=== PATIENT | male | born 1950 | race Caucasian/White ===

== ENCOUNTER 2018-02-20 21:29 | Emergency (ER) | payer OTHER ==
[2018-02-20 22:04] LABS: Absolute Lymphocytes (CBC) 2.7 K/uL (0.7-4.9); Absolute Monocytes 0.7 K/uL (0.1-1.3); Absolute Neutrophil 4.9 K/uL (1.8-8.0); Basophils % 0.8 % (0-1.3); Eosinophils % 1.4 % (0-4.4); Hematocrit 45.9 % (39.6-49.0); MCH 28.7 pg (27.0-35.0); MCV 88.4 fL (80-100); MPV 8.3 fL (7.6-11.3); Monocytes % 8.1 % (3.3-12.3); RBC Red Blood Cell Count 5.19 M/uL (4.33-5.43)
[2018-02-20] MEDS ORDERED: TAMSULOSIN 0.4 MG SR CAP ONE (22:08)
[2018-02-20] MEDS ORDERED: NA CHLORIDE 0.9% 500 ML ONE (22:08)
[2018-02-20] MEDS ORDERED: ONDANSETRON 4 MG/2 ML VIAL ONE (22:08)
[2018-02-20] MEDS ORDERED: MAGNESIUM SULFATE 1 gm IVPB 1 GM/100 ML BAG IV ONE (22:08)
[2018-02-20] MEDS ORDERED: MORPHINE 4 MG/ML SYR ONE ×2 (22:08→23:53)
[2018-02-20 22:11] LABS: Potassium 4.3 mEq/L (3.6-5.0)
[2018-02-20 22:17] LABS: Albumin 4.3 g/dL (3.2-5.5); Bilirubin Direct 0.2 mg/dL (0-0.2); Bilirubin Total 1.1 mg/dL (0.3-1.2); Protein, Total 7.4 g/dL (6.0-8.3)
[2018-02-20 23:44] LABS: Urine Blood 2+ (NEG); Urine Glucose NEGATIVE (NEG); Urine Protein NEGATIVE (NEG); Urine Specific Gravity >1.030 (1.005-1.030); Urine pH 5.5 (5.0-7.0)
[2018-02-20 23:46] LABS: Urine Bacteria <20 /HPF (NONE SEEN); Urine Culture Reflex Order NOT NEEDED; Urine Mucus MOD /HPF (NONE SEEN)
[2018-02-20] MEDS ORDERED: KETOROLAC 30 MG/ML INJ ONE (23:53)
--- NOTE | 2018-02-21 00:35 | ER ---
Nurse's Notes [facility] Name: Casa Lai Age: 67 yrs Sex: Male : 1950 Arrival Date: 02/20/2018 Time: 21:31 Bed 15 Private MD: Niko Cowart Diagnosis: Ureterolithiasis Presentation: 02/20 21:45 Presenting complaint: Patient states: "About 30 minutes ago I started having pain in my bs1 right lower back/flank.". Transition of care: patient was not received from another setting of care. Onset of symptoms was February 20, 2018 at 21:15. Care prior to arrival: None. 21:45 Method Of Arrival: Ambulatory bs1 21:45 Acuity: JANNA 3 bs1 Historical: - Allergies: 22:19 Phenergan; bs1 - Home Meds: 22:19 Crestor oral oral [Active]; Altace Oral [Active]; Doxycycline Oral [Active]; bs1 - PMHx: 22:19 Kidney stones; htn; High Cholesterol; bs1 - PSHx: 22:19 perirectal abscess; bs1 - Immunization history:: Adult Immunizations up to date. - Social history:: Smoking status: Patient/guardian denies using tobacco. - Family history:: not pertinent. - Hospitalizations: : No recent hospitalization is reported. Screenin:20 Abuse screen: Denies threats or abuse. Denies injuries from another. Nutritional bs1 screening: No deficits noted. Tuberculosis screening: No symptoms or risk factors identified. Fall Risk None identified. Assessment: 21:45 General: Appears uncomfortable, Behavior is cooperative, anxious. Pain: Complains of bs1 pain in right flank Pain does not radiate. Pain at worst was 10 out of 10 on a pain scale. Quality of pain is described as stabbing, Pain began 30 min ago. Neuro: Level of Consciousness is awake, alert, obeys commands, Oriented to person, place, time, situation, Appropriate for age Social Media Campaign Manager are equal bilaterally Moves all extremities. Gait is steady. Cardiovascular: Denies chest pain, palpitations, shortness of breath, Heart tones S1 S2 present Capillary refill < 3 seconds Patient's skin is warm and dry. Respiratory: Airway is patent Trachea midline Respiratory effort is even, unlabored, Respiratory pattern is regular, symmetrical, Breath sounds are clear bilaterally. GI: Abdomen is round Bowel sounds present X 4 quads. Abdomen is tender to palpation in right lower Reports nausea. : No deficits noted. No signs and/or symptoms were reported regarding the genitourinary system. Reports pain in right flank(s), Denies burning with urination, pain with urination. EENT: No deficits noted. No signs and/or symptoms were reported regarding the EENT system. Derm: No deficits noted. No signs and/or symptoms reported regarding the dermatologic system. Musculoskeletal: No deficits noted. No signs and/or symptoms reported regarding the musculoskeletal system. 22:45 Reassessment: No changes from previously documented assessment. Patient and/or family bs1 updated on plan of care and expected duration. Pain level reassessed. Patient is alert, oriented x 3, equal unlabored respirations, skin warm/dry/pink. 23:45 Reassessment: Patient appears in no apparent distress at this time. Patient and/or bs1 family updated on plan of care and expected duration. Pain level reassessed. Patient is alert, oriented x 3, equal unlabored respirations, skin warm/dry/pink. Patient states feeling better. 02/21 00:45 Reassessment: Patient appears in no apparent distress at this time. Patient and/or bs1 family updated on plan of care and expected duration. Pain level reassessed. Patient is alert, oriented x 3, equal unlabored respirations, skin warm/dry/pink. Patient states feeling better. Vital Signs: 02/20 21:58 BP 173 / 93; Pulse 69; Resp 16; Temp 97.6(O); Pulse Ox 97% on R/A; mt 22:34 BP 138 / 83; Pulse 74; Resp 16; Pulse Ox 99% on R/A; mt 02/21 00:02 BP 143 / 80; Pulse 63; Resp 16; Pulse Ox 100% on R/A; mt 00:45 BP 129 / 78; Pulse 82; Resp 16; Pulse Ox 100% on R/A; bs1 ED Course: 02/20 21:31 Patient arrived in ED. es 21:32 Niko Cowart MD is Private Physician. es 21:35 Sunday Pena MD is Attending Physician. rn 21:45 Inserted saline lock: 20 gauge in right antecubital area, using aseptic technique. lp1 Blood collected. 21:46 Donna Parra RN is Primary Nurse. bs1 22:05 CT Stone Protocol In Process Unspecified. EDMS 22:09 CT completed. Patient tolerated procedure well. Patient moved to CT via wheelchair. nj Patient moved back from [place]. 22:16 Triage completed. bs1 22:20 Patient has correct armband on for positive identification. Placed in gown. Bed in low bs1 position. Call light in reach. Side rails up X 1. Pulse ox on. NIBP on. 22:20 Patient placed. bs1 22:30 No provider procedures requiring assistance completed. bs1 02/21 00:53 IV discontinued, bleeding controlled, No redness/swelling at site. Pressure dressing bs1 applied. Administered Medications: 02/20 22:00 Drug: morphine 4 mg Route: IVP; Site: right antecubital; bs1 02/21 00:51 Follow up: Response: No adverse reaction [facility] 02/20 22:00 Drug: Zofran 4 mg Route: IVP; Site: right antecubital; bs1 02/21 00:51 Follow up: Response: No adverse reaction [facility] 02/20 22:00 Drug: NS 0.9% 500 ml Route: IV; Rate: bolus; Site: right antecubital; bs1 02/21 00:56 Follow up: IV Status: Completed infusion [facility] 02/20 22:00 Drug: Flomax 0.4 mg Route: PO; bs1 02/21 00:51 Follow up: Response: No adverse reaction [facility] 02/20 22:00 Drug: Magnesium Sulfate 1 grams Route: IVPB; Infused Over: 1 hrs; Site: right 1 antecubital; 02/21 00:55 Follow up: IV Status: Completed infusion [facility] 02/20 23:40 Drug: morphine 4 mg Route: IVP; Site: right antecubital; bs1 02/21 00:50 Follow up: Response: No adverse reaction [facility] 02/20 23:40 Drug: TORadol 30 mg Route: IVP; Site: right antecubital; bs1 02/21 00:50 Follow up: Response: No adverse reaction bs Outcome: 00:34 Discharge ordered by MD. avilez 00:52 Discharged to home ambulatory, with significant other. bs1 00:52 Condition: stable 00:52 Discharge instructions given to patient, Instructed on discharge instructions, follow up and referral plans. medication usage, Demonstrated understanding of instructions, follow-up care, medications, Prescriptions given X 3. 00:54 Patient left the ED. bs1 Signatures: Dispatcher [employer] Melissa Card Roman, MD MD rn Rishi, Jessika RN RN lp1 Charlie Mari Moriah mt Salazar, Brittany RN RN bs1
--- NOTE | 2018-02-21 00:35 | EDPHYS ---
Physician Documentation [facility] Name: Casa Lai Age: 67 yrs Sex: Male : 1950 Arrival Date: 02/20/2018 Time: 21:31 Bed 15 Private MD: Niko Cowart ED Physician Sunday Pena HPI: 02/20 22:00 This 67 yrs old Male presents to ER via Unassigned with complaints of rn Possible Kidney Stone. 22:00 The patient complains of pain in the right mid back. Onset: The symptoms/episode rn began/occurred just prior to arrival. Severity of pain: At its worst the pain was moderate in the emergency department the pain has resolved. The patient has experienced similar episodes in the past. The patient has not recently seen a physician. Denies trauma, + right flank pain, radiates to right lower abd, similar to previous stones, never needed intervention for stones.. Historical: - Allergies: 22:19 Phenergan; bs1 - Home Meds: 22:19 Crestor oral oral [Active]; Altace Oral [Active]; Doxycycline Oral [Active]; bs1 - PMHx: 22:19 Kidney stones; htn; High Cholesterol; bs1 - PSHx: 22:19 perirectal abscess; bs1 - Immunization history:: Adult Immunizations up to date. - Social history:: Smoking status: Patient/guardian denies using tobacco. - Family history:: not pertinent. - Hospitalizations: : No recent hospitalization is reported. ROS: 22:00 Constitutional: Negative for fever, chills, and weight loss, Eyes: Negative for injury, rn pain, redness, and discharge, Neck: Negative for injury, pain, and swelling, Cardiovascular: Negative for chest pain, palpitations, and edema, Respiratory: Negative for shortness of breath, cough, wheezing, and pleuritic chest pain, Abdomen/GI: Negative for vomiting, diarrhea, and constipation, Back: Negative for injury MS/Extremity: Negative for injury and deformity, Skin: Negative for injury, rash, and discoloration, Neuro: Negative for headache, weakness, numbness, tingling, and seizure. Exam: 22:00 Constitutional: This is a well developed, well nourished patient who is awake, alert, rn appears uncomfortable Head/Face: Normocephalic, atraumatic. Eyes: Pupils equal round and reactive to light, extra-ocular motions intact. Lids and lashes normal. Conjunctiva and sclera are non-icteric and not injected. Cornea within normal limits. Periorbital areas with no swelling, redness, or edema. Abdomen/GI: Soft, non-tender, with normal bowel sounds. No distension or tympany. No guarding or rebound. No evidence of tenderness throughout. Back: No spinal tenderness. No costovertebral tenderness. Full range of motion. MS/ Extremity: Pulses equal, no cyanosis. Neurovascular intact. Full, normal range of motion. Equal circumference. Neuro: Awake and alert, GCS 15, oriented to person, place, time, and situation. Cranial nerves II-XII grossly intact. Motor strength 5/5 in all extremities. Sensory grossly intact. Cerebellar exam normal. Normal gait. Vital Signs: 21:58 BP 173 / 93; Pulse 69; Resp 16; Temp 97.6(O); Pulse Ox 97% on R/A; mt 22:34 BP 138 / 83; Pulse 74; Resp 16; Pulse Ox 99% on R/A; mt 02/21 00:02 BP 143 / 80; Pulse 63; Resp 16; Pulse Ox 100% on R/A; mt 00:45 BP 129 / 78; Pulse 82; Resp 16; Pulse Ox 100% on R/A; bs1 MDM: 02/20 21:35 Patient medically screened. rn 02/21 00:34 Differential diagnosis: nephrolithiasis, UTI. Data reviewed: vital signs, nurses notes, pattern changer test result(s), radiologic studies, CT scan, and as a result, I will discharge patient. Counseling: I had a detailed discussion with the patient and/or guardian regarding: the historical points, exam findings, and any diagnostic results supporting the discharge/admit diagnosis, lab results, radiology results, the need for outpatient follow up, to return to the emergency department if symptoms worsen or persist or if there are any questions or concerns that arise at home. Response to treatment: the patient's symptoms have markedly improved after treatment, and as a result, I will discharge patient. Special discussion: I discussed with the patient/guardian in detail that at this point there is no indication for admission to the hospital. It is understood, however, that if the symptoms persist or worsen the patient needs to return immediately for re-evaluation. 02/20 21:42 Order name: Basic Metabolic Panel rn 02/20 21:42 Order name: CBC with Diff rn 02/20 21:42 Order name: Hepatic Function rn 02/20 21:42 Order name: Lipase rn 02/20 21:42 Order name: Urine Microscopic Only rn 02/20 21:42 Order name: CT Stone Protocol rn 02/20 23:16 Order name: Urine Dipstick--Ancillary (enter results) em1 02/20 21:42 Order name: IV Saline Lock; Complete Time: 22:00 rn 02/20 21:42 Order name: Labs collected and sent; Complete Time: 22:00 rn 02/20 21:42 Order name: Urine Dipstick-Ancillary (obtain specimen); Complete Time: 23:13 rn Administered Medications: 02/20 22:00 Drug: morphine 4 mg Route: IVP; Site: right antecubital; [facility] 02/21 00:51 Follow up: Response: No adverse reaction [facility] 02/20 22:00 Drug: Zofran 4 mg Route: IVP; Site: right antecubital; [facility] 02/21 00:51 Follow up: Response: No adverse reaction [facility] 02/20 22:00 Drug: NS 0.9% 500 ml Route: IV; Rate: bolus; Site: right antecubital; [facility] 02/21 00:56 Follow up: IV Status: Completed infusion [facility] 02/20 22:00 Drug: Flomax 0.4 mg Route: PO; [facility] 02/21 00:51 Follow up: Response: No adverse reaction [facility] 02/20 22:00 Drug: Magnesium Sulfate 1 grams Route: IVPB; Infused Over: 1 hrs; Site: right bs1 antecubital; 02/21 00:55 Follow up: IV Status: Completed infusion [facility] 02/20 23:40 Drug: morphine 4 mg Route: IVP; Site: right antecubital; [facility] 02/21 00:50 Follow up: Response: No adverse reaction [facility] 02/20 23:40 Drug: TORadol 30 mg Route: IVP; Site: right antecubital; [facility] 02/21 00:50 Follow up: Response: No adverse reaction [facility] Disposition: 02/21/18 00:34 Discharged to Home. Impression: Ureterolithiasis. - Condition is Stable. - Discharge Instructions: Kidney Stones. - Prescriptions for Zofran ODT 4 mg Oral tablet,disintegrating - place 1 tablet by TRANSLINGUAL route every 8-10 hours As needed; 20 tablet. Tylenol- Codeine #3 300-30 mg Oral Tablet - take 2 tablets by ORAL route every 6 hours As needed; 20 tablet. Flomax 0.4 mg Oral Capsule, Sust. Release 24 hr - take 1 capsule by ORAL route once daily 1/2 hour following the same meal each day; 5 capsule. - Medication Reconciliation Form, Thank You Letter, Antibiotic Education, Prescription Opioid Use form. - Follow up: Private Physician; When: As needed; Reason: Recheck today's complaints, Re-evaluation by your physician. - Problem is new. - Symptoms have improved. Signatures: Dispatcher [employer] Sunday Caal MD MD rn Donna Parra RN RN bs1 Corrections: (The following items were deleted from the chart) 02/20 21:57 21:42 Creatinine for Radiology+C.LAB.BRZ ordered. EDNC EDMS
--- NOTE | 2018-02-21 08:05 | RAD REPORT ---
EXAM DESCRIPTION: CT - Stone Protocol - 02/20/2018 10:05 pm CLINICAL HISTORY: Flank pain. COMPARISON: None. TECHNIQUE: Axial images were obtained without oral or IV contrast. Lack of contrast limits solid org an and vascular assessment. The [id number] spans the entirety of the system partially obscuring uppermost abdomen and lung bases. Coronal reformatted images were obtained and reviewed. All CT scans are performed using dose optimization technique as appropriate and may include automated exposure control or mA/KV adjustment according to patient size. FINDINGS: The lower lung walker are clear. Imaged portions of the liver and spleen show no suspicious findings on non-contrast imaging. The panc reas and adrenal glands are normal. No pathologic lymphadenopathy in the abdomen or pelvis. Small 2 mm calculus at the right UVJ is present causing mild right hydronephrosis. Several low-densit y rounded lesions in both kidneys most compatible with benign cysts. No bowel obstruction, free air, free fluid or abscess. Normal appendix noted. Advanced lumbosacral degenerative changes. IMPRESSION: 2 mm stone is present at the right UVJ resulting in mild right hydronephrosis.
== END 2018-02-21 00:54 | disposition home or self-care (01) ==
LOC: ER 21:29
DX: N20.1 Calculus of ureter (principal); I10 Essential (primary) hypertension; E78.00 Pure hypercholesterolemia, unspecified; Z88.8 Allergy status to other drugs, medicaments and biological substances
CPT/HCPCS: 36415; 74176; 76377; 80048; 80076; 81003; 81015; 83690; 85025; 96365; 96366; 96375; 99284; J2405; J3475

== ENCOUNTER 2023-07-15 09:26 | Emergency (ER) | payer OTHER ==
--- OUTSIDE RECORDS SUMMARY | 2023-07-15 09:29 | XMS REPORT | Clinical Summary ---
:1950 Author Organization [facility] MD [facility] Address [address] [place] [address] Care Team Providers Name Role Phone Niko Cowart MD Unavailable Kaia Murphy MD Primary Care Provider Allergies Active Allergy Reactions Severity Noted Date Comments Peanut 05/09/2019 vomiting Promethazine Other (See Comments) 05/09/2019 vomitin g Medications Medication Sig Dispensed Refills Start Date End Date Status doxycycline TAKE 1 CAPSULE BY 1 04/14/2019 Active (VIBRAMYCIN) 50 MG MOUTH EVERY DAY capsule clotrimazole-betametha TOPICAL APPLY TO 2 04/18/2019 Active sone (LOTRISONE) AFFECTED AREA 1%-0.05% cream TWICE DAILY NEEDED. rosuvastatin (CRESTOR) 0 05/06/2019 Active 10 mg tablet zolpidem (AMBIEN CR) TAKE 1 TABLET BY 2 04/14/2019 Active 12.5 mg CR tablet MOUTH EVERY DAY AT BEDTIME NEEDED ramipril (ALTACE) 10 0 05/06/2019 Active MG capsule mupirocin (BACTROBAN) Apply to nose as 22 g 2 05/09/2019 Active 2% directed BID x 14 ointmentIndications: days. Folliculitis Additional Information Patient not taking. Reported on 06/19/2022 clindamycin (CLEOCIN T) 1% Apply to scalp as 60 mL 6 05/09 Active lotionIndications: Folliculitis directed once daily. Additional Information Patient not taking. Reported on 06/19/2022 erythromycin with ethanol Apply up to twice daily 60 mL 6 05/09/2019 Active (THERAMYCIN) 2 % topical for scalp folliculitis solutionIndications: Folliculitis Additional Information Patient not taking. Reported on 06/19/2022 temazepam (RESTORIL) 30 mg TAKE 1 CAPSULE BY MOUTH 0 05/06/2020 Active capsule EVERYDAY AT BEDTIME zolpidem (AMBIEN) 10 mg tablet Take 10 mg by mouth. 0 Active omega-3s/dha/epa/fish oil/D3 Take by mouth. 0 Active (DE3 DRY EYE OMEGA BENEFITS ORAL) mupirocin (BACTROBAN) 2% Apply topically to affected 22 g 0 06/25/2023 Active ointmentIndications: Infection area(s) twice daily. of skin Active Problems Not on file Encounters Date Type Specialty Care Team Description 06/25/2023 Telephone Dermatology Charlene Mcgrath MD 06/20/2023 Follow-Up Dermatology Blaine Julian MD Other rosace a (Primary Dx); History of alesha gnant basal cell neoplasm of skin; Neoplasm of unc ertain behavior of skin; Melanocytic nev us of trunk; Melanocytic nev us of right upper limb including shoulder; Folliculitis 06/20/2023 Travel 12/20/2022 Follow-Up Dermatology Blaine Julian MD Melanocytic nevus of trunk (Primary Dx); History of alesha gnant basal cell neoplasm of skin; Other rosacea; Melanocytic nev us of right upper limb including shoulder; Inflamed seborr heic keratosis; Folliculitis 12/20/2022 Travel after 07/15/2022 Surgical History Surgery Date Site/Laterality Comments COLONOSCOPY 11/26/2008 - 11/25/2009 Medical History Medical History Date Comments Hypertension 2010 Hyperlipidemia 2005 Hearing loss 2013 Functional visual loss 2000 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 shoe dust; asb estos gaskets as a engraver letter/boil ermake Dependence on continuous positive airway 1995 pressure ventilation Renal stone 1999 Squamous cell carcinoma in situ of skin 2019 Basal cell carcinoma of skin 2019 Social History Tobacco Use Types Packs/Day Years Used Date Smoking Tobacco: Never Smokeless Tobacco: Never Alcohol Use Standard Drinks/Week Comments Never 0 (1 standard drink = 0.6 oz pure alcoho l) Sex Assigned at Date Recorded Male 04/26/2019 4:22 PM CDT Job Start Date Occupation Industry Not on file Not on file Not on file Obstetrics History Last Filed Vital Signs Vital Sign Reading Time Taken Comments Blood Pressure 154/72 06/20/2023 2:12 PM CDT Pulse 77 06/20/2023 2:12 PM CDT Temperature 36.8 C (98.2 F) 06/20/2023 2:12 PM CDT Respiratory Rate 18 06/20/2023 2:12 PM CDT Oxygen Saturation 96% 06/20/2023 2:12 PM CDT Inhaled Oxygen Concentration - - Weight 88.5 kg (195 lb) 06/20/2023 2:12 PM CDT Height - - Body Mass Index 30.25 05/09/2019 9:37 AM CDT Plan of Treatment Date Type Specialty Care Team Description 12/19/2023 Follow-Up Dermatology Blaine Julian MD [address], [place] [address] (Wo rk) Health Maintenance Due Date Last Done Comments COVID-19 Vaccination (#1) 03/14/1951 Procedures Procedure Name Priority Date/Time Associated Comments Diagnosis PATHOLOGY BIOPSY Routine 06/20/2023 2:51 PM Neoplasm of Resul ts for this INTERPRETATION CDT uncertain behavior procedu re are in of skin the results History of section. malignant basal cell neoplasm of skin after 07/15/2022 Results Pathology Biopsy Interpretation (06/20/2023 2:51 PM CDT) Component Value Ref Test Analysis Performed Pathologis t Range Method Time At Signature Diagnosis A: Skin, left lateral anterior chest, shave: 06/22/2023 [facility] Electronically Hyperplastic actinic keratosis, lichenoid type, presen t at tissue edges. 6:01 PM signed by See comment. CDT Leo Garza MD on B: Skin, left sternal border, shave: 06/22/2023 at Seborrheic keratosis, inflamed, present at tissue edges. 6:01 PM Focal folliculitis. C: Skin, left jawline, shave: Actinic keratosis with adnexal extension, present at tissue edges Superficial aspect of underl quirino cystic squamous lesion in association with small clusters of gram-positive cocci, present at tissue edges. See comment. Comment A: Additional deeper tissue sections have been cut and examined. A periodic acid-Salazar stain fails to reveal unequivocal fungal organisms within viable tissue or basement membrane thickening. 023 [facility] 6:01 PM C: Sections reveal a shave b iopsy of skin to include superficial reticular dermis showing skin with background actinic changes and basilar keratinocytic atypia with adnexal extension. Within the dermis, CDT there is dermal vascular ec hussein and an irregular fragment of stratified squamous epithelium, in association with dense neutrophilic and lymphohistiocytic infiltrate, suggestive of superficial aspect o f an underlying cystic lesio n. Additional deeper tissue sections have been cut and examined. Gram stain highlights gram-p ositive cocci in clusters and short chains, while GMS and Marie failed to reveal unequivocal fungal or mycobacterial/acid-fast organisms respectively within viable tissue. In addition, GMS stain highligh ts rare small budding yeast forms, while Gram stain highlights several gram-positive cocci in anucleate keratinous material of the stratum corneum. Correlation with results o f microbiology cultures is necessary, if available. The presence of associated d ense inflammatory infiltrate raises the possibility of a ruptured folliculitis or follicular cyst. However, due to irregularity of the squamous epithelium, and underlying squ amous cell carcinoma cannot be completely excluded on histologic grounds alone. Close clinical follow-up is recommended and an additional biopsy may be considered should this lesion fail to respond to conservative therapy. Gross A: 06/22/2023 [facility] Description Skin, left lateral anterior chest, neoplasm uncertain behavior: A limon-white skin shave measuring 0.6 x 0.5 x 0.2 cm. The specimen is inked, bisected, entirely submitted in A1. 6:01 PM B: CDT Skin, left sternal border, i sk: A roughened, nodular limon-white skin shave measuring 1.4 x 1.0 x 0.2 cm. The specimen is inked, quadrisected, entirely submitted in B1. C: Skin, left jawline, neoplasm uncertain behavior: A limon-white skin shave measuring 0.5 x 0.4 x 0.1 cm. The specimen is inked, bisected, entirely submitted in C1. Survey Rodman(s) This case was studied and di scussed at the dermatopathology faculty conference. 06/22/2023 [facility] JLC, WCC 6:01 PM CDT Disclaimer "Some tests 06/22/2023 [facility] reported here may 6:01 PM have been developed CDT and performance characteristics determined by [facility]. These tests have not been specifically cleared or approved by the U.S. Food and Drug Administration. If applicable, controls were reviewed and showed appropriate reactivity." Specimen Anatomical Collection Method Collection Time Receive d Time (Source) Location / / Volume Laterality Tissue (Skin) 06/20/2023 2:51 PM 06/21/20 7:28 CDT AM CDT Comment: left lateral anterior chest, ne oplasm uncertain behavior Tissue (Skin) 06/20/2023 2:52 PM CDT 05/27 7:28 AM CDT Comment: left sternal border, ISK Tissue (Skin) 06/20/2023 2:52 PM CDT 05/27 7:28 AM CDT Comment: left jawline, neoplasm uncertai n behavior Blaine Julian MD LAB PATHOLOGY ORDERABLES Performing Organization Address City/State/ZIP Code Phon e Number [facility] [place] [address] [address] [place] after 07/15/2022 Insurance Payer Benefit Plan / Subscriber ID Effective Dates Phone Addre ss Type Group AETNA MEDICARE AETNA MEDICARE [id number] 2021-Presen [address] [place] [address] Care Teams Advertising Sales Agent Relationship Specialty Start Date End Date Niko Cowart MD PCP - External Referring Family Practice 04/09/[address] [place] [address] [id number] Kaia Murphy MD PCP - General Dermatology 04/24/[address] [place] [id number]
--- OUTSIDE RECORDS SUMMARY | 2023-07-15 09:32 | XMS REPORT | Continuity of Care Document ---
:1950 Author Organization [facility] t Address [address] [place] [address] [address] [place] [address] Care Team Providers Name Role Phone Tanvi Hale Primary Care Physician TOMMY DOBBS Attending Clinician Unavailable IRASEMA BARILLAS Attending Clinician Unavailable Ramila MUIR, Charlene Juares Attending Clinician Bo Lopez MD Attending Clinician BO LOPEZ Attending Clinician Unavailable Payers Payer Name Policy Type Policy Number Effective Date Expiration Date S ource AET[employer] MEDICARE [id number] 2020 PPO 00:00:00 AETNA MEDICARE [id number] 2019 PPO 00:00:00 AETNA O [id number] 00:00:00 MEDICARE PART A [id number] 2017 2019 AND B 00:00:00 00:00:00 Problems Condition Condition Condition Status Onset Resolution Last Treating Co mments Source Name Details Category Date Date Treatment Clinician Date 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 00:00: of of 00 overlappin overlappin g sites of g sites of urethra in urethra 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 Erectile Erectile Disease Active UT dysfunctio dysfunctio 03-29 He alth n n 00:00: following following 00 urethral urethral surgery surgery Benign Benign Disease Active [facility] prostatic prostatic 03-29 Heal th hyperplasi hyperplasi 00:00: a with a with 00 weak weak urinary urinary stream stream N20.0 N20.0 Diagnosis Active 2021-112022-11-29 Mem oria Active 12-24 11:21:00 l 10/24/2022 00:00: Evelio n [facility] 00 Hira N20.0 - N20.0 - Diagnosis Active 2020-12-20 Memoria 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 09:38:00 l OF KIDNEY OF KIDNEY 00:01: Vickie laird Active 00 12/06/2020 [facility] Hyperchole Hyperchol Problem Resolve 2021-04-01 Memoria sterolemia esterolemi d 01:58:30 l (disorder) a Evelio n (disorder) Resolved [facility]pertensi Hypertens Problem Resolve 2021-04-01 Memoria ve paulina d 01:58:30 l disorder, disorder, Herm eitan systemic systemic arterial arterial (disorder) (disorder) Resolved Problem 04/01/[address] [facility] Sleep Sleep Problem Resolve 2021-04-01 Mem oria apnea apnea d 01:58:30 l (finding) (finding) Herm eitan Resolved Problem 04/01/[address] [facility] Benign Benign Problem Active 2022-10-27 Greg antonella prostatic prostatic 14:58:50 l hyperplasi hyperplasi He rmann a a (disorder) (disorder) Active Problem 10/27/[address] [facility] Hydrourete Hydrouret Problem Active 2022-10-27 Memoria ronephrosi eronephros 14:58:50 l s is [place] (disorder) (disorder) Active Problem 10/27/2022 [facility] Kidney Kidney Problem Active 2022-10-27 Greg antonella stone stone 14:58:50 l (disorder) (disorder) He rmann Active Problem 10/27/2022 [facility] Patient Patient Problem Active 2022-10-27 Me moria encounter encounter 14:58:50 l status status Hira (finding) (finding) Active Problem 10/27/2022 [facility] Urinary Urinary Problem Active 2022-10-27 Me moria bladder bladder 14:58:50 l stone stone Hira (disorder) (disorder) Active Problem 10/27/[address] [facility] Allergies, Adverse Reactions, Alerts Allergy Allergy Status Severity Reaction(s) Onset Inactive Treating Comm ents Source Name Type Date Date Clinician Prometha Allergy Active Other [place] zine to 614 reaction( Health substanc 00:00: s): Other e 00 (See Comments) vomiting Peanut-C Allergy Active vomiting UT ontainin to 614 Health g Drug substanc 00:00: Products e 00 PEANUT DRUG Active 0 MD INGREDI 6-14 Anderso 00:00: n 00 PROMETHA DRUG Active Other 0 MD ZINE INGREDI 614 Anderso 00:00: n 00 PROMETHA DRUG Active Other 0 MD ZINE INGREDI 614 Anderso 00:00: n 00 PROMETHA DRUG Active Other 2018-0 MD ZINE INGREDI 614 Anderso 00:00: n 00 PROMETHA DRUG Active Other 2018-0 MD ZINE INGREDI 614 Anderso 00:00: n 00 PROMETHA DRUG Active Other 2018-0 MD ZINE INGREDI 614 Anderso 00:00: n 00 PROMETHA DRUG Active Other 2019-0 MD ZINE INGREDI 6-14 Anderso 00:00: n 00 PROMETHA DRUG Active Other 2019-0 MD ZINE INGREDI 6-14 Anderso 00:00: n 00 PROMETHA DRUG Active Other 2019-0 MD ZINE INGREDI 6-14 Anderso 00:00: n 00 PROMETHA DRUG Active Other 2019-0 MD ZINE INGREDI 6-14 Anderso 00:00: n 00 PROMETHA DRUG Active Other 2019- MD ZINE INGREDI 6-14 Anderso 00:00: n 00 PROMETHA DRUG Active Other 2019- MD ZINE INGREDI 6-14 Anderso 00:00: n 00 PROMETHA DRUG Active Other 2019- MD ZINE INGREDI 6-14 Anderso 00:00: n 00 PROMETHA DRUG Active Other 2019- MD ZINE INGREDI 6-14 Anderso 00:00: n 00 PROMETHA DRUG Active Other 2019- MD ZINE INGREDI 6-14 Anderso 00:00: n 00 Peanut Propensi Active 2018- vomiting Univer s ty to 05-09 ity of adverse 00:00: [place] reaction 00 MD [facility] Prometha Propensi Active Other (See 2019- vomiting Univers zine ty to Comments) 05-09 ity of adverse 00:00: [place] reaction 00 MD [facility] Social History Social Habit Start Date Stop Date Quantity Comments Source Exposure to 2023-04-16 2023-04-26 Not sure [facility] SARS-CoV-2 00:00:00 09:01:00 (event) Tobacco use and 2023-03-29 2023-03-29 Smokeless tobacco [facility] exposure 00:00:00 00:00:00 non-user Alcohol intake 2019-05-09 2019-05-09 [facility] 00:00:00 00:00:00 non-drinker [facility] (finding[facility] Sex Assigned At [birth year] M [facility] 00:00:00 00:00:00 Smoking Status Start Date Stop Date Source Never smoked tobacco [facility] Medications Ordered Filled Start Stop Current Ordering Indication Dosage Frequency Signature Comments Components Source Medication Medication Date Date Medication? Clinician (SIG) Name Name chlorhexidi 2022- Yes [id number] 15mL Q.25D Use 15 mL UT ne 8 08-22 in the Health (Peridex) 00:00: 04:59 mouth or 0.12 % 00 :00 throat in solution the morning and 15 mL at noon and 15 mL in the evening and 15 mL before bedtime. Do all this for 14 days. diphenhydrA 2022-0 Yes [id number] 5mL Swish and UT MINE HCl 8 spit 5 mL Health (MAGIC 00:00: every 3 MOUTHWASH 00 (three) ORAL hours if SUSPENSION needed for MIXTURE, mucositis LIDO/BENADR or YL/MAALOX,) stomatitis . mupirocin 0 Yes Infection Apply Un melissa (BACTROBAN) 7-31 of skin topically ity of 2% ointment 00:00: to [place] affected MD area(s) Anderso twice n daily. [facility] mupirocin 2022-0 Yes Infection Apply Un melissa (BACTROBAN) 7-31 of skin topically ity of 2% ointment 00:00: to [place] affected MD area(s) Anderso twice n daily. [facility] sulfamethox 2022-0 Yes 1{tbl} UT azole-trime 04-26 Health thoprim 15:00: (Bactrim 00 DS) 800-160 MG per tablet 1 tablet sulfamethox 2022-0 Yes 1{tbl} UT azole-trime 04-26 Health thoprim 15:00: (Bactrim 00 DS) 800-160 MG per tablet 1 tablet Vibegron 2022-0 Yes Take by UT (Gemtesa) 6 mouth. Health 75 MG 09:32: tablet 56 Vibegron 3-0 Yes Take by UT (Gemtesa) 6- mouth. Health 75 MG 09:32: tablet 56 Vibegron 2023-0 Yes Take by UT (Gemtesa) - mouth. Health 75 MG 09:03: tablet 14 tadalafil 2022-0 2023- No [id number] 20mg Take 1 UT (Cialis) 20 - 09-02 tablet (20 H ealth MG tablet 00:00: 04:59 mg total) 00 :00 by mouth 1 (one) time each day if needed for erectile dysfunctio n. tadalafil 3-0 2022- No [id number] 20mg Take 1 UT (Cialis) 20 5-04 09-02 tablet (20 H ealth MG tablet 00:00: 04:59 mg total) 00 :00 by mouth 1 (one) time each day if needed for erectile dysfunctio n. tadalafil 2023-0 2022- No [id number] 20mg Take 1 UT (Cialis) 20 5-04 09-02 tablet (20 H ealth MG tablet 00:00: 04:59 mg total) 00 :00 by mouth 1 (one) time each day if needed for erectile dysfunctio n. tamsulosin 2022-0 Yes UT (Flomax) 4-10 Health 0.4 MG 24 00:00: hr capsule 00 tamsulosin 3-0 2022- No UT (Flomax) 4-10 06-01 Health 0.4 MG 24 00:00: 00:00 hr capsule 00 :00 ramipril 2023-0 Yes TAKE 1 UT (Altace) 10 4-07 CAPSULE BY He alth MG capsule 00:00: MOUTH 00 EVERY DAY. PT NEEDS APPT! ramipril 2023-0 Yes TAKE 1 UT (Altace) 10 4-07 CAPSULE BY He alth MG capsule 00:00: MOUTH 00 EVERY DAY. PT NEEDS APPT! ramipril 2023-0 Yes TAKE 1 UT (Altace) 10 4-07 CAPSULE BY He alth MG capsule 00:00: MOUTH 00 EVERY DAY. PT NEEDS APPT! sulfamethox 3-0 Yes 1{tbl} Q.5D Take 1 UT azole-trime 3-21 tablet by a lth thoprim 00:00: mouth in (Bactrim 00 the DS) 800-160 morning MG tablet and 1 tablet in the evening. FOR 14 DAYS. sulfamethox 2023-0 2023- No 1{tbl} Q.5D Take 1 U T azole-trime 3-21 06-01 tablet by He alth thoprim 00:00: 00:00 mouth in (Bactrim 00 :00 the DS) 800-160 morning MG tablet and 1 tablet in the evening. FOR 14 DAYS. cefpodoxime 2022-0 Yes TAKE 1 UT (Vantin) 2-07 TABLET BY Health 200 MG 00:00: MOUTH tablet 00 EVERY 12 HOURS FOR 10 DAYS ciprofloxac 2022-0 Yes TAKE 1 UT in (Cipro) 2-07 TABLET BY Heal th 500 MG 00:00: MOUTH tablet 00 EVERY 12 HOURS FOR 10 DAYS cefpodoxime 2022-0 2022- No TAKE 1 UT (Vantin) 01-02 TABLET BY Healt h 200 MG 00:00: 00:00 MOUTH tablet 00 :00 EVERY 12 HOURS FOR 10 DAYS ciprofloxac 2022-0 3- No TAKE 1 UT in (Cipro) 01-02 TABLET BY Hea lth 500 MG 00:00: 00:00 MOUTH tablet 00 :00 EVERY 12 HOURS FOR 10 DAYS rosuvastati 2022-0 Yes 10mg QD Take 10 mg UT n (Crestor) 1-16 by mouth 1 He alth 10 MG 00:00: (one) time tablet 00 each day. rosuvastati 2022-0 Yes 10mg QD Take 10 mg UT n (Crestor) 1-16 by mouth 1 He alth 10 MG 00:00: (one) time tablet 00 each day. rosuvastati 2022-0 Yes 10mg QD Take 10 mg UT n (Crestor) 1-16 by mouth 1 He alth 10 MG 00:00: (one) time tablet 00 each day. traMADol 2022-0 Yes 50mg Take 50 mg UT (Ultram) 50 13 by mouth Heal th MG tablet 00:00: every 8 00 (eight) hours if needed. FOR 5 DAYS phenazopyri 2022-0 Yes 200mg [id number] Take 200 UT dine -13 [id number] mg by Health (Pyridium) 00:00: 3D mouth in 200 MG 00 the tablet morning and 200 mg at noon and 200 mg in the evening. FOR 4 DAYS. hyoscyamine 2022-0 Yes 1 TAB UT (Levsin) 1-13 SUBLINGUAL Healt h 0.125 MG SL 00:00: EVERY 4 tablet 00 HOURS NEEDED :BLADDER SPASM traMADol 2022-0 2022- No 50mg Take 50 mg UT (Ultram) 50 12-08 by mouth Hea lth MG tablet 00:00: 00:00 every 8 00 :00 (eight) hours if needed. FOR 5 DAYS phenazopyri 2022-0 2022- No 200mg Q.[id number] Take 200 UT dine 12-08 [id number] mg by Health (Pyridium) 00:00: 00:00 3D mouth in 200 MG 00 :00 the tablet morning and 200 mg at noon and 200 mg in the evening. FOR 4 DAYS. hyoscyamine 2022-0 2022- No 1 TAB UT (Levsin) 12-08 SUBLINGUAL Heal th 0.125 MG SL 00:00: 00:00 EVERY 4 tablet 00 :00 HOURS NEEDED :BLADDER SPASM zolpidem 2022-0 Yes 10mg Take 10 mg UT (Ambien) 10 1-03 by mouth Heal th MG tablet 00:00: every 00 night. zolpidem 3-0 Yes 10mg Take 10 mg UT (Ambien) 10 1-03 by mouth Heal th MG tablet 00:00: every 00 night. zolpidem 3-0 Yes 10mg Take 10 mg UT (Ambien) 10 1-03 by mouth Heal th MG tablet 00:00: every 00 night. omega-3s/dh Yes Take by Uni vers a/epa/fish 7-25 mouth. ity of oil/D3 (DE3 16:25: [place] DRY EYE 50 OMEGA Anderso BENEFITS n ORAL) [facility] omega-3s/dh 0 Yes Take by Uni vers a/epa/fish 7-25 mouth. ity of oil/D3 (DE3 16:25: [place] DRY EYE 50 OMEGA Anderso BENEFITS n ORAL) [facility] Center omega-3s/dh 0 Yes Take by Uni vers a/epa/fish 7-25 mouth. ity of oil/D3 (DE3 16:25: [place] DRY EYE 50 OMEGA Anderso BENEFITS n ORAL) [facility] Center omega-3s/dh 2021-0 Yes Take by Uni vers a/epa/fish 7-25 mouth. ity of oil/D3 (DE3 16:25: [place] DRY EYE 50 OMEGA Anderso BENEFITS n ORAL) Cancer Center omega-3s/dh 0 Yes Take by Uni vers a/epa/fish 7-25 mouth. ity of oil/D3 (DE3 16:25: [place] DRY EYE 50 OMEGA Anderso BENEFITS n ORAL) Cancer Center omega-3s/dh 0 Yes Take by Uni vers a/epa/fish 7-25 mouth. ity of oil/D3 (DE3 16:25: [place] DRY EYE 50 MD OMEGA Anderso BENEFITS n ORAL) [facility] Center omega-3s/dh 0 Yes Take by Uni vers a/epa/fish 7-25 mouth. ity of oil/D3 (DE3 16:25: [place] DRY EYE 50 MD OMEGA Anderso BENEFITS n ORAL) [facility] Center omega-3s/dh Yes Take by Uni vers a/epa/fish 7-25 mouth. ity of oil/D3 (DE3 16:25: [place] DRY EYE 50 MD OMEGA Anderso BENEFITS n ORAL) [facility] omega-3s/dh Yes Take by Uni vers a/epa/fish 7-25 mouth. ity of oil/D3 (DE3 16:25: [place] DRY EYE 50 MD OMEGA Anderso BENEFITS n ORAL) Cancer Center omega-3s/dh Yes Take by Uni vers a/epa/fish 7-25 mouth. ity of oil/D3 (DE3 16:25: [place] DRY EYE 50 MD OMEGA Anderso BENEFITS n ORAL) [facility] Center omega-3s/dh Yes Take by Uni vers a/epa/fish 7-25 mouth. ity of oil/D3 (DE3 16:25: [place] DRY EYE 50 MD OMEGA Anderso BENEFITS n ORAL) [facility] Center omega-3s/dh Yes Take by Uni vers a/epa/fish 7-25 mouth. ity of oil/D3 (DE3 16:25: [place] DRY EYE 50 MD OMEGA Anderso BENEFITS n ORAL) Cancer Center omega-3s/dh Yes Take by Uni vers a/epa/fish 7-25 mouth. ity of oil/D3 (DE3 16:25: [place] DRY EYE 50 MD OMEGA Anderso BENEFITS n ORAL) [facility] Center omega-3s/dh 0 Yes Take by Uni vers a/epa/fish 7-25 mouth. ity of oil/D3 (DE3 16:25: [place] DRY EYE 50 MD OMEGA Anderso BENEFITS n ORAL) [facility] Center omega-3s/dh Yes Take by Uni vers a/epa/fish 7-25 mouth. ity of oil/D3 (DE3 16:25: [place] DRY EYE 50 OMEGA Anderso BENEFITS n ORAL) Cancer Center omega-3s/dh Yes Take by Uni vers a/epa/fish 7-25 mouth. ity of oil/D3 (DE3 16:25: [place] DRY EYE 50 OMEGA Anderso BENEFITS n ORAL) Cancer Center omega-3s/dh Yes Take by Uni vers a/epa/fish 7-25 mouth. ity of oil/D3 (DE3 16:25: [place] DRY EYE 50 OMEGA Anderso BENEFITS n ORAL) [facility] Center omega-3s/dh Yes Take by Uni vers a/epa/fish 7-25 mouth. ity of oil/D3 (DE3 16:25: [place] DRY EYE 50 OMEGA Anderso BENEFITS n ORAL) Cancer Center omega-3s/dh Yes Take by Uni vers a/epa/fish 7-25 mouth. ity of oil/D3 (DE3 16:25: [place] DRY EYE 52 MD BANDA Anderso BENEFITS n ORAL) [facility] zolpidem Yes 10mg Take 10 mg Uni vers (AMBIEN) 10 7-25 by mouth. ity of mg tablet 15:31: [place] [address] [facility] zolpidem Yes 10mg Take 10 mg Uni vers (AMBIEN) 10 7-25 by mouth. ity of mg tablet 15:31: [place] [address] [facility] zolpidem Yes 10mg Take 10 mg Uni vers (AMBIEN) 10 7-25 by mouth. ity of mg tablet 15:31: [place] [address] [facility] zolpidem Yes 10mg Take 10 mg Uni vers (AMBIEN) 10 7-25 by mouth. ity of mg tablet 15:31: [place] [address] [facility] zolpidem Yes 10mg Take 10 mg Uni vers (AMBIEN) 10 7-25 by mouth. ity of mg tablet 15:31: [place] [address] [facility] zolpidem Yes 10mg Take 10 mg Uni vers (AMBIEN) 10 7-25 by mouth. ity of mg tablet 15:31: [place] [address] [facility] zolpidem Yes 10mg Take 10 mg Uni vers (AMBIEN) 10 7-25 by mouth. ity of mg tablet 15:31: [place] [address] [facility] zolpide Yes 10mg Take 10 mg Uni vers (AMBIEN) 10 7-25 by mouth. ity of mg tablet 15:31: [place] [address] [facility] zolpide Yes 10mg Take 10 mg Uni vers (AMBIEN) 10 7-25 by mouth. ity of mg tablet 15:: [place] [address] [facility] zolpide Yes 10mg Take 10 mg Uni vers (AMBIEN) 10 7-25 by mouth. ity of mg tablet 15:: [place] [address] [facility] Yes 10mg Take 10 mg Uni vers (AMBIEN) 10 7-25 by mouth. ity of mg tablet 15:: [place] [address] [facility] Yes 10mg Take 10 mg Uni vers (AMBIEN) 10 7-25 by mouth. ity of mg tablet 15:: [place] [address] [facility] Yes 10mg Take 10 mg Uni vers (AMBIEN) 10 7-25 by mouth. ity of mg tablet 15:: [place] [address] [facility] zolpide Yes 10mg Take 10 mg Uni vers (AMBIEN) 10 7-25 by mouth. ity of mg tablet 15:: [place] [address] [facility] zolde Yes 10mg Take 10 mg Uni vers (AMBIEN) 10 7-25 by mouth. ity of mg tablet 15:: [place] [address] [facility] zolpide Yes 10mg Take 10 mg Uni vers (AMBIEN) 10 7-25 by mouth. ity of mg tablet 15:: [place] [address] [facility] zolpide Yes 10mg Take 10 mg Uni vers (AMBIEN) 10 7-25 by mouth. ity of mg tablet 15:: [place] [address] [facility] Yes 10mg Take 10 mg Uni vers (AMBIEN) 10 7-25 by mouth. ity of mg tablet 15:31: [place] [address] [facility] zolpidem 2021-0 Yes 10mg Take 10 mg Uni vers (AMBIEN) 10 7-25 by mouth. 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, Weight Tamsulosin 2020-0 Yes 0.4 mg = 1 M emoria hydrochlori 2-08 cap, PO, l de 0.4 MG 15:56: Daily, # Herm eitan Oral 00 90 cap, 3 Capsule Refill(s), [Flomax] Pharmacy: [facility] #[id number], 170.18, cm, 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, Height, 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, kg, 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, Weight Flomax 0.4 2020-0 Yes 0.4 mg = 1 M emoria mg oral 2-08 cap, PO, l capsule 15:56: Daily, # Evelio n 00 90 cap, 3 Refill(s), Pharmacy: [facility] #[id number], 170.18, cm, 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, Height, 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, kg, 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, Weight tamsulosin 2021-0 Yes 0 Memoria 0.4 mg oral 1-11 Refill(s) l capsule 15:22: Betamethaso 0 Yes 0 Memori a ne 0.5 1-11 Refill(s) l MG/ML / 15:22: Clotrimazol 00 e 10 MG/ML Topical Cream rosuvastati Yes 0 Memori a n 10 mg 1-11 Refill(s) l oral tablet 15:22: Evelio n ramipril 10 Yes 0 Memori a mg oral 1-11 Refill(s) l capsule 15:22: zolpidem 0 Yes 0 Memoria 12.5 mg 1-11 Refill(s) l oral 15:22: tablet, 00 extended release betamethaso Yes 0 Memori a ne-clotrima 1-11 Refill(s) l zole 15:22: [place] topical 00 0.05%-1% cream tamsulosin Yes 0 Memoria 0.4 mg oral 1-11 Refill(s) l capsule 15:22: Betamethaso Yes 0 Memori a ne 0.5 1-11 Refill(s) l MG/ML / 15:22: Clotrimazol 00 e 10 MG/ML Topical Cream rosuvastati Yes 0 Memori a n 10 mg 1-11 Refill(s) l oral tablet 15:22: Evelio n ramipril 10 0 Yes 0 Memori a mg oral 1-11 Refill(s) l capsule 15:22: [place] 00 zolpidem 0 Yes 0 Memoria 12.5 mg 1-11 Refill(s) l oral 15:22: [place] tablet, 00 extended release betamethaso 0 Yes 0 Memori a ne-clotrima 1-11 Refill(s) l zole 15:22: [place] topical 00 0.05%-1% cream temazepam Yes TAKE 1 Univer s (RESTORIL) 6-11 CAPSULE BY ity of 30 mg 00:00: MOUTH [place] capsule 00 EVERYDAY AT BEDTIME [facility] temazepam 2020-0 Yes TAKE 1 Univer s (RESTORIL) 6-11 CAPSULE BY ity of 30 mg 00:00: MOUTH [place] capsule [facility] temazepam 2020-0 Yes TAKE 1 Univer s (RESTORIL) 6-11 CAPSULE BY ity of 30 mg 00:00: MOUTH [place] capsule 00 [facility] temazepam 2020-0 Yes TAKE 1 Univer s (RESTORIL) 6-11 CAPSULE BY ity of 30 mg 00:00: MOUTH [place] capsule 00 [facility] temazepam 2020-0 Yes TAKE 1 Univer s (RESTORIL) 6-11 CAPSULE BY ity of 30 mg 00:00: MOUTH [place] capsule 00 [facility] temazepam 2020-0 Yes TAKE 1 Univer s (RESTORIL) 6-11 CAPSULE BY ity of 30 mg 00:00: MOUTH [place] capsule 00 [facility] temazepam 2020-0 Yes TAKE 1 Univer s (RESTORIL) 6-11 CAPSULE BY ity of 30 mg 00:00: MOUTH [place] capsule 00 EVERYDAY MD AT BEDTIME [facility] temazepam 2020-0 Yes TAKE 1 Univer s (RESTORIL) 6-11 CAPSULE BY ity of 30 mg 00:00: MOUTH [place] capsule 00 [facility] temazepam 2020-0 Yes TAKE 1 Univer s (RESTORIL) 6-11 CAPSULE BY ity of 30 mg 00:00: MOUTH [place] capsule 00 [facility] temazepam 2020-0 Yes TAKE 1 Univer s (RESTORIL) 6-11 CAPSULE BY ity of 30 mg 00:00: MOUTH [place] capsule 00 EVERYDAY MD AT BEDTIME [facility] temazepam 2020-0 Yes TAKE 1 Univer s (RESTORIL) 6-11 CAPSULE BY ity of 30 mg 00:00: MOUTH [place] capsule 00 EVERYDAY MD AT BEDTIME [facility] temazepam 2020-0 Yes TAKE 1 Univer s (RESTORIL) 6-11 CAPSULE BY ity of 30 mg 00:00: MOUTH [place] capsule 00 EVERYDAY MD AT BEDTIME [facility] temazepam 2020-0 Yes TAKE 1 Univer s (RESTORIL) 6-11 CAPSULE BY ity of 30 mg 00:00: MOUTH [place] capsule 00 EVERYDAY MD AT BEDTIME [facility] temazepam 20200 Yes TAKE 1 Univer s (RESTORIL) 6-11 CAPSULE BY ity of 30 mg 00:00: MOUTH [place] capsule 00 EVERYDAY MD AT BEDTIME [facility] temazepam 2020-0 Yes TAKE 1 Univer s (RESTORIL) 6-11 CAPSULE BY ity of 30 mg 00:00: MOUTH [place] capsule 00 EVERYDAY MD AT BEDTIME [facility] temazepam 0 Yes TAKE 1 Univer s (RESTORIL) 6-11 CAPSULE BY ity of 30 mg 00:00: MOUTH [place] capsule 00 EVERYDAY MD AT BEDTIME [facility] temazepam 0 Yes TAKE 1 Univer s (RESTORIL) 6-11 CAPSULE BY ity of 30 mg 00:00: MOUTH [place] capsule 00 EVERYDAY MD AT BEDTIME [facility] temazepam 0 Yes TAKE 1 Univer s (RESTORIL) 6-11 CAPSULE BY ity of 30 mg 00:00: MOUTH [place] capsule 00 EVERYDAY MD AT BEDTIME [facility] temazepam 0 Yes TAKE 1 Univer s (RESTORIL) 6-11 CAPSULE BY ity of 30 mg 00:00: MOUTH [place] capsule 00 EVERYDAY MD AT BEDTIME [facility] mupirocin 2018-0 Yes Folliculiti Apply to Univers (BACTROBAN) 6-14 s nose as ity o f 2% ointment 00:00: [place] 00 BID x 14 MD days. [facility] clindamycin 2019-0 Yes Folliculiti Apply to Univers (CLEOCIN T) 6-14 s scalp as ity of 1% lotion 00:00: [place] 00 once [place] daily. [facility] erythromyci 2019-0 Yes Folliculiti Apply up Univers n with 6-14 s to twice ity of ethanol 00:00: daily for [place] (THERAMYCIN 00 scalp MD ) 2 % folliculit [facility] n [facility] mupirocin 2018-0 Yes Folliculiti Apply to Univers (BACTROBAN) 6-14 s nose as ity o f 2% ointment 00:00: directed [place] 00 BID x 14 MD days. [facility] clindamycin Yes Folliculiti Apply to Univers (CLEOCIN T) 6-14 s scalp as ity of 1% lotion 00:00: directed [place] 00 once [place] daily. [facility] erythromyci Yes Folliculiti Apply up Univers n with 6-14 s to twice ity of ethanol 00:00: daily for [place] (THERAMYCIN 00 scalp MD ) 2 % folliculit [place] topical is n [facility] mupirocin Yes Folliculiti Apply to Univers (BACTROBAN) 6-14 s nose as ity o f 2% ointment 00:00: directed [place] 00 BID x 14 MD days. [facility] clindamycin Yes Folliculiti Apply to Univers (CLEOCIN T) 6-14 s scalp as ity of 1% lotion 00:00: directed [place] 00 once [place] daily. [facility] erythromyci Yes Folliculiti Apply up Univers n with 6-14 s to twice ity of ethanol 00:00: daily for [place] (THERAMYCIN 00 scalp MD ) 2 % [facility] mupirocin Yes Folliculiti Apply to Univers (BACTROBAN) 6-14 s nose as ity o f 2% ointment 00:00: directed [place] 00 BID x 14 MD days. [facility] clindamycin Yes Folliculiti Apply to Univers (CLEOCIN T) 6-14 s scalp as ity of 1% lotion 00:00: directed [place] 00 once [place] daily. [facility] erythromyci Yes Folliculiti Apply up Univers n with 6-14 s to twice ity of ethanol 00:00: daily for [place] (THERAMYCIN 00 scalp MD ) 2 % [facility] mupirocin Yes Folliculiti Apply to Univers (BACTROBAN) 6-14 s nose as ity o f 2% ointment 00:00: directed [place] 00 BID x 14 MD days. [facility] clindamycin Yes Folliculiti Apply to Univers (CLEOCIN T) 6-14 s scalp as ity of 1% lotion 00:00: directed [place] 00 once MD daily. [facility] erythromyci Yes Folliculiti Apply up Univers n with 6-14 s to twice ity of ethanol 00:00: daily for [place] (THERAMYCIN 00 scalp MD ) 2 % folliculit [place] topical is n [facility] mupirocin Yes Folliculiti Apply to Univers (BACTROBAN) 6-14 s nose as ity o f 2% ointment 00:00: directed [place] 00 BID x 14 MD days. [facility] clindamycin Yes Folliculiti Apply to Univers (CLEOCIN T) 6-14 s scalp as ity of 1% lotion 00:00: directed [place] 00 once MD daily. [facility] erythromyci Yes Folliculiti Apply up Univers n with 6-14 s to twice ity of ethanol 00:00: daily for [place] (THERAMYCIN 00 scalp MD ) 2 % folliculit Anderso topical is n [facility] mupirocin Yes Folliculiti Apply to Univers (BACTROBAN) 6-14 s nose as ity o f 2% ointment 00:00: directed [place] 00 BID x 14 MD days. [facility] clindamycin Yes Folliculiti Apply to Univers (CLEOCIN T) 6-14 s scalp as ity of 1% lotion 00:00: [place] 00 once [place] daily. [facility] erythromyci Yes Folliculiti Apply up Univers n with 6-14 s to twice ity of ethanol 00:00: daily for [place] (THERAMYCIN 00 scalp MD ) 2 % folliculit Anderso topical is [facility] mupirocin Yes Folliculiti Apply to Univers (BACTROBAN) 6-14 s nose as ity o f 2% ointment 00:00: directed [place] 00 BID x 14 MD days. [facility] clindamycin Yes Folliculiti Apply to Univers (CLEOCIN T) 6-14 s scalp as ity of 1% lotion 00:00: [place] 00 once MD daily. [facility] erythromyci Yes Folliculiti Apply up Univers n with 6-14 s to twice ity of ethanol 00:00: daily for [place] (THERAMYCIN 00 scalp MD ) 2 % folliculit Anderso topical is n [facility] mupirocin Yes Folliculiti Apply to Univers (BACTROBAN) 6-14 s nose as ity o f 2% ointment 00:00: directed [place] 00 BID x 14 MD days. [facility] clindamycin Yes Folliculiti Apply to Univers (CLEOCIN T) 6-14 s scalp as ity of 1% lotion 00:00: [place] 00 once MD daily. [facility] erythromyci Yes Folliculiti Apply up Univers n with 6-14 s to twice ity of ethanol 00:00: daily for [place] (THERAMYCIN 00 scalp MD ) 2 % folliculit Anderso topical is [facility] mupirocin Yes Folliculiti Apply to Univers (BACTROBAN) 6-14 s nose as ity o f 2% ointment 00:00: directed [place] 00 BID x 14 MD days. [facility] clindamycin Yes Folliculiti Apply to Univers (CLEOCIN T) 6-14 s scalp as ity of 1% lotion 00:00: [place] 00 once MD daily. [facility] erythromyci Yes Folliculiti Apply up Univers n with 6-14 s to twice ity of ethanol 00:00: daily for [place] (THERAMYCIN 00 scalp ) 2 % folliculit Anderso topical is n [facility] mupirocin Yes Folliculiti Apply to Univers (BACTROBAN) 6-14 s nose as ity o f 2% ointment 00:00: directed [place] 00 BID x 14 MD days. [facility] clindamycin Yes Folliculiti Apply to Univers (CLEOCIN T) 6-14 s scalp as ity of 1% lotion 00:00: [place] 00 once MD daily. [facility] erythromyci Yes Folliculiti Apply up Univers n with 6-14 s to twice ity of ethanol 00:00: daily for [place] (THERAMYCIN 00 scalp MD ) 2 % folliculit Anderso topical is n [facility] mupirocin Yes Folliculiti Apply to Univers (BACTROBAN) 6-14 s nose as ity o f 2% ointment 00:00: directed [place] 00 BID x 14 MD days. [facility] clindamycin Yes Folliculiti Apply to Univers (CLEOCIN T) 6-14 s scalp as ity of 1% lotion 00:00: [place] 00 once MD daily. [facility] erythromyci Yes Folliculiti Apply up Univers n with 6-14 s to twice ity of ethanol 00:00: daily for [place] (THERAMYCIN 00 scalp MD ) 2 % folliculit Anderso topical is [facility] mupirocin Yes Folliculiti Apply to Univers (BACTROBAN) 6-14 s nose as ity o f 2% ointment 00:00: directed [place] 00 BID x 14 MD days. [facility] clindamycin Yes Folliculiti Apply to [facility] (CLEOCIN T) 6-14 s scalp as ity of 1% lotion 00:00: [place] 00 once MD daily. [facility] erythromyci Yes Folliculiti Apply up Univers n with 6-14 s to twice ity of ethanol 00:00: daily for [place] (THERAMYCIN 00 scalp MD ) 2 % folliculit Anderso topical is [facility] mupirocin Yes Folliculiti Apply to Univers (BACTROBAN) 6-14 s nose as ity o f 2% ointment 00:00: directed [place] 00 BID x 14 MD days. [facility] clindamycin Yes Folliculiti Apply to [facility] (CLEOCIN T) 6-14 s scalp as ity of 1% lotion 00:00: [place] 00 once MD daily. [facility] erythromyci Yes Folliculiti Apply up Univers n with 6-14 s to twice ity of ethanol 00:00: daily for [place] (THERAMYCIN 00 scalp MD ) 2 % folliculit Anderso topical is [facility] mupirocin Yes Folliculiti Apply to Univers (BACTROBAN) 6-14 s nose as ity o f 2% ointment 00:00: directed [place] 00 BID x 14 MD days. [facility] clindamycin Yes Folliculiti Apply to [facility] (CLEOCIN T) 6-14 s scalp as ity of 1% lotion 00:00: [place] 00 once MD daily. [facility] erythromyci Yes Folliculiti Apply up Univers n with 6-14 s to twice ity of ethanol 00:00: daily for [place] (THERAMYCIN 00 scalp MD ) 2 % folliculit Anderso topical is [facility] mupirocin Yes Folliculiti Apply to Univers (BACTROBAN) 6-14 s nose as ity o f 2% ointment 00:00: directed [place] 00 BID x 14 MD days. [facility] clindamycin Yes Folliculiti Apply to [facility] (CLEOCIN T) 6-14 s scalp as ity of 1% lotion 00:00: [place] 00 once MD daily. [facility] erythromyci Yes Folliculiti Apply up Univers n with 6-14 s to twice ity of ethanol 00:00: daily for [place] (THERAMYCIN 00 scalp MD ) 2 % folliculit Anderso topical is [facility] mupirocin Yes Folliculiti Apply to Univers (BACTROBAN) 6-14 s nose as ity o f 2% ointment 00:00: directed [place] 00 BID x 14 MD days. [facility] clindamycin Yes Folliculiti Apply to [facility] (CLEOCIN T) 6-14 s scalp as ity of 1% lotion 00:00: [place] 00 once MD daily. [facility] erythromyci Yes Folliculiti Apply up Univers n with 6-14 s to twice ity of ethanol 00:00: daily for [place] (THERAMYCIN 00 scalp MD ) 2 % folliculit Anderso topical is [facility] mupirocin Yes Folliculiti Apply to Univers (BACTROBAN) 6-14 s nose as ity o f 2% ointment 00:00: directed [place] 00 BID x 14 MD days. [facility] clindamycin Yes Folliculiti Apply to [facility] (CLEOCIN T) 6-14 s scalp as ity of 1% lotion 00:00: [place] 00 once MD daily. [facility] erythromyci Yes Folliculiti Apply up Univers n with 6-14 s to twice ity of ethanol 00:00: daily for [place] (THERAMYCIN 00 scalp ) 2 % folliculit Anderso topical is n solution [facility] mupirocin Yes Folliculiti Apply to Univers (BACTROBAN) 6-14 s nose as ity o f 2% ointment 00:00: directed [place] 00 BID x 14 MD days. [facility] clindamycin Yes Folliculiti Apply to [facility] (CLEOCIN T) 6-14 s scalp as ity of 1% lotion 00:00: [place] 00 once MD daily. [facility] erythromyci Yes Folliculiti Apply up Univers n with 6-14 s to twice ity of ethanol 00:00: daily for [place] (THERAMYCIN 00 scalp ) 2 % folliculit Anderso topical is n solution [facility] rosuvastati Yes Ashwin torrez n (CRESTOR) 6-11 ity of 10 mg 00:00: [place] tablet 00 MD Jesus syed [facility] ramipril Yes Univers (ALTACE) 10 6-11 ity of MG capsule 00:00: [place] 00 MD Jesus [facility] [place] rosuvastati Yes Univdya torrez n (CRESTOR) 6-11 ity of 10 mg 00:00: [place] tablet 00 MD Jesus [facility] [place] ramipril 0 Yes Univers (ALTACE) 10 6-11 ity of MG capsule 00:00: [place] 00 MD Jesus [facility] [place] rosuvastati Yes Univday torrez n (CRESTOR) 6-11 ity of 10 mg 00:00: [place] tablet 00 MD Jesus syed [facility] ramipril Yes Univers (ALTACE) 10 6-11 ity of MG capsule 00:00: [place] 00 MD [facility] rosuvastati 2019-0 Yes Univer s n (CRESTOR) 6-11 ity of 10 mg 00:00: [place] tablet 00 [facility] ramipril 2019-0 Yes Univers (ALTACE) 10 6-11 ity of MG capsule 00:00: [place] 00 MD Jesus [facility] [place] rosuvastati 2019-0 Yes Univer s n (CRESTOR) 6-11 ity of 10 mg 00:00: [place] tablet 00 [facility] ramipril 2019-0 Yes Univers (ALTACE) 10 6-11 ity of MG capsule 00:00: [place] 00 MD Jesus [facility] [place] rosuvastati 2019-0 Yes Univer s n (CRESTOR) 6-11 ity of 10 mg 00:00: [place] tablet 00 MD Jesus [facility] [place] ramipril 2019-0 Yes Univers (ALTACE) 10 6-11 ity of MG capsule 00:00: [place] 00 MD Jesus [facility] [place] rosuvastati 2019-0 Yes Univer s n (CRESTOR) 6-11 ity of 10 mg 00:00: [place] tablet 00 [facility] ramipril 2019-0 Yes Univers (ALTACE) 10 6-11 ity of MG capsule 00:00: [place] 00 MD Jesus [facility] [place] rosuvastati 2019-0 Yes Univer s n (CRESTOR) 6-11 ity of 10 mg 00:00: [place] tablet 00 MD Jesus [facility] [place] ramipril 2019-0 Yes Univers (ALTACE) 10 6-11 ity of MG capsule 00:00: [place] 00 MD [facility] rosuvastati 2019-0 Yes Univer s n (CRESTOR) 6-11 ity of 10 mg 00:00: [place] tablet 00 MD [facility] ramipril 2019-0 Yes Univers (ALTACE) 10 6-11 ity of MG capsule 00:00: [place] 00 MD [facility] rosuvastati 2019-0 Yes Univer s n (CRESTOR) 6-11 ity of 10 mg 00:00: [place] tablet 00 MD Jesus [facility] ramipril 2019-0 Yes Univers (ALTACE) 10 6-11 ity of MG capsule 00:00: [place] 00 MD [facility] rosuvastati 2019-0 Yes Univer s n (CRESTOR) 6-11 ity of 10 mg 00:00: [place] tablet 00 Andal[facility]z [facility] [place] ramipril 2019-0 Yes Univers (ALTACE) 10 6-11 ity of MG capsule 00:00: [place] 00 MD Jesus [facility] [place] rosuvastati 2019-0 Yes Univer s n (CRESTOR) 6-11 ity of 10 mg 00:00: [place] tablet 00 [facility] ramipril 2019-0 Yes Univers (ALTACE) 10 6-11 ity of MG capsule 00:00: [place] 00 MD Jesus [facility] [place] rosuvastati 2019-0 Yes Univer s n (CRESTOR) 6-11 ity of 10 mg 00:00: [place] tablet 00 MD Jesus [facility] [place] ramipril 2019-0 Yes Univers (ALTACE) 10 6-11 ity of MG capsule 00:00: [place] 00 MD Jesus [facility] [place] rosuvastati 2019-0 Yes Univer s n (CRESTOR) 6-11 ity of 10 mg 00:00: [place] tablet 00 MD [facility] ramipril 2019-0 Yes Univers (ALTACE) 10 6-11 ity of MG capsule 00:00: [place] 00 MD Jesus [facility] rosuvastati 2019-0 Yes Univer s n (CRESTOR) 6-11 ity of 10 mg 00:00: [place] tablet 00 MD Jesus [facility] ramipril 2019-0 Yes Univers (ALTACE) 10 6-11 ity of MG capsule 00:00: [place] 00 MD Jesus [facility] rosuvastati 2019-0 Yes Univer s n (CRESTOR) 6-11 ity of 10 mg 00:00: [place] tablet 00 MD Jesus [facility] ramipril 2019-0 Yes Univers (ALTACE) 10 6-11 ity of MG capsule 00:00: [place] 00 MD Jesus [facility] [place] rosuvastati 2019-0 Yes Univer s n (CRESTOR) 6-11 ity of 10 mg 00:00: [place] tablet 00 MD [facility] ramipril 2019-0 Yes Univers (ALTACE) 10 6-11 ity of MG capsule 00:00: [place] 00 MD Jesus syed [facility] rosuvastati 0 Yes Univday s kunal (CRESTOR) 6-11 ity of 10 mg 00:00: [place] tablet 00 MD Jesus syed [facility] ramipril 0 Yes Univers (ALTACE) 10 6-11 ity of MG capsule 00:00: [place] 00 MD Jesus syed [facility] rosuvastati 2018-0 Yes Univday syed (CRESTOR) 6-11 ity of 10 mg 00:00: [place] tablet 00 MD Jesus syed [facility] ramipril 0 Yes Univers (ALTACE) 10 6-11 ity of MG capsule 00:00: [place] 00 MD Jesus syed [facility] clotrimazol Yes TOPICAL Uni vers e-betametha 5-24 APPLY TO ity of sone 00:00: AFFECTED [place] (LOTRISONE) 00 AREA TWICE MD 1%-0.05% DAILY Anderso cream NEEDED. [facility] clotrimazol Yes TOPICAL Uni vers e-betametha 5-24 APPLY TO ity of sone 00:00: AFFECTED [place] (LOTRISONE) 00 AREA TWICE MD 1%-0.05% DAILY Anderso cream NEEDED. [facility] clotrimazol Yes TOPICAL Uni vers e-betametha 5-24 APPLY TO ity of sone 00:00: AFFECTED [place] (LOTRISONE) 00 AREA TWICE MD 1%-0.05% DAILY Anderso cream NEEDED. [facility] clotrimazol Yes TOPICAL Uni vers e-betametha 5-24 APPLY TO ity of sone 00:00: AFFECTED [place] (LOTRISONE) 00 AREA TWICE MD 1%-0.05% DAILY Anderso cream NEEDED. [facility] clotrimazol Yes TOPICAL Uni vers e-betametha 5-24 APPLY TO ity of sone 00:00: AFFECTED [place] (LOTRISONE) 00 AREA TWICE MD 1%-0.05% DAILY Anderso cream NEEDED. [facility] clotrimazol Yes TOPICAL Uni vers e-betametha 5-24 APPLY TO ity of sone 00:00: AFFECTED [place] (LOTRISONE) 00 AREA TWICE MD 1%-0.05% DAILY Anderso cream NEEDED. [facility] Yes TOPICAL Uni vers e-betametha 5-24 APPLY TO ity of sone 00:00: AFFECTED [place] (LOTRISONE) 00 AREA TWICE MD 1%-0.05% DAILY Anderso cream NEEDED. [facility] Yes TOPICAL Uni vers e-betametha 5-24 APPLY TO ity of sone 00:00: AFFECTED [place] (LOTRISONE) 00 AREA TWICE MD 1%-0.05% DAILY Anderso cream NEEDED. [facility] Yes TOPICAL Uni vers e-betametha 5-24 APPLY TO ity of sone 00:00: AFFECTED [place] (LOTRISONE) 00 AREA TWICE MD 1%-0.05% DAILY Anderso cream NEEDED. [facility] Yes TOPICAL Uni vers e-betametha 5-24 APPLY TO ity of sone 00:00: AFFECTED [place] (LOTRISONE) 00 AREA TWICE MD 1%-0.05% DAILY Anderso cream NEEDED. [facility] Yes TOPICAL Uni vers e-betametha 5-24 APPLY TO ity of sone 00:00: AFFECTED [place] (LOTRISONE) 00 AREA TWICE MD 1%-0.05% DAILY Anderso cream NEEDED. [facility] Yes TOPICAL Uni vers e-betametha 5-24 APPLY TO ity of sone 00:00: AFFECTED [place] (LOTRISONE) 00 AREA TWICE MD 1%-0.05% DAILY Anderso cream NEEDED. [facility] Yes TOPICAL Uni vers e-betametha 5-24 APPLY TO ity of sone 00:00: AFFECTED [place] (LOTRISONE) 00 AREA TWICE MD 1%-0.05% DAILY Anderso cream NEEDED. [facility] Yes TOPICAL Uni vers e-betametha 5-24 APPLY TO ity of sone 00:00: AFFECTED [place] (LOTRISONE) 00 AREA TWICE MD 1%-0.05% DAILY [facility] e-betametha 5-24 APPLY TO ity of sone 00:00: AFFECTED [place] (LOTRISONE) 00 AREA TWICE MD 1%-0.05% DAILY Anderso cream NEEDED. [facility] TOP[facility] Uni vers e-betametha 5-24 APPLY TO ity of sone 00:00: AFFECTED [place] (LOTRISONE) 00 AREA TWICE MD 1%-0.05% DAILY Anderso cream NEEDED. [facility] vers e-betametha 5-24 APPLY TO ity of sone 00:00: AFFECTED [place] (LOTRISONE) 00 AREA TWICE MD 1%-0.05% DAILY [facility]. [facility] vers e-betametha 5-24 APPLY TO ity of sone 00:00: AFFECTED [place] (LOTRISONE) 00 AREA TWICE MD 1%-0.05% DAILY [facility]. [facility] vers e-betametha 5-24 APPLY TO ity of sone 00:00: AFFECTED [place] (LOTRISONE) 00 AREA TWICE MD 1%-0.05% DAILY Anderso cream NEEDED. [facility] doxycycline Yes TAKE 1 Univ ers (VIBRAMYCIN 5-20 CAPSULE BY it y of ) 50 MG 00:00: MOUTH [place] capsule 00 EVERY DAY MD Lee [facility] zolpidem Yes TAKE 1 Univers (AMBIEN CR) 5-20 TABLET BY ity of 12.5 mg CR 00:00: MOUTH [place] tablet 00 EVERY DAY MD AT BEDTIME Anderso NEEDED [facility] doxycycline Yes TAKE 1 Univ ers (VIBRAMYCIN 5-20 CAPSULE BY it y of ) 50 MG 00:00: MOUTH [place] capsule 00 EVERY DAY MD Lee [facility] zolpidem Yes TAKE 1 Univers (AMBIEN CR) 5-20 TABLET BY ity of 12.5 mg CR 00:00: MOUTH [place] tablet 00 EVERY DAY MD AT BEDTIME Anderso NEEDED [facility] doxycycline Yes TAKE 1 Univ ers (VIBRAMYCIN 5-20 CAPSULE BY it y of ) 50 MG 00:00: MOUTH [place] capsule 00 EVERY DAY MD [facility] zolpidem Yes TAKE 1 Univers (AMBIEN CR) 5-20 TABLET BY ity of 12.5 mg CR 00:00: MOUTH [place] tablet 00 EVERY DAY MD AT BEDTIME Anderso NEEDED n [facility] doxycycline Yes TAKE 1 Univ ers (VIBRAMYCIN 5-20 CAPSULE BY it y of ) 50 MG 00:00: MOUTH [place] capsule 00 EVERY DAY MD Jesus [facility] zolpidem Yes TAKE 1 Univers (AMBIEN CR) 5-20 TABLET BY ity of 12.5 mg CR 00:00: MOUTH [place] tablet 00 EVERY DAY MD AT BEDTIME Anderso NEEDED n [facility] doxycycline Yes TAKE 1 Univ ers (VIBRAMYCIN 5-20 CAPSULE BY it y of ) 50 MG 00:00: MOUTH [place] capsule 00 EVERY DAY MD Jesus syed [facility] zolpidem Yes TAKE 1 Univers (AMBIEN CR) 5-20 TABLET BY ity of 12.5 mg CR 00:00: MOUTH [place] tablet 00 EVERY DAY MD AT BEDTIME Anderso NEEDED n [facility] doxycycline Yes TAKE 1 Univ ers (VIBRAMYCIN 5-20 CAPSULE BY it y of ) 50 MG 00:00: MOUTH [place] capsule 00 EVERY DAY MD Jesus [facility]ed [facility] [place] zolpidem Yes TAKE 1 Univers (AMBIEN CR) 5-20 TABLET BY ity of 12.5 mg CR 00:00: MOUTH [place] tablet 00 EVERY DAY MD AT BEDTIME Anderso NEEDED n [facility] doxycycline Yes TAKE 1 Univ ers (VIBRAMYCIN 5-20 CAPSULE BY it y of ) 50 MG 00:00: MOUTH [place] capsule 00 EVERY DAY MD [facility] zolpidem Yes TAKE 1 Univers (AMBIEN CR) 5-20 TABLET BY ity of 12.5 mg CR 00:00: MOUTH [place] tablet 00 EVERY DAY MD AT BEDTIME Anderso NEEDED n [facility] doxycycline Yes TAKE 1 Univ ers (VIBRAMYCIN 5-20 CAPSULE BY it y of ) 50 MG 00:00: MOUTH [place] capsule 00 EVERY DAY MD Jesus [facility] zolpidem Yes TAKE 1 Univers (AMBIEN CR) 5-20 TABLET BY ity of 12.5 mg CR 00:00: MOUTH [place] tablet 00 EVERY DAY MD AT BEDTIME Anderso NEEDED [facility] [place] doxycycline Yes TAKE 1 Univ ers (VIBRAMYCIN 5-20 CAPSULE BY it y of ) 50 MG 00:00: MOUTH [place] capsule 00 EVERY DAY MD Lee [facility] [place] zolpidem Yes TAKE 1 Univers (AMBIEN CR) 5-20 TABLET BY ity of 12.5 mg CR 00:00: MOUTH [place] tablet 00 EVERY DAY MD AT BEDTIME Anderso NEEDED [facility] [place] doxycycline Yes TAKE 1 Univ ers (VIBRAMYCIN 5-20 CAPSULE BY it y of ) 50 MG 00:00: MOUTH [place] capsule 00 EVERY DAY MD Lee [facility] zolpidem Yes TAKE 1 Univers (AMBIEN CR) 5-20 TABLET BY ity of 12.5 mg CR 00:00: MOUTH [place] tablet 00 EVERY DAY MD AT BEDTIME Anderso NEEDED [facility] [place] doxycycline Yes TAKE 1 Univ ers (VIBRAMYCIN 5-20 CAPSULE BY it y of ) 50 MG 00:00: MOUTH [place] capsule 00 EVERY DAY MD Jesus syed [facility] zolpidem Yes TAKE 1 Univers (AMBIEN CR) 5-20 TABLET BY ity of 12.5 mg CR 00:00: MOUTH [place] tablet 00 EVERY DAY MD AT BEDTIME Anderso NEEDED [facility] [place] doxycycline Yes TAKE 1 Univ ers (VIBRAMYCIN 5-20 CAPSULE BY it y of ) 50 MG 00:00: MOUTH [place] capsule 00 EVERY DAY MD [facility] zolpidem Yes TAKE 1 Univers (AMBIEN CR) 5-20 TABLET BY ity of 12.5 mg CR 00:00: MOUTH [place] tablet 00 EVERY DAY MD AT BEDTIME Anderso NEEDED [facility] doxycycline Yes TAKE 1 Univ ers (VIBRAMYCIN 5-20 CAPSULE BY it y of ) 50 MG 00:00: MOUTH [place] capsule 00 EVERY DAY MD [facility] [place] zolpidem Yes TAKE 1 Univers (AMBIEN CR) 5-20 TABLET BY ity of 12.5 mg CR 00:00: MOUTH [place] tablet 00 EVERY DAY MD AT BEDTIME Anderso NEEDED [facility] doxycycline Yes TAKE 1 Univ ers (VIBRAMYCIN 5-20 CAPSULE BY it y of ) 50 MG 00:00: MOUTH [place] capsule 00 EVERY DAY MD Jesus [facility] zolpidem Yes TAKE 1 Univers (AMBIEN CR) 5-20 TABLET BY ity of 12.5 mg CR 00:00: MOUTH [place] tablet 00 EVERY DAY MD AT BEDTIME Anderso NEEDED n [facility] doxycycline Yes TAKE 1 Univ ers (VIBRAMYCIN 5-20 CAPSULE BY it y of ) 50 MG 00:00: MOUTH [place] capsule 00 EVERY DAY MD Jesus [facility] zolpidem Yes TAKE 1 Univers (AMBIEN CR) 5-20 TABLET BY ity of 12.5 mg CR 00:00: MOUTH [place] tablet 00 EVERY DAY MD AT BEDTIME Anderso NEEDED n [facility] doxycycline Yes TAKE 1 Univ ers (VIBRAMYCIN 5-20 CAPSULE BY it y of ) 50 MG 00:00: MOUTH [place] capsule 00 EVERY DAY MD Jesus syed [facility] [place] zolpidem Yes TAKE 1 Univers (AMBIEN CR) 5-20 TABLET BY ity of 12.5 mg CR 00:00: MOUTH [place] tablet 00 EVERY DAY MD AT BEDTIME Anderso NEEDED n [facility] doxycycline Yes TAKE 1 Univ ers (VIBRAMYCIN 5-20 CAPSULE BY it y of ) 50 MG 00:00: MOUTH [place] capsule 00 EVERY DAY MD Jesus syed [facility] [place] zolpidem Yes TAKE 1 Univers (AMBIEN CR) 5-20 TABLET BY ity of 12.5 mg CR 00:00: MOUTH [place] tablet 00 EVERY DAY MD AT BEDTIME Anderso NEEDED n [facility] doxycycline Yes TAKE 1 Univ ers (VIBRAMYCIN 5-20 CAPSULE BY it y of ) 50 MG 00:00: MOUTH [place] capsule 00 EVERY DAY MD [facility] zolpidem Yes TAKE 1 Univers (AMBIEN CR) 5-20 TABLET BY ity of 12.5 mg CR 00:00: MOUTH [place] tablet 00 EVERY DAY MD AT BEDTIME Anderso NEEDED n [facility] doxycycline Yes TAKE 1 Univ ers (VIBRAMYCIN 5-20 CAPSULE BY it y of ) 50 MG 00:00: MOUTH [place] capsule 00 EVERY DAY MD Jesus [facility] zolpidem Yes TAKE 1 Univers (AMBIEN CR) 5-20 TABLET BY ity of 12.5 mg CR 00:00: MOUTH [place] tablet 00 EVERY DAY AT BEDTIME Andalmaz NEEDED n [facility] Vital Signs Vital Name Observation Time Observation Value Comments Source Systolic blood 2023-04-26 14:33:00 130 mm[facility]Hg] [facility] Diastolic blood 2023-04-26 14:33:00 82 mm[facility]Hg[facility] Heart rate 2023-04-26 14:33:00 60 [facility] temperature 2023-04-26 14:33:00 [facility]72 [place] height 2023-04-26 14:33:00 [facility] weight 2023-04-26 14:33:00 [facility]183 [facility] BMI 2023-04-26 14:33:00 29.76 [facility] Systolic blood 2023-03-29 14:00:00 142 mm[Hg] [facility] Diastolic blood 2023-03-29 14:00:00 73 mm[Hg] [facility] Heart rate 2023-03-29 14:00:00 76 [facility]min [facility] 2023-03-29 14:00:00 37 [facility] height 2023-03-29 14:00:00 [facility] weight 2023-03-29 14:00:00 [facility]451 [facility] BMI 2023-03-29 14:00:00 30.54 [facility] WEIGHT 2020-12-20 13:16:35 91.6 kg WEIGHT 2020-05-14 00:00:00 93.2 kg Systolic blood 2023-06-20 19:12:36 154 mm[Hg] [facility]ity of pressure [facility] Diastolic blood 2023-06-20 19:12:36 72 mm[Hg] Unive rsity of pressure [facility] Heart rate 2023-06-20 19:12:36 77 /min [facility] Body temperature 2023-06-20 19:12:36 36.78 [place] [facility] ersity [facility] Respiratory rate 2023-06-20 19:12:36 18 /min Univ ersity of [facility] Body weight 2023-06-20 19:12:36 88.451 kg [facility]i ty of [facility] BMI 2023-06-20 19:12:36 30.25 kg/m2 [facility] Oxygen saturation in 2023-06-20 19:12:36 96 /min [facility] of Arterial blood by Nimisha bess Pulse oximetry [facility] Systolic blood 2022-12-20 20:59:11 157 mm[Hg] Univer [facility]ity of pressure [facility] Diastolic blood 2022-12-20 20:59:11 67 mm[Hg] Unive rsity of pressure [facility] Heart rate 2022-12-20 20:59:11 80 /min [facility]i [facility] of [facility] Body temperature 2022-12-20 20:59:11 36.72 [place] [facility] ersity of [facility] Respiratory rate 2022-12-20 20:59:11 18 /min Univ ersity of [facility] Body weight 2022-12-20 20:59:11 89.6 kg [facility]i [facility] of [facility] BMI 2022-12-20 20:59:11 30.64 kg/m2 [facility] of [facility] Oxygen saturation in 2022-12-20 20:59:11 99 /min [facility] Arterial blood by Nimisha velasquezon Pulse oximetry [facility] Systolic blood 2022-06-19 19:56:15 152 mm[Hg] Univer [facility]ity of pressure [facility] Diastolic blood 2022-06-19 19:56:15 70 mm[Hg] Unive rsity of pressure [facility] Heart rate 2022-06-19 19:56:15 90 /min [facility]i ty of [facility] Body temperature 2022-06-19 19:56:15 36.89 [place] [facility] ersity of [facility] Respiratory rate 2022-06-19 19:56:15 18 /min Univ ersity of [facility] Body weight 2022-06-19 19:56:15 82.8 kg [facility]i ty [facility] BMI 2022-06-19 19:56:15 28.32 kg/m2 [facility] MD [facility] Oxygen saturation in 2022-06-19 19:56:15 96 /min [facility] Arterial blood by Nimisha bess Pulse [facility] Height 2021-03-29 18:35:00 170.18 cm [facility] Weight 2021-03-29 18:35:00 [facility] BMI Calculated 2021-03-29 18:35:00 [facility] [place] Height 2021-01-03 14:20:00 170.18 cm [facility] Weight 2021-01-03 14:20:00 [facility] BMI Calculated 2021-01-03 14:20:00 [facility] [place] Systolic (mm Hg) 2020-12-06 15:13:00 [facility] Diastolic (mm Hg) 2020-12-06 15:13:00 [facility] [place] [facility] 2020-12-06 15:13:00 [facility] Procedures Procedure Date / Time Performing Clinician Source Performed PATHOLOGY BIOPSY 2023-06-20 19:51:00 Bo Lopez [facility] INTERPRETATION [facility] Cystourethroscopy (separate 2022-10-24 22:11:00 [facility] procedure) WOUND CULTURE W/ GRAM STAIN 2022-06-19 21:24:00 Valerie Slade [facility] PATHOLOGY BIOPSY 2021-12-21 20:46:00 Bo Lopez [facility] INTERPRETATION [facility] Mohs surgery [facility] Plan of Care Planned Activity Planned Date Details Comments Source Future Scheduled 2023-07-04 COVID-19 Vaccination [facility] [place] Test 09:41:02 (#1) [code = COVID-19 [facility] (#1)] Center Future Scheduled 2023-06-25 COVID-19 Vaccination [facility] [place] Test 08:15:26 (#1) [code = COVID-19 [facility]ination (#1)] Center Future Scheduled 2023-06-18 COVID-19 Vaccination [facility] [place] Test 16:38:43 (#1) [code = COVID-19 MD [facility]ination (#1)] Center Future Scheduled 2023-05-24 COVID-19 Vaccination [facility] [place] Test 11:55:17 (#1) [code = COVID-19 MD [facility]ination (#1)] Center Future Scheduled 2023-05-24 COVID-19 Vaccination [facility] [place] Test 11:55:17 (#1) [code = COVID-19 MD [facility]ination (#1)] Center Future Scheduled 2023-05-24 COVID-19 Vaccination [facility] [place] Test 11:55:17 (#1) [code = COVID-19 MD [facility] Vaccination (#1)] Center Future Scheduled 2023-01-03 COVID-19 Vaccination [facility] [place] Test 08:18:34 (#1) [code = COVID-19 MD [facility] Vaccination (#1)] Center Future Scheduled 2023-01-03 COVID-19 Vaccination [facility] [place] Test 08:18:34 (#1) [code = COVID-19 MD [facility] Vaccination (#1)] Center Future Scheduled 2023-01-03 COVID-19 Vaccination [facility] [place] Test 08:18:34 (#1) [code = COVID-19 MD [facility] Vaccination (#1)] Center Future Scheduled 2022-06-29 COVID-19 Vaccination [facility] [place] Test 12:47:35 (#1) [code = COVID-19 MD [facility] Vaccination (#1)] Center Future Scheduled 2022-06-29 COVID-19 Vaccination [facility] [place] Test 12:47:35 (#1) [code = COVID-19 MD [facility] Vaccination (#1)] Center Future Scheduled 2022-06-29 COVID-19 Vaccination [facility] [place] Test 12:47:35 (#1) [code = COVID-19 MD [facility] Vaccination (#1)] Center Future Scheduled 2022-06-29 COVID-19 Vaccination [facility] [place] Test 12:47:35 (#1) [code = COVID-19 MD [facility] Vaccination (#1)] Center Future Scheduled 2022-06-29 COVID-19 Vaccination [facility] [place] Test 12:47:35 (#1) [code = COVID-19 MD [facility] Vaccination (#1)] Center Future Scheduled 2022-06-29 COVID-19 Vaccination [facility] [place] Test 12:47:35 (#1) [code = COVID-19 MD [facility] Vaccination (#1)] Center Future Scheduled 2022-06-29 COVID-19 Vaccination [facility] [place] Test 12:47:35 (#1) [code = COVID-19 MD [facility] Vaccination (#1)] Center Future Scheduled 2022-06-29 COVID-19 Vaccination [facility] [place] Test 12:47:35 (#1) [code = COVID-19 MD [facility] Vaccination (#1)] Center Future Scheduled 2022-06-29 COVID-19 Vaccination [facility] [place] Test 12:47:35 (#1) [code = COVID-19 MD [facility] Vaccination (#1)] Center Future Scheduled 2022-06-29 COVID-19 Vaccination [facility] [place] Test 12:47:35 (#1) [code = COVID-19 MD [facility]ination (#1)] Center Encounters Start End Encounter Admission Attending Care Care Encounter Source Date/Time Date/Time Type Type Clinicians Facility Department ID 2023-06-20 Outpatient [facility] [id number] [place] 15:39:10 [id number] [facility] 2023-06-14 Outpatient [facility] [id number] [place] 08:11:41 [id number] [facility] 2023-06-01 Outpatient [facility] [id number] [place] 13:16:58 [id number] [facility] 2023-05-24 Outpatient [facility] [id number] [place] 11:59:22 [id number] [facility] 2023-05-10 Outpatient [facility] [id number] [place] 14:17:13 [id number] [facility] 2023-05-01 Outpatient [facility] [id number] [place] 09:00:28 [id number] [facility] 2023-04-26 Outpatient [facility] [id number] [place] 13:24:03 [id number] [facility] 2023-04-25 Outpatient [facility] [id number] [place] 01:28:23 [id number] [facility] 2023-04-24 Outpatient [facility] [id number] [place] 17:10:30 [id number] [facility] 2023-04-18 Outpatient [facility] [id number] [place] 15:16:43 [id number] [facility] 2023-04-16 Outpatient [facility] [id number] [place] 09:23:38 [id number] [facility] 2023-04-13 Outpatient [facility] [id number] [place] 16:58:41 [id number] [facility] 2023-04-11 Outpatient [facility] [id number] [place] 15:47:08 [id number] [facility] 2023-03-29 Outpatient [facility] [id number] [place] 08:43:36 [id number] [facility] 2023-03-28 Outpatient [facility] [id number] [place] 12:33:23 [id number] [facility] 2023-03-22 Outpatient [facility] [id number] [place] 16:29:28 [id number] [facility] 2023-03-21 Outpatient [facility] [id number] [place] 13:58:22 [id number] [facility] 2023-03-16 Outpatient SAMAN DOBBS ANGELICA [id number] M H 10:53:00 TOMMY Marie [facility] 2020-07-12 Outpatient MDA MDA [id number] 13:50:11 [facility] 2023-07-26 2023-07-26 Outpatient BARILALS, [facility] [id number] [place] 10:30:00 10:30:00 [facility] 2023-07-09 2023-07-09 Telemedici Nargis, [facility] 6400 1.2.840.114 [id number] [place] 14:30:00 14:40:18 ne Counts include 234 beds at the [facility] 350.1.13.58 [facility] 9.2.7.2.686 [id number] 2 2023-06-25 2023-06-25 Telephone Ramila, 1.2.840.1 [id number] [facility] 00:00:00 00:00:00 Charlene Juares 22138.1.1 [facility] 3.412.2.7 [place] .3.752263 .8 [facility] 2023-06-25 2023-06-25 Telephone Ramila, 1.2.840.1 [id number] [facility] 00:00:00 00:00:00 Charlene Juares 94814.1.1 ity of 3.412.2.7 [place] .3.088540 MD [facility] 2023-06-20 2023-06-20 Follow-Up Bo Bose 1.2.840.1 [id number] [facility] 14:30:00 15:11:02 32181.1.1 [facility] [place].412.2.7 [place] .3.218226 [facility] 2023-06-20 2023-06-20 Follow-Up Bo Lopez 1.2.840.1 [id number] [facility] 14:30:00 15:11:02 66596.1.1 ity of 3.412.2.7 [place] .3.273602 MD [facility] 2023-06-20 2023-06-20 Travel 1.2.840.1 1.2.080.809 [id number] [facility] 00:00:00 00:00:00 57377.1.1 350.1.13.41 [place].2.[place].685[place] 084.8 [facility] 2023-06-20 2023-06-20 Travel 1.2.840.1 1.2.969.210 [id number] [facility] 00:00:00 00:00:00 04451.1.1 350.1.13.41 [place].2.[place] .3.600718 084.8 [facility] 2023-05-11 2023-05-11 Outpatient NARGIS [facility] [id number] [place] 10:00:00 10:00:00 [facility] 2023-04-26 2023-04-26 Procedure TAMIE BARILLAS 6400 1.2.840.114 [id number] [place] 09:30:00 09:30:00 Visit IRASEMA JADA 350.1.13.58 [facility] 9.2.7.2.686 [id number] 2 2023-03-29 2023-03-29 Office TAMIE Barillas 6400 1.2.840.114 [id number] [place] 09:00:00 09:45:44 Visit Irasema INMAN 350.1.13.58 Health 9.2.7.2.686 [id number] 2 2023-03-08 2023-03-08 Outpatient SAMAN DOBBS ANGELICA [id number] MH 13:08:00 23:59:00 TOMMY peña [facility] 2022-12-20 2022-12-20 Follow-Up Bo Bose 1.2.840.1 [id number] [facility] 15:00:00 15:57:09 14579.1.1 ity of 3.412.2.7 [place] .3.095179 MD [facility] 2022-12-20 2022-12-20 Follow-Up Bo Lopez 1.2.840.1 [id number] [facility] 15:00:00 15:57:09 95786.1.1 ity of 3.412.2.7 [place] .3.853730 MD [facility] 2022-12-20 2022-12-20 Travel 1.2.840.1 1.2.690.932 [id number] [facility] 00:00:00 00:00:00 62807.1.1 350.1.13.41 ity of 3.412.2.[place]3.074997 084.8 MD [facility] 2022-12-20 2022-12-20 Travel 1.2.840.1 1.2.904.651 [id number] [facility] 00:00:00 00:00:00 66151.1.1 350.1.13.41 ity of 3.412.2.[place] .3.378231 084.8 MD [facility] 2022-12-08 2022-12-08 Outpatient STALLER, MHBL ANGELICA [id number] MHBL 08:24:00 14:10:00 TOMMY 2022-12-01 2022-12-01 Outpatient MHIE SAMIE [id number] Memoria 10:00:00 10:00:00 04 libia Hira 2022-10-24 2022-10-25 Outpatient MHIE [facility] [id number] Memoria 20:30:00 05:59:59 Urology 03 l Sadiq Hay nn Time Share 2022-06-19 2022-06-19 Office Bo Bose 1.2.840.1 [id number] [facility] 15:30:00 16:36:38 Visit 28277.1.1 ity of 3.412.2.7 [place] .3.232933 MD [facility] 2022-06-19 2022-06-19 Travel 1.2.840.1 1.2.855.466 3526 [id number] [facility] 00:00:00 00:00:00 81257.1.1 350.1.13.41 ity of [place].412.2.[place]3.511167 084.8 MD [facility] 2021-12-21 2021-12-21 Office Bo Bose 1.2.840.1 [id number] [facility] 14:30:00 14:59:55 Visit 54344.1.1 ity of 3.412.2.7 [place] .3.971821 MD [facility] 2021-12-21 2021-12-21 Travel 1.2.840.1 1.2.728.194 [id number] [facility] 00:00:00 00:00:00 13192.1.1 350.1.13.41 ity of 3.412.2.[place]3.870423 084.8 MD [facility] 2021-06-20 2021-06-20 Outpatient BO BOSE [facility] [id number] 13:43:44 14:39:29 [facility] 2021-03-292021-03-30 Outpatient nullFlavo [facility] [id number] Memoria 18:45:00 04:59:59 r Urology 02 l Sadiq Hay Luca [facility] 2021-01-17 2021-01-17 Outpatient [facility] [id number] Memoria 09:20:00 09:20:00 01 l Hira 2020-12-20 2020-12-21 Outpt Diag nullFlavo [facility] [id number] Memoria 15:28:00 05:59:00 Services r [facility] 2020-12-20 2020-12-20 Outpatient BO BOSE MDA MDA [id number] 12:44:49 14:21:55 [place] [facility] 2020-12-06 2020-12-07 Outpatient nullFlavo [facility] Multi 36 [id number] Memoria 15:20:00 05:59:59 r Specialty 00 l [facility] 2020-11-12 2020-11-12 Outpatient BO BOSE MDA MDA [id number] 00:00:00 00:00:00 [place] [facility] 2020-05-14 2020-05-14 Outpatient BO BOSE MDA MDA [id number] 08:00:22 09:43:36 [place] [facility] 2019-05-09 2019-05-09 Outpatient DEEPTI MDA MDA [id number] 07:49:13 07:49:13 [place] [facility] Results Test Description Test Time Test Comments Results Result Comments Source Pathology Biopsy Interpretation 2023-06-22 23:01:25 Test Item Value Reference Range Interpretation Comme nts Diagnosis p6uwwNXeUSLxoZHiRNDmW8zxmsXxKYJqcCBaZ0XgeyknQDuyIF0sVO5iiSwtsXProFIhNXLpFzAqz3gr v556qDFcf9frYEXBlknzySx7uVbqI07rq7T7LgzeT4goMCWySHexOVOsZMrrkBRuQGk4MSYxxSFpcfCd RuGxHKVdkJMniXF2CRVfGO9ypxbjPMflKBhrBDSqicW (test code 4UFCtqKZtR0KdKPLwFU2oxbxuZLP2FXnjSZYeBCA6GvNaPSBea9Fshmv4PhRkzUIfMRjucSFkbaszlvF dCIUbLTFLRxDRv4bkKPNgYNF0LWhszHCvXBrcAE28GIHkx9BeT4jmf1PcNSnkGjOsj4dekxL9MOLkZXW iQHQbrwytyUmuDVxqvZ69RzNbO3HmWJg6dQPhuQprx3 = 34) EeNxBcX7ZpkjgxPLrcwiO7x9OfbryvqYgstVTbs6sgVZW4lPOaUHXoYGDflsWbOLEneGpeo5OkKJIkU6 ToAnbvVJKqwWhjIDdongLwwRNdWAFxBSCro13pRK67KwMggIZrGBQqfysrXsUpPbjiT0uyhxoseFApoE PhzDKgqaPcHJElccQqnjzsWLWlEICgsXG4GLmrW5CgF HYbmAEjAPquRkOgBJvpvebqNFcmVsJtJ1Aeh2KrnEKjMwKfTYOvnM7ikZTcJKdnLjwjmQCcTWYimkPoY W94XQA0FUBrl7L1NEGlAOzofs0kQFIgsoXKm8IzxSAfh0uznMD5rCf9jGCaUZOuyJEfIHgvPTjbvI7sO UTaryrpSrEtYvufL1rfoyjfhFRcuJTiOOpzyV9aUGQh S9SxGUCuZOOiFitvJoGiPIzkINTbfSv8HwIydSatJqSuHDRtELUMM1KocgxnQPhqdgL5r8AfitT2nONv OLIxfzZ1OSqgVQt7LX0mpE2wFCNefwZpML94UXA9WSQzf8L8AHXwNZttq9loDFJkN0YjEJKtwRYdYLdi UECpYQK6VL1qIUWtXXGafDpuluxmD9nhvAkfKMQdgXO ae6QbNNemi7bqiwPxhzAnc7FxQ1mjyFgpbiN3cYSaVDHhKIffOSAwbKZ3BKXcMS1sMBiwNX0opF7rpDE ehzWvY52dM2bcCFLyOUCavbYmAMGjyZcsi6GxHEJeH3NnXufgSWMzU2UmPKNuhF7mtkGhTOWpoKYlaB= = Comment e4uspQGcDGSecWKzPWSuI6pkxnAiMEHbqNGwQ9LwbavpOCgjNC8kLR4jyJjymRIwyXYsTBYxOkQvy4vt o417zNYqg8dyWLZWsxshfTm7cKnlQ72zt8O7LfrsQ30dlBMoGNA1DHPtKUVseVUqOYKvIWD5QUWruDXl J7boUKUrPJ7wltzeJFrpKLymFDGpdUJ8IBHgfYMeL9H (test code bFNAkBTbeMNUydzs1OfAlGc8afPQkrLlkBCtdWHNgAWUrNVvpWYDmWrErMXnqHAAcjKQjy12jfTKlRJW nQCShvLevm9LzSLUgX9Swa06lBIririTtCmIchdRifUJbQX5cHCK7ZG5ewiPnWaSODPDzroqnMXklFUQ otMXiM5RtmNHxAOU4FDzoZLYpePefPACgHUUtbuWtmD = 9835) I5uhKrwKl5l9QibKLdnY7uPKgyy0NvYJ9ue54aIIukyNrpxzY7iLTuxYClxNvka3WfPZ9qZGKes3FxHL 62EU1kyHGjWG1eEVHzsXYtUZ0duosuZDvyZNMrfNBaYDE9YHFgU4Gev35hAUMbdnHrjIYtGHYsEZBlRF Zla7VofMLhCvYiy4zkSWRtRVdtM1o7CGNpd6AfUFJcd SXhIWlmavZ9lZW4pISqCFYisy9admKdpP16mJ1nWGPyjC6nz9y1fKRgIJJtJ6PpzO4bGMIskKoyvJNzT 7vaoetnccJkazOxYsFjaZteraPaXADgeKthp1X1qWxvYBR4tNTvJNK8xUWnAZKckyU1NAyfJOl7BZ9yw X3rNcJhU0c0jHzoHOYmJYLtFBIljJZvJJAhVKZuJWkf LEYawc3qdJM9ZWEmtLiwnnVlP3Xvf7sqWKQaVAEfpiXojxAsH1BrBGEnIrZeA67rkdJkm1Xsx1GhRLNj QpbrNWKltLAkyU18xdYcxAj7lLQwbYYgFUWkasGre6QjH0vmxToxzjO8uMBuNPLeujKmER5juPGrp9Ux gBbbKdJsibMluMmwvLfalWapnIjpA9u0qVHitI0dsOb 9qaE6LIvzj0KlQ8IrqJs9ZRCjKoVdbEEedvJrK5jwmGWkb5RyS6Ccu0CkBO3fnN5mCSMeoMgtQnNltFL 0bPPazXTwwK7uJxDGUEKrbMarohHzFDRlWRUecvD0iVCyiCZoz0RotFaulzNetDG2KYSbZMMyTMR5oYO asbIfOUofvQkrYRVrMFUdkSIgDIWlhdSOgwJoQQW4PS wsTCkhA9hhfZgnbKKbR8JohE4gv9XsiVm5KYCex4IbfKQohgUlkCTlsSIuhjLewiEeg3iugoRnN7fnxW 2oZNB7jDylLTMINKYmEW8iSRCwfDMlFkCdsZQsFAWuJCTgoaWktHW5gqIwmDe6j7KwyXJqfM5nZBvfo2 OdmVbxf8VpT2ZhilwloE6fW7fdGYLza0Zvi4IoHH6vm 34jQGXie0LyS3FibcVwkJY2gABqnZ3rzrxlSfamWNQbh5X2NG7dZSxvBRGsHGm1jK4cPBXOPJIxe7Xei L9taDthwTgdJ0w7zjOnKPWvWQCbOSddPUG1DMAudxkqtUDyv8RjXs6eaXHvAVlidNoaPAqsNV9nz4Vxt T8zjAezbUflC2y9viUaJUIxmkKyHNtzWY5rlU5mdRTj wyViO57mK4nwwR2zCN51O4olELJsVNuxalF3eT1cbJKilSJ8XTOiJCwnj2XexLccUWD9eeP0oH2mD81x pzH8bF8dS06mygIdBJFtd94go4f7oFWjRZL6hQAyDH8fHR5iG0AbDmndlW2heUPuqLu0dOStqzOgtqDa RCImb4YpryafETdqUSY9BCurUTQsKJ1mNZXlCHVfgfy kUYEzXAYbdfNAwWVweEJwk5OwU1Nod5UhKYXih6UqRRIyAYFnFT1lQMTfepAwRG8fOEWxiyjueI4ncJa 7jhD4PEWdVBekQJXrqNndXEIvo3CrKyyoiNX5GH7jRNRssuQjvLJnBXZiVt7iuDfggGcwqYtcHA9gINR kfQinE1KcUZWxU4pfdS7hEG20FXBdvvmoNFHjGBOzFN ohexJcjOdtgsh8cQObVsP3gBNkz0V5EP3ckZHgKNOfkBncyIh7uRmfPU7qZETxTBPcaFutcxvjd6U6CM 7tgMYtN2LhqVGzYUZwqH1zpTJoF9Dxad51JJDtMWPkeAXkKQHtpOwrAZrucJDyKUKnm74fmFoocB8pp9 vjHwEgsu52njMrNLXnq63uFfUeS1ceb9MpB0ebemniC BuyCg8fsB27TAXcDSddFMKaZ80cjURrEYMnYMNzOPJcfnSoDKEmbFjbfdYiSZZds6MdrMJfGZrnBkJcG 23ta8vuLUUaQKWzhQ31jXAdgQhcalErGEHvk92xQoYifDI6syPdAJCqk05zNSZmTIRhgtXesxTrsPz4N HA2wALmUXK9VkWeFOikKFJ0 Gross n0phaQQiZJRmzHGCQTTeNAErCV7anUqfcXi0mIemXEPhjxG9aIUeJLniz8tsEXN7x9gtypNZEzqwALPv MI6eTAoqEZVbTT6eFvVxFVEpUyRqZXLytENmopJmNqTiVJLqpVOddWS1LEXqLR4tgytuFHsfUIorZDWe rvT9FYPtgZNpA0KaPGWoJH0gtdxjEXQ2INNBVhduGx0 Descriptio uqATbaOmtVoZyWzZkLSIiUNZgMIIacSobLKAyBWu8mJ0MVfceR71ui7K7Bun6CVLsGAVmD2HrHD4bPLU tcQHkM80ABgxoBSU8QCCTHxlxPdbfuDyrb2NbeRNbLMRiVAsuaZVpQDIiTXWcWEkzVdGTDaQfGxIiEkH iBjQjOrX2ZVs8HTUIRHVwGnG3TZQrOjJ3MGh4XLPmOA n (test 1aCEehaGVjTQaoKystCYwzH117AIcpIGYbT4EbI3EgPYnqDeHoATihVXGaMFWyIUhrKRTyH4RTBQQlIK P5MgU8HPWdDQg3EYawZ5AARZRhRMY4OXNlGvI6ArQ3XGx5YVMFVb0uFBP2ChHnXEz3ZPD1GVz6DLXsSH RxTlQsFSCkVCVfWPvzgCWgJO3feMnrXITvWD4TFOSgI code = HbcJXSnUxYrASWHLbqiGHMlRPuksJPrEQMACwrpbNPtjjhdIDFnOmPchHguuA1vcPYpA1uxPdAbHmbha FqjVcAxyULyRbWfCYxhmZCusUIoHQcuoeEyqmyiMKwgULBfQERezXHXv6WmKNTUJzovYIGjHYetsaLmR DCzvP5tUBrtEiGvuHC4JSFedKVggnRhjgaejyQmiPSl [id number] xQvxlfBhvJklw92jwR0cHQI3BRqwSGEvyYJ6rH5eRwlrMIvmYlPzMGBdfKFrIGmltGOfJTEdzC4xu0yy wyNrpQLjr8XauO2iQNKxNqX5DZGyEHD4ITOmTsQqoU5dDNOtWOWkbWPihN1eljWzveVrfbzuSBfgEnfp VSW9ZZJwNYPzdZkuEMk3THI7Su3kmNNcEBLeihHIWK0 ) [file] zV1y1tkeVmxi9LebBMxVJ5vuWSsTS0RIXKivqEeLKzsUfExXbLVGn1= Pipeline Controller s6hnqTYuFTExvARyZXMsS1zoikHnWAEhkOJfW2HdofufMUvhED0pSQ2ykDihaMBykNKiHHCcYoIni8dq b807lPBcy8spHWLIyldgsHb5tGosY66qu1D5VtmnV01zdLAwTPP9DJMoTXXjiLGhJWZaESF3AAYtyOOx T0nlDFDtVJ7fuumvICidFVkpPCFtqVX4MHXqgVXvC9X (s) (test tBSUaHBqpRGFmbfo5SxDwKc2smIFjkTrvWEkqYGGmVXAbLFvrBPXzCbOyCZnebsTrFDZoLFwkjfLglSQ jcDJvRDMaHZVumSDtbYIrXZQbBDDtgUupFRRyzj9mhV5oDZRut6syP5bjLiVkxUv8rHPvu89mLYWtnoQ lLiAgXHBhciBKTEMsIFdDQyAgIFxwYXJ9 code = 9863) Disclaimer t7yowZBnKYLwpBVeOhGzIPPiZANyh7wqKCSyoREkUwZzJaAsZeLrReowmBGnUMCyJnTob4gpi740oFPx v0wrBYZrPvC3dLJvAEXfdRRyE925NEVnGKpxm2nty0QuVGFthEFba9O7EVPSdienjUq6iZhdG56au6B3 JoswW9mePXRmTZDwN0KiPB9eBTWpQmh4CGY9ULZ5QXM (test code kRUUxF0WfEP5gPZRuaGReNYv6k2kteFjvHBFuMEG6u5tkARduntEfIS8jig2dzXf1e0ycyiSmHFDeTSI nfBOZLWJhM3PvxAwgRb1niCm1aJdnJaseMPE7Ohk9YF6lff65vpp7fEiwEYNvukkmQjB7FCbbDIAzmqi sAWo7WGznDLLmhDM8ATFxrEFxC7NyLCEuTI8pvoi4LD = 9844) C6HZsjFSVtAeZ4JTQkmYIcMHNlcWqsDTiru345QVE1RgBzWO5xU1Utb6T4vH3otAHvLEYhfUHqLrAkCV Pfov6saOYeRCvxl3WqIHE9pfR0dIZlvBMaQYXlXE40Roqsw4KpXfwmZBZ0FMQudtMvs4Fjq2kfAaGbex HtU2maJ2CmLFIsUVWwDAIaQiInmxYnh5Zqd7AfmTRtb De3n5cvDYTmWALmfZlsf4htPHH5DSVgI6Y5gXOua0iiULqrQYSdxZN2bvH7ZVYjuVZgD9JctV2rEWIeG T3gplv7a1cmYUA1TMrvBDGjGdK1rfE9KPJqySAmPCIykGunHKmot909FAF3MjCuFLFir1ObI7PvxWxqC 25jgUtvG61bMTPflQibtQ6cbNdylF2yRnKcAzYrLOze fNnbkLPdepeyBWumpxP0ESpcocdqPRWoKLczR3raXfPgVPHqjGzcMPerb4SnHMFsHDFtGtzmbjS0CWCW k08oMQBgy2EkAJAslX1pgXXzDGfbbsGqxRK4TExlmqCsApRhnlOuGSOdrP6cZFSuMN0qCMZfkyUhdb0l ngUbJTMpZYTvK7FnvhbafXtvhxQiSVJmbx6jdxJdBDA 5RUYUKC4EMAXlKUFxs07sYRSyvRlapZ6bdZUyhzWfUMPqy4WwfU7isDIRPRVdJ2ruIO9sBTytp1SgeBY oqWEryTJ3TYSeg3LkMnFuuvHijTSqtJKyH8LvxBdfY6mzHXObRIZlfiQdiMBjd9FyALHriTX6vOGqOJ1 BWhLCv78iJUJtRZCFboOfLQUarOcvpKV3rkT2aW3tFg IIFqKhmCTtfWXuNpjpBCSnf231xm3fkaA8MANsELAlqcmda4HmVZAnMRDgcU30HYNqXYRwel6wuvrkaW DbmvJmT9Gtnwt3hK9qYOAtSVbsLLMgJUJjSeBspZHsKtWlRnIkrApmiUvsHBknJxTdXCBfZGhyQ7vaFq FcZnMyMlxwYXJ9 [facility] Interpret[facility] 2023-06-22 23:01:25 Test Item Value Reference Range Interpretation Comments Diagnosis (test code = 34) e4cugUIlKFBypMNqNXY fH6ojvqGkTOZonGEzQ6 PqhknmVAegDU1aDE3xc GxhdHRveWVuXGRlZmYw w0kgu366pYBzv1xkWXW RgwdxrGv2lGxyV24hu7 W5WficO5laJMCaHGtrH YAsBYzdqRTfVHo9HCBu cGVydzEyMjQwXHBhcGV wgZE8HQTeFI9pjdouKU cgABbgKYVtljX2UQDbe FIzS9SeUPRxTT8ffyvm NPO9UIimZZAnKWR0NnO bLUJhm1Oktbl9FkJdcK FyZFxwbGFpblxmczIwX RSpSNTWQfEHz7msLJAu PKG4LEqxcKKtBAmePY4 7MTNhl0LtY6usm2JtJP lrSdYpw1ywjiX7NSSmT SAgXHBhclxsaTcyMFxs gN01PtVyZ4GoIIk8yTZ adYxmh6KeWrLtE8Ushm tcQZhnasM3z7Iotnhdn YanqHTle0wzJWK8xCWf IHByZXNlbnQgYXQgdGl et2KvJMAdN6HbRgjzTI JcbGkwXGxpbjBcdGFiI CTfKLWhw16wKG29RtLf cGFyXHBhclxjZjEgQjo eQ8yxkhhyhQNrpBFuoU VybmFsIGJvcmRlciwgX SRzICNrhMH9SNeaQ3Op ICBccGFyXGxpNzIwXGx idydmWQbnCiDyN2Kpm0 VwhTXvOwDuENItoK8gc XMsIGluZmxhbWVkLCBw loZfLF89AHW9LIQvp6S 7ZPPdQZrqtf4uXIPagk ELr6WwsKXht4tbuJB0w Mh0aOAcMCIctKImEKwi DZxvlT5wZKUmoukfOvX bJvmfF2oecspcnJXueS LkOLmliQ1qAAYvJ3ArC HNoYXZlOlxjZjEgIFxw RVMksYh0IwDgaTvxSwX lVWKjEDGMV4TjocteSF tmfoT5q7KujgF7aIRdM HUgplH2IPgjGKw3KT8m vI4lBPAieaRqNC14KEC 4ZMWfp9E9AZJnSJjfn4 adWZImB8SsPKOpbGQsH FuzOULoQAO0AE5xHNPa HAMtcEqxgyuyS9nulIm hRLSqyDOoo8CrTYmrq5 ntuvGyfaDoc8SpF6pja BbppwB3oQHmCIWuLOhs NPKwbQS3LCUdCB8iPWy iII0eaM8mrAZmttWkL8 0eN8bfQFRxCFVcovHdV CAlmStsm9HtLHTzC6Vt FtykGCRzG6OqJWChjN6 lbnQuICBccGFyfQ== Comment (test code = 9835) q6gsvMViMIUfkHJuWVW sJ9bwcuGjBVIgqQFmH5 TjujeqPDzwWN6aNH6ag GxhdHRveWVuXGRlZmYw g7bga967sIMes7kzQFD KgoygqBw7lYvhE78vf3 N3NjgsZ58vtMZqACH3C TIyNDBccGFwZXJoMTU4 IIRcgADbV5fdJATuWC6 hcmdyMTgwMFxtYXJndD U6BPHeyIRhF5SyEYVuJ EwsESNtiss0IbKnTc2i dGVyeTcyMFxwYXJkXHB sYWluXGZzMjAgQTogQW VobJQlq76jyJVsRNMqR ALfqKbeg4KwHJAkK0Hb k53hMKmgfwQnCaXcvpF nkRCuOH7lKCP6WE7hvb VkLiBBIHBlcmlvZGljI VOxuZXyU4QrdWKeYXN8 YWluIGZhaWxzIHRvIHJ zwrKkeNY7fvQgiNo9i7 DfqVTotE0iPHvgf2VyE N1jj45iVOnzyMacayR5 iHAyuRNtaCrbm8KpZB0 lQXJdd6HpET84NV4mqK YjZH7tSWGfqVPtIB3br mcuIFxwYXJccGFyIEM6 UNAzN3Ayj46wEGYbbcP hbCBhIHNoYXZlIGJpb3 NcmNAmPrTja4jrVRWdM UswH8u8TCSmw5RcOLKn uIYvYLrdbiS3rZP5hOO tYTApnu8jmyVglZ74pK 2bNGOzvB1op0n4dBPaO BHlH5LarR7zCHDhcDrs wGGvV4bupgfhtuMmthZ gYmFzaWxhciBrZXJhdG xzo5E5tUgyZUA0cQMuY SE9qFPaCFKmtlR8KFhw DPw1KR6fcC4iDpWzF5h 0aGluIHRoZSBkZXJtaX MsIHRoZXJlIGlzIGRlc z6ejQU6STHfbWmgjuTk X2Hxz4jeCSJuXLKdhjM cqvLhS9PfYWUuIpJxA7 0rycEbl4Gst6KfMFAwU tmwHYUzjLWpuR59jjAa kOn3rRHkjJMeTXQwuzP sp4QsU2pwbJvxyjZ5eO AfIGLixvEwZA6riAVay 3BoaWxpYyBhbmQgbHlt wFyutRzwbQipM9v8qIO tpG0kaZp8vxC5MRzeg8 YxF6ZefXa5WDYlHoQrx DHxqzSpN7jerZCxf8Kd O8Kjh2JiWH9bcF9wONQ xcTnnWfWgeYE9xAEdeA JebX9iOcTLRUJiySlmr wDnSZHtOTLksjS6uQMv mHNsj5LiuQqwvbCozPI 4MCBuBHFsTRK2fMDotg QgZXhhbWluZWQuICBcc GFyXHBhciBHcmFtIHN0 SIutIFdnI2ohrZbdrPU gW4XbaW0us3PpoJz7IV Alh9GzbTNnqtSjsPMkp QPkiaDrqnGwk4buswDc M6gokD1jBPX8vBcyQYQ YXFTkAS5kDZYqmFVzOt FpbGVkIHRvIHJldmVhb JJ9psFgsYc9n6SyjUAn gP4cFCfjr6JizPfeh9B wD3IgcuzyyF0kF4dkHM Qlc3Hpd0IcOS4be04mD DNio7EhA9DegcXvpAA1 rBBfkH7pwpmwAaeuPJT cr7X4AT0uCIxvSIBeLQ z6lU7iKITYULRyv2Sox S7hlNwpaAobX4y7znSl JFNpMARySKqxXNX5MJE dmjldjUHmq2KeWd4yoO KeLUxosUehZBksPH6pu 7GvpC5dvWtizXomV3b4 cyBzZXZlcmFsIGdyYW0 amR9wbLWvwdDhP74gM5 fjmM7yXH07L7lbJFAdF IqnbhX8tS6szCXhwWO7 BGEhHAiuq3IwkNsgXIC 1wcO0eO2bQ05yrtO3sU 3mI83dvoFvKKScp04pr 7l0qMXoSZH8cFSrAL4m GE5pF9OxYzavjN4srQG qoUk9mBQunnSiftXdMC Qvn4EigkpyBDegIOB2A LyuUDLuAE5qEYGmPQYj clxwYXJkXHBhciBUaGU tkJEde7WiY9Bkl5HtJT Xcg0DqXFQeAIDaQL4sL MCtpkMuJU4tFPOjqdeu kD0ygYy4lqX3SYIaXNu xJFHeeEicRDVir9XfIu mguJT9FR0yIYLqpdLuf PMrBMXjWd9jcEwafBxb cDynKI0cJRHkiAmrC8I lGYHmZ7pzuL0fAA06UN ZlciwgZHVlIHRvIGlyc nQdsXesxqs5qJUwBuF7 rRDyo8P4CV5zgAAwNRZ jgGrxtJs1hNhiJU0uQU YiWUImkQpnrgrla7X0G L5xpUOnL1GguDWyYBXb pO9wbXHqZ7Yqea86UCZ lIGNvbXBsZXRlbHkgZX fvoLLbADEgd30xiSybb T7kv8lqZiBoja77sfPz YELdz37uYpOgG2izu3Q gY1bahfufVRwoFi8pjI 48HWOcKWbsJWSrP75ge WVuZGVkIGFuZCBhbiBh FNTgjVnmruIdSBOfp4S afMAlZAfrMiYlO89vf1 fuJQVfPOUwvB93hOTnx TfqzxBuSMAup82uXrWk jRG8ioNzTTKgc60lWCO aOLMxmsDxeuWrkCm9MR N9dXDcCST0MbRlEAwsI XJ9 Gross Description (test j4xdvTYjOTVcbTVXGVK code = [id number]) qYXNxKC8fvVxotBd8wN bwOFAiwsT2xDFpENgpq 0daCFK5p5colrEVYajq NDUrPM4qDZnuHZVtQP0 nZmUwXGRlZmYxXHBhcG VydzEyMjQwXHBhcGVya HI0PBPzQZ4kxtntMAto HSgdHDVfstT8GWAzsMD zX7EjHLHhFB4mlpboRX F8NQGPKnpuCu6vyGVum HtcZjFcZmNoYXJzZXQw CDPfzPaaIHHvZHp5jF3 OFaohQ88qp1Q9Dvz4FR YlFRQrS0BtUM7lAJCty DCkZ36MOzbiVQW8YEJN AejrFngjaJqjg3TkbNY cXHNnIFxcaWQgNTEwMD AgXFxkYiBPVlIgIiAxM tByFuAqXtO8YBj7SQFY JCLnEyG1HJLfVuR0JFg 7ZEOvJW3vEVmiaAOxTS heZpsnBClsY780MDmqN SSqB7RvA3UnPWnrXpCl XGlkIDUxMDAyIFxcZGI mI2MCOMFgMMU5SfT9GS HhJAu5HOalW8VZEGTzF ZV5QJVzGuO0MwB7PCh6 KAXBNw2kGKS4KlZrULx 6LWA9NAt3BLQsOJQvNx BcXHNzIDMgXFxmbCBcX F4gtQtuQUOuQQ2YOXBy YWluXGJcZnMyMCBBOlx wYXIgDQpccGFyZCANCl xwbGFpblxiXGZzMjBcc BrtzO1weAIaB4dwNzVd MlxlcGljTmVzdERvYzE gDQpcbHRycGFyXGxpbj BccmluMFxzYTMwXGVwa MPZg8VmBRPZGngjSOYb VEabduYjMHAyiS2sAEf tSiOlvMG5NYDoqIMqis RlcmlvciBjaGVzdCwgb oSfrBzaj11icD5qYNO9 HZkoRKUgsSY6zP1lIsm iMFxjZjAgIEEgdGFuLX jyuFKyJWKlwZ7tg6mde vWxcWJlc6AcrQ1aCFBm XqW5ASYqEXL4FMMnIbQ haY8gSYThBUFlhGVkeB 1lbiBpcyBpbmtlZCwgY lqqKBW0FIMoVGDlaTwv FDq0VXW9Pe3mbAYbTUF ecwHQQX5mZKmqdz60KB W6s5rvuQUyWXddScfog KRwuaV7LUzLXTEISXyE VdKbSA1wBSnIJitXTDl JTnwyMTAxNnwxfFVTRV A0FRcqfSolhNo7c9rli ICga1s7YQxaIQM9kWlU n0ytdWUoHErkQcrraRF vwlR0WPkFSKQUJHwOAw UcDZ3zHVgNLgyWOrR6K iAsLGH8VBjSX5TFkEZ5 Hml8IIi9dCrqAhnsqcE pjNDwOzVFiU9lbDhlkF 8jiFHdR7ntEqFbBSSKL lxlcGljTmVzdERvYzB7 STCerMRfUVE3RW3ucTo yJXOjZYg9EPnkGSMiF7 DzY9BbSXfsIrZoXOhwX DCsHQKpLJeaEBQrN7KV SBAhWJJ0RkG7EUQbUUv 3ITagS9TECOWjUNF7QD BnStG6GhD5EBx2JUKSG p0yMHQ0MkJcVWrzVWC5 XRs2SBSkBMSgNkJqHNL vCHDzIMgyhVIbAX1uzA rfOTWuDSGnLIH9YYCbz YPKv7XuTNWnXVuaHcXn MlxiXGZzMjAgQjpccGF fLY7NAWDyrvRwTPnqfX mnlA6qwNLwX6wcKxsgs zIwXGIwXGZzMjJcZXBp A98jt8FLy1MoEU0XJIe 3rvMehfjpbS5kVWYdkt Cwq2AoYUzdoBibHHDlL bLxr5AjUMlqqKqvSXNo MzAgDQpcYlxjZjFcZnM wYKWHd6piALInGXZ9LT W5NMVkZJmyYx3hQGNcW WYdq7p7KRPgUXQtUEFf MTAoc0QxpJJsZEDfXG2 vZHVsYXIgdGFuLXdoaX HyGCFutC0kt3qkqmWot GVzu1YycM2qZTFaLGH3 UBWsTNA7BMVrMxWjdW9 aCKSeNYMtmTMhsN8fao BpcyBpbmtlZCwgcXVhZ KBft6NrnWYtVYDlkqMl xpMzqKJdiRVwzJW3OWY uvM9lGlWkPHTdaCNgkG LsvUoeFtogdVS8SQnyB xalzC2ceJZBUQZHBmgO NgcylhLqDR3RLJ9UJjY VDI05HzTlOUW6TTmXN1 URgEP6Ogz5YMq8uLprJ ojwtpGrxHYpXqQGwT3G UAkbRnmazNO0YIzxQur dvU0zvLCMCPIDDnpHOs qfeuOaSI6RNR3ZBT8Jm FBqRLO7gZI1AWUVZraa hVJ7hTD5sR11JQXbAJX rhEKbQMkzB453ZLGgIA lrNGn3lbHqZFMtEbXoZ CkiYRVjS18wj7MAk3Fu u0gbyNrjn3UzfMOvVK1 wmQBuNI6Fp4adVHZmkX UwZMC2SVqrq9rfVFsiH MP3WIAfQqPoXTFaIM5X UiAiIDEzNDMyNTEiIDk 6MYf8ZG4VAaFmXKZkUE XdFQOgXVPoYAc7NVznP Z0ZIJWkLVRsKhT7OILd MYJ5VQofIBw8NTSpOJd zcyAzIFxcZmwgXFxuY3 1ccGFyZFxzYjEwNVxlc CvhFNSzDQK4FJ0NBTDx InDxZnhymfNjOPZ4QMS cjpTCLepiFGAnXK2FJX OiKLtuHKr5ifXeXKSvR nMyMFxiMFxmczIyXGVw tAKATYZ1AV6jPTGGNbj sdHJwYXJcbGluMFxyaW 2iOKNrEqXlBSTqE7bwY wRfBHMmKfJnMNXbN0ky CKDaRU9NJMIiF6PkDQU rXsGmX8mqotugeTBetB JqNWijyS9nXTHbUV3kp OMtiZP8kbNoxyMfaV2h LeFgATGiz7Y0MNAmIJV pXGIvGVL5CF8zj3onbH Wra7ocsrEscSP9OVItG PEjcMBkhkxyAI48NXlb ZW89NEplFT0dBFBlQkK gVGhlIHNwZWNpbWVuIG arYQaux4RvSCIilAJbM 4WyTAayXG24wMRwgWei e0HjdJv9pNSiCMdcCNE sMvUcUGLct0PpH3Y1JJ VnRRche7maARCxJJbel 5TkRSgQLHMRCZ4KLQ1j iRC0HBpUY4CPB7kSlPC jWMX3yKI6SYDCXqpobR Y0sRF5vJ73NDCjBMMai FFlNSfwD791D645AVEu DBksx9isSHDdKMdvq2A wTEeTNMCATE6NXQ9cbD Y7BZjSZ0XUQLwmDOWjX mewtMBKCLX5TExvaZex nUe8v2ejpPSxx5o3FTt oLTK5tXkzkYCxnuzlpE GszWmoimHxNT9VTFCyi GAXBZP7HO1nVZrsSGTf W6KsH8BspnY2o8rspQd ym6MtyNLpLV1zaZOtCR 0KXHBhcmQgDQpcZnMyM 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) (test code = e6ikiVOjLCYdyIGgRNX 9863) zO5jxvhIdZFQyrIIuV1 XcftzsHRjvFP0aBH2zs GxhdHRveWVuXGRlZmYw f5fjq977aGWjd9mfITR UriefaCo4zRnvA37fd5 B5WnshC52cuVXsTCA2I TIyNDBccGFwZXJoMTU4 JTUokTAbE9zfCMWzUF5 hcmdyMTgwMFxtYXJndD D6GEJqhRZyD7IuHFIiZ FivZWSqcew4JcSiRc5y dGVyeTcyMFxwYXJkXHB sYWluXGZzMjAgVGhpcy BjYXNlIHdhcyBzdHVka WVkIGFuZCBkaXNjdXNz ZWQgYXQgdGhlIGRlcm1 rbG5fEXZhs4meU3vgGc SdrQx0hHCcq24eVEKxq mNlLiAgXHBhciBKTEMs IFdDQyAgIFxwYXJ9 Disclaimer (test code = u4vezPKdRYNztGFgLlL 9844) cXZHeFSIuc2qhLAWxeY FuZzEwMzNcZnRuYmpcd APaVYDnTyIrz9gmk629 nGMzl7qrMUDyHcO5rGT oVWJodMMmS474IPIaEA sja5obm2NpFMJrdVGix 9N3MWPMkaoreBl7dRza J83bs7W4BrjkP7kvBYW eFBBnB4SoMH4gDQJfAo m9SUC5NIH2KDDhVSAtE 1SaXA2uDAYiwDVcCOq2 g3epmSvkAQGrJFG0m8d qTHedaoNqZU0sqw4zuU q8d9oksqGiXNUnOMMfn XNWVLLkW4ZnjGmjVu3t gDu9oAdbTsjpGUZ8Irc 4DH5pcj51ckb6zWjeXS KtvuajJvS2WMlkLLLyx wloBRi0IBlyOVPsmJP1 HPOmvJAdH8LyFGNsLO2 lpze0SWZ7JWxzEHVeTj F8KKHhrQQdMWZqiLogP Bqnk148AAF7QaXoGU3q M0Mft4N4lF0nyGSlJLC ioQQdIxTdBXVuaz1frA ZeBJpel9AwADL6zjZ8d ILiyDCiDZGpBA60Xgvt n8RcMnawYGG5IYCojzH rf5Upi3uqEfXuroCqM0 ulT1IhYCJtDHHzMQEzN eQhqfYsz7Aer1BwuLWe ePy2f8eqQQRtYHWshXk ur8lcKVN7QCQbL3V9uY Bjb7pyHUydJBCynIM0q fA1XIVxhFItZ6ZezP1b GGKaOA5gerj6w3mzVGL 1HEdsNIKiWdX8kmV9VP BcaGVhZGVyeTcyMFxmb 779NZC4FvKvOZNqw9Gw D7CzcZtpY42kvQouR14 rDWUdfKtypE1qwYahoH 5cZjBcZnMyNFxxbFxwb ITagzxnRVwwsmL3NBov dtbxJXOaYGkmF6sxTnQ jIABylKsoJDkde8CuCV FgKEQmVtqpwzI9WALCf 02tCNZeu4InOEOemK7g kNJeCImfdnNyiUP7MVc hdmUgYmVlbiBkZXZlbG 9hBTSiQX9cKEFxrxHex q0lxaFaTMVhZQBzH1Xf cmlzdGljcyBkZXRlcm1 ctyCbWDC7NKWKFG0PKP TzRVIfj29rRLSokXbnk Y6blGDnhoVaNNMik1Vf zS6cvDSXNOHtH4orKL0 qJHpcp1FsyGJjxSZcqB V9SVQps4QuTaHxlaOca CWuqZUhX6MnjMetD9uv NUHsHZPelsTuwWErt7Y wUKMlzYI5hGAbRK3VKl VLi67lVFWaSVGSmhPzA CFxiXuwkBC3kgC9sO6h LiBJZiBhcHBsaWNhYmx mKYTxl874bh1ctlT7CZ RiCHBaexpuu9BdQLUgK QHaiO48EVZrVNWgkm1i kzdbeBGqneInX6Dwjkv 8pM9hWQOpOWheZBKxWZ ZzMjJcbGFuZzEwMzNca GljaFxmMVxkYmNoXGYx XMlkI1ixQjOcRsBsCcp wYXJ9 [facility] [place] [id number] 20:57:00 Test Item Value Reference Range Interpretation Comments POC UA Color (test Yellow *NA*(10/24/22 code = POC UA Color) 2:57 PM[facility] [id number] Test Item Value Reference Range Interpretation Comments POC UA Turbidity (test Clear *NA*(10/24/22 code = POC UA Turbidity) 2:57 PM) [facility] [id number] 20:57:00 Test Item Value Reference Range Interpretation Comments POC UA SG (test code = POC UA SG) 1.010 1 [facility] [id number] 20:57:00 Test Item Value Reference Range Interpretation Comments POC UA pH (test code = POC UA pH) 6.5 1 5.0-8.0 [facility] [id number] 20:57:00 Test Item Value Reference Range Interpretation Comments POC UA Prot (test code = POC Negative mg/dL UA Prot) [facility] [id number] 20:57:00 Test Item Value Reference Range Interpretation Comments POC UA Glu (test code = POC UA Negative mg/dL Glu) [facility] [id number] 20:57:00 Test Item Value Reference Range Interpretation Comments POC UA Ket (test code = POC UA Negative mg/dL Ket) [facility] [id number] 20:57:00 Test Item Value Reference Range Interpretation Comments POC UA Bili (test Negative *NA*(10/24/22 code = POC UA Bili) 2:57 PM) [facility] [id number] 20:57:00 Test Item Value Reference Range Interpretation Comments POC UA Bld (test code Negative *NA*(10/24/22 = POC UA Bld) 2:57 PM) [facility] [id number] 20:57:00 Test Item Value Reference Range Interpretation Comments POC UA Uro (test code = POC UA Uro) 0.2 0.1-1.0 [facility] [id number] 20:57:00 Test Item Value Reference Range Interpretation Comments POC UA Nit (test code Negative *NA*(10/24/22 = POC UA Nit) 2:57 PM) [facility] [id number] 20:57:00 Test Item Value Reference Range Interpretation Comments POC UA LeukEst (test Negative *NA*(10/24/22 code = POC UA LeukEst) 2:57 PM) [facility] [id number] 20:57:00 Test Item Value Reference Range Interpretation Comments POC UA Color (test Yellow *NA*(10/24/22 code = POC UA Color) 2:57 PM) [facility] [id number] 20:57:00 Test Item Value Reference Range Interpretation Comments POC UA Turbidity (test Clear *NA*(10/24/22 code = POC UA Turbidity) 2:57 PM) [facility] [id number] 20:57:00 Test Item Value Reference Range Interpretation Comments POC UA SG (test code = POC UA SG) 1.010 1 [facility] [id number] 20:57:00 Test Item Value Reference Range Interpretation Comments POC UA pH (test code = POC UA pH) 6.5 1 5.0-8.0 [facility] [id number] 20:57:00 Test Item Value Reference Range Interpretation Comments POC UA Prot (test code = POC Negative mg/dL UA Prot) [facility] [id number] 20:57:00 Test Item Value Reference Range Interpretation Comments POC UA Glu (test code = POC UA Negative mg/dL Glu) [facility] [id number] 20:57:00 Test Item Value Reference Range Interpretation Comments POC UA Ket (test code = POC UA Negative mg/dL Ket) [facility] [id number] 20:57:00 Test Item Value Reference Range Interpretation Comments POC UA Bili (test Negative *NA*(10/24/22 code = POC UA Bili) 2:57 PM) [facility] [id number] 20:57:00 Test Item Value Reference Range Interpretation Comments POC UA Bld (test code Negative *NA*(10/24/22 = POC UA Bld) 2:57 PM) [facility] [id number] 20:57:00 Test Item Value Reference Range Interpretation Comments POC UA Uro (test code = POC UA Uro) 0.2 0.1-1.0 [facility] AND [id number] 20:57:00 Test Item Value Reference Range Interpretation Comments POC UA Nit (test code Negative *NA*(10/24/22 = POC UA Nit) 2:57 PM) [facility] AND [id number] 20:57:00 Test Item Value Reference Range Interpretation Comments POC UA LeukEst (test Negative *NA*(10/24/22 code = POC UA LeukEst) 2:57 PM) [facility] Culture w/Gram [id number] 20:51:54 Test Item Value Reference Range Interpretation Comments Final Report (test code Normal site franklyn A = 8488) present.Generally of low significance.Correlate with clinical data and culture history. Path Review (test code The results have been A = 8492) reviewed and electronically signed by Pathologist:SVITLANA SAAVEDRA MD #[id number] Gram Stain Report (test Few WBC's seenFew Gram A code = 43064-5) Positive Coccobacillus Lab Interpretation Abnormal (test code = 66498-1) [facility] 20:51:54 Test Item Value Reference Range Interpretation Comments Final Report (test code Normal site franklyn A = 8488) present.Generally of low significance.Correlate with clinical data and culture history. Path Review (test code The results have been A = 8492) reviewed and electronically signed by Pathologist:SVITLANA SAAVEDRA MD #[id number] Gram Stain Report (test Few WBC's seenFew Gram A code = 67389-4) Positive Coccobacillus Lab Interpretation Abnormal (test code = 99930-5) [facility] 2022-06-22 20:51:54 Test Item Value Reference Range Interpretation Comments Final Report (test code Normal site franklyn A = 8488) present.Generally of low significance.Correlate with clinical data and culture history. Path Review (test code The results have been A = 8492) reviewed and electronically signed by Pathologist:SVITLANA SAAVEDRA MD #[id number] Gram Stain Report (test Few WBC's seenFew Gram A code = 08448-4) Positive Coccobacillus Lab Interpretation Abnormal (test code = 42937-1) [facility] Culture w/Gram Stain 2022-06-22 20:51:54 Test Item Value Reference Range Interpretation Comments Final Report (test code Normal site franklyn A = 8488) present.Generally of low significance.Correlate with clinical data and culture history. Path Review (test code The results have been A = 8492) reviewed and electronically signed by Pathologist:SVITLANA SAAVEDRA MD #[id number] Gram Stain Report (test Few WBC's seenFew Gram A code = 33919-2) Positive Coccobacillus Lab Interpretation Abnormal (test code = 66810-4) [facility] Culture w/Gram Stain 2022-06-22 20:51:54 Test Item Value Reference Range Interpretation Comments Final Report (test code Normal site franklyn A = 8488) present.Generally of low significance.Correlate with clinical data and culture history. Path Review (test code The results have been A = 8492) reviewed and electronically signed by Pathologist:SVITLANA SAAVEDRA MD #[id number] Gram Stain Report (test Few WBC's seenFew Gram A code = 45024-9) Positive Coccobacillus Lab Interpretation Abnormal (test code = 68911-5) [facility]ram [facility] 2022-06-22 20:51:54 Test Item Value Reference Range Interpretation Comments Final Report (test code Normal site franklyn A = 8488) present.Generally of low significance.Correlate with clinical data and culture history. Path Review (test code The results have been A = 8492) reviewed and electronically signed by Pathologist:SVITLANA SAAVEDRA MD #[id number] Gram Stain Report (test Few WBC's seenFew Gram A code = 40699-1) Positive Coccobacillus Lab Interpretation Abnormal (test code = 98038-3) [facility]Gram [facility]ain 2022-06-22 20:51:54 Test Item Value Reference Range Interpretation Comments Final Report (test code Normal site franklyn A = 8488) present.Generally of low significance.Correlate with clinical data and culture history. Path Review (test code The results have been A = 8492) reviewed and electronically signed by Pathologist:SVITLANA SAAVEDRA MD #[id number] Gram Stain Report (test Few WBC's seenFew Gram A code = 00601-8) Positive Coccobacillus Lab Interpretation Abnormal (test code = 18291-3) [facility]ram [facility]ain 2022-06-22 20:51:54 Test Item Value Reference Range Interpretation Comments Final Report (test code Normal site franklyn A = 8488) present.Generally of low significance.Correlate with clinical data and culture history. Path Review (test code The results have been A = 8492) reviewed and electronically signed by Pathologist:SVITLANA SAAVEDRA MD #[id number] Gram Stain Report (test Few WBC's seenFew Gram A code = 00349-6) Positive Coccobacillus Lab Interpretation Abnormal (test code = 68485-2) [facility] Culture w/Gram Stain 2022-06-22 20:51:54 Test Item Value Reference Range Interpretation Comments Final Report (test code Normal site franklyn A = 8488) present.Generally of low significance.Correlate with clinical data and culture history. Path Review (test code The results have been A = 8492) reviewed and electronically signed by Pathologist:SVITLANA SAAVEDRA MD #[id number] Gram Stain Report (test Few WBC's seenFew Gram A code = 69462-4) Positive Coccobacillus Lab Interpretation Abnormal (test code = 60528-9) [facility]ram [facility] 2022-06-22 20:51:54 Test Item Value Reference Range Interpretation Comments Final Report (test code Normal site franklyn A = 8488) present.Generally of low significance.Correlate with clinical data and culture history. Path Review (test code The results have been A = 8492) reviewed and electronically signed by Pathologist:SVITLANA SAAVEDRA MD #[id number] Gram Stain Report (test Few WBC's seenFew Gram A code = 12012-5) Positive Coccobacillus Lab Interpretation Abnormal (test code = 13619-9) [facility] Culture w/Gram Stain 2022-06-22 20:51:54 Test Item Value Reference Range Interpretation Comments Final Report (test code Normal site franklyn A = 8488) present.Generally of low significance.Correlate with clinical data and culture history. Path Review (test code The results have been A = 8492) reviewed and electronically signed by Pathologist:SVITLANA SAAVEDRA MD #[id number] Gram Stain Report (test Few WBC's seenFew Gram A code = 61804-5) Positive Coccobacillus Lab Interpretation Abnormal (test code = 18587-3) [facility] 2022-06-22 20:51:54 Test Item Value Reference Range Interpretation Comments Final Report (test code Normal site franklyn A = 8488) present.Generally of low significance.Correlate with clinical data and culture history. Path Review (test code The results have been A = 8492) reviewed and electronically signed by Pathologist:SVITLANA SAAVEDRA MD #[id number] Gram Stain Report (test Few WBC's seenFew Gram A code = 97210-8) Positive Coccobacillus Lab Interpretation Abnormal (test code = 26093-6) [facility]Gram [facility]ain 2022-06-22 20:51:54 Test Item Value Reference Range Interpretation Comments Final Report (test code Normal site franklyn A = 8488) present.Generally of low significance.Correlate with clinical data and culture history. Path Review (test code The results have been A = 8492) reviewed and electronically signed by Pathologist:SVITLANA SAAVEDRA MD #[id number] Gram Stain Report (test Few WBC's seenFew Gram A code = 75683-9) Positive Coccobacillus Lab Interpretation Abnormal (test code = 25873-9) [facility]ram [facility]ain 2022-06-22 20:51:54 Test Item Value Reference Range Interpretation Comments Final Report (test code Normal site franklyn A = 8488) present.Generally of low significance.Correlate with clinical data and culture history. Path Review (test code The results have been A = 8492) reviewed and electronically signed by Pathologist:SVITLANA SAAVEDRA MD #[id number] Gram Stain Report (test Few WBC's seenFew Gram A code = 78254-2) Positive Coccobacillus Lab Interpretation Abnormal (test code = 78457-9) [facility]Gram [facility]ain 2022-06-22 20:51:54 Test Item Value Reference Range Interpretation Comments Final Report (test code Normal site franklyn A = 8488) present.Generally of low significance.Correlate with clinical data and culture history. Path Review (test code The results have been A = 8492) reviewed and electronically signed by Pathologist:SVITLANA SAAVEDRA MD #[id number] Gram Stain Report (test Few WBC's seenFew Gram A code = 66043-7) Positive Coccobacillus Lab Interpretation Abnormal (test code = 55621-8) [facility] 2022-06-22 20:51:54 Test Item Value Reference Range Interpretation Comments Final Report (test code Normal site franklyn A = 8488) present.Generally of low significance.Correlate with clinical data and culture history. Path Review (test code The results have been A = 8492) reviewed and electronically signed by Pathologist:SVITLANA SAAVEDRA MD #[id number] Gram Stain Report (test Few WBC's seenFew Gram A code = 81752-5) Positive Coccobacillus Lab Interpretation Abnormal (test code = 70419-0) [facility] 2022-06-22 20:51:54 Test Item Value Reference Range Interpretation Comments Final Report (test code Normal site franklyn A = 8488) present.Generally of low significance.Correlate with clinical data and culture history. Path Review (test code The results have been A = 8492) reviewed and electronically signed by Pathologist:SVITLANA SAAVEDRA MD #[id number] Gram Stain Report (test Few WBC's seenFew Gram A code = 33598-3) Positive Coccobacillus Lab Interpretation Abnormal (test code = 14088-9) [facility] 2021-12-28 18:43:18 Test Item Value Reference Range Interpretation Comments Submitted Clinical History [id number] (test code = 25324) hKZZfb7izz9ZbiSUkmZ GpPKbkrYNjwaGgte21m KH5xN68SU2aQOJbHsP8 IRUgauC7Isi2IOVlTOH sfJOuL414z5app9npce VxsUY9lObhPDEquozxN oX9XZfjMKGkhyfpZWz9 BRghKKNhrOW0MGWidOO gI4IvDTLmOG5ajyh5QR I8SDveJEZsYaX4ENFxf BAlBKGwrFnbFLzws445 HXQ8DxDvTSGyloWjlBe aoU0cRbZeNIXKXV5xfA LvcXRkBkC5ddZbgwYij C8wSlQdGWLla2Djz1Ov o6ntivNcJUZ6NaXwDFD tpiENFgSOTdE1lkWXM8 AxvZZjXPV9SPLJLHBqA GSTU3yiDFTtsBQrUUvl YXJ9 Diagnosis (test code = 34) h4uvnVDdSPTfoFF4JhU sQAYme9ssj5CqlUWyqI PjFEghlXVtwdBijf66w FK2nZ21MV6uMFOoHpL4 BHOvqsD8Wps8WFUlAHC umMIcU988d9nlm2yetz ClwHS5IYDsEOSnH6LsP S5pVXLvoCQwC44vxJKl FTJ1XFGrYHCsrDHsMDX oSRS7LTTbuOMfM4mwBM KpXX6rfnsuMAkcXLkeP AJpqXM8VZAbgRAkL6Km TNKtFIumFDDuzzg9SeH uPr5ahTJoqXbtILbhUO JkXHBsYWluXGZzMjBcY 5DoOIO5KNZwJ6d8TC6x S3paICEpyG8os1axjyX 6XHBhclxsaTcyMFxsaW 64DaSjO0XiEKGbsaOpm 4MdpqYkj6l4oHS6zBUi g9AiCZMfdUNhVEnivZ0 juHiazhJaPjDdLJq7tU UkcAiyf2RnJaJmP0Ddd nrlIWkkbfS9o0Lrfiea t6n8mNBbt5zoiRG8bKV oSOgixv8kzwZfPF28WU QfpvPjGH12KEA0IVRcd 2A9QWUvMKpqmw8xfTSv QDU7mXMpM6UyHZVunSu nYLB5eWChSVH5dwB7qN HgRsBbODKbEnN8tEBvj 9OdV3yiLW9kSCAhnGUm k8VmQKHlgWbjC6QuY5f qc40hYMcqAT8sdGWyw1 6lmBP4JXp6GFC0vMFeR D61aV9zhMUaKYGitmYG ZWJvcnJoZWljIGtlcmF 9g6UtcnyhyUYrsLRohF YxWLQnvlUnYL76XTM6H HBlcmlwaGVyYWwgdGlz j6MgDOPuL1JrCLKunEQ yIEVwaXRoZWxpYWwgdW tbGTHkoAgprfI5qOPwF R9mbRRyq8NudGsnLmHe DTD4aYWkuzCcwE3avJZ yNAfbHZkhzF7gOESzkc xjZjEgQjogUmlnaHQgZ Lndh0cpNRVwgG1ir2fh ytN5THFgoxcjiOnlEUq orY49CeRkD3ArOSg7uM CqyOdxf4EcOpVyJ8Ety djmLCmlwsG0u7Pjvtwt oJyrxFJwp2eqAWF4bZF sIHByZXNlbnQgYXQgdG ffs9IoAGZtW3XvEetdC PBoGD5mVAEdvAKrl40x gESpxY2lu2nczOQ7KBO tO43kBGFtOHHvu6Lzdp kgaWYgdGhpcyBsZXNpb 29hk5fjvJgzDHLqdMho fJ7vqwIlvN9oUUM9vcG dw48uMGS3FITwncRbcV qrmzCoeH4sIYyjXTJtr GFyZFxwYXJ9 Comment (test code = 9835) m3zxaDLnYBPdkET9OuR aIPRbu9yjf9XoyUGgmW GnDOzpwZDkwvUmai14k RZ5xF31ST0iEQYnEuK2 ZXChntW6Shj7SRHmAIG txXBvK341r9ecr8abnl ObcLM8aYvkCQLanophR hG9VQybVWBfdpukXXr4 NLlfVSMybAQ8FYXsrRY fW3BoHRLbUR3rlrr2QO H8QWwrFNFvDuG7QTKnp PPqRFMsgIebPGyuq033 VQS6KoHvRTBkqnWwzLk ypJ1dErHkOHOVOgJMgG c2lUNqSIHdxHLqBBDvM 4Rgp68xNDtbxjWxXFbz bWluZWQuIEFuIGltbXV kd5mpk6YyE9ktjRvwGF sph3K3WBdle6XnCTOeb yGnfj8oFYP7h1sgRfZh RG6wuZYwYP0wjEOaF33 cr7UwaEbrh3hkA7penF nynSvjC4y4bsTwM4I7v LDqEHEemaRrG7Hrn49o jYEzCPboug6cdIIvvcp gcmVsYXRpdmVseSBpbm VwEOWfNKSmgP2parOeP oLaGIMeh46nxNW2PB68 ERizxPftsXFoXL2fY9l 0aWMgaHlwZXJwbGFzaW BshA4jOGDrMTNuQ6Njw R2bFX5pUTGthVrmqRXk H4zkglwcqv6bFRPxrtV TCq29iFGruYggCLQ6MC Mgf6IlyDzaivUtb2FgT MOohFSspX9nAF6dKV6b oB8rfO4dzKjiyA7xtJZ ucQPrqILytGMqjRI3MM LkwLRuSo9nxCUqTZGgm N1bCZYbgx1zIJvjtq4f LBIwn1GbrTArsAK4cGe jaCBoaWdobGlnaHRzIH PrSYD1OEZbROEqqN1ta DyjqsKzXO1qnKUyw0N4 dGVzOyBubyBkZWZpbml 2ZDVeTHpkex8bqUYaFo SaBJKfm88lqUQbmBXby fKhUdudVB3mINMdwb5= Gross Description (test b7ybpTEgVCHwaWAIJIb code = [id number]) wMFxhbnNpXHNwbHRwZ3 ExajxhGWwpXA6jCP1mh GuxtZFrzAYpPM6HURKa ZmYxXHBhcGVydzEyMjQ uOUCpzKZbpHX8QALgHF 1hcmdsMTgwMFxtYXJnc gS0GMKrpQRyP0XzNESd JL3qijdyXSE8JWxuoW3 bfqIRSanrAh5tuHMtdE tcZjFcZmNoYXJzZXQwX KYaqGfeFWAlTTa8oI4C KmplE67pf5D6Wyr5QJO gBSSqE7MbYX5eAHTvaH XlG86OGcylCSP4OQRIB dovXGUtYX4Bw3jzJBDu vRDlZHN5QLoxgTPcJYG bVKPnKWb0EAZaFIvezU GjXI1jwRagAdspsQgsu 2VjdCBcXGlkIDUxMDAy IExxRFEuTL8IZrOxZJZ cUhX1EYZtDMh8ZFf2OE 9WUyAiICAgNTAwMzgxO WEbJWk9QEibCK3OGDxh LTD1URY1BCN9ANN6PFB cXHQgMiBcXGYgQXJpYW wgXFxmcyAxMCBcXGZiI RpdEtdtLIehI10epHka tT5kRyvnnaHzXYB2JAF hciANClxwbGFpblxlcG ljTmVzdERvYzEgDQpcb HRycGFyXGxpbjBccmlu MCANClxsdHJjaFxiXGN xZFxpmyTzXUFswO8vSN EhSSTiP3s9EQ8yS4j8I ZXuROAjLDKeQHR1UE8p hU0ilIEsWWQgu0yyHEP zoL6kp7qnqoApNSDxvK DgTeuxtFFgKtRrD27zS CBUaGVyZSBpcyBhIHNs yMahcMn6TEWaDISygFF eGJhhv7xuneOhMWCwdU LwjgrfJU8zJJmlGU3sB IsnZG8eGSLdLlUcIDqi BV1swutwuiPyAAAcMGt yk9BbWDNxGKClBBomyG KlTUO6qA2dZYOjLBPas IxhXKs2SAW6Yc2kqJFr EEPcmbOGSC0vDGtydb0 3KOD6s5gouOKaLGwpDv eneFSmniK6ITeOFHTJJ KgJDtUyYG1oGJyECkzQ RUdJTnwyMTAxNnwxfFV FTNQ8KFsqlMykkIf6k5 cimPQjw7n4QZkeCXG1v USCf8otkZIgIQtsNexr eULohaA7ZQpUJMOMIBs MZkKfDR2gNVpDNqrYOf N6DbOwSGS9PPdGN8XIv JE1Kso8MDg6yTyrFaet bzEieKHoTqNVkW9vjSf mlO3uoLItT1mqEgBrMC ANClxlcGljTmVzdERvY aXwlkP2EHKlzWMqRFM5 MR7wHYGbyrdtNWGgYSJ cDQL4DYwgkN84fAIeQO ZzMTZccGFyfVxwbGFpb rVVXevtYfpaoJpxf3Xc dCBcXGlkIDUxMDAyIFx bNVQuXP9QVzUrHLViAm T2WFRlDOf7LZa4KC6QB yAiICAgNTAwMzgxOSIg PUp6ZNkpDJ9EGKohHBR 1ErR4MnH7KIH9WYFrPX QgMiBcXGYgQXJpYWwgX FxmcyAxMCBcXGZiIFxc SnisLQssD46fqCxprN3 qIbzdvrAnJSJ3VWPzin ANClxwbGFpblxlcGljT mVzdERvYzEgDQpcbHRy cGFyXGxpbjBccmluMCA NClxsdHJjaFxiXGNmMV nqwnQvKNHbcX8fXSQsX ORnK9l3QHFbOp46Qiem MFxjZjAgIEEgdGFuIHR uSJTfls2gua48zsphaC EzubDoGNDljkxdb2xqq pBghMB4VPpjBP25SIpa XT22XSkwAP5gKMIuDwS tEKkbNV0jthazarEqGC PaXZyvw2WsFDOqSHArB NkfxDUsCAJ9yD5nBLCq QMYplYbsDLl0LNC2Py2 gqOIaYNLlbyIMIU1rNG difi57GRG1f9lwgNBuK TdmJrtdmKXwsiO1ZIqF VYCYNGrSEoBcUL8tHGw JTktCRUdJTnwyMTAxNn khcPKZQXD4RYwuhGdzf Ex8k9tphQHmn4s2GZap CSN9uAEYd5wqvHPvEEe cEwyqnNDohxH0DWcSBZ TMYKfAWmBgVH6iMWyXV jfNEcL0MwEpLLG9FPdR F9XEdRC6Nmv8SVt7rCs cZmxkcnNsdCBcJzFDfX 4oxQsynD4dkFOqO5gaL nMyMCANClxlcGljTmVz tKSvYuUthxH0WWDmbGX nXGA8HY5oHMWuozdyFJ GdJYXfNLD7MVpvwS15k HQwXGZzMTZccGFyfVxw zTEruoZDJyxbgS1jFiU fd2fsgTb4QDOJUkqckJ JmonvmyfC8IQQim7eut Lyrf1MdeZFsHH2ojOer jD0qBpUxSpJDZp9= Pipeline Controller(s) (test code = [id number] 9863) fLBRco5bhv0UcmGBvtN AuSZcpxNDgohPvpw36f TK8eT03SV7nYJTkJnG5 YAYpecY9Hxa9RMEzOBF rnDTlS760f8zzd4gfys GmcCG7gAkzYYFrmotlR tL6IZvaMMLllgfiHHd7 VGxqLIMpwJC7XDApaCL dG9MwLDXnOQ4vady1FF T5DWekPEYxKrM4SJBgn WKxEXVkaGkyGLves979 HIS8BzVlGWAedpZndOa ntI1cJlWqUXXGT3QfCC mHXznrJ4XGYZHHD0Hav GFyfQ== Disclaimer (test code = q1yccPTyMZMksYEeVfL 9844) bWMNhKCSwk7gpNRDjgR FuZzEwMzNcZnRuYmpcd OOkMCBcBiPif6mtu823 qQAjf1hoMSIdMoR9tOP fCXKdvDWrV975FXMqEI sid6jeb8PiZMBlgFYbb 3D4WJCPyzqzlJt8yExu D86sc4A0BsalI3kfHPW bRCYiV5IzCX6rXYLcCj h0NCK4VTR9DMYrPATsH 7FkDP4eIDWxeYBdRKv9 a1ysbCwzRTAeSAB7i7z kQIozihIkGG7ptq4tcE b6f2ffbjQyEEUaIFLtk JYAEKVpO8DhwCuiWj8g iAv7gZktVtsdLYR9Cns 0YU8kny06fay9wBuvRT XvmuggDeC7AGyeDLXvb cmxHAu3CKiiSGGcsTB7 PVPhdLFgF4NaMCVsGN4 pykt9QTZ3SNuvCXIoAv F6XAKnrNCxCHUgzHftV Udsv811USZ0DvZqLM1l N8Zko1O9cN4qsTNpEXC hrJZxMuCxUJUvsq6fsS GnZRsqv7ZgLMK6oaG4r JAlmRCiTCIeBP52Qyvt c1VpBnhdDGB2NQHmpmJ xz7Kta3qtClIlejCiB0 atL5JeMRZuPXGrHLJuZ nMbefGun3Btl7VjxNUt wGb4v3gnHHAkICRweHe ke8feOYM8SHGxJ1T5pJ Qap3jpAUkfVLKyaCT0x rI4JBOecXWnD3LiiW8s MVPmQQ6leqc0d8hqWTY 4RGlcJIDePqR0ujU1GI BcaGVhZGVyeTcyMFxmb 504DCU4ZuFaMCTla8Kc P1BjuQqqI65kpOgkR65 kTQMdyAbdqV5ytKrqtS 5cZjBcZnMyNFxxbFxwb HOcxthySLolakJ3LHqk rpefVVYoNJtoK6vwOjX lIETikAlwVHjtx4IzKG BuBKPfVudhtsS3TWBUy 40nKORrm4StISPxjD6f lWAaWBcodrEfiAQ5QYd hdmUgYmVlbiBkZXZlbG 3lGGMwHD5eIZVekoOzo a4pczOiNUNpRMDoF0Lu cmlzdGljcyBkZXRlcm1 glmZzYPV6TEEQRH2KLT NxXDAix89yIRZkoNyua O6rtRKlhqYiLFUgv9Ry hV1erEORMDFqX5eaCL6 lRVapd4WihJAjnIElcW I0UHRxm9BmAcZcilWeg FFiuYVhF8UysXgpR1mw XNJoWYPogkWnrBHep0S nXZHkxQQ2vQDjAJ9QIl HJl83rGGZiTLWTpjMdA FHsrSgoxGY5qwW6mN2o LiBJZiBhcHBsaWNhYmx qHORpd722ap6auuS3ZJ DfAMTeponxl5BgHQOiJ GMwgY31VYPtLFKjno5f tzvldPPgroHyH5Pifuy 6dT3qUFOmWDhjNQGoXX ZzMjJcbGFuZzEwMzNca GljaFxmMVxkYmNoXGYx HJoiO1mmTaKfMcZzMst wYXJ9 [facility] Interpretation 2021-12-28 18:43:18 Test Item Value Reference Range Interpretation Comments Submitted Clinical History b2domZHnWHVcnPR2IfS (test code = 02168) nNTNwe3hwl1AqaOZhhL EdHSvjhVXtwvAivn99f SD8jH22FB6jCPTlZnT7 MRYyxbU3Gsx3MYCmAZJ ucPHkH628q3fjy3rcfg MepUS9oMhvCPEycslfD vR5ABegGVNbjlhyNNg7 VOgmHESkzBU9FFQozMO bF8RwEZSsPR4hzna1NV Q5DZygFCWnWqG9KDVum CWuFAVjvNxfCGxvd764 UWP0EuJbYJRtshAfxOu qsV5dNsGnUWJUIW1fgY YmxBBpNdA4noJhpuEak S0wQwRoHSGss2Irw4Vf t6shpxByGGW0WbGbZTJ rchKPZfMKYeA5fkDZI5 YsmFJxZNK6JWQOVHMjC WKTJ0hfUIKetXEnYRwi YXJ9 Diagnosis (test code = 34) k8brwVRmOOGepII1VxO vQEXnv6jur4YjfUNppG FxBOemiTZvkuGldv83f XX9rK05IX7bVQJbWoR3 UZTwszZ8Lrt7ARCjGLD qpRTvA421i0dbd3ryej KrsQU1ZWQwXFKpL1PuV J3xZURvpMYcD09ueOEd FKK3ZKRsFERhuGAkJJS dDFN3ZLHlpCRzK9qkST GyFP2ovphqOXizOPpvD KIldKZ0QFFiuDMdC7Zd CPViPTdyRCKwmay3CfJ jIu8hzANegOraZTtyOO JkXHBsYWluXGZzMjBcY 8GgJHV6LGGmW0o2PB9u N9koOTGneA3hp3tpllW 6XHBhclxsaTcyMFxsaW 63LoHgY5HaFWNwowCjp 0BvjnCoy7z4aEY9xYAw o4BuLNBqoCTlTFystE7 fsHgmfkJgXwNeXOx8nH HtoLeqh7MbBpUqW9Pic mfeRQxuoiF5n9Qhqatz s7o4eLQkx7srwRI7tXZ bBHpuki2oxnAqDE32IE CxhrCbJE44QUX2HKFyv 2Q9OXZfVKvcko3meOZm BPM5tBRuS0XgMRBivJk iCXR8rOLzMBV4zdE6oE XpNhVoVPMxAmE3bLAse 1FsO3jjVT2yLADqrQDj b4RlEFJaySeqA3RiD0v nt98jBMnxKQ3ddQTce2 6lfMM5WKu7IZB8tVIkO Z51gM9zcOUuZUCjtiYG ZWJvcnJoZWljIGtlcmF 1b0NlktpqbGEhiHCutM GgFLNnuiPsNG97WNM2L HBlcmlwaGVyYWwgdGlz i0RxRLSkL6IvALLsiSJ yIEVwaXRoZWxpYWwgdW blPKHnoDjjodM0rGAyS C8gkWCuf5CnhZxyQbHt ORG0pWGtztFswO1peJL fCQkcTLausH3gKVHshp xjZjEgQjogUmlnaHQgZ Jxsw5zvAUHigH5hy6kt quY7VNOukevnnSkuTGm cuZ62BwNaR5SpMPb5qA FuiEwkx1LvReMwI0Tqz xhfVKabmnK6s6Zersbj pZiluEXcr6xjEXC0gWO sIHByZXNlbnQgYXQgdG srw7RgFSRwY1TwXfynE QYlSJ4jYBXlpCWlg61f uNElyF7ex6iywDQ6LUT dQ92gHBYcAFAme2Nlbo kgaWYgdGhpcyBsZXNpb 72dp3vmcRrmONMatBez cH4tghDioM2zDFV3xxT xq99gBTA9EMImboQneY kzskEkcQ9aOJehXTNlt GFyZFxwYXJ9 Comment (test code = 9835) c1xqrEMrGYYgnLJ3BbS qGVPld7uyw6TdpRNbzS NzPTfdkKRvogSezo05q OP0gF84SU0fZXEfRcQ1 RKWuviM9Hvv6AUQlHVB rvNQrH975e7rfn0ovll GuaVS6aCxcOUEjsvwaC gJ8VLpkASEvlgtbKTm0 JAyhHUNxhKN0KHFtfDQ gB9YdOCOtRL3ykaq8NM R4EKsiCKGzJiS2EMIgt KBiGLVxbQkqSPbwp638 DTB4HrOqHABlroPvqPg cxO2oZfCaWPIYZaGEdY x9vAJmNGBusKSbZCOjG 7Cvs97lWOswhjVoWHsu bWluZWQuIEFuIGltbXV us4omo2MkM9duhOeeCR ged6N8FIctj6GlMYEby kRado4aJBH1d6kkTpLr NJ9tpWAwYY6zfLOyX19 qk8ItaPwps4dtX0yjtW pfhWbfE8z7nbHlR4G6k TLgEQZodcEfE7Qed25q oZGwCNruld9vlOPtife gcmVsYXRpdmVseSBpbm QxGFXkNAFdzI8rsbBfE bQgAHCtd74pvUY6QO04 BIewvUsagNKcJH7hH8l 0aWMgaHlwZXJwbGFzaW YilA5pDSXhXZDiE1Oce P8aVD3aAKYbeKtnjPAr K8bdxgavpn5dTVGgruI NOo31pRAspWprFKK0HW Yjo7BcjBeyvuHls2EbX BMjkJBluG7iUT7oNK5z fM6cpE1uuMgaqI5mjIT ebADyfAWacQQnrZV9QA PpfHBgRe0lfJRwVBWxy T5qDYQfng2eWUjckv3v ZIOpj3KraUKpyRX5aTk jaCBoaWdobGlnaHRzIH IuNZB6ZQSfXDAniY5zb CttwyRkIK4crSUaw6L5 dGVzOyBubyBkZWZpbml 8VFKfHCygak2yjPJkAt IsQUFpt82pmIEwrPWgb wLcVhugBY6tMQNhdp8= Gross Description (test c4romJYaNSHgtBRGVEq code = [id number]) wMFxhbnNpXHNwbHRwZ3 RmsuzuTNttPR8oND4dy MiklOIkkGEfRA1EWGZr ZmYxXHBhcGVydzEyMjQ tFGPyxBOnlYQ4QOWjZM 1hcmdsMTgwMFxtYXJnc yQ7NXJypAArH0RlBDGh RW3kfehxXYF9MQdsuQ8 ytrOFRhbvFu1xePZkmT tcZjFcZmNoYXJzZXQwX NApvUkeDPPxKXx0fO0V GgqmC82qq0L0Uuc4GBM qXAKoZ7JjYS9uCSVhjG ZkQ98HPwwiJJV7FEAJM ahkFZBkPU9Zu1plAGMo uYZoQHG8CBjrfECcCID rYNLpEKt9OGRjOTvgzX RkPB3bqWhcNccpgVkfa 2VjdCBcXGlkIDUxMDAy OGarOVLaXV4CWnFtWOI qSlP7BAOmUHz8NDw3YY 9WUyAiICAgNTAwMzgxO BYdJYl6USdiFJ2HFXsd MGC6SLQ7MJZ6PQG9XZP cXHQgMiBcXGYgQXJpYW wgXFxmcyAxMCBcXGZiI AyaQqaySFmyV03tgOgc qY1aNazzlnSpTUY6GJA hciANClxwbGFpblxlcG ljTmVzdERvYzEgDQpcb HRycGFyXGxpbjBccmlu MCANClxsdHJjaFxiXGN nMGcqetKlBIGfvQ3fXU YcNDFeV4b8LP8gC6u9F NKmRQPnEJYlRXG3VP2j dO9knGYfBWKka8xdDGO jjR2fk9jqbbEcPKJaiN OpElvjuHNrPlHeP18qW CBUaGVyZSBpcyBhIHNs uEeyrLi7WJCuCIUseFJ lZVzrm8sqxjQaSEMqxX DuejwoVQ8aKXyqUF5sQ NurWA5xWZAuKyMnQIxs IA0kfiggvsPzZEPcTHt iz6VfMWEtWYKnXAksxL EtOSU1uF7wCJHoOXUlq VewWSp5XBD1Hx8wnAXv KKSzudBVUT9vNXincv1 7IBU5k9dbfYHeCLnyDi odaXQfqxU6TJyEJTCRZ FuHUyJoJM9bIWnHHenP RUdJTnwyMTAxNnwxfFV ZGIB7FAecuOzsuPo9g9 nmbGBbw5q2QIjiOET1s LOQh0bboEYkKMxjFcnj gJQhucS7BWpMPLBLETs FNxFwMA4uGPfYKufDGx C8LrSkNTP6UYqUL0TEy TN7Xta9GMn2gCajOgjq plDjlEBuOtDFbO8eaQz kqK6gxHVjV4gpZlYrHS ANClxlcGljTmVzdERvY qBajpX8ZOVijPSbAPJ8 HN2gUUKphdobOAMkNTC ePQX4HOfvkB48wSFjZR ZzMTZccGFyfVxwbGFpb qTWPmluMdhreYfic3Ge dCBcXGlkIDUxMDAyIFx pBETuKN8UMrKtGWEkUb H4XYOsOZg2PUq1XP2SY yAiICAgNTAwMzgxOSIg RUc5JImaBF7HPGndKKU 4SoW9HoV7SEN4BBEeFY QgMiBcXGYgQXJpYWwgX FxmcyAxMCBcXGZiIFxc ZamfKLigF30auNifgQ8 vKxnivyOrHQC9SQSgsg ANClxwbGFpblxlcGljT mVzdERvYzEgDQpcbHRy cGFyXGxpbjBccmluMCA NClxsdHJjaFxiXGNmMV gplcOuDALlhP5sPERxR WDoQ4f9XJYbSp43Janh MFxjZjAgIEEgdGFuIHR kPMOznx5ckm00apspuS HjfaOsXEIgwkpuy5ytw jBdjOB7NYabVU74MNxl OG76ZCfsXN2fWQHqVfX sHLxjDO0vyhffzzGaXP LbWKfyi7KsATUgIDQxF AisrKQbGYL7wI3nWMVl PMBzcHiaUIy7WCX1Lv0 dnHSaXNHyrfODZE3uXV yvpg72NCZ8s1ytcJFkX KiwDuzzcMJjnxA4BVoM LCUVOQxNZkLuCW8yDBm JTktCRUdJTnwyMTAxNn dleEIRFBG1QVbvrYoos Cv9c4fphVKzt4l8RXiq QDV6uHRFk6qxxPTdSWa bGxbqdEYdjjN0LCzTOH KHNCgIZaVzIB7nDErBR ioCChC4XtYcJXV4QWiF J8VCsMT4Fht0VWb3kVo cZmxkcnNsdCBcJzFDfX 1ibPlsdT7neXKmW5xiF nMyMCANClxlcGljTmVz uFAuBqOjhtK6XRHaeKP lOUM4RH6xXBOwwdscZN TcHFKsMAQ0NZzerG55t HQwXGZzMTZccGFyfVxw aBBjovAFIixsqJ3wPwI le8zfvYt2GJGHKwwokJ BvwewrmaT3VGGfu3yap Dssf1TvaSWlWQ5oiDnx gF8nNlFwBzUEEq6= Pipeline Controller(s) (test code = [id number] 9899) hRRQtn6mik2DuuQMnrC JeXNdalILoygJgvw98c OZ0tP08KO7jCEEpSdK8 HHDzshI8Lgb1BTYhWLB poLHeF045w5isl4oabq QgpGE8uHurGNLbmifaP iE2HQhcPBPrivivNBw0 FWrlTWSpkGO9PSWbmRF vB5BiXYKoMK0emxi7WQ C2FZzjSDIiCnH0UWQip OInHFHkdKzmCVtag773 ZPJ7PrGrFMQlinJhbBn pxM3xImYkDAPYS3EyRC qFQiyeT1TLSRTKI0Gis GFyfQ== Disclaimer (test code = l1tyyAMhVUTotCKuLxS 9852) iFYNzCMFoq3iaEEPekR FuZzEwMzNcZnRuYmpcd FMgQZDjAnJmf6axi803 bJBhr0bsMJEpNcS0gSN aBPYfqGQkS229KSRjFT gzm0jhw1SyBYAsjDQkk 4S1YIZLmejypCj6aZqa Q28zo6C4UqffI3qmRVX dUQZzF3VzPP2tFCCiEd i7ULF9RDY5XSLxEPQdX 9RkIB5yBWNxjYSwYAp3 b0ysgHjdSBMhMLC4f0b aQQakyjJyNB9tio3onL d2o5icwzHhKNZuSOZbq GUPUTIzO3CgaFpeGw5t yBo3hWqxHskyJOZ5Uhf 7RT7rzo68swz8xBcxQH QakecdGzY5UKjfVJJqa zbvUAd8FMhxHCGsxCL0 VBLgiBPiK1QdGIZlIQ4 wktr4ZZW0DQiiOVCvFc H4HMFwfEZkHLAvqYcfA Ltlu043HDZ6JqErOG6k P1Uvs2B2mQ9miAMmSHF opYLaErOcKBLeae6hcG UbOGxjv0QmEGW6aaK0y OFvdNHvNQKcAR41Pupm l1WvLqzeCXX2HCClsqM tz2Haw7npGxYeavVrR9 dhO3ChBURvYDHpTHQzY bFyxtHxh4Pjb4HpuKLi zPv9t0cfBWUhYKEzlMc lf5fbNLH6MYFhY8P8cI Jok5huQOwfXFLbyHG5u nV7IYAyeCUcJ0MugK8e XBHbVZ7dasw5r8wqXQR 8XMlkNZJoOwA5hqX6MM BcaGVhZGVyeTcyMFxmb 999ERF3RxPsGZTdf5Oh E5XicSdtF71szEpgC44 nDBAclAvwaT8urZhfjX 5cZjBcZnMyNFxxbFxwb XRpluqhSBnblsO3WYim kxvgCBYxRDfnU3pnCkP vTTWgtItbPQohs0OeHO IpYVBiZvptiuJ0RUZFl 80mGJUqc1OwUAPidE4d iVUbPPynauIunKO7CFn hdmUgYmVlbiBkZXZlbG 5eUNUoDC1pERLtqnKyb t9tzsCmOOOuXWUeV2Kq cmlzdGljcyBkZXRlcm1 olwQwNXI3IGDHOM7XOC XiFBMrx23rKGPweDvze X5ghGIilsIeWTWrt9Rb vO5bfOHANYWeC9nhFU7 hNPicc6NilJDdbFLlkD N6JTKiq6OdPzJiqwZzu TUptHVbX5QcqVmxR7oc GQCqTRTrspCrmHWie8Z sLAGnxNC4sEWmUI4NUe EZu04lCSSyPRWJveBcB XXkeEhtuCM9ybB6rW0x LiBJZiBhcHBsaWNhYmx nBAWzm772un1kgjF1QY WdJOPinyaxp4UeQCXxY LQplE65COUsSGGupb4q cciuzSZbezYvW6Mhqst 1tH0nSWOfQSubEVLkEE ZzMjJcbGFuZzEwMzNca GljaFxmMVxkYmNoXGYx IZzuR5yxPrWiQqXeLla wYXJ9 [facility] Interpretation 2021-12-28 18:43:18 Test Item Value Reference Range Interpretation Comments Submitted Clinical History v0jieXLoANUjuXF2PiZ (test code = 91796) jLJKjy7twv8DftHFplA VcHLcipDOorrNrnp72h HY1bR57YD9cBMUuSgR5 MAVdplR3Kcb3FIKsMPF zlEUpX295v9msu8jxmq JfxOW0bJpfRQTbtrauM fF0HOdbXMScittwLYm1 OIkwVELblRY4NLUelQD iR3GpJSMgDF4kkoq4KF B6YYicKAGpSaF9TWXvd MGkGARxuOqzROgqq429 PIS3KnLpYKLvzlJdhFx qxX6yGdKrVMYIMH5rmP UqdPTtKwK1yuOzxlWqk T4dEfRwSFZlc6Aaw3Gl t3oahmLkNON7MtGhUSM rwfBUKsVHKbT5byUKS2 GksZQuUYW3TQDXPOJrB GPSC3slOFDceKDuOAhq YXJ9 Diagnosis (test code = 34) q9syeZQxVMUfsFT5TuY iDNXvo4kqy4WlrDJsdF UpAGuvbNEgtiQhxe64s FI9qP24YX5wAAEjMmR7 GWJtxhO1Zxo9QHGyIKM vjZLhY144s4qeh3perh FzvBQ3EVQrXIVaX8PyZ K4dXIIorEJoL07rrXEs CII6CHGwPCCiiOWoVDQ gOBF4ZCCzhMMcG5nyDV TjEJ3csrbwHNvaEInfB PSekFJ9ZPFfoXPgQ9Ut FDIaDCpgVJFfemx5TeM qFi0pdVEglZihNHmxFA JkXHBsYWluXGZzMjBcY 5TvTTX0GITdE7z7RH3k R9kpTDEurN1qm6uhizP 6XHBhclxsaTcyMFxsaW 38HiOsJ6SoKUIhvgIqe 7AdmzVys0k0uPD9pGTf r1XjARZgaBRfZUfqtB8 imIfcvnAsNqTaNAv9kU ClpYlrg5SnIuXtS6Skq hpsOJudmkP2e3Ajssel s0e8qFVtp7wusJA0hST jMAlamx4gydHxRA22HA HhmrKzDO19HNM1HFAub 8W1KZUkFGkmfb2wpLWa UUE6rWXqW3LiPLIfjSp cQSQ0aNBeIGT5euK9yK AnZqQyAVMhFlA1wQBzz 8SvJ3lpXC3fCXJglHYr d1ZmFOZfqUmcU4QuY4p fg20sTKppEV1efCRzi7 6qkVG0BJx3RWU0wRFdC W27yU9jdCDwDKOaxdYO ZWJvcnJoZWljIGtlcmF 0r9MuaqdnkKFxmWNknW OpVGCuapWeWP66QOH0L HBlcmlwaGVyYWwgdGlz z2XgHVHxN2QlIZRdxGZ yIEVwaXRoZWxpYWwgdW orVVNgpUspbtA9iLRyX I6tsBKdz8DaxRfyKwCp TAY9kIGolvRrpI6nkMD dQNkhVRshjY1zKFBzdj xjZjEgQjogUmlnaHQgZ Nlva8ifYPOwsK9tt5ph usS9MSLmsnjsuUjuUCl jyX30RuWyI3EyGAi4qL BzdRbrd8WvNyUuC3Bat drhGPpmvsN9x5Uamlle tNwbhJMkq5lgUWJ6oOP sIHByZXNlbnQgYXQgdG blo7PaJFTsN1SdTqovA CFtUW3fDDGbhABen20m gMLqoM2fv2yxiAV8WYT qJ40nDGXmIZQpk6Bmqs kgaWYgdGhpcyBsZXNpb 46pt2fvfNoiQWZfzIcf kA3qobCwmQ9dLZR8grT jk19eJSI4VWXisxOkdU ectnCgmT5jOWfuYHZel GFyZFxwYXJ9 Comment (test code = 9835) p6bcaQJjOKHguAR1IvD qMISbs8txn4NtzPPahT UjZNcitQCdbqSxio60m OQ4xA13AP1vTKOtBiZ5 OBVfydQ9Kxb2HMPoWGA fkXReX705n8bjc7tgsj BnpZJ9vNewKCNdpejoN yR1RRbjMLAyagevLXv0 FLjuZZGprXN7XYKvgUZ mQ2QnKVPeCP5nzfp4GS H6HMrqBLMkVoX6GZFka ALwVMYifKtlHDpgn074 EDG8GaLhTXAbdgQywSf qpE9qFdCkOMJYFxWFpN b8dLVeLRQueBHvVTCnE 4Ucj43hLPvtfmYoFJbo bWluZWQuIEFuIGltbXV vf2tmx2YxC2cnuJmbYC thk6J3JXhqn4KkOUBec wNvio6hNRJ8c0ttPtPn IP7noJApBI5bzXHqL25 uy0SjcHcbt8kcS7tfqK zmgLkfJ3a1toHqY9A1k SUgTIZuisXkR2Iqb18t dRQcTTfeee2cvTOzakf gcmVsYXRpdmVseSBpbm OxXBEcTJQtkU1fosEiG uAwKQUyl45csKR2FH92 IMjqoHbzvFWzSW5qW5o 0aWMgaHlwZXJwbGFzaW LqhB9cVEQeDIEiT3Xvm K4lDB1yAUEsvIsjiKOq R1zxcwbcju4oPZFbsrW XZh43rDNfaCvuQEH5XC Law5TlmTbhkpIjh6OpM NZbtMXngV2lOS3rRU5x sX5coR8otVwqeQ5xnXU nxDRfoYTxpDJfdUW0LK SjtMEvCn0pwWKbFPBbf G6aHZKjff9iLBxlby5p PMSnb5ZgpLNxzAU4pIr jaCBoaWdobGlnaHRzIH YeCQL5PCXvMSPmbL4lz NdcyhYpGZ0jvQGkn8I5 dGVzOyBubyBkZWZpbml 5AHPwQFviog8duZZeSc AiZTAgc56jjKFykJUpw kNhGakkLJ2sHCTged8= Gross Description (test o1rnqYWfYHGojJQNIGb code = [id number]) wMFxhbnNpXHNwbHRwZ3 HhqfxiIJigDE8kUM2kx UiorVZhfAKnGS0CDZMm ZmYxXHBhcGVydzEyMjQ yPICvaOWlkWJ2LFBdYD 1hcmdsMTgwMFxtYXJnc cR6UIGrzSHcL3OuSAMe DB7tvaxcQIH7SJowlM5 dooUURwntOs5lyYEgtO tcZjFcZmNoYXJzZXQwX FUqcJjkREOkNZo6gB5Y NxeqC42mc0N1Izf5QWW bJMIaJ7WhRR7bWJWejK CtU17THdxuSUA6SFVLE iqhJWPaQD1Lh5mxPAEj fVXtHWI3PEwhwHLxZZN oGXMuDIt0HGPeJNuppC KeLD5pzFcjAivdbOpzr 2VjdCBcXGlkIDUxMDAy XDheAOLuNW6XQtIoJGU vMuZ8WIBxQBi9DOi7OP 9WUyAiICAgNTAwMzgxO MBbCXg7OCqqAC1RAAae FTR7SCE2VVG8OUR5VAZ cXHQgMiBcXGYgQXJpYW wgXFxmcyAxMCBcXGZiI NwyXklaJMevN50vgQct yZ4dNqmfgrPjMEW8CHI hciANClxwbGFpblxlcG ljTmVzdERvYzEgDQpcb HRycGFyXGxpbjBccmlu MCANClxsdHJjaFxiXGN oGEafjmUbWHLqiB0gVV LdJCDtL5a2MN4rU4t3I ZNhZVXiNIIaJTM2FT6r bF5obUIzKXSfs4chMIJ smN1mq9wgxsAzQMQklP NpZffbiWOoLlTmU86xV CBUaGVyZSBpcyBhIHNs pGunlEh3JHChZFGpsCY qCZqps9tkrnGiAJIwpG SoetumSD2dINonFP0jO EouLA4hYPZoUfDmHSpq SA9yxodmvuTeJRRiJSr ns1KhCYXgXBDdTMucwK IwKZZ3iX1eFAKrHXBen IjeJMh8NXP8Ds4hpCYr YLAgbwOKKM6qQPttmo8 0HQW7l0xuxKZgDTcjMu lauBVidbL7IUvEZDWLZ NmVEuHkVR8uYEjEOxyH RUdJTnwyMTAxNnwxfFV TWTK5BGtvuGvgzWg1p7 qibPQpe7x2ELuaVEQ9m DKFr7xbeROfJKgtUlof kLCfsxC9MTaWLCAHHMz QMrDsFJ4wVZaVXzfQQl M4EjEdWHG8BKfLJ6QGv GS4Rzv5IFy6nVckFkvu dpYayIAtDpMUkG7hjPz nzY7txYQzJ7nmVuNrZP ANClxlcGljTmVzdERvY lAsxzV9SVJgiLCnXWP9 GY3jKGDsrzjcLCYiGZS oJPW3ZAqmfT72qWAqBX ZzMTZccGFyfVxwbGFpb qPYXjxxWpzurGboj2Ey dCBcXGlkIDUxMDAyIFx aNZLdBE9QCsPgTCFmXt G2BNTsFVb1YSc0BG6AW yAiICAgNTAwMzgxOSIg IKz3PYdoOL8DFXplQUX 9VuE8YkI8WFS3XBIsVN QgMiBcXGYgQXJpYWwgX FxmcyAxMCBcXGZiIFxc MfunZXphC47lsPoxeI4 fOknqwbDlOYB6ZNTztn ANClxwbGFpblxlcGljT mVzdERvYzEgDQpcbHRy cGFyXGxpbjBccmluMCA NClxsdHJjaFxiXGNmMV ihtxKpMQWlkH4aFYJjG YJdC6b0TBGjIh41Djoc MFxjZjAgIEEgdGFuIHR wCCBbwc1jvn00qavypO ZjxvJnCKHvactfn2emz rBmnRY0QZpsVR32ZXyj GD77WXtdMN7pJJVhGwC dMKgjEE1mlkpptpGkWE WzSGcoq0KjMKJiUPNyR IwzkZDfZYQ0vB9yBQKa LHPcgKxgANh8KIC8Jh5 wxJDdHBXgynACIC5kAC ngua95LRK5r3eubYMcT NqsFhvnhRDdjiT8WCrT QUHIMDvKWkVkMB1aKDd JTktCRUdJTnwyMTAxNn szjEHLBLW3MClamAadh Jv6j3evrBWvf3q2SVjv MRY6cZOZi0vraBEqOAu dDnsweMIyigK0AHtUXZ TALZbTYwEpHV7rBHeHK drYEeX7PbBrUOQ8XFbT E8IJuPR9Zut8XDw6vOy cZmxkcnNsdCBcJzFDfX 8tmFsjlG6vhHLtG2dxH nMyMCANClxlcGljTmVz vPFsOmKvxbP3CGCnbJD kOVS4YC1nKSRdvapaXO ZwHZHzXFJ6TPfqxP19i HQwXGZzMTZccGFyfVxw eOKepqHZXfxwrH1vXbT xb4whzGr7MMGSErgiwI KhwkwqfnN6WJXon6vxa Tjds4NouCCsXQ6utHrp iS7kUkCzNgFLGt8= Pipeline Controller(s) (test code = p5rymBWlQWOrsHY0ZpV 9863) oXHYbo4yep8BboARscZ NhCKytoXPrrsIcxe47t DQ3dK77SE3iPCKxQcN2 JMJsesP7Etp2WHQiOIT lvTFhT804e5eft3tttb WynSV8mHntSVPsbxxiZ fV2PHctPDMusjvaVBl8 SVskUYHbaIY8MDUqoVC kD1SoDYVjNZ3vkol3BL D9EPgyFLOzOhP9LTHtb XMkKOUnaFtyVYttx655 TBQ8PoUnRWBetyHzwGl ixQ0kGfIcUHUKK2EqAL yFVhpeB9VMIEYXW5Vmk GFyfQ== Disclaimer (test code = g7zrxDWjCYPfjQSlJeW 9844) cGHJoICGss1tiLNYkcJ FuZzEwMzNcZnRuYmpcd XEiOUZvMnZca7gor894 vMAix7mqXGEfBzQ1xYC rWQTbkLSqN901SRAmHT vvu9icc0QxYZIinEXju 7O0ZRGVwmhibGy1aPem W62qd9B2SxmvW4yqFNJ wDMZhR5WyZZ6kEALvFo x2FAO1FJS1AVVkZZQwL 7VxOC6qLMZzpPBsHOh8 d5egdBogYOLnMAB7i0u cENatdoVpGS0whs9xvQ p1e1hfmpEeDTYvKLHok UDGCZDyA0TmiKneMo6v kDz7cVhaSsarPCZ1Lyp 4JJ1wcg77xbu0oEnkEM JqhskzSkR1KYavZTRhq mlgTFf9MXybNFYffCW3 GBKgkWFyD2NjHZVfAQ8 xyjt3XNU1OCwwYWUiVw O0NRFxzZKhDIQexYhkI Owmc520QLY4TrEoVF0g S9Esx3P1pJ6ptAYoYYD wuTLlSfMzZMCfqp5yhK LtSGwal5XcPOC5goS4c FNqwBLhGJVbPS48Hukm x9VwOzrfSYG4BYCydcV do1Twn8phLzGfbaMjR7 bpS1TnIOTrAVZhMFOyQ bHapkNyq1Fmq8ZjqNSk vTi8i4ldCFXpIKFryEx nv7ehOFV8AKZcI8M3jH Ejn8lxSPlwKAAvaNQ9r bT9KGCgtKLaI9OygC1p NZZcMT8xfeb9s1qwUKY 4JBnmPFGnFdQ4huD1RC BcaGVhZGVyeTcyMFxmb 210LLX5CrRzMSNta3Vy U6EtsVpbD97msQxgU49 eTWBvgXjalL2ppRyjqH 5cZjBcZnMyNFxxbFxwb NOwavooYQjrahH0KIis rmeeTWIwKVhjL8uyTkZ rDTZvcAntQEjjv5OlCB IkWPLaGliuitG8XMKLh 46cZAOce8FvRXHctA0o hDQeVHutojEqlYA2OYa hdmUgYmVlbiBkZXZlbG 9yCEDwOU2tPRIlrpXsu a9bxfHuLVJxLVGjW6On cmlzdGljcyBkZXRlcm1 gliKvJSB2ZEOVIP4ARJ XmRHCoi71kYQJmvNhdk H3sgMFjfsHyODRkd2Mv gQ7wyWEEFZVhU1yzOC2 qDZuke0NwaAOorXDayI V2ETEqi6SrMgSvyvClc FZtxGFjR0QlyPgyT8px YOWeINHbrhTsjQZek9G jFJKbrXU2pQVuAQ7FWm TDn39iMOApLESCrcYgH INikCxwnIJ6euJ8qM9g LiBJZiBhcHBsaWNhYmx ePKVdt178za7wvhC5MP RvEWQeaajqx0WePEZrT KEmgJ07YKEjHQXvuo8o precrLYscmXbT5Qecko 0kC5qALWnBVhaOYQsIP ZzMjJcbGFuZzEwMzNca GljaFxmMVxkYmNoXGYx LIctD3cpKrZeEgXnYlv wYXJ9 [facility] 2021-12-28 18:43:18 Test Item Value Reference Range Interpretation Comments Submitted Clinical History u6yicMYrRKZqrXI2UmZ (test code = 25926) kGMUmo5xwc7VwcKHqoZ LuZCkejJYaqtZcnq04i BG3fH92XE0qQDOlReV9 VARpcxT9Uec4GWHrVRA wyGGhX859s9xoy6ksdd HblMW6qEiaLIOgqkczH cY6AHnjSERjrrzkIAn4 XOpiLBZdfII9UFDkuJC fQ9DsCNFkER8ihbt0NQ V8GEzqXOZxXvV3QDDne EErHKOjzPwwJHvki961 AGX0XhSuPBPchjTvzVp atK3oUpHqIDDZZS1knL WqgFNmVkP2qaXgrrCln T7kHlJoEJSxz3Evr5Dp z3bktcXmZXX7PwXrDTA vejTGXpXQFeD5fhGMC0 DsoVRbFJF8LKBUZQVeU QKNI3duDVGicDFcCDzs YXJ9 Diagnosis (test code = 34) l9gsrXOiKHXmcTJ0JkG jLDHei6acm0LwqFTibP VhRJowtABxglQszp62z UY0vG85GH2gIHYtBdX4 PPDhbjS7Joq4QLIwKSF ltWUlX875s6zso1wgbj UnnCE8UEJuEKUeT9AgX Y4bJNFfeAAqK84jcDMq KZI9QUYzABAglDAzMBS cBGY1OLJhcWXsC2hdNA UpFU3ifeauUQlqVUlnZ MSxrFE7YHLowUPpZ5Vs WVGnWNnbTRUkqfi8DsB oJg6dcKVceMqkSJkkUX JkXHBsYWluXGZzMjBcY 2XfGQZ5QOFdF5c2OP5e G8ljOVEmgF0cx4teriG 6XHBhclxsaTcyMFxsaW 32YlZqO3WkHZAuydUve 2YnjqMlh5q1iTB2rQEf r7HmVYNweHGdZLjyhJ1 avWiznzPuYuIcSTs2eA PbzYerd7ZoMoYnB2Hpd oepWRcbnxI6i9Ddmnay u6k6gOKpi0fknTG7yAW lCXommb8ddqBiVW31SS ReqeNoSY75NLH2IFXar 2I8YBBaEQwmvm4cdBKz CND0xJTrT3VdRFPfkSy dJSK9uCWkQSZ2okZ6fW AhMlChRTOhHdP8dIJut 2IaQ1oqLY3fDVOizGCq j5PmTRJpjFalY1FzU6t dc81gAOndAN6rjBKxw5 3aoHQ4TLg4UHD8mYTqA Y99pH4ocPKbASWupiLC ZWJvcnJoZWljIGtlcmF 1a3BltbymrTPreVHsxA OsHFUogqMzCM21QCK9Z HBlcmlwaGVyYWwgdGlz r3JoDNNcD2MnYSBovDI yIEVwaXRoZWxpYWwgdW lgSMVbvZnknrE5wGJrF T7ynLDhg0OczFugAbRm TEJ6gXGsdxRrnH6geYV rAGlaBCbgvG3bGNRojd xjZjEgQjogUmlnaHQgZ Rnah6hjXUOegT7hl1nw urL9KBTqctxqhCecVYk ipX58FxWnO0RiYFr5oJ LajZswg5BvWaSiE3Nlt wrlJWoiizW9w7Qkilsg zHdizEGdx3wuKEM9aTR sIHByZXNlbnQgYXQgdG hwm0KgPCYvU1GxPiutK FQiPE6pQFXwwLMac11h rBOyuZ2mz4bctPR7TVV bJ71hYJXxCCUmp5Vqwh kgaWYgdGhpcyBsZXNpb 82pm2eksWobPPNlhLdg sO6qneIwuP5xUVB7nzW vh08dNJY8YOEeccPjsL vpumAayX2fNFrjRUMqc GFyZFxwYXJ9 Comment (test code = 9835) q8uibEJcFLRtxQH8MkW lWMZmr0ggq7HurZTklV EfSQcviVKrszTkcn23x OL2mB86SV2qQWInBvS3 CQKxrdJ9Tbk6LBZeDDK kbIFrZ241d2wdp1hxts RmhTM6wMcdCFJvjrryV uM1NIwhNPVamiusOJl4 PJbtVEUzzCU3QUCvhEY lK4DqITArIL8olhl7YQ J9OKxuEIOiKrP8WRAsb HTdKZRwpQurTDiwg681 MUG0QeBxTWKxryBapXv ywQ5uKpLfZBAWMiQOyU y5zNArZSSakZOiTZXsE 6Ydp59xQBrjbvGpEHym bWluZWQuIEFuIGltbXV tn7kow3VzQ4vlkRwvDR ria6Z1WWnry6FjXVEml zPbvh7oPNF6c8bcDxSl OA0qlVMyED9igLJoZ44 pe6SgaSgic1nkO5cifM wthRehD1i1amPaA2G0s EGkVASltfRsQ5Lpy62x eYPjFWnnxs1xbGQjuia gcmVsYXRpdmVseSBpbm IoNVPxKNBvgM4gjnVuU kJvIRHot78bpFR0VS97 JCyuzLklrUVvYW7dP6c 0aWMgaHlwZXJwbGFzaW TklO5uSMDuFIYiF3Oqj P2oGV0xMTLbcHjmwIWj G6wnzfsizh0aOLVqpdR BPp80qNZbhNiiIPY9DC Trv5AreRrgpbBij1AhV PSjfFLxbQ9lJU6eAR3g hL8lmT9jrKudoD5zjUT pyWXrkYWxiHYqwBM7QV EvqMIpMx9xzATpTLWyz U8sPLPadb7jFRwaqd8e RFShf5SycXWbwUF8wLd jaCBoaWdobGlnaHRzIH DaRCV2LZXpGFKyoF7of GzqsaLwWE3jvMVdt3U4 dGVzOyBubyBkZWZpbml 9CHAkPBqdju0lxYJzZc MmFKJzo93aqMBnvXBxk nGvHlmoMX0lEJQars5= Gross Description (test m9ejqIFyLWVnqYXSBGd code = [id number]) wMFxhbnNpXHNwbHRwZ3 RxhkpqLOihVO5uNI3ub NhhoQXvhOTcAK0FWKAl ZmYxXHBhcGVydzEyMjQ mZROprPTzeQE6ESMlIS 1hcmdsMTgwMFxtYXJnc sV2EMCwkXPbC9CsXQYj IF2hhzwiCMT8KJiiiV8 locDJNskiUk6tfKKysK tcZjFcZmNoYXJzZXQwX WEdvFvsZCMeQQp9dV1J WkgmP03le5E8Ght9FVP yYITfO1HsBV0bUNOlmE RoF08PBwwyIDX5GXQAY wkmGWMhZM1Uh1gbHRAg fLKpXSS3ZMxhxWElGRV vZHLmDPg2DKCcOZpitN EmXZ7miPwrJvbufQltr 2VjdCBcXGlkIDUxMDAy HVuuWQLzPY5JIiYbPKY bArJ0XXGpMGg3ITg3JT 9WUyAiICAgNTAwMzgxO BVtDCs5XCgmNT4IWGje SKJ1UUL4JQB2GOJ1UIM cXHQgMiBcXGYgQXJpYW wgXFxmcyAxMCBcXGZiI DknHhltRGblH04vwFvu aD8cSzhrkcZxZVJ0POS hciANClxwbGFpblxlcG ljTmVzdERvYzEgDQpcb HRycGFyXGxpbjBccmlu MCANClxsdHJjaFxiXGN hYUkfxiMgMICagC9iJW YrLVGbK1l0LT5uY8l3M KWfALVoZNAjBUL8KJ6o gB6onQUoKHRkf5enLJK yyJ3pm4yowoXgBSVwkN CgDytcyZGqGnQnI90tG CBUaGVyZSBpcyBhIHNs jWdnsOw5EIIlWWSuqUI sACrud2kqokJlJNJtzH TdfvqgDO7tHRvoNK6kJ OmgJW7aPBIjZmDqXAho NR0caafojiYzXOAfGZs wg3LcINYkFINqLMnebI XnFKJ8tZ7oNGRqMYEvs CpkBHy0ARJ9Pa4wmHEf CWWthpJDJZ4vCJonio8 7DQA5n3yabDVxSEjxVa kicIPpnbK7ZAgUDBYUC XuWUlGiZR6mNPxLZycN RUdJTnwyMTAxNnwxfFV DKGL6QLuicWkgxZc0n2 fleQSlm7t7XFbqNMF6r ACOy4mvtXSlYOleSxxs sIKixhK5CYsXSFQEOZi XSsSgHX2iGSgSZkkOCb T2IkQvSBK4EDeRG6MMx TW6Zrk7XHk4vIezUylg vlZbeXAyRaIHdN6tsZf edD0seDLdM0ajCzStAI ANClxlcGljTmVzdERvY fVrvlY8RHCvkOFvLNS5 PL9nXENigpbhSKEfTBG gVZY2AXhrvH17uIQhEG ZzMTZccGFyfVxwbGFpb fTAMpopTpbexWrfk4Di dCBcXGlkIDUxMDAyIFx cNSPcMD1HEsOyHQQnXn N7IYKvOQi6DNe4DN5GO yAiICAgNTAwMzgxOSIg CVe3UPdzUU9XEKmyEUO 0KaW8WcM6LRJ6ZDXhRL QgMiBcXGYgQXJpYWwgX FxmcyAxMCBcXGZiIFxc QyctZCloS13rsYtfpU3 uYleiukDgZLM2XAOrqe ANClxwbGFpblxlcGljT mVzdERvYzEgDQpcbHRy cGFyXGxpbjBccmluMCA NClxsdHJjaFxiXGNmMV ltbmCxJFOenO0gEUByL DNbS1p8OSUhJz83Suhw MFxjZjAgIEEgdGFuIHR eHFDquz7umf03zypdcR WczjTkPDEcvdziw0mvb mRuhQG8IVbaIG25JSnb TW91GJlxVS2cMQXxMsV wHQkaOP5enjhmmoAmVR DmOWznk1XxGVZcYVYnG XqdxKKlOMV9uM4tNGSz JNElcCtdXLs1KFM9Jx9 nyBLuMTOsxgFTYW5gTB yemn81PXU6v5ehiIWqR LuqDgmnzWGdoxT5YVmQ DQLTLImCMnHxLO4wQGw JTktCRUdJTnwyMTAxNn zjbKLJDKN5TIfzsZlgj Tz7g3neuHWuv1e1OMkf TUP5xWBAq8vxtARoOXu eQgcieAIogtK6FIfQAZ APUMkZLnUgBJ3dJKmEM xqISzM5OgYoLDJ1LRrX L6CMqGE0Ogb3EAh1fOh cZmxkcnNsdCBcJzFDfX 0ojAnifQ2jyFGqV5hzN nMyMCANClxlcGljTmVz jSQzHpWctiZ3EGGudOU iYYW1UG0nVAXqxajsFI KuAYGjLBT2TEdgxK39a HQwXGZzMTZccGFyfVxw xINzcsMLExuxoB9oSoJ tj7lgqJh0MYAQMfpuvR JckqdyuxK3NXVgj5jdp Pmrt8JzmZJfZH5buZca lZ9hOsJdRzRCDc4= Pipeline Controller(s) (test code = [id number] 9893) cGIVyj3ngo9WedSJhzN NaEVkyrGEfwvSkav70y OA6kQ57DR9nRBKcSwV1 ICJbswL0Tqe5YCNyEGU iqPCiD717w5tsu7jjxv BsbNH3yPukKWJrfnmoU oN9GGbzAVQvcbeyBDp7 WWgsLKIhbZI6MDVvaOA dS1ZzFWVyOI4bavn2UP A4HKsvXFSwVjP1QYKhk UNqHHJzjUpxZBoyi636 PNJ8TgIkNLVhqyJodBv cmB8lJoEoUTIHK7JcNQ bWGfgaV6VQLKYSO2Vcz GFyfQ== Disclaimer (test code = a9gnwVCkWEYfnVQxTlP 9853) cWZKtXNNyf4xzAJTkjE FuZzEwMzNcZnRuYmpcd XUnWXHoToDaj7hlk834 pVQvv5cbZOGdZgQ6hHJ jZASrxIDpG778BQQvEB gqu9dwl9AlTEPqtZHhk 7F0ZTQJtbonhLh8vVlx E84al2W8BtkrE6sjAHJ vQUAwK3SdBU2bGTYdKr h3WNE6WQX9EOFhJVNkK 4InXY5uROHfmFIbUMd9 h1tliWiwUPCdXIJ2z5l pYYlsyhMpOK1iqy5atG k4n7hjjoDnGKAsPZLoq THYSHHoQ5HssQgiTk3p fTq3iNngVczeJNL4Egc 4DF4vpi46zrm9zHjqBV EfbztvNfH6JCbaYDTeu nzhLCq9MCfvMRCdcEZ2 BPDqtFQtQ5CqSUPqBV6 vsew2MYV9CBqgUQMsDl Y1TGNrpXGqCBHayTwkU Vbkc387UYW0InDgYI4g C0Xda2O0rT3fhWSzPXA gdFNzLdVtKQBbbm6roG OpNXftg5MvOBA9bxG9s WPyuTAuWXPcID36Viee c7DlQbmlBRA9GSBnqaS tz6Mvo9agElMgcqIrW2 kqI3EiONLxVOZxLJKnC nWqmaQqe8Vsd2NxeMLs gUm5f6wyBNTsUQKijSk kc4pcDUT2NMWaH8G7bK Kup1ofRTixJQMnfVQ2x bH2PWSoqOZjE4VyfQ8a FZJvHB5xyuv2x7ucZLW 4FRbxMUWqBpD6teW2KL BcaGVhZGVyeTcyMFxmb 446XOQ2NcGoOICqj7Vq E1KnfVizX21zoAmmT49 xRWWfrZeyjI0fgOuxeD 5cZjBcZnMyNFxxbFxwb BPstazdZPzcqvH7BVtj bbbqBUBdNXyyU7fwToK gWKXckLqeVGzhd4OjDQ TfVULbFzostnR3WIWIz 65aEWQkj1SpGUZiyJ0m tBNtDHncoyRsnXQ5FYl hdmUgYmVlbiBkZXZlbG 9zTZMgZN7wLLYagwBta w1cmtHxPJEzGIVzQ5Gs cmlzdGljcyBkZXRlcm1 ffbCeNOL7VXTRGA2BYN BrHAXjj15iBHFsfOjfz S9zyNLxazAnBOFbx2Qj dX1fuVJPZYKwW7gfUH7 oNJjgt5SedHAfeRWkxZ S4ZZEfd2ZvBaIsjxZrj BBktGFiU5AhdIuwW4rz QATnZHGhcfJgsJYvc1W pRYLcwYM0vHQgZS1VDw YSg89aNPWqSPJIevPxL YWviAhunGI4tnS9lZ0s LiBJZiBhcHBsaWNhYmx dBINss364eg1eiiL6LU FrCWXdofhrj9VrDRNdM IItbP43VWVfKCLkuu2x denawLUzpvXpP1Nipty 7eZ1zMVGePTqnSLOyAJ ZzMjJcbGFuZzEwMzNca GljaFxmMVxkYmNoXGYx RLmqZ9uiSwRxUcNaNaq wYXJ9 [facility] 2021-12-28 18:43:18 Test Item Value Reference Range Interpretation Comments Submitted Clinical History g6endUBoHKQuiEB0FiT (test code = 97188) lQOYic2pvd1AyyNLfwR VdDTpuyVQkkjKjkt25s JF0zY64YH5wVANeMbQ9 UDHjqpP9Apg8CQFjOPZ xfQXkB797w8fyv1jgvk JkbPF2yMtvQGJfpeynW fI2XDjiPPJdfwadQJs1 KSkzRXSjnDU5SJBckDT dD7ScZJXtLR7xcil2LQ W9AXfqYQSySoZ4WJQrc NAjLZIrqXjfQGjkk500 KCY5EjKlEPHvtbWmrJq wwB0tJvJfVZJNLU7mwB YzfOXiZeV6scQbhhYvf R5sUoXfCHFte4Zru1Nh p6gcozPhQLT7AzYsZTE rlqHDFkWBEdJ6soRHL1 YtfYPhFIR4VZTFIXQyS IZVD4ciIBAivOCcFDer YXJ9 Diagnosis (test code = 34) z5jbcBGvMPAjoTY4CbB gVYQvx1jnw2KbcDVmnC CvOItiiUVefzQqaw56x BE8fY60FX2eYEXfOrG2 FXOyzzK2Zga9QARdQML dlFQzX456s6beg6lmcw NtdGS9AVTwXWVuW8NzN E5mBSNqsAHhV42oiAUq QYA3UPZrYDUzhNXbFMD xHPB0WUMfbKDoO2pmKO IhQV5jlpuqUXdyDJavG TKieGB0PBPsyLJcV0Hy USUiQKiwAWGwoqb5FsP jEa1xzIHzlVheNVasNS JkXHBsYWluXGZzMjBcY 4FhHDG1FHHbL9q7AT2r T2wgKWRauX3mf1yxltN 6XHBhclxsaTcyMFxsaW 97SsWnT4HgKJEhpwEbf 1LqtiVlh9k2hJA0lUWi b3CrUEMawRKoAGvsnB9 wbCscbqNvRkTzAAk5bZ MtkPiyo6XzOpVeX6Crx qhvEYgugoN7w8Hlkgeg q0a7zLXyk1vqiBM0eQO iZMiyyi2nrrFyKE98VO GhkyDeFP31IJR5ZZNdo 1N8AMAoTQaiie7xnZVn DVI8lBUnQ9IaSIAcsNa dTHF9tFUrPMA0ybF8kO DbDeNuGNUtLnW3gIYkn 0LbI1iyJZ9iHYBuiACk t8LpNCPweOcdF2WhM2t qk07aAFeiTL7ccQKcn6 3szJL7URr2VON8iTUvZ M84nF7wpZOnWDJuviAW ZWJvcnJoZWljIGtlcmF 6m5UbeueuuATiiMWqkJ QoDKRtggVtMK64ZYZ7K HBlcmlwaGVyYWwgdGlz l1BuMQHcR0ZwQOEfsCH yIEVwaXRoZWxpYWwgdW bpEHIxlUjldkW9aYRaH O8ekPDtb0GgrIarPbGr SUK1vHXwdyEvcH8gsPY jPQiaWYimnR2rVBPsbn xjZjEgQjogUmlnaHQgZ Ewze7ocUNTcsL1hq7bb biN7PGNzcrpiyFxeQZt jnA28FbIgM4XzECn8oT QlwCmud7AnPcUzG8Vao rexZCvvqnN8d5Orutor oNcqcOXnt5mlEMX2dNU sIHByZXNlbnQgYXQgdG trb8LxZXKeV1CoNrrzS SLhAY5vTMPwoNNph18b sQDpoW5ub2jebLX0JMI xZ59hFDDiVSJyg1Layp kgaWYgdGhpcyBsZXNpb 00ky9frhSzpARKgsVow xR2srbGlfZ5kVWY5cyC ux18lJHJ8PMTqhbZvlB ateeIraZ4jSDsfLKAii GFyZFxwYXJ9 Comment (test code = 9835) r2cybHPiDVHcfHY1GxD zXABfj0jta0PozLWliW QwVBzkoOVjjlLrit86v UO6lX68VC1tRAWpSdT6 IHObnbS5Ija3DJDjKBW tePMsQ825y3wqw4tkkk HfoDN5gCpcRSYngzjeK uE0CSjcTOFpzsioZYd4 QAekRDUmiRY1ZDAzlFI zS2QkMXLoJD2daxz7UX Q1KUdcPUBaRlC2IGFdu ZQdCWUisSidAVxsx213 SOZ5QfXmXIJodoAsyDv tdD2gXfEkRIDRNeRIgZ a0pZEcFTZvcNInMXKoA 5Bec30oPMjqaxOrCJip bWluZWQuIEFuIGltbXV xe4kei7VpA0nelTwcUF qcj2W4BAjyj4UoEDKiu cLgjd4pGNR2d2zsLfGf SW6toHXvJR7bdOWfB66 ej2DfeOmuz4qyV5pgbS ihbMkwI0a5vrTvP3R7j KLgHDBktpAmH0Jrd12n bOHoOOddog5gqKBkktk gcmVsYXRpdmVseSBpbm EhYKSmSKBgfI1nrtLvS nYmHUWfw66vaOY6FJ38 HVbvcKwahIMmPN3yZ8m 0aWMgaHlwZXJwbGFzaW JxcE4lBWKwNTOxU9Jcg S4iPI6iLAKhgCbswAMp L2abspudxj9vWSPppnH YOn57jFFqiAtuKSQ7IL Ryq0McmVrihaNwe6NcG PEneXFkcM0bLM8jUD0b pG6hrX0rqJmdlR6idLU fnYFruYWpnEVfxNA6US HcrSVwVc9mgCQoAWOpk K3uRQMhbt4fXTuvsj1b TXAto2LesAEomED8lCf jaCBoaWdobGlnaHRzIH KeDXO0YELeYYWgtC4my QkqhbZjLR6ruHIhx6U7 dGVzOyBubyBkZWZpbml 8PEIrOWpisx4bjPPxWw QxKKEfk90fmKJsuSHqm xQgDiibMB9nXUPwzv9= Gross Description (test t3qwcNZfQKTsmPPQCAw code = [id number]) wMFxhbnNpXHNwbHRwZ3 AsolxbBZycOS8jPT5tj IwtiMCyaPHcQO1PFLIi ZmYxXHBhcGVydzEyMjQ rQCEvsQWehPN9QSUoQJ 1hcmdsMTgwMFxtYXJnc wO7EDTmyYXgJ5YkXBBn VJ8fcgzjSCN1KFjfkY2 cabHZGvorMo8obHBpxZ tcZjFcZmNoYXJzZXQwX CQotZzhNGVcJIv7dG0H DszsY43ms9C9Zcj3IXI uRRSxR4XfUD2dCCRxsM LrR64CCyhgNCE6IINOO dosBDEkPL5Nx0lmDSYk jFHbNGS8HQzspSHkLRO fKEEiQFw5UTTdKVnbiP TcEZ9irGpdVnpwvJbdn 2VjdCBcXGlkIDUxMDAy JAzaHQQyKP7EMcMzWEK lFiX1TVZnDHv9MQu3TL 9WUyAiICAgNTAwMzgxO OTpFOt0RNgyDR6CMJfg ECE4OJR6PRP9ZBA6MBX cXHQgMiBcXGYgQXJpYW wgXFxmcyAxMCBcXGZiI OqtFkjqGCejA98ivNlr tY6pFgrhhaDuNIQ2NDO hciANClxwbGFpblxlcG ljTmVzdERvYzEgDQpcb HRycGFyXGxpbjBccmlu MCANClxsdHJjaFxiXGN cYKtmasHtELNraH2lLZ OcVDLmZ0a3UJ3vN7h4S ERkPKWsUKWhZMJ9EL3h xC3nfVJbJCOgb0gtACO xtG7ne5skweWyIRCogM SrPjflsYYtHoLfN02vZ CBUaGVyZSBpcyBhIHNs aRcbtOb4NFVdUHFgfGH zUXypo8ioveZpCNZteL SoeijiBC1sAQmhXL7fB UzoTO8xLVGzHzWgWVqp AX3huxyogpTeSOLwQEw sc7EsIBIfGLVmEUtzyX RzMRB6tF6gSMZlNEGjh TggPUz7EFQ9Gd5zeUMk TLYslnEDXG7bMQwewt4 6YXZ9n8tiuDEuOKktKk fknDQctrV9SDwVQGXSK CbFXkSbEJ6uPPqUKybD RUdJTnwyMTAxNnwxfFV GNAP9OKbdpBnpoQy6x2 diyWNnt2v2IEghFHA5y SRYb5uboZFpNOxzTtxt oEGsazJ9ZMjRJKFCXZq JHqXqUM7bEIfCWkhECm L3EcKfGYS0CWtZH2DYk TK7Lnl7YSu7rUnqOvku jjToxFHhZcVZtZ0ibBy fbU6psDIhA7eqBtPwRS ANClxlcGljTmVzdERvY lSbrxO8NZUbaYDgZAD2 GQ8rODMgmunvKGQcUPN vLEF4SNedjX18gFXuIF ZzMTZccGFyfVxwbGFpb yUNXsgfDsuvxJbzz4Jy dCBcXGlkIDUxMDAyIFx iNPExGQ1IJdRdWLBvBt D9KPJdTIa2UUd5GN0XE yAiICAgNTAwMzgxOSIg NJg9KXvvGU4DELjuYSO 9KqL9NxB7NHL0FKYkVJ QgMiBcXGYgQXJpYWwgX FxmcyAxMCBcXGZiIFxc FtvwLVepQ48lbGepwM5 sBewwueXpKYU8YPIxxl ANClxwbGFpblxlcGljT mVzdERvYzEgDQpcbHRy cGFyXGxpbjBccmluMCA NClxsdHJjaFxiXGNmMV dhcjGgDFCamW0hHURaK ESjS9t9ASWcAt54Gdcq MFxjZjAgIEEgdGFuIHR kTWNald1rhl94stsffN VjweJcKIGpvolmz9gkm vMsqAX7VBcyOV79HGgq MP36GUqkZO4sDUDeCwC nQFjrDG3melboatGxGI BzKWohy5OuEMWoFYLhP LvhpVHeBHU6gL8wCTUb GPUkkEtlTEc4ROG4Ji1 oqHTjUBQyltAFRP4nFF afrt36DAY9y9ihyTLgP HqsTkhlvYFllfW2IAyY HSXBFNkAAlLqWB6mDAo JTktCRUdJTnwyMTAxNn eubDJMKFN8ATkmiRiaw Gn9a3gftFPay7m5XMaf VUT6dXKIo4nntJMvXWg dDlixkDOslhO4MHxVCV FQHUhRTlQdGA9fUTjSD pfBIgM5FfIzNPM5VAkZ C1SVeJO7Hwj6OXm8xJe cZmxkcnNsdCBcJzFDfX 5biKrrsE2ttLBiI0wzT nMyMCANClxlcGljTmVz rTQbLcWwisO2RGIpwSA cNDK7VQ5nRGDetqqrHO GuWZRyRPL0STbkfR33v HQwXGZzMTZccGFyfVxw jAYgnqPELozasI1aJgP qr5jggWv7UPSJQkilqC UnzkefrjM8BCLrr0lub Eeej3UvjDNmVC3djOwl dJ5cPgTmRjJRIq9= Pipeline Controller(s) (test code = h4rzhNZyWNSxzTO5MyB 9863) oYQFaw0pcx8VlrVHrvE RbVUnokVWkdnEfjh11k WO4oS21UO2yPUIfYqI0 JLKaxcD2Jqr7JONsMIS vsXVqY822p7gkp0kcph ThaSB2xWovMSNjjveqE uQ0RJjoMCJkeeeyOKx3 DMvfLMBisVG9OQKadWR hF7UnVDShKD8uabq8LW I8YNsuZVSsWgB2CQJdh GVyMWUqkTjwRSeyd347 XLT6GfIsCVJaitVaxBy ceM6tXkToAXFEB3StLM iEGoymF4VVEYYXH3Neo GFyfQ== Disclaimer (test code = w2livGXfIFHfvTAsOfV 9844) zSSJwTRGmh9zbPDGtyA FuZzEwMzNcZnRuYmpcd EKhCUNiCtEsr5nax512 aSHke2juMTPgSjV2cET jUZMozAQmR940KTFgMO qph4cmq3YtRBUqoHTwt 2J9SFFLoxfdeBj4zKkt K45yv9F6CpimQ4jtKOF nPPXyF9KxGO4jGZIaNe u7UTH0NFC3TKVrHRZzC 9PcRC2gZSRrbMGhLDk6 u3cwoQjdHJAgLZS6y8x xENpneiSdEG9zcp7cnO j9b9vfpqKiXBZjETLhi LEKZRVvC3JcwBoaMj1h yHm8vPplBkcjJTB6Neb 1UK8pjg61hza5aKubMR WfgmvaHwF8KFcjOGBlo iicDSn8MDwhIJScqKA9 BLVqrFWkT0MoKNYhQC8 fuwv5KON7ZWmpPEXrMe N0JWHyeLBoWDYpeIkfG Cqxf448UZL1GzCiWB6a Z7Bip4L6hT6spQHkSVT asRUdVpQdXGIxbj3ijK YwOQnwn3IuOBW7fpE7a JJpeMSoDFWtYW60Niqb a6VpSzglUGV6FDKdtwI os7Xaw8brGkYbhmXiA4 drA1QrUDGvHKSvNPGzO iDndpWkl9Aob1IpkKQg qOc0g4bcBGQcDFZpuUh nh1eaNRX1PLZtX1H2vA Wkh6vjIIppMTUmqZI9i jC6PPQgaMMzQ8TfkA0z ABWfDY1hoyc7g9vnDES 4VDiuCYLeZaQ9cwV8NK BcaGVhZGVyeTcyMFxmb 383NMB3AkGsOZExu9Hn P7BywKxaI68wlWvdJ27 bASUbqRweiJ6fzKzxbE 5cZjBcZnMyNFxxbFxwb VJdlsxeQHkkmbG3LWlg mpapYDJnWNjfZ9nnPhJ jXPBsxZbrAZbig3XrEL MoAIRuOecgloB3ZNZUp 04xBRNfh0TcEWQipT3p mNCnDNltleIdeTV6WGq hdmUgYmVlbiBkZXZlbG 1tEZJzGA4gCBUqbzNsv x8busXsWIMcVLTsV1Ya cmlzdGljcyBkZXRlcm1 mlwMkZMY7OPLIKP4YVG LmHLSsn03lMXAtqNnjn G2qfHSozpSfGUBty5Ja oD4gtOPCDZPjB2naNY7 hBHzny8CayVKuvGUybY G9LUApo0FoBtFflzJxh XRiaNXaX6HulDyxF2lk RKFkNAGcliAaiGCpk9C aTICdeTU5eCEaZL2LKg MMx29iWVCdHETSleSnA BLtqBsqjBI5loB5bB5p LiBJZiBhcHBsaWNhYmx aDSPwg743be3uftM0AI EoYIMgjyeje3OuIHVwG OKksJ50MIUaUHClwg8u hcsbwJPmvrDtD0Lwkks 2tR0fJECsLBxbOAFyMQ ZzMjJcbGFuZzEwMzNca GljaFxmMVxkYmNoXGYx YZacE3zdMoEyLnWmGih wYXJ9 [facility] 2021-12-28 18:43:18 Test Item Value Reference Range Interpretation Comments Submitted Clinical History r7jqmTBqEPNubKN0MmU (test code = 09081) jEWZmx9hdi5QrwEVnoZ KjELynoOWmjnFfsa38b BV1tD60QO6jTBFyOrL5 WDIjipP5Iuc9WXHpRPI fpOBhW831m4suu9bgsk XlkSC7aSucIPTxdlziW nD3OJtsUXLxfvqlCGu9 ETuaCXVusGJ0ZWIwkRQ iC8McNMYaEN6lwyj3XO N5SFdmSGUzZvO9OFTyw GZbIKAueOogBVupx032 TGL7HdSnIFJkoxTryCy wvG4aHbAlBBDOKP3sqF WybTXzCjO3ibXfqlKoc Y1oWwEtTBSjm3Hhu6Fp l2vnieVxFAI7BcWjJTH gxqQVNdAACwF1zqOGL6 DnqBDqAMW6TEMATQBgI EAPS9ipWBZwwBYhDNer YXJ9 Diagnosis (test code = 34) o9juyJShIKAhlYQ9UpU kAVTob5xph2CqtUFovU UaKJtmhZHrzgNrvy95z NC7cQ21XP5tSHYrKzP0 XHNtkqI0Upu1IWJeLLU jjWXwE651q1mdq7ocyv XqzBQ9DKTwYUWyX3FmD K9wLOCawRDoE89qpBYc JRM2RXKdXAKaeSHdSLF jRTX4IAPlgUDdZ1vrBF ZtZC9yprfiOJygMPxaB SZeuBR3PAWbsPFoU2Px WSAeEUilAZGdzpz7PnD aBg0rtXCpmTfnSLxcES JkXHBsYWluXGZzMjBcY 4ZtCCV2MTIbG5j5RD0y S6cdAWDwtW1fv3tblzJ 6XHBhclxsaTcyMFxsaW 04GfJyG8KvQYQlvaMoo 4SdseEpx2b0cMU2nFAh w0HnKSGpsVMqMRoknC1 pkPxbkmHaRlCxVRf9aF WiaWbfb0DcWvCpD1Idw vxwPFkrziS7f6Tvwqkf p3r0uYHei1piaIZ1xIT qNOmoxj0fekCpPM93FZ NomiKqFD15IAU3HYIoc 8G4HNDeUZnell6ruXBm XCK1wYKiM6QuNWMmwLx oASB6yZVcCNQ2ktA5bK BhJoSuMHVlFiG7uAUgn 8IaR5zjVW1eLMKclLUb x5AkYSOkjAiiB7RsZ2w ky96mAHoePS3swPHky3 9wgVQ7CFs6EJV6cNXoD Y57hK0mfJDcQFHzgdJE ZWJvcnJoZWljIGtlcmF 2w5KduuljsZKqdIUrzP KoBZKiinLhMZ34CRC4C HBlcmlwaGVyYWwgdGlz n5UzZWCrK8DyDAYtvST yIEVwaXRoZWxpYWwgdW fkMHDtyRqolkW9nQPnN J8szUAce9ZcgOrrDlOh UVG7oLBpvoIerT8jrAH sRSojMZyjyA7dOJJzeu xjZjEgQjogUmlnaHQgZ Oneo2stLTXbzJ2kd8tz tnD4RTNllfxzzSvcPKh orV49QqKgE5PiAKc4mH TgcGjrl0MbJnEwZ8Esa pjkPApsfoA2i5Jgbuvo hNdlwTQmh5zqZDZ6vSR sIHByZXNlbnQgYXQgdG wjt0LoMHMeI9NjRgxqL ZJcXX7kLLOqtKNza76o mWOpaQ0gh2etyHJ2CQS xM43mICMkATJzf2Jtdg kgaWYgdGhpcyBsZXNpb 68ck5xdhGulIQJjmQqd yF6gnvVzqK5pEPU8yhV vz80lBYI3GNZiqaZqnM erkvWvuI8zDWwiSSRvb GFyZFxwYXJ9 Comment (test code = 9835) n8jocSArUZNneYC4LtO xKWHqr2tvd6JflDGtuO UpDApwgHCsenQluo44m YR1oE48UC2gGMYfKqX0 AXDisgS9Crn8RAMyVWV xtBYdY839g5enf5xcdh VqfBK8dRsoMEFquakhO iS1HFqpTPVihnczSGa1 DKbgDYCtzVL4BEHseFZ lC0CmCBAkET7agpr7LN V1PYroKDRdAdC6DVYcl HUvAVGrkSvfRFtrt751 GKL0NkMeEXUzgtKliZi ddI9hNsKpUXNBKlAXtT u6nBPwJWLszOVkBOCuK 2Nbj90lEToqgcYoSMvm bWluZWQuIEFuIGltbXV wp4qvm9EqM2ibvPreJM wrc3Z4IEmnr7SiDISvo jZoen7nPGR5s0jwTyEf XA9zrSPdFR0rwWHwF77 ol0XvvXfye0dtB2aphC sulYduS3k3wgOrC6O5y KWuWAFfmwExB2Aqg79f qSGlPXqwwq6rmOHawpd gcmVsYXRpdmVseSBpbm DcUOMeJUBowU3lhrJfV rNaOOKtl32ypSL8UN01 GCdswIqzkRUqEG0dB4i 0aWMgaHlwZXJwbGFzaW EzwZ7sMPDnEARqB0Bye Y8iFT6sXDNkwFqhdCHy S5ousagvdr2eOVAhvzV JVo11zZNwjIxdTKC5OF Uqs9LefFrtipGvs9LvJ YLlvUEceD3jTX4pYH5w uT9xnA3lvFfnlM1srVR ntRLrqMMblUPhwIE2MZ UywIGrMg5tzKGlFGXur G2pZICses0nIDhrgx0z BAAkb2VfqSTdgJZ9tGt jaCBoaWdobGlnaHRzIH DuSLX5YTUmBVArfE8po LbxwzOaDU7ykDQgv9C0 dGVzOyBubyBkZWZpbml 8TFVfOMaoiy7mhDWrHy LqHLVpr44qpMYsrQFii tJgWnfoJZ3zREDuts6= Gross Description (test z8sohZLkIWEsbXYAPBs code = [id number]) wMFxhbnNpXHNwbHRwZ3 NlpokySWadLI1tDR8xn XwwsEYpkQInAS2KSIXs ZmYxXHBhcGVydzEyMjQ sTTBkiAVxoGG2UNTcKG 1hcmdsMTgwMFxtYXJnc vS3VSIgaITkX1JgAZHx SP3ornnwIMZ8SHphdX4 yzcLQJoumUv4fhYKsaF tcZjFcZmNoYXJzZXQwX QXkfScwGIIpVHs7dF5Y PwqnI06vz4K1Tso8HIZ kMLJeZ1PeAN8uYQSmhZ RaC30LShgrTIA0CQZLO gzsBPLiOB6Ll7wuQLDf bLVgCYU6PPwcfQZaASA qGAUgDVz1BNJeGPgpjO OtRB4tgOagLkyooWvfa 2VjdCBcXGlkIDUxMDAy NNekSJOhCU6WDyHhDGZ xCzE3ICTmCIf9DGb5EJ 9WUyAiICAgNTAwMzgxO HNmUYh3JNgtLC8OLCbq GSH1INC5FGC7EVP1SES cXHQgMiBcXGYgQXJpYW wgXFxmcyAxMCBcXGZiI CxoAbbrSXtpJ94ypPhf qS0jPkaakwHlJZN7XOB hciANClxwbGFpblxlcG ljTmVzdERvYzEgDQpcb HRycGFyXGxpbjBccmlu MCANClxsdHJjaFxiXGN vCJbhgoTgKTTtoT0qBI PhPCWyL3c0CX9eU6r8T YNlEDOiFYDoEER2YF1u hS8kpJHuCQUeu9kiTVY mcA1hg7wjjdSzEYLbnO UuXlkdzZTxHrNlG36bR CBUaGVyZSBpcyBhIHNs iAlfiLg6DOUjLVBzlIG iGFizg4qtmzAvFVSwhM HkyrawCQ9jMTteEK1bQ CwmVT9xJTWcGlCjFNjs AW7ovmukooLaRNRuNId wb4OpIKTfBPFbTWbjkY KnJJX7bB5iSJGaZAAuf LcrAMw8HLW1Cu1swKZr LCGezzNXWF5gXUbqfc7 0PIS4y5woiNInKXxuAv tutYOhqwL7AQcCPONHM LvTXqEkYK1eHDnZZfiQ RUdJTnwyMTAxNnwxfFV CTOM6WEvobMfkbNy8d0 hxgFThv2v8ZZtoPNG0d LDBk0rvmRVrTJdmUeev qGZaqgC1MVcTDMCUPSt UEhCyJJ3kFZvEQrgDGp Y0BxXvEGH8ILnOA8LAp WN7Uhn7LXh4iVldRlvj mmMzpHXsSbOTkR3jsWk vhV2syXZsS2tjGnMlPS ANClxlcGljTmVzdERvY sKqunK9QJMfmFQqOVO4 RS5mOUPkdgagQMApYUR yHCF4TVjbmN97lPYhQC ZzMTZccGFyfVxwbGFpb nDABubwInsmbJohb2Yj dCBcXGlkIDUxMDAyIFx jMTIyLF6AUeNdZXJjRz U1YZRmVJy1BDa9PF2ZI yAiICAgNTAwMzgxOSIg UHs6FFtlIC5DQKmbAER 3MrY3RpE6ZMB7HLAiIF QgMiBcXGYgQXJpYWwgX FxmcyAxMCBcXGZiIFxc OcrsTYrhM30kvZrozK8 xAuvhzkFyBEC9CPMdin ANClxwbGFpblxlcGljT mVzdERvYzEgDQpcbHRy cGFyXGxpbjBccmluMCA NClxsdHJjaFxiXGNmMV bjfeAhQYNowP9oFJJaZ NPnZ1f0HKNhVn71Dgvp MFxjZjAgIEEgdGFuIHR fCTPljn1ltx28cabhrP JajwGxJWRlecwjz3ilf nEglIX3IPyfCF57PVbn XD55IQkzWG9wIVTiVkS eXSlcXB6dsgygdpMzKW TbTNjxu4VmGNSxRWBiN BbkvJEhTEI1wI8tKJWa WHJeaBsxIJw7LLJ6Po4 owWEeCBFkpeVYQC6sYG kzzm88QXP2g2lpaJBoT EayAiwbsHSztbL6LFyD ZZFNBXhQKyBzMS0kICo JTktCRUdJTnwyMTAxNn vexYNUSDM0GFctxPpzo Go4v4faoIXuk1b0DJnf UTH6nRUXc7knsXJiMRn xEyigbHZixcS2GNkFOA UWDHeZYmFkAB8yIYxSR aoUUxP9ZyRxYBB2KLcF D6HRfSF7Osv6CRy3hAi cZmxkcnNsdCBcJzFDfX 2pbWbxpH5cgDWdD2mvQ nMyMCANClxlcGljTmVz vORiYwDxeyS7UFQwhZF tFIC0KG8zPXQpkrgxHN BiRBHuSSG6PNdzwF54q HQwXGZzMTZccGFyfVxw cILsqrQFWsxicU5eMiS uk3hgyAj9PASCRxygiG ZzwohmgxW9MNPoa5jsy Xqcs1LpaAHnIG7teBfh wD6kVlFyYxWGWr1= Pipeline Controller(s) (test code = b1fopQQnWNKwaHL3TcQ 9812) eLQCeu9wjg6LryWVcyA NnXEdjlCPuduLegn84r JI4cO46FK1tIPMcYeT8 AYZgzeK6Npd4XJCuMPM bzLKwK147s6giw4fyqx GxlSG8aZifBVZjeeyhO xM8MVxxHNNuucicAIg4 KAvpJSJwyEA5ZJRghFD tN6XmXHMkCX8aekd0LQ O2MSqyIUPrBbC9UJZxj AKrREJfcLzhRYgmu744 XMD6ZiHgVPXnenAphFh dsK9nUuGdBWVNP1UgKE cQUmptQ6WXNERXA4Eho GFyfQ== Disclaimer (test code = g8tyaFBtQPJqpIOeWhN 9826) lRXApQGHvp3luAPIkoR FuZzEwMzNcZnRuYmpcd MFlOZWdFuKgp1zaw766 zZOqx9nsZHOdQtR9aDV sDUViaIEgO362MUPqQW mhm3swm1HxJDIkzNDyd 5U1GCNOpozniSv7mBhm B40yv4K0OshpL4nyAIQ hEWHyZ8TlMG8gUIGiLz k5WBV2UIJ9JWUmXOFaS 8ThZM9hHFAjmWOyOKp1 a6vpdTrzEVZxDKB2d8f aNWthwiHvEL8uen1tlX x8i6lnduEsESXuDLGdy EOMKXRgF6HmqLsySd1g dSh9lHonVellRNF6Att 7RJ6zpg62dtx7iBkfOZ HlkhmoEuH4BPoaHONzy ieaKZz4ZCxeSCOrkMA2 ARHgmZOxM1AbWSClYN4 pwbr7SXC9VLzqUDFwQf H4WDPyyGKnZQRpgZseP Gqpm245TWL3KzCtGI0e T4Kip0I9qR8evDLwSJX jvNZySeOpTAKnhp3umQ YrXKzpt6LvURA6xqN2l DGtsWPfXLDjKV07Rywr n8UpFwvtPHH5HBOwqbO rw4Hyi9ifMpAgunEzA5 mtJ7ErIKHeHVHmWBScM iXevvKsb3Tug1QwiWQc rEg5u9xnUDGoTOZtgOt lv3jyDEU4WALtC3L6eB Hyq3wiEWvbJPSmkYQ4e xK8YJSqzDZsG1YzxM2l VVDsDQ9stap6o5oaRFP 0QAqsHDXlCkD4qeB3AO BcaGVhZGVyeTcyMFxmb 652FDJ1DhGvIJNwd2Go H9PmfLsdJ09ndLvmW88 aIHOyfGzzhO5pjKjhrZ 5cZjBcZnMyNFxxbFxwb EDlfugoSUvmcdB8TWrt giptJLRaAGsdE4vkLmY pXKPwyWriELsjx6FpXN KkQYIvFijvaeJ8SWSPr 38xTINpb4QkBOPwtS4b yHPpZXnbvoKbkTB7CWx hdmUgYmVlbiBkZXZlbG 9pKJTpBU0iPUMjmzKva m2yisShHOPkKGZfZ5Gx cmlzdGljcyBkZXRlcm1 bfxHjXAS8XVQLWK0MOV PiNBFan70yXQTloMzjj N0ezJLwlgYjCKJmf9Co yG6gaNUUEFTtL8bcTO2 iUUirr9RipWZptBZibT R2LWUkw1IfFpCdifTun KPtiDIiK5WcnMzbU2bk HAHgHZRjkmYqoIEys5P fHAOhpEG9jFGfDI6ZOf LId76uEOMaNIEJbeVgA TMryZdlcWY8oxS0oN3w LiBJZiBhcHBsaWNhYmx mIGBof256nn7rdyM5ZE YbVONhrwwhb5ZlIKWoI BYzqO82PZNgJHLccr4q xvljnPAznuUhD4Dgdsd 2vE6iRCEsVWrgTTGuKM ZzMjJcbGFuZzEwMzNca GljaFxmMVxkYmNoXGYx SFuaF7nfTtOsTlYlToz wYXJ9 [facility] 2021-12-28 18:43:18 Test Item Value Reference Range Interpretation Comments Submitted Clinical History c2xvyPHhIDLxaIM7YuG (test code = 56665) eZCBib5zqk8PpxLPpaG EkREofhFCrdkQbhs08r GL8gJ47QJ8tJIIxClL7 RSTxksH0Fbt8KNTkFXJ aoKFeC171o2mss8nxmy KroRE9oAmdXXLggtqnD nX3IIyuADIsdvjlELt4 OVpzDBZxcZS0PKOyiYM sX8KtRSEhNT9mwoh1LO Y9BIzpRGUbAdB3NWLgg RSlBBWodBjfRYsel371 SYD7ZjMzMIHreqKyhJr pjX8lOlRzPYIVWH2gbY BsbRRtJqM4elTqggIod W2hXkUcHFQqz9Ayj2En w3zaaaSoCDV9WfQtAPF uuhBQDsHJZjU6srENJ3 CziYMgKEF4FFELJQDrW LPYT6qlBRAkbQLnHHki YXJ9 Diagnosis (test code = 34) a6jskAFpOENdjHM9LnU bBGAjh9dau1UwiIMwlE GnDJbaiCZlzaIcmb36p AY3rC06ME8gCBBcJoU5 QRVchcP2Cmv1UVJaRDW asULrG140o7bik4tkxc OxzDD4UZVnVFVoP1UdB P5eXTOvpHFrW85dkEEt JGL6GNHmNYBdiLTdNVU fFMY1ACLdpALzU8xdLF QbVZ5ppamlAPajGTanZ FUcxLB8MAMehBAxH1Lz CEGeHNarLFPscrs2NkZ pHn3lnHPifImsAQutXC JkXHBsYWluXGZzMjBcY 2CbPTO8DLBjW5y4GU5k X7czMCRspD9yb5chluB 6XHBhclxsaTcyMFxsaW 67BfWuV0VnBZRofgVew 5FpwoMzk5b9rQR5jLIg s2IhDSXaxOPdCMpdgS6 knVdobvIdRkCsZAh3tO GezHbcq0CfHdOvL3Ime kvxNAlgrcN5g8Xdivzw l1g1dJEcq3xwaSJ5qCX tQQpbsm9rzvIuVJ79VU WhqdExLI17FTU0AUQot 0T9IGSsMWpgma6gxHVq TLO6oADbT7KwSZDmfTp hTSM9eHYrTBN6kyI9aA UwRfWjGLKrJbT6wCFoq 3GmX7txGP7dCTBtnKAf q1YaAGCycTxkP8TgS3e gb68pIOoiFW6kvWXzk4 4fvML0WWz2EAS1vZTrX X49hE6jdTXeEGRklzFE ZWJvcnJoZWljIGtlcmF 5w4QfkbhcsKFlbEXlcH KgIVRxwbRxZK59SVG0B HBlcmlwaGVyYWwgdGlz z6AtOBPiZ1FjULNagUK yIEVwaXRoZWxpYWwgdW zlBPIonLxqwvU0wYRnK L3rdCPzd3DywVszNmMl KBG3nGUmyzBgyL6frMH kWCfyUVogqS7wAXQnvs xjZjEgQjogUmlnaHQgZ Vzel1mqGEKcvT8kb3to nhD7CXMhzuucxKrrARg iyC75EoIqX2IkZAw8lO WytBkzw3CkXiWiQ6Noq nhhLOipcjI5z4Ynhaeh lTpncTCfw4iaTIB1tGJ sIHByZXNlbnQgYXQgdG xhy5VjEIDxT5VnXhcaQ VEwMC8gGESsrRHtp53y cHZngB2jl3iygXF0BFL oQ79cPWHeBTJqn6Zcum kgaWYgdGhpcyBsZXNpb 72fl4jtyWyoNVPdyZxh qI0rnjXqlV0zEZI5zgN sy63qCJA9MGKzviOsqX wmuhMpmW7rZUvnJVElz GFyZFxwYXJ9 Comment (test code = 9835) l8tfdTXjWGNszJV3OkX oAIFxf6gnn3OomZOqvF SaKKeqrWXsbwJvou51f SN2tM42ZX1wDIQxDsS9 KRXariT2Ujn4XOIhGYL svFZlE515w2zsq7peiy GyqLG0nRijPYCijqmrY jV3ECrbUGPusynpKPl1 EFbqUOFptEH3IJQwpKB sF4TeAYQiNM3rqlp8IE Q5SIwoBFUrUsZ2RFEyy DNgYLUstKxbFJzhy548 MOZ4UsBoLSSzgmRmbPb ujP2vKfBnBROIHyPUaN h2rIXvLVLgqWHjEAHnU 4Dro82pXPknzbXkWSbb bWluZWQuIEFuIGltbXV gp9wfy4TvO8hmpUxzGG uwm3R0NElsr7GnECYec pJxmi6yNOW4f4jwTpMz BQ6yiXYjJB2vfJUoE15 eh3PhqGtyl8zpH4zwbS iusUllP5x8xoUqD2E9d QKjZUHagiGtL7Dpq04b fOHvEVkevy6gkBMiyql gcmVsYXRpdmVseSBpbm WnBDQwVHNltO6dgyKwT lMdOADvh91naSD0NR16 YVipvNgrmLAfKK1sQ6j 0aWMgaHlwZXJwbGFzaW NucR7eMOPtCSEoU1Adv M2eEF8hRSCidDfqsNGh G7xfgedoeg3dGCCblmC GTi69tPOejEemHOU1CA Giu5EpfRqtjbEli9LxC YOqvOFgaJ3zFH7hRV6t lM0qbH7ukGxidJ9wdFV dqRSmnNWuuMKehTB1KV RfsHMiJm6hbXAwLMAtx Z2hOCMpfb2mUHiebn8v RQNqr5VqdLLxuSU8aEh jaCBoaWdobGlnaHRzIH JlOJJ3JGWxPMHddA4yh XficiTtOY5zgMFxs2N3 dGVzOyBubyBkZWZpbml 1ULKyQPrybf0osULzNu ZhRSMos80eiQIguJOmg cSsFsgfBJ2mUMXxzn3= Gross Description (test y9jycKEmSMHzlJYFTFa code = [id number]) wMFxhbnNpXHNwbHRwZ3 IzvmgfHIfvWL1rAF8bb AfelVMjbKUeDL6QLMEw ZmYxXHBhcGVydzEyMjQ kQCXvgBJrgHI9GXMwAT 1hcmdsMTgwMFxtYXJnc zP1EGXjiIKoV4PpOTTp FZ5tnewbRLM9QYfsjM8 zisMPKjmuIe4iwKKbaG tcZjFcZmNoYXJzZXQwX EXydZcmXFYwTZn6hG2D VldgR95pr5B2Uum1NAL rGUVpI8QeVW7aDRIzuF AuZ43VZagqNCF6DUUND tofRTZoHH1Zo1zhNCDg uBCfGGX7TTjceWLbZLK fEWKuYLg4AAPwEKtssR QcHK9otYeqUmcwkHzpw 2VjdCBcXGlkIDUxMDAy UTakDXGlSM4IMrKsWQR lJfT5KWYlPTg5WEx4LE 9WUyAiICAgNTAwMzgxO GDfVMl4DVvwCQ3UOMjt HRM6TDP4PRB0SOV4QRJ cXHQgMiBcXGYgQXJpYW wgXFxmcyAxMCBcXGZiI EqpQhlgHQhhG10gpJgx rS1wEsuiwsLeUVK8GPD hciANClxwbGFpblxlcG ljTmVzdERvYzEgDQpcb HRycGFyXGxpbjBccmlu MCANClxsdHJjaFxiXGN wIOseycSvCPVnoO8pNI WpHOYqR9i8DN5aF1z8B MYaCYVaHLItIGX2YD8c zZ4niQKmBYKcw0kdLCF jpC6cw0uyfhRgGKEaoN WdHjeajLKePzEfY51gV CBUaGVyZSBpcyBhIHNs lHbwmTl2WSJxRWPgfKF iIUlba4zxdxYqVFLgmY EolaiaGG1xTXhbOF4mH ZpaKV2jRFDtZtQkAPtp DZ8iajlkfvHdECNuRLw rh3ZpIHDxJCEeVRaqpH AdXIV2rN9rRCFbKTQun WutLZw2XPM9Na7oyEXb IPAzemCFDX4mBJoemf2 7ZKC4e5vnrADhRRmzAp qalYLhtrO4GXxUKKDFT MsNIiJqRY0cLGuTIdsH RUdJTnwyMTAxNnwxfFV DBUF0AKuqpKdxxWq4h0 qooEUbq3m8MEzsUJJ0p HLUh7mnbRIuMTbaCxju kSClwlZ9WZbJBKFZSGu EQyDvJQ4fXCtYSjcYSm L3OdFdNDW6UQiQI5SKa WJ7Wcj4CEy8lNoxFaaz zuOggLShTvOBnP1vzYo sdD9ogAPhH3kjVdEdCT ANClxlcGljTmVzdERvY yQwmcB6INRjxFBpRHB6 IR0aFSNronpcTMDgGHC nURH0LIxprD47yZHyHJ ZzMTZccGFyfVxwbGFpb nPMWtznPnxwfLjaq6Ff dCBcXGlkIDUxMDAyIFx zHUMdGR8PIfTdCAJhCo K3DZZrBPq9OJb4UG1EX yAiICAgNTAwMzgxOSIg ZRb1CMhyQV2KRCaoVWK 7OhY0XtQ9GJG8LIFuQC QgMiBcXGYgQXJpYWwgX FxmcyAxMCBcXGZiIFxc SrakFDgoH67ktYnswJ8 eDxxgagToPOX8VHYnis ANClxwbGFpblxlcGljT mVzdERvYzEgDQpcbHRy cGFyXGxpbjBccmluMCA NClxsdHJjaFxiXGNmMV zlhhGwHXIldZ9oTSNiR EDtW8j6FDNdNk07Qoqx MFxjZjAgIEEgdGFuIHR vWGWwym7zwm28yryipI IbcoKiXDKwsyufr5nwm cVckIZ8BMpqNZ84QPpq LR35ZMarHU2rUNEcEzX gDWazIK7cvqazvpLgIJ PuVVpec9FtWYLeTVYiO BmpvKGuDND0hK4dMCMs SMMbsAecMGp6EQJ2Lq2 feIQyEUYyceEDAY6xCT kndx39DRJ2l9lrhFYzB EdtQyczrKLzypC5JIjP EZYIPJjWTvFsZU0cLMp JTktCRUdJTnwyMTAxNn pcaPDWHSK4QEuupLsnf Xs3h0adlZDqe1q7LGja JIC8iQCAr9rigAYpELt uFpibiUMqvjF7TZlNXA QWHCbXHwWzBA7cJQeBM urVTzU5DrIlGKT3JVeH D5GIvIV7Enp0TYn4kVq cZmxkcnNsdCBcJzFDfX 1gqZnoyH8byEBhB4bnA nMyMCANClxlcGljTmVz nFOzDqYfnrI2YPBnmWZ dYRE2CS4dTEFczyxhJF FwMZHqYOX4XVzjfC30u HQwXGZzMTZccGFyfVxw oFZtabPPDccluY7wGxO mw4ndzLn7PVLLNxtsqM MjrtyebrY5HSZck3qxm Fjtr5MgdHOdAG1xhVnj uM9oAgNtItTFVi0= Pipeline Controller(s) (test code = b9lljVFnBPEfnUO2BmF 9864) vCVRkz7iry6FggYDqyX SjWSzleHXrcmIhdn61w XF9gD94VS0zMQGpZeT3 AAAbsyQ3Nzy1BAUoZPD tgDQsV563b6ebv4ffol YcaTE8zKtpTUJxspjwM vD1RYjbOCOjhiquTNf4 USekTOCfeIF4UVLcwJE iT4NxADNhLE3oavi5EU H8LXfaAPCgBnO8KUIzd MZxIMZweYnjMVmwb860 NRU6NyXhJBCrbrCxwJe xdN4rSsNqUMPDS1SoZC mIUxfoO4VLIMRQD3Apo GFyfQ== Disclaimer (test code = i8oyqQJuUGNdqKWjZdN 9842) mXHFlZNXgr3xmOHYtgZ FuZzEwMzNcZnRuYmpcd HEkTZAaUqWkt2snz030 fOQoc7wgBYQuCvE3gIZ jQRAdqJLeI272IWTtFI idc8pua8JmMNEenACwf 2J1ISZOrvojkDr3sZwz M73ee6P9DqlnD4ziUSS oBLUfF5VhUW6pDNGcIe y0DXF6OBG2QIFfSSCyT 7NdAU7lWYNuuDBmDYd3 l9yohObkERHyNCZ0k0p aPIeekoPaWK6owh2fnG a7w0hyetXtEMCnKCLmb WYWRGVxR6RdcWbbTw4i dRw7yYngQmtjXMQ2Wbr 7KX9elh09wjo4kVxvRZ NkviidNiW1MYvbBLJwm lemXEt7GOsiGLChqTB0 SYFpsBWrH4ZeFANhAB2 bzbd3ILR7KHbsXOPqLw R5ACRbjMJbYKRjcZtaF Wqce676YUP2AxZkHJ2q W0Nzy8A2iG5htOFoYTJ gdZBmDuItGMSfei1noR XiDNiug8DpNOM5evT0x TCuiZKcMDHuJI10Aidz b1OoPwcfCSO4ZCGjiyK nl0Roe2fwJhZzrgWfC4 fjA6FpPGGzZBIcLVIpM bVfkxMmn9Woz5YnvQCr eHe4y2twRNIzIMWyvZu iz0ulRFR7ZHTkY2M0nG Gsh9syWAjzOLDqgOC5k iJ4IREqlTJrD2FuuG0t ITDmJE2ldla0m1vyXEP 3CTzdFSLsVbI0hiG2EC BcaGVhZGVyeTcyMFxmb 797MXV6IhOvBHIvv1Oc N3IqsPjzZ08qfFqrJ29 nEVBadEovrM9ziJwomA 5cZjBcZnMyNFxxbFxwb NXfpqmwDProetH6FDog chobECOnLVmvA2wcSrR wGWBttXjiOSlad8OwLO WrVKTjIiidefW9ULMRt 45sOMXqc8YwIISdkN9c mFHrSAzqrmBxtAO2UGc hdmUgYmVlbiBkZXZlbG 5wCJXaYE9eTYYltqQci k5tqdIrRJEgYMCgG6Ys cmlzdGljcyBkZXRlcm1 edtNrXQV3MDQWJV2XFU DoAYFzl26lCMMlxDjyc A8eeUIbymBhPMIkj3Rp iP4jeGLCSWVpK0yvPL2 iMTjlx5LcoRJxdRBeoJ G6EDUnf4WjMaLhgfZad JBmdYIaT8SizZpmU0hr FRDyDSGfuiTsoCXhv3L vQKOtzDA5sCZwUK6OZa GWm13vORIrPXTUdcTuP WPhbMrwtEL6vbI7fO1k LiBJZiBhcHBsaWNhYmx zULPzf189iq9ilmA1RK AeFVBfnfemf3LkEGKpL BOmiG03AHYwRZTknh9s hwpnmYSembCeU1Czjji 6mX6aIOYxVOnpNVTbAZ ZzMjJcbGFuZzEwMzNca GljaFxmMVxkYmNoXGYx CUmwT2jmHeUsImSdWrf wYXJ9 [facility] 2021-12-28 18:43:18 Test Item Value Reference Range Interpretation Comments Submitted Clinical History q7pusYDiLROrfVH4TuP (test code = 43411) yXRJal2war8TamSZltQ XcCOcvfKXvswHsuk09g KW3xH72LS4pJKUcJcX7 FTQuedV0Kyj8GLYsYUW oxGOzE117g8qdi4wmbb XrzQO9kIniKFUgccuvC iN7MJtgDBOjttgdKTq9 FPysVFBbtFZ3TPBbdVX eZ6UrYZXaOA9rbjv5HB N9UYcqKVVgPuK2GYPmm ADyLYYfvZcgHCqts994 NYF9JyFtKIMznyUknMn chA9jSjOiVWANVH9myZ ZccDPxEyE1dpPpskYvb Z5fVxYdUKNoc2Toj1Cw p3uhecPrNPU0WuChUKC tbrTDEvHGUpZ2obFVW9 SvwGHqUFX6SULLSOXbC ETUX1bvGZEoaJVlCPui YXJ9 Diagnosis (test code = 34) b1kkxEGgXWWqyJN8LiP hWORio1ipb9JppPRrqV MgGQzdbCGkgcHtck50f LZ7vY30JX9qNTGfOgD5 QRZoofZ2Qxm3BTIgGCE umKAyV304w9xho6tjte IznPH7HGWjQJSlN3KiM I9sYYHufHRqF04leGPc ZQU7JLUyDXFccCQsARQ xAXG8TBEdpCKmS6atIT RaFV2cglzvKOvfUPgyN MUfaHB3WLXnlKWaD6Ip YITnLHfiAWJrcwg3AvH oVr2llOFdgFkhRIwxWW JkXHBsYWluXGZzMjBcY 9KxQTU5QTCoU9a1WU2d O2tqXFHofR6xm5cwxhT 6XHBhclxsaTcyMFxsaW 27KnJiC4PnUAZsdfKss 4EqttVsm7m3nER9qAUx b1NsRDZluXOtALmefL9 tbKlybtTeMgTqDBt4eC IrdRxxy1KfIcTcP1Mwc hucSVrowaD8v4Dyojtz j9j5gCDzy5mcnAK7aIZ oHRbujg5akvQlXC93OH RxtySpDP28KTV3DWUly 5P3JYBeGGyjpv7lyLNq BBX0bYSvT0VhLEAbbZc tTUW2jHAaHDT1heO6gQ KeXoNgXIQpMyA2dBYhm 5XeN6quKS9rOSXuzVHm w9DiJJKazVunM2HbK7s pa59vUYloEQ8wtFQlh5 9mlJQ9CDw5IGF5wXUzO I40xX7nbYMjGZYamlYJ ZWJvcnJoZWljIGtlcmF 5z9MjymburJWksXBtxR SaMOCxfvOhVI98PWX0P HBlcmlwaGVyYWwgdGlz m6DrERQxX7AyCXCswDW yIEVwaXRoZWxpYWwgdW zqBBMtbIrznzR3rMPnO V4gvDPyb7DlcBvxQgKv VYF7mIUoqmBpiH3xaVM bKYawVQyyjM9mRXPjzd xjZjEgQjogUmlnaHQgZ Zfpw5sxDOVigB3lj7yd zmV6QBLtzxeivYxdPQo ooJ03NpIzK3HpQEk0fP ZpzIguu8CpPxKwB8Nkv hwiMVqjeiE7t1Zvehdx sXodoVVao4avOFF3cJQ sIHByZXNlbnQgYXQgdG ofc2CdRTTpE1EjGbzoT KCnEV7bNJWjzTMqc29z dJBefT8zj4kbwFI3ZSV fJ26gUEIbAQDuy0Ahep kgaWYgdGhpcyBsZXNpb 46up5npjUnkPHCnxLyk oP6eeoPofG7hQUD7bmF hy08lVFE7WYHdenUywV akjgIstY2jIYncZIHem GFyZFxwYXJ9 Comment (test code = 9835) a7dnnBAdUPTrxXD8LsZ oSGVwp9bsb7ZamHRmqO EuYBnbjFOtmrDphx11r FZ7oY45KS0bHIWkFlB1 DOIenbV3Psi9ROUxMTK kcGNiC773c0fwp9noko TofBI1vAkhAOUgvjqqW rV5LTurUXDxoiskJKp9 FGmdLCBitRJ6QILbgWZ lK1LaPDXhSQ0tclb8EZ Y2HZrmUQOhHhS9OYGmz EFnYAXrpUxdDGcky236 XFG6CwVhWPXljgCrfUa umQ4eKxDpPDZPXnKZvA z0lTHoKKWroCUwSCEfL 1Onf15dXYkymgCdQDib bWluZWQuIEFuIGltbXV bx5cor1VzN8hmfIftHV owr0Q1IJaid4NpBCBnn vIyzx5nZMU4g0hzHsEj QA0roFTrTB1tlVIbP35 iw4NosNwoo5wtW9zegE rcxLgjW5b6imMbP3J5a HQqPSOgprOmV0Kek94d vDOrIJejae9snKJisgd gcmVsYXRpdmVseSBpbm AqDREqWFIkvP8djvWbQ bHnMTRhj42muNU3NV81 FSchfXbiuEUsGI8nB2u 0aWMgaHlwZXJwbGFzaW KmwW4eGTRgESRsD7Pon U1qVW5nNCIkcDwgzACf F0cmsngkav4mTVBnmnC RVg08uKRjjWnvAZD8ZS Bot7FtiBgcidUkx3EiE CAfuCQmoW7wQY4jWL0n eU3ptT0vdJvmmK0bnSQ meSIcoOEfaBXneBY3PP UrfFLtLi9rbCDzKSTtg D8vDCRojz5qHTahka8p WGKhj7CatTRbcBG5wCx jaCBoaWdobGlnaHRzIH HbVEO1LXVjESUneW5bv DltqhHqQK3bnFQln4L1 dGVzOyBubyBkZWZpbml 9ERYoERwudo2thAZrXs YvHFHac80fzNIegJTek fQxRsarIQ4uNZAaip8= Gross Description (test n2sqbRMhBCJlvCQTCKq code = [id number]) wMFxhbnNpXHNwbHRwZ3 ZxsmlrLWcpAU6zYS6bq PkkrAVjbKAsUX9NBOTf ZmYxXHBhcGVydzEyMjQ jYCXgaKUsbMS1OQEzQR 1hcmdsMTgwMFxtYXJnc iL6WDPoeMFcZ0UfXAYj ZV5nfcfhFTK2EVyynX5 uciAVEzikVu5kyDFgdV tcZjFcZmNoYXJzZXQwX ASemJwnLUEoSJa9sI4Q YwvbS19ct4V4Mmq4ACP yTHObK3JgHP3fKTOseQ PkU92VEarzOZS4LCHUB ljpOMFhUU4Qj0tkKICl dLVbSZY4AYnvpJHfDZZ pFIPgDQi7DZHjPJgsoG OkQY6esAwuUssjbIjtz 2VjdCBcXGlkIDUxMDAy HMhlCDZmIQ0BMoWiCAD hFbB1XLTsGPe1FCq4NZ 9WUyAiICAgNTAwMzgxO MPeYLz3FNqwZO2VJRze PTH3JSQ2FIS1FCF7RFO cXHQgMiBcXGYgQXJpYW wgXFxmcyAxMCBcXGZiI WpmUiefZWrsB99ngJdm rF8oXbdavpErVJI7VOO hciANClxwbGFpblxlcG ljTmVzdERvYzEgDQpcb HRycGFyXGxpbjBccmlu MCANClxsdHJjaFxiXGN jJSncteVzAMMifN8hSC QjTZPjW9d6YI9lJ1s8R PQcARIpCDEeXWG5SC2e gV3vcSSqXWMsf8akHSX ydD4ma5wwftJxZJLboL WnWzojuRVjQeTuA70iN CBUaGVyZSBpcyBhIHNs dFnhsUg0SFJpSHGpkYZ bADxoh9cwukJbKONimJ GebkrbLM1jGYfkJP6eJ CnwHO5hZIHuYwUrMZjw GH2osxfzvxSjXYImPVm nz7LkGNUfSKMmQBausA XyJIG6eF0yIIVsKJCqs VfbSHo3OFF1Li6koATs WWBvuwJQPZ4oJBozbh7 1PMW2q1vbtGKvEWbhWx blnUUmdiF7UStLHCERC QaHDzCfXP2bTCyDYvmF RUdJTnwyMTAxNnwxfFV MXFV7QKdvhNgrvNa8r3 exnLZuf6o5JIskYND8s YWPd2gxaNQdKIvzQysi yMZsjxK1JIiODKSFRYu TKdOlET5iKUlJPkjRVb W2WfTwVDA6ANrET3TSf UA8Nng1SKt5nRkvTjff tsSxdMAjCtSVmE6nsHi bxY7nmGGhF3seNjKwED ANClxlcGljTmVzdERvY uZfsuS1HPRntJWcWCS2 CR8rZAKqrluuUOUeTJY dWMQ1XYlbtP38dTOcEZ ZzMTZccGFyfVxwbGFpb qQPCbewDodbpTidj3Ge dCBcXGlkIDUxMDAyIFx oRBPlNJ2RSdYwHPKrIo E5SLDcYPa5POq1XX3QU yAiICAgNTAwMzgxOSIg SUc1XMnzUU6NKOynSVH 8VyB9UnS1JXL4BNXoQM QgMiBcXGYgQXJpYWwgX FxmcyAxMCBcXGZiIFxc ErdkABknW09mwWyhfK0 xHvrndcNiEWU6ZVEcnw ANClxwbGFpblxlcGljT mVzdERvYzEgDQpcbHRy cGFyXGxpbjBccmluMCA NClxsdHJjaFxiXGNmMV oaxzCqDBEbqR4tOCPwD KDcZ3e1OGSnEc41Vwjb MFxjZjAgIEEgdGFuIHR uCNDtde2kqo60hualuD ZwynBoCTQzskswl7fex hBfoES0RQraIT34DQjx IT90BSgqKX1uSVHoOfE rZDdsWH6vspxpheZeYD GhGDvzx0ObQSAqDELeD YqgqZQuXLR6zS7jLHMq HLWutMgaZNi6VFT9Xl9 piCEuWRNsecZJPD2tPR tvmi22ZDX5b0wffOXjJ FacEojebAIkfbE8JBcS GAVZIUcHItAoOM3aKAv JTktCRUdJTnwyMTAxNn fbySHBOSZ5WUiggWged Tn4h7ezmRRdx6k8FSmc LIY6dGQXv3zprTRlAOt vWvwouMSejvY4XTaVTH JFZYvPHfUkTZ4iPBpPF lqXAbD3VmWrVHC4PLlU U9ZDaKI9Olv3WIc5zXx cZmxkcnNsdCBcJzFDfX 7hjGwigD2dqGHqV4kjX nMyMCANClxlcGljTmVz nEJeJkHrgsP1DQEgpXL aKJT9UL4bPVNjahuyQF MxUTQqGOD4MLuncO31y HQwXGZzMTZccGFyfVxw aMZggkUDSmyccX4xGbG fb9xgcFo4BGFJYrxrsR FugwiwaoV9VHSxs3qkg Hbis7IrfWQrZY9zcNbz bU2iXbPmBhZLPv4= Pipeline Controller(s) (test code = k4awrORfCPJccNJ0ZtC 9863) bAYXaj1obn6SmoQNmaN DjLAylhMZerqBzcv44c HQ5tV53QB9vTVGcHfN2 BEDjtuM0Mfl7HPQaIGV rmVRuZ986q2dsm2fryw LcwOA7nIqyOZNrjsibX xS3PZjbYPEvobftTLa0 OAitNHXoiRH4SBErjCK tK1AsPVBdQF3rint0QI R0PKisLDMpYlC5WAEic XObJBRncPanBQrct178 BVG9BuYrTWFjxdHvcAr ovX3fXbQoXMVDF3OdKW jBAwdfB8MUOFXUB4Tif GFyfQ== Disclaimer (test code = k6xrfNRzXROepCDfIbG 9809) nKRXwZVVkf8yrGHLuvF FuZzEwMzNcZnRuYmpcd GBfXNKfElYdn7ozg815 hUCmp8msBAOhTgX5aUU sCXWavTOiC036IDGrOQ kis6odv1DuBQUqyQFjb 9Z6EZHUjjmmxAz7gOgn N41qf4T7GtttV0szNOV sORRgP4GkFF2eNZKjXy y3CNA5DRJ6AUDrANEkW 9CfKJ3aUNIdkCHyXDi1 y9mnkYsuTNJuHOW3y4d eDSfjxjQpAO6cwt8mmO b2r6zubfKgRNSdVXBsw QVSPEZwZ4EpoDynFe8y iMx8iIzlWobhXDR4Dkp 6YL3psy90gos9gBvwJL DyurxeYiL0UDwiWPTee cglHZt6QChvBVXnuZW0 XHMbcVKnF2KrKAHzNX6 tzwp4MUO2JHchIXWzXu A6XVJrxDJnMXLyyDzbF Tmuc334NEZ8PcCaMW6v U2Hlf1L7dJ6owUNsQLM rvNRvOqXfTAYjfp3lmE RiZZfbz5YjHTB3npZ8c CBxjVFfDDMtET80Jnzg w0PwEbbaACG0VVXrvkC xa2Tcd4lvUgTcduXyU9 aqK8PuJPWcQPGaJSYwS fLqppUrr6Col7YvcZLi iNd7v3lpRBOsOEDkhWg kq3otUDF4FGKwE8Y6xU Uuq1vsHXswMJJnvII5s bK0CXLccSIrL7TmyH9j TIOtUN5hyuz1m9uoTRO 8NOreTRLbUbS8jrE3WW BcaGVhZGVyeTcyMFxmb 060CFT8KsQvNDZpe6Rd Z5CgfKglY26umQoaE83 rKZPkpNudxZ0vlWzzoO 5cZjBcZnMyNFxxbFxwb MBvsmshMZuewpP9VEsr lrxrKKRcVCtvT4zeWtB hTCYvqCoiTXlrc6JbPK EzGGRcWoszmvT6OALQd 43sJGWin0OyNXBiuX2k eGPxHMmhcxKvzBS5ONj hdmUgYmVlbiBkZXZlbG 6zVAGdQD3eMNHzpcQlx z8dljWeXNYjUTAhF8Xq cmlzdGljcyBkZXRlcm1 tgyKmLLL8MEPQSP7ZWS PzKWNwb84dMRZnhIoqj R3gmSIiqwNgLFAzm9Yo jY8mjULQUAAvV9vlYV8 gJYeks3GdkPCpmCRjhM B8BRKvf6BzZnSsjaNyj NWmoYAjE5CmvHgpF8on IAVgSYYmjfXxvTQsi3H yMIWfrRL9mVTgZC8PXd DMz20nMNDzFRXVdjVmP UKvqDtgiBZ5qrF3pA6y LiBJZiBhcHBsaWNhYmx xOOVvu938kn8ateI1FB ScYLCagmtzp8EeUZYrA GSmpO21PDZcRLCgpn2v dapquYJuozCuA9Cpeqb 5hS4uCSSbNVzrHOTnOO ZzMjJcbGFuZzEwMzNca GljaFxmMVxkYmNoXGYx RYuiM6cyUhWnVoCeNth wYXJ9 [facility] 2021-12-28 18:43:18 Test Item Value Reference Range Interpretation Comments Submitted Clinical History o2cwsDCnESDxpEQ4GoN (test code = 90181) rNVGeo1wyx0OijSPowG SoNGyagBSziiCaic40s EK1rN46KD3oNTTnJsS7 XKGuxpI8Adh8YREjQII wxXJgH111d3pnr4dqdb CelFR6oVeeTVRiwhmbH aE5NNnnUDCkkdxdIIf9 QFtrEICnbOS3OAAuaII xX9OnPYLtZI7yjbt7DB M9HGgvFCGsBdG4ZXYvk JTuDBBezPkbVQsew474 TNW0OjEfMWEmmlEooFc fgU6gXoOjUDGKMD5ouO BllUDaRjF1epDckxMki Q0aUcVrBMBhn5Ytj3Vw f0mrnjUfRWZ4GnMjEGR breMZJmCILnS1wgYMR4 PefAMlXWE3UMXYIDMoP CQLM6lkKSUopMVlFKqm YXJ9 Diagnosis (test code = 34) s1eqbZYxZZBcxJS4WjE pMSVoz5rtp0MofYXuvQ NaRPbwzUYqnqLqtz47n UW9lL78YS0cUUFtZqS0 QIRaxnI5Itu6HKVvRJL ycAWuZ942f7yxw0pmbj JkiUX6VJLvQABeM2HlW T4sZVOjqMCkU16kjRCu MDK5RBBmRWAjeUUzIMZ xORW8TJEmfMGsR3nsXU EoJF3mtaqiGFkyOSogD BOsaCI1SOUfiFRhS4Hc MZNpRJyfUFZtcha2WlD gRf2iuXDxoDuzUKwqTD JkXHBsYWluXGZzMjBcY 0HwHBQ8TPTwY4k1KA9b T4mgXNBvnQ6ad0pkotX 6XHBhclxsaTcyMFxsaW 82PwUvL4LqDHQvysOhq 7EwxdIez2b0lKM3cOGw t2ReKCLjzKFmGLlocQ4 zlPkmxmYvQjBhIGn0mB XezPuvl2KvHfMiG4Yjl thmSExmxbM1w1Bbcduo f3r9zWYpd4aomYI8hGR cPAkild1dbhHxLG49VM AcdpAeFH01CTH8HHXzn 2N1DMPaAOjsju0wmEJc MFJ3sERuM0VqWKNjjQm oNDT9aIIbASB0ruT6xD WhRjNkBVVeIrP9wXQlb 7OqM3mtYR6qYPHzoPVz n5XgVZRygLyeE9BdQ2e bx01nEUyuWC0aaLIlg2 9egRH5CFs9LWK5gVHhY F33mC2psETmDOOiwjVI ZWJvcnJoZWljIGtlcmF 8v1EqwmiihACfsODwmM SqDCGnajVkZI06DGC9H HBlcmlwaGVyYWwgdGlz k5MqHMGhC5MjAKTyaAF yIEVwaXRoZWxpYWwgdW qdSGSpjQbovbW5gMKgC V0hvJEhi4KdiSsoTsSf JXM5xMOeegCdzU5ybYH pARrpUKmsyO7eLWOqys xjZjEgQjogUmlnaHQgZ Infu9kkMVZwvZ8rr8sp eoQ9QAXbglwniHrwCMc aeG81ZuMoC5AvCHg4sO RzoMcry9ZyKfWoX3Zzu grtOBshlpN5h6Jbiqzd xQboyGEbv6xeZPO5ePO sIHByZXNlbnQgYXQgdG pps7ZnZHQvM4MrLatiI WGhGN2iGGHkeOYes19h yHWghC8xt5fhrUP3UTL bY64mXMXxABBsj7Cdmi kgaWYgdGhpcyBsZXNpb 06qr3jhpAxnVQPeyIcb rS7weyQkzE5cRQW2yqL rn34lFAZ5UGKaoyLhiF xvhbTmjR9wGCclYZExt GFyZFxwYXJ9 Comment (test code = 9835) p8wfuECjONAnbNI1XbO rMYOvk0lbo5BlePLugV GeOKtunDTmjbMocl28h AX0tQ23OJ6bWBXdGvF3 EEUdprH3Rvt0QUHfJHR xpSVyN819a2gjn3cfra TwkKX6wYblJVRukscyS nA3CPkhLFCbkznlGJq8 PVzsERLyuSV8PKFpxTF qJ0LdXLIdHA9bdek3JG L2JSyfYCDbYmN6VHPjz PVmULMknQewLNouy981 VQP9HvCyWMVsjmRjcRe ujJ2xZtOoEHUHGcQCnS z8mYRxEFJhcZTwCLFnP 4Klf03gRFirafRzDOzj bWluZWQuIEFuIGltbXV fd8utl7AeL6tsmFdgTC dan3T4PPtie4BzNZJny nBdsr6rGGX2l9vnCmOm MJ7nfJXbWB5fsUIvK81 xk7TfoDgip3igE5evhH capYeuB6e6auZqD5R9s GSfRUAynnFqE7Fyt66w iLAsSAtosg5ltOSofld gcmVsYXRpdmVseSBpbm YcOCRfXYBswW5jvoIjR mAjFDJka81iqXW9AV16 NAjwzWnjyRRkEN2jQ2e 0aWMgaHlwZXJwbGFzaW OfeN4jNGKwQTQrZ2Rby J9hSP9cAKQmzOglaBQs T4lwhbtxkp2oRVFxnvZ UKk60vUWuuPepNJR7RI Xwz5ImuQjuhfEol4XkD HKaiURnnQ5iVM4cEJ0e jT1ynX4glAvxzX2awBJ fjAOpgCOlvKFybGW3TV FdyNIcSq2thKPfDTVen L4wAAMboh2jMOtzzm8a NLFvm0QxzVLtyWZ1vHv jaCBoaWdobGlnaHRzIH WvQZD0CGIsEVJbfC7ys AchjgToEV3eeTSmu7D1 dGVzOyBubyBkZWZpbml 1YHAfYJeoui1vtQOlLs OnWFLpo27raBYorNPyt fGnEpclGN1uIABlbc0= Gross Description (test q2doyJLvOLWmaOCFOJi code = [id number]) wMFxhbnNpXHNwbHRwZ3 IrfpynRIvmDY9vPE8bk CjxwQTafZDqXG4WKMYa ZmYxXHBhcGVydzEyMjQ iWMPcpRWqzWO1EJMoKN 1hcmdsMTgwMFxtYXJnc uF6VTVhqOPuI3OxKQXc CK2mesltLMF1GEwiuM0 qyaIOWmznTy8huEYufP tcZjFcZmNoYXJzZXQwX WKjvRjgVCKwIRq0fT2Q SgsoF91tt4A3Cvx9UDD dKGNqB2CdBS0eZHYvvC LtJ05ZTbtbCPR0WAUYX ibgGKQzMS0Cr5ykBIMf rMFkIBO1UZzvcSKaXGM tIZPzNPx0XUSkGGqzkV RkIO1iiDbrYrebpGszy 2VjdCBcXGlkIDUxMDAy ODbqKOThLX4XUrNwIHW oOcT4YFBuRZf5FKy9SA 9WUyAiICAgNTAwMzgxO UUvRVx1MJxpMA0AXJgh IAD9BEY8UJY6PAF8JAF cXHQgMiBcXGYgQXJpYW wgXFxmcyAxMCBcXGZiI HhrWzphNYjpD36fvAvk kH6sCuiihtYkGYH8JJO hciANClxwbGFpblxlcG ljTmVzdERvYzEgDQpcb HRycGFyXGxpbjBccmlu MCANClxsdHJjaFxiXGN yHWwyypLoZJDssF5bDB GdULDtL2x6PW2jV4t8C XFvWPLkEXIkRFT1LQ6g mQ2dnNRtYTMgh3gjZZG koX6bi8sknnMrQXJtmA BsZiatqNKqRhYsP25cA CBUaGVyZSBpcyBhIHNs yJptwFc6CDGdDRRymKQ zDLcpi9oirfBdZNPzcZ WruiorVG8mUBcdUY1aW OexVL2bMAXzDzRqZHgv XX2tbijbjyQfWQXvQQg hg1BlGICoKZZxILlenA YfKSC7lG6uFKJfRSJpt FyaGVm4OXA2Ft5ucSRn VPFuyaZKVE6rRMtozh3 2LBX9b0vgpMJpUIvyLk rrkZOnzjQ0LAlHMONWH GtRMdRiEJ0yHZrQWkvK RUdJTnwyMTAxNnwxfFV TMWL2YQcvnBojrGu2u3 winVYpf5r9LRoiOBL4w VSQv7mppKRjOWlwNitb mGAkfuU4AQiTXSPPVOu NQzCyTU9aYZrEOnaXLx M5WwCpSUV2QGbSO0RGq IV5Zgf5TEr7aXmbLtrr toVdoIHwRmZGrA4djWv psL4rtFDiX7itAaNoKO ANClxlcGljTmVzdERvY aWkhwB9NWVjbAWvSAL0 OX5jHUXkrjqyMRFdYVW hCJU5EFcviA45gBSsUO ZzMTZccGFyfVxwbGFpb oQOQvnjLaqcwBeth8Kg dCBcXGlkIDUxMDAyIFx uEWYwRJ9WAbMfBEFmLs J3GQSxXHi0JAs5OM1LJ yAiICAgNTAwMzgxOSIg ONx1TPeeDS3RZSuuWAW 8KxE4XaU0OGD5CBHrVM QgMiBcXGYgQXJpYWwgX FxmcyAxMCBcXGZiIFxc EeojTOltV74ktUycnL7 xQtoeamQcNWW3OLSzcy ANClxwbGFpblxlcGljT mVzdERvYzEgDQpcbHRy cGFyXGxpbjBccmluMCA NClxsdHJjaFxiXGNmMV vfneCtBBTygR9yRBThX FHwF2h1YOJuOq58Jkyu MFxjZjAgIEEgdGFuIHR dMDMjvw1uiy57cpeklC LebdYhVWWlqheip3aqz gFpjWI0GSouZF27YMvd IQ95AKkxQK3aGEJxRuM gLZsaWP1tlhxaxzCgGS KpXVaaa3PoMDGvBKLcF GyepMRkTNY0vN6aUUAb CFLvgOoeJIv2PDO6Mb1 caQJuXQScumXQCH8sXX hont25SOS2d7gprNAcC DykXuhtrZCznwY5UOwF FMOTDOfSHcTpLM6eRDc JTktCRUdJTnwyMTAxNn xicVYQPNV8VFzkmSxno Zm1j8snrAJih1j7VDte MQL6gPQQr3ylsXEkDIn pVesymFCazzM8RIbEBD CXBApTZaIxSI2zJBhYY shYKsG4YtCrRPX3CNpL D3MYjRP5Jre9BIe8qCq cZmxkcnNsdCBcJzFDfX 7vvDmdxQ5yxDNcB8uwV nMyMCANClxlcGljTmVz gPPaGfDgbpX1CTYfoHW dWSD6WN7hYQUmrcpfLV DdOODpKLF7CIxhmP86z HQwXGZzMTZccGFyfVxw wRJqyjYKVzqszT6yNvB re0iazVr4HCZNUknyjN FnjcmklaT0ZYQrk5uhm Cxvi6IycXYhEJ7foGnf kX0vXqJaIvCYMo0= Pipeline Controller(s) (test code = u0vjeGShXKCkvDJ0JkL 9866) sOPDls7qss1HijZIhkG XeZGhbjJAvmcQwtu87g MM1kY03FP0lDPNzPfB9 HJDyaiW5Fvj0GCZvNKE mvLIvS379q6uln8xxda VhsPP3hCtmILFzxhhsT lI4AKsjLKXgqwlqDQc2 XLrnVMIasEH3ZCIwkTN qF5NpCHDtEM6whlv2LK N7BDxnGJSdKnN8AHQjk VEhTOWyrNyrYExyk138 TSF3PkAiQYTrsbCmrYy qwR2xYyZrMFVFO7CuNP eSYaalN9KIZLUYU3Bmv GFyfQ== Disclaimer (test code = r4rxmLMrLZLvvEFnEjY 9885) xHTMhTGNsl3tnQIYyiR FuZzEwMzNcZnRuYmpcd PVpIARtXgIle4emj416 uYOcb9vhOAUnYgI6bVD eYLAzhHJqS407MFVbKJ vvn3cip3AoENXnxTTss 7C5KZPMnymbkQa3mMwa A80cv3I6UreaI3roHII oKWLoT6GdFI0bQJJdKu x9WYO6GLK4SSQrRVStW 3ZsJA0pUWElpHUmSTb3 i4oeyGylZNJaQHH3t6o mEGjsvgNvMW1fjy4ydL t0s9gkioOvOJWtODFeo TOJCNIqR8QzyFsgHk0h nRd2bFkmCruuAKC9Rfi 7FA9lnl93lys1qHbeGK DgwjveLiE1MVxpELDrm ceeEHy2LZgqVZGctOT9 MHHbbBHxE2CjVRPdEK1 pscw6BUW1NJugFFHgJv S7LQNjtHJwAXRhuGwuA Uxvw665FWW1BxUzRS5v A8Yxj2Z4hZ1joAQqLFT llUEaKqLvISUfgn6ktF SlPNjdr1BaUTN6bdU3b MOzgBAxPLDkZI16Louc y6EvJiccTGH2KDOruxW pp6Olm6mdGlMunkGjR7 nnP7SgXUCwKVVgVDKyB bCymlUeh1Gor2XneZRm nTm4z2hcFHFcWMBepSt ve7ucKLO8DCIdN1T6mW Zjb0yxMPdjFUGmwXI1b zL9CQGgbNZyO9BgeQ8f IXNbLS8uffl2c1akIHS 1IOomMXAvBpC1onF1VJ BcaGVhZGVyeTcyMFxmb 641FXP0NmAeJXKaw9Xx K5YasPpiR89gxVnzX45 cZVLfqGayvG9wyOtbiR 5cZjBcZnMyNFxxbFxwb JVbibkjQKehhkF9SMwq yapgYVUoWFcpZ5ygVaP mUGCvnEabPTczo8PxPO NwYYGsShtkftH1THEYq 12sYMTaa3BfRUWhxZ5s zKIzTEvuepAuyPP2XTj hdmUgYmVlbiBkZXZlbG 9xZCClXU3iBSJxzrOya f5sfnIlGHQgWCMeD3Rr cmlzdGljcyBkZXRlcm1 vimEhGTN1CIVHMB4NTZ CxRLLui37nDNYrxTxga D6fjAVxwgTbQWWcb6Wx aP6fpBSHMWSzH9wjUM5 wQXiyc7IprZNfhHMypZ R3ZNOka4EpPmPaqsYhv DRnvEQwS5DdhAqmM1gm PZSkPWOtrlNxrLTfy6E cPGVxlHA6dKIdDN8QQq SBv74gRZIxEDOFehDxT QJnaNikeWQ9nlF4aM4r LiBJZiBhcHBsaWNhYmx ePEFzb150kq0ajdU4JQ YcBVHtmcezm2LlEGYxE PJzuC16PCEdZTYwvu5c zrjxeHRcgyQmB1Vaunh 4wI5xSKPcEGywAHFeSI ZzMjJcbGFuZzEwMzNca GljaFxmMVxkYmNoXGYx IHgcI1fdZpHbRoJpCfw wYXJ9 [facility] 2021-12-28 18:43:18 Test Item Value Reference Range Interpretation Comments Submitted Clinical History m3sxiBSyLMKixEM4QoB (test code = 27233) fNHVqq5vbh9XdnPZisD UlBWjdxHCumsVvly66z DN1gY83WF0gKBZbLoS7 IBBhqtN0Dlq8MSJiZRY kxNWxO072f9owx2rstf KiqXW1jIhuZBDyuoaxJ tJ1FPvrKCDgygokKUf3 ZPrnCZJojDS6RDHmdWW qW4YqANXrMR5umvb2WF I9HQjbZZFmZfD1VXDml KHuZVNenOaeUMfcw589 QGL1TaQjFJGqroWntNg jfC0zOgTvMCCCLG3jjV YpoNDhNjK7vwWlskLiq D2ySpJkYNNvu7Jkc5Ex x1dxdfMeEOK2IjGvTYU jwgKZXsGZZlL2ubJQO0 FwmXSfCHA4PWIZRLItB YUVO6cqLZEovNYcAXyh YXJ9 Diagnosis (test code = 34) j3uojPBjNOMrpPG0KpI xNNNvh8xka5SeqAQbdN HrURzzjGGntoXzab24t KT1cI75GU4tWXShRqP3 BZAbtpZ0Dnj6DEMhRSV dfSJaT833o7mkw4xoeb UwmHO7ZCWeXEOvW5DyP A1tPMWvdQRgA02kfFGf UDM9GUTxXUGssUKpWBY eBPO1SMHjiHBbW5zvTC VnBN1ehskfBUngNSwwB BFinGO4NDUmvUDvY6Me TOEiWLbsQINtuxo1XoC sJj2rvMAwoMwvMMtfTD JkXHBsYWluXGZzMjBcY 9ZyIOO2UYZaB4f6DQ3s F7tlANAmzU2ga3pjskX 6XHBhclxsaTcyMFxsaW 11BtHtI2RjIFQmxjRgy 8GucqOtf5o0nWR9vDDm e4AyOCMzbUNkXYzuaG8 hwJnqvjLqOpKdQTd1hH TpzKwmf4JtMyCqT5Zno hrkUNnitrK2n2Toafyn i3p8uHVia3fgaDJ4lAU qEUwrdi6unpTwXI97PI JfcbNyVD98HRB0RNGfx 6Q2OIEoRYpdod3fqCFu DZF4dVRnU0TzCZNapBc hOWM9bYMfPNH1efF2yB BaTxUeUHKbDgV4dQNjj 5FgA6orEC1nMHAbwVTc f6PcSTIiaQtyJ9GwZ5l gi69pFWfvDP4plNJup6 9dgLV7PEr7RXG7nOQiA Q01bN0voVKqMTZdnyLV ZWJvcnJoZWljIGtlcmF 0k8IvcckavPJscICuxG BzYHYnpgMhGG70OAJ9V HBlcmlwaGVyYWwgdGlz m8FpYWWrW6YgUTYlrTI yIEVwaXRoZWxpYWwgdW syZUXyjFmdujL0qWGuF H8pkFZet2UizGudRfNa ZWW5mYFhuwMruC7fiMV cCMpnLXczlI6wXYRmlt xjZjEgQjogUmlnaHQgZ Poon8xaVEWjnS9kr6xy fvE3JEKjtkfurXrkBCz wtX25NiBmB6OuPCn7rH SuyYcjk0GoUgRjD4Hwh vliZAtwcmI4u7Dwxqsx hDgpzUJzy7gzCLB1nFO sIHByZXNlbnQgYXQgdG zrc0ZaGGOyA9ZiPdxuI YTbOY1qIAVznNGzv39n jJKmfS0zz3abxDD6WNC oP17bLTTjPLZbh7Kdpf kgaWYgdGhpcyBsZXNpb 60ar2tlvSlgTRPlgCfi mD5esoClnS9xBNK4qtK hc50dMNT9REQtkyJgjH qzfdFhxV3dGXpmJJYuf GFyZFxwYXJ9 Comment (test code = 9835) r8redMItMYSvnHB4TpT vZYKij0gpf6YvbTQqxZ ZoGDffjXGluxErte69o WA1wX44CY0zZOYxDrW1 MPLfbqC0Cza5NDWvYXP hiOTjM708j7peo4hxif RlyFG1qQdcDXTazinlZ gF9OSutAQXvgjklWDk3 ZMgbKKHcyHF9QSPbqDH jG4LaGDXkGG2dici6PO I0SMllGYIkCiP4XWPtm ZCdNCApiDifURfuu229 ZJK4ZgFbXFGjupWcmGp azD8gZmSeLIXYQdQVdK l0iKCjNUPqyRSmOFFlH 2Gwm45tNYjfgfUgGMux bWluZWQuIEFuIGltbXV jz7ecd3GzQ3ucdOusAT roc4P1ZWdie6IrSCTow qQipf9pHAZ4p7kwTjDc UF0rdRQqAP7wmUUiA92 by2CdqMamc9lfY7uitS vxyNbiE4b6jbNqR9N7m URbCLTyjfSqI8Avl25h nWMmWGnkyb7mbEZwrew gcmVsYXRpdmVseSBpbm XuVAWhPUJflY1snaYxF cIiOBNby34tzAM1WW84 FGbgjZzorUUwEO4hG0w 0aWMgaHlwZXJwbGFzaW EcdP8sDRJjGRYeT3Ail S0wQQ3yILDvnQzflHNk O9vvcxhddi2vYRFgrtJ AXx53tFHymKpfEMY0WR Wlc7CfxBmirkRyg9PuJ SQgdOFzdM3qDU2rCV5t fT0pyI7yxAmxsL4zgXF dbTLkjULvnANqkDW3RD WcyEOnAr5deSCpMEIrs L3aHJOgfl9sOErqcv4p ZBIxi4LhcVJdsTQ0wTn jaCBoaWdobGlnaHRzIH ZiCWQ6MCMfJECmtR9jw WepnmFjPV7xrRXaj8C7 dGVzOyBubyBkZWZpbml 4KKLcMWrspr2lkTPiTe AbLIBfh13iiKRqlEUwk cRhBmmsQI0hLLRdys4= Gross Description (test r8maoZNoPVNefHCNXDk code = [id number]) wMFxhbnNpXHNwbHRwZ3 IgqxxqUWotMW4iHB4cp YobxMJokJOoWB9YYQNb ZmYxXHBhcGVydzEyMjQ jPRVwvWCpvKE2KSPhIT 1hcmdsMTgwMFxtYXJnc pD0BQDofDRvA8BlSWWq PX2lhjtzFWW8VMaspJ1 jryVCDjhkEb8zcDHlpT tcZjFcZmNoYXJzZXQwX IOeqWsfIVRrSAt3yA6E WojvE40hy6Y5Hyt2RUJ pAKZtI9DgPC3kBIBydV WqY51TUnzsMZX8AMDCJ wbxTKVvIG0Ph8ocHQLs cCMrSEN0MHbkdBPbERZ sYSUhAAu7FEYdGJgruJ IzNR6bqKhaPcxrhCfnw 2VjdCBcXGlkIDUxMDAy BYyfSFJnIH9JOhMjIMW nBbJ5TPBdQDi6CZw0VL 9WUyAiICAgNTAwMzgxO UNoUYt6YVptUS7YFWaw ABH4NWZ7XKE2OIO6BYU cXHQgMiBcXGYgQXJpYW wgXFxmcyAxMCBcXGZiI DmrTvmxRUoaX15sjIfy iZ8wBrggnzSrIVV7AME hciANClxwbGFpblxlcG ljTmVzdERvYzEgDQpcb HRycGFyXGxpbjBccmlu MCANClxsdHJjaFxiXGN qPImvwrQvRBCikI5qSB NpNOAeN1u4QZ5rK4t4L TRgEQAgDHVqNJP6EW7z zR0lhVXaNBVic8miKUI xjT8od5mrvwTcBYVrnN FcMmoslNIdXoZiL16hT CBUaGVyZSBpcyBhIHNs hMzkxXi8SYRxJOIcbAH sLKdpg1niyoMcLFJpzV EjiqcwKQ1sMCfoEW2jS EdlDA4tILBkIyBwXCsq IJ2rowrhbpUhREXiUMn jx0PlCGXyFHGjKOqpaC PjJKK1vL4mQYRaSXZor LvmIAx8EHF6Md9wqBYo YPEivrPFIC8bSAyinv8 1VTO8w7fudBXnMPeiDc ryhGTwdsR7RIfHPOGQW VcYUkOkGW0gDYcJJtvQ RUdJTnwyMTAxNnwxfFV HHXL5PFcwiDbtcDd6f5 cqxOKcm8e3HBxnJKZ5q PSTc8defZDnQWcdNndc rXHkpnW7TViUXTRKLTj NMcTmMA7dQGaUVjaONq K7OwKeSAF3OFyJO9RTz JM9Dye6HRp8qIqvYrmj bpExvZGqDwBTlN3xgFl lpF4rfBIfZ2rdBuGzHZ ANClxlcGljTmVzdERvY lMuscO3GHLtfMRqHNJ6 FZ7sAKTtggvqMFLjEDT tMOX9XErdeF93pGZcRC ZzMTZccGFyfVxwbGFpb wCXLzmwByknaRcgq6Dj dCBcXGlkIDUxMDAyIFx tYKFqXQ1ZGkJfYKZwUf F3AECqSDg3OBz1ID2AA yAiICAgNTAwMzgxOSIg ZRb7JVpgGD3HWXjfEXV 7WdP0EuC5EZN3NKYyWS QgMiBcXGYgQXJpYWwgX FxmcyAxMCBcXGZiIFxc PqpwWJmfW30jyXeulB3 vDwtkyuHhRNW2DILneu ANClxwbGFpblxlcGljT mVzdERvYzEgDQpcbHRy cGFyXGxpbjBccmluMCA NClxsdHJjaFxiXGNmMV ugcxZbOBTkgF5pPIOlX MCpW7h0JAFqPv10Tyem MFxjZjAgIEEgdGFuIHR pTGFrsx0lso67ntfcaU KjwnZpMTMiyqpbx4mso fUjjRY7RPxmYU98YGcq RD25WQzcTE7rMXOzRiJ mFOquWZ1wizlnvvZxGQ ZiNJqeb6TkWQIeUGWcH GvcnEZqXOH4lC9uBCZc FQBuuYvkRBn4QWJ8Tm0 ifMDgVQWgkzCWHC6nBT cefi06KXI2d5szoAOoV VhwEddyhJQrgdY0XBwA FHVKRYnUBwHqDM0gTQd JTktCRUdJTnwyMTAxNn ssrDOOHLL2COrmnFgaw Xb7a5lqlNRqn9w5HXmu PYT5yYHAx6xziGJuVJm dEycoyRPugpI2GGkYTB ZWWTyUDaWyDF8hEIqCK urXAzC8UoAxFEW2MPvG D6XQgHA2Aqg6EYx7sOc cZmxkcnNsdCBcJzFDfX 0swGkcwO9apRIbX8vxN nMyMCANClxlcGljTmVz gQEeEhYlzoI6WPHcsFZ cQZO7VY3jXMCjiikuUK OuAZWdCLA7GSchnK39i HQwXGZzMTZccGFyfVxw hAIymrBGSnvvhD8kLpX ih3hhfAh1IMASSgfwtD XjrhltqzW7WREku1wto Feeh3ChjHNaSF9odAoh hJ1nChHgRiUZJu4= Pipeline Controller(s) (test code = [id number] [id number]) nBALam3jqu6OjuYSjsO NaTPammBMlrtQswg80u RF8fJ66MJ5xRMKjQhC9 JDPdpgW1Jqz8QFDqBYY dkHMzN472w2rlh6ktkv RenBP2dPzxUEHhviznY vR9CLuhPXUqolsvJUb6 ZFkcJVAplMP6KHHnpYY nB2MlSAEhET3yplf9QC R0QPvpDPSyTjV7IEJdy JDdWVUshQfxBIogr764 MYT1IjNeDNCduhYraOn fgL2tKqTpOSIMF8IoDW vBNhkqI8DCNDSCW2Plq GFyfQ== Disclaimer (test code = [id number] 9844) sECPoBBOhd9heUSDuiL FuZzEwMzNcZnRuYmpcd IXiQOIsUcLhp1vav500 dTVtb1qpNDUjMrS8pOR dZISdcARpM271MVFqCA kdq7crc8FsSHFnuZLib 8I9TCEHbqpttQj9mSde I43so3I6GzgfZ8beDKG aEWObU8JpDB1xFXQbEh i5FWV6OOD4GZXzFIZmV 1KfXJ8aUQIzbTIqDWk8 n5mvxMhvAOXsNJB6o8k fIOagtwMqZC7adx2fkM a4n4ryrqCxYKRiMWPmm LZCFYPhB0UkcUjcEw7y xIo9lNvaWrbcEMY2Bwp 8AW1puu17oca9mNceDC DgeseuWqB0XAooNKYev eeeBQa5RPrnGNGwmSI8 NRMtbFCdC1WzBYPzTG6 viwi0UDW4AJpiWLGiQo B4LWMonREmKJXmpJhwK Aste605JBH0DlBaMO3w T9Pjc1U8qT4osSZbTFR tqGBbOdCyFRBenl3itK IpAHitn6JwCPS9vnA2o MKtnSQuOATlLR72Cxnd b1HfIkscBOT4IFFtpfU ok8Cej3ixCaVnprNkK0 oiH4YyMFIfPYZoENYhE xJffpBex5Zty8VvfUWx xGi3t3wwNFXyHIHgaOh zd5zlELA8SIQsV0K1gN Smu5hfEKnqPKQmzVM5e oC3OTGkzZZpY5PkuJ2o PDAuFF7dhsb3s8hnYKL 8PRooCTTdMnI8tiO8QR BcaGVhZGVyeTcyMFxmb 556GYE6OvDjCAYvw3Wn E2OhiRonT17ojUpcU91 mEETyvUwbcA2gaLlwhY 5cZjBcZnMyNFxxbFxwb VZqirmjJYsirfO9TEaz wfevEHBoHVjwD9ayAoZ wFXEnnFzkEIhae2WoPE PhWZUzOmgeetX1TPLSh 89rZYPth0DqPKEsbT8c kQCdRNogsqUpuPY8FIr hdmUgYmVlbiBkZXZlbG 3yZTCoUS4wHTOaoiInp c9vcgYaFMElGWVxY8Vn cmlzdGljcyBkZXRlcm1 nslXlJYE2IZDCWF0FNS WtGPFep89rAQLcvEoow G1zmLUspxTsNEUut0Oq nC2toTIRVKQqN3qaQV7 ySUsxw8IfwJMtsORrzZ F8BFKxa0IdPtYbokQpo MDypBLdX6YcoSvpL9yj COXhRZSjjuNsbDVfw3R zKKXuhCZ9cVXySS8PMx TXb82sWQVdBQGUnbKwC HQxgMmzsKB5vgO1aM9w LiBJZiBhcHBsaWNhYmx pUXBnw978js1ykyT2BU HtLKLvwjrtq5XfJJTuP ZGdoE03EQYpCIZmol3z bkcukAKdioJgQ8Dmrnf 3zY3mVELgVIxzOCTcMN ZzMjJcbGFuZzEwMzNca GljaFxmMVxkYmNoXGYx JYvuN5xgPcFcAtKkShk wYXJ9 [facility] [id number] 19:02:00 Test Item Value Reference Range Interpretation Comments Result 2 (Urine Culture) See Result Comment (test code = Result 2 (Urine Culture)) [facility]REFLAZARUS [facility] [id number] 19:02:00 Test Item Value Reference Range Interpretation Comments Result 2 (Urine Culture) See Result Comment (test code = Result 2 (Urine Culture)) Lucas Iniguez
[2023-07-15 10:21] LABS: Absolute Lymphocytes (CBC) 1.4 K/uL (0.7-4.9); Hematocrit 44.8 % (39.6-49.0); Lymphocytes % 9.6 % (15.3-44.8); MCV 88.7 fL (80-100); MPV 7.3 fL (7.6-11.3); Platelets 266 thou/uL (152-406); RBC Red Blood Cell Count 5.05 M/uL (4.33-5.43)
[2023-07-15] MEDS ORDERED: NA CHLORIDE 0.9% 1,000 ML ONE (10:30)
[2023-07-15 10:38] LABS: Specific Gravity 1.026 (1.005-1.030); Urine Bacteria >50 /HPF (<20); Urine Bilirubin NEGATIVE (Negative); Urine Blood 3+ (OVER) (Negative); Urine Clarity Extremely Turbid (Clear); Urine Color Yellow (Yellow); Urine Glucose NEGATIVE (Negative); Urine Mucus Slight /HPF (None Seen); Urine Protein 2+ (Negative); Urine RBC >50 /HPF (None Seen); Urine Urobilinogen Normal (Normal); Urine WBC Clump Occasional /HPF (None Seen)
[2023-07-15 10:50] LABS: Albumin 3.4 g/dL (3.4-5.0); Bilirubin Total 0.9 mg/dL (0.2-1.0); Potassium 4.3 mEq/L (3.5-5.1); Protein, Total 7.4 g/dL (6.4-8.2); Troponin High Sensitivity 12.2 pg/mL (<58.9)
--- NOTE | 2023-07-15 10:58 | RAD REPORT ---
EXAM DESCRIPTION: RAD - Chest Single View - 07/15/2023 10:53 am CLINICAL HISTORY: COUGH COMPARISON: No comparisons FINDINGS: Lines: None. Lungs: No evidence of edema or pneumonia. Pleural: No significant pleural effusions or pneumothorax. Cardiac: The heart size is within normal limits. Mediastinum: Within normal limits. Bones: No acute fractures. Soft tissue anchor in the right humeral head. Other: None IMPRESSION: No acute cardiopulmonary disease.
--- NOTE | 2023-07-15 11:27 | RAD REPORT ---
EXAM DESCRIPTION: CTAbdomen Pelvis W Contrast - 07/15/2023 11:13 am CLINICAL HISTORY: ABD PAIN COMPARISON: Stone Protocol dated 02/20/2018 TECHNIQUE: CT of the abdomen and pelvis was performed with IV contrast. All CT scans are performed using dose optimization technique as appropriate and may include automated exposure control or mA/KV adjustment according to patient size. FINDINGS: Lower chest: Mild circumferential thickened distal esophagus which may reflect esophagitis . Liver: No acute abnormality or suspicious lesions. Biliary: No biliary ductal dilatation. Stomach: No significant focal abnormality. Duodenum: No significant focal abnormality. Pancreas: No significant abnormality. Spleen: No significant abnormality. Adrenal: No suspicious lesions. Kidney/ureter: No hydronephrosis. 2 mm stone in lower pole right kidney . Too small to characterize a nd/or benign appearing renal lesions are noted. A slightly more complex appearing lesion in the inter polar aspect of left kidney measuring 14 millimeters was also present in 2018 and is not significantl y changed. Retroperitoneum: No retroperitoneal adenopathy. Vascular: No aneurysm. Bowel: No significant focal abnormality. Normal appendix. Peritoneum: No ascites or free air. Bladder: The bladder is decompressed via Azevedo catheter. Bladder wall thickening is not well assessed . Reproductive: No adnexal masses. Bones: No acute fracture. Other: n/a IMPRESSION: No acute intra-abdominal or pelvic finding.
--- NOTE | 2023-07-15 11:52 | EDPHYS ---
Physician Documentation [facility] Name: Casa Lai Age: 72 yrs Sex: Male : 1950 Arrival Date: 07/15/2023 Time: 09:26 Bed 7 Private MD: ED Physician Mandie Villafana HPI: 07/15 10:16 This 72 yrs old Male presents to ER via Ambulatory with complaints of Abdominal Pain, sp3 Nausea, Diarrhea. 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 He also states that he had some mild yellow discharge around his Azevedo catheter. Pain is described as bandlike in the upper abdomen and sharp in nature. He is also nauseated but has not had emesis. He denies fever, URI symptoms, neck pain, chest pain, shortness of breath, back pain, rash, known sick contacts, travel history, potential bad food, or any other signs or symptoms on ROS at this time.. Historical: - Allergies: 09:43 Phenergan; hb - Home Meds: 09:43 Oxybutynin Chloride Oral [Active]; Keflex Oral [Active]; hyoscyamine sulfate oral hb [Active]; Pepcid Oral [Active]; Claritin Oral [Active]; Zolpidem Tartrate Oral [Active]; rosuvastatin oral [Active]; ramipril Oral [Active]; - PMHx: 09:43 High Cholesterol; HTN; Kidney stones; hb - PSHx: 09:43 Shoulder - Left; hb - Immunization history:: Adult Immunizations up to date. - Social history:: Smoking status: Patient denies any tobacco usage or history of. ROS: 10:17 Constitutional: Negative for fever, chills, and weight loss, Eyes: Negative for injury, sp3 pain, redness, and discharge, ENT: Negative for injury, pain, and discharge, Neck: Negative for injury, pain, and swelling, Cardiovascular: Negative for chest pain, palpitations, and edema, Back: Negative for injury and pain, MS/Extremity: Negative for injury and deformity, Skin: Negative for injury, rash, and discoloration, Neuro: Negative for headache, weakness, numbness, tingling, and seizure, Psych: Negative for depression, anxiety, suicide ideation, homicidal ideation, and hallucinations, Allergy/Immunology: Negative for hives, rash, and allergies, Endocrine: Negative for neck swelling, polydipsia, polyuria, polyphagia, and marked weight changes. 10:17 All other systems are negative. Exam: 10:18 Constitutional: This is a well developed, well nourished patient who is awake, alert, sp3 and in no acute distress. Head/Face: Normocephalic, atraumatic. Eyes: Pupils equal round and reactive to light, extra-ocular motions intact. Lids and lashes normal. Conjunctiva and sclera are non-icteric and not injected. Cornea within normal limits. Periorbital areas with no swelling, redness, or edema. ENT: Nares patent. No nasal discharge, no septal abnormalities noted. External auditory canals are clear. Oropharynx with no redness, swelling, or masses, exudates, or evidence of obstruction, uvula midline. Mucous membranes moist. Neck: Trachea midline, no thyromegaly or masses palpated, and no cervical lymphadenopathy. Supple, full range of motion without nuchal rigidity, or vertebral point tenderness. No Meningismus. Chest/axilla: Normal chest wall appearance and motion. Nontender with no deformity. No lesions are appreciated. Cardiovascular: Regular rate and rhythm with a normal S1 and S2. No gallops, murmurs, or rubs. Normal PMI, no JVD. No pulse deficits. Respiratory: Lungs have equal breath sounds bilaterally, clear to auscultation and percussion. No rales, rhonchi or wheezes noted. No increased work of breathing, no retractions or nasal flaring. Back: No spinal tenderness. No costovertebral tenderness. Full range of motion. Skin: Warm, dry with normal turgor. Normal color with no rashes, no lesions, and no evidence of cellulitis. MS/ Extremity: Pulses equal, no cyanosis. Neurovascular intact. Full, normal range of motion. Neuro: Awake and alert, GCS 15, oriented to person, place, time, and situation. Cranial nerves II-XII grossly intact. Motor strength 5/5 in all extremities. Sensory grossly intact. Cerebellar exam normal. Normal gait. Psych: Awake, alert, with orientation to person, place and time. Behavior, mood, and affect are within normal limits. 10:18 Abdomen/GI: Patient has mild epigastric pain on palpation without peritoneal signs, rebound or guarding. Azevedo catheter has mild serosanguineous fluid around the catheter. No signs of local infection noted.. 10:41 ECG was reviewed by the Attending Physician. EKG demonstrates normal sinus rhythm at 85 sp3 bpm with normal intervals, normal QRS, normal axis, normal axis ST segments without evidence of acute ischemia. Vital Signs: 09:41 BP 153 / 90; Pulse 102; Resp 16; Temp 98.9(O); Pulse Ox 96% on R/A; Weight 86.18 kg; hb Height 5 ft. 6 in. ; Pain 4/10; 10:00 BP 134 / 66; Pulse 78; Resp 18; Pulse Ox 98% ; ko1 10:35 BP 139 / 65; Pulse 83; Resp 18; Pulse Ox 95% ; ko1 12:00 BP 135 / 62; Pulse 81; Resp 16; Pulse Ox 97% ; bp 09:41 Body Mass Index 30.67 (86.18 kg, 167.64 cm) hb 09:41 Pain Scale: Adult hb MDM: 09:52 Patient medically screened. sp3 10:18 Data reviewed: vital signs, nurses notes, lab test result(s), radiologic studies. ED sp3 course: 72-year-old male with complex ureteral pathology and history now presents to the ED with epigastric abdominal pain, diarrhea and nausea. I believe discharge around the Azevedo catheter is likely serosanguineous in nature and does not represent significant infection. Will obtain CT scan of the abdomen and pelvis, laboratory values and urinalysis. Also chest x-ray since patient had a mild cough. Antibiotics will be initiated if indicated and further work-up and disposition pending laboratory results and course.. 11:51 ED course: Patient CT scan demonstrates no significant abnormality and chest x-ray is sp3 clear. WBC is 14 and urine is grossly abnormal with moderate to severe urinary tract infection suspected. We will administer Levaquin 5 mg IV x1 and discharge patient home on p.o. Levaquin and follow-up with his urologist.. 07/15 09:52 Order name: CBC with Diff; Complete Time: 11:45 sp3 07/15 09:52 Order name: CMP; Complete Time: 11:45 sp3 07/15 09:52 Order name: Lipase; Complete Time: 11:45 sp3 07/15 09:52 Order name: Urinalysis w/ reflexes; Complete Time: 11:45 sp3 07/15 09:52 Order name: Troponin High Sensitivity; Complete Time: 11:45 sp3 07/15 10:02 Order name: SARS-COV-2 RT PCR; Complete Time: 11:45 sp3 07/15 10:02 Order name: Flu; Complete Time: 11:45 sp3 07/15 10:46 Order name: Urine Culture EDMS 07/15 09:52 Order name: CT Abd/Pelvis - IV Contrast Only; Complete Time: 11:45 sp3 07/15 10:02 Order name: CXR XRAY; Complete Time: 11:45 sp3 07/15 09:52 Order name: EKG; Complete Time: 09:53 sp3 07/15 09:52 Order name: IV Saline Lock; Complete Time: 10: sp3 07/15 09:52 Order name: Labs collected and sent; Complete Time: 10:09 sp3 07/15 09:52 Order name: EKG - Nurse/Tech; Complete Time: 10:09 sp3 Administered Medications: 10:15 Drug: NS 0.9% IV 1000 ml Route: IV; Rate: 1 bolus; Site: right forearm; bp 12:52 Follow up: IV Status: Completed infusion; IV Intake: 1000ml bp 12:12 Drug: levofloxacin IVPB 500 mg Volume: 100 ml; Route: IVPB; Infused Over: 60 mins; ko1 Site: right antecubital; 12:51 Follow up: IV Status: Completed infusion; IV Intake: 100ml bp Disposition Summary: 07/15/23 11:52 Discharge Ordered Location: Home sp3 Condition: Stable sp3 Diagnosis - Urinary tract infection sp3 Followup: sp3 - With: Private Physician - When: Upon discharge from the Emergency Department - Reason: Continuance of care Discharge Instructions: - Discharge Summary Sheet sp3 - Urinary Tract Infection, Adult sp3 Forms: - Medication Reconciliation Form sp3 - Thank You Letter sp3 - Antibiotic Education sp3 - Prescription Opioid Use sp3 - Patient Portal Instructions sp3 - Leadership Thank You Letter sp3 Prescriptions: - levofloxacin 500 mg Oral Tablet - take 1 tablet by ORAL route once daily for 7 days First dose on July 162022; 7 tablet; Refills: 0, Product Selection Permitted Signatures: Dispatcher [employer] Preeti Barton, RN RN Maximo Benitez RN RN Mandie Walton MD MD sp3 Suellen Chris RN RN ko1
--- NOTE | 2023-07-15 11:52 | ER ---
Nurse's Notes [facility] Name: Casa Lai Age: 72 yrs Sex: Male : 1950 Arrival Date: 07/15/2023 Time: 09:26 Bed 7 Private MD: Diagnosis: Urinary tract infection Presentation: 07/15 09:41 Chief complaint: N/V/D and upper abdominal pain today. Had urethral construction 3 hb weeks ago, gilliam catheter in place. Coronavirus screen: At this time, the client does not indicate any symptoms associated with coronavirus-19. Ebola Screen: No symptoms or risks identified at this time. Initial Sepsis Screen: Does the patient meet any 2 criteria? No. Patient's initial sepsis screen is negative. Does the patient have a suspected source of infection? No. Patient's initial sepsis screen is negative. Risk Assessment: Do you want to hurt yourself or someone else? Patient reports no desire to harm self or others. Onset of symptoms was July 15, 2023. 09:41 Method Of Arrival: Ambulatory hb 09:41 Acuity: JANNA 3 hb Historical: - Allergies: 09:43 Phenergan; hb - Home Meds: 09:43 Oxybutynin Chloride Oral [Active]; Keflex Oral [Active]; hyoscyamine sulfate oral hb [Active]; Pepcid Oral [Active]; Claritin Oral [Active]; Zolpidem Tartrate Oral [Active]; rosuvastatin oral [Active]; ramipril Oral [Active]; - PMHx: 09:43 High Cholesterol; HTN; Kidney stones; hb - PSHx: 09:43 Shoulder - Left; hb - Immunization history:: Adult Immunizations up to date. - Social history:: Smoking status: Patient denies any tobacco usage or history of. Screenin:30 [facility] ED Fall Risk Assessment (Adult) History of falling in the last 3 months, ko1 including since admission No falls in past 3 months (0 pts) Confusion or Disorientation No (0 pts) Intoxicated or Sedated No (0 pts) Impaired Gait No (0 pts) Mobility Assist Device Used No (0 pt) Altered Elimination No (0 pt) Score/Fall Risk Level 0 - 2 = Low Risk Oriented to surroundings, Maintained a safe environment, Educated pt \T\ family on fall prevention, incl call for assistance when getting out of bed, Assessed \T\ reinforced patient's understanding of fall precautions, Provided non-skid footwear, Hourly rounding (assess needs \T\ fall precautionary measures) done, Used ambulatory aids as needed (educated on \T\ assisted with), Used gait belt as appropriate. Abuse screen: Denies threats or abuse. Denies injuries from another. Nutritional screening: No deficits noted. Tuberculosis screening: No symptoms or risk factors identified. Assessment: 10:00 General: Appears in no apparent distress. uncomfortable, Behavior is calm, cooperative, ko1 appropriate for age. Pain: Complains of pain in abdomen. Neuro: No deficits noted. Cardiovascular: No deficits noted. Respiratory: No deficits noted. GI: Bowel sounds present X 4 quads. Abd is soft X 4 quads. : Gilliam in place to gravity drainage. EENT: No deficits noted. Derm: No deficits noted. Musculoskeletal: No deficits noted. 12:00 Reassessment: DC ON HOLD FOR IV ABX. bp 12:50 Reassessment: DC HOME AMBULATORY WITH FAMILY. bp Vital Signs: 09:41 BP 153 / 90; Pulse 102; Resp 16; Temp 98.9(O); Pulse Ox 96% on R/A; Weight 86.18 kg; hb Height 5 ft. 6 in. ; Pain 4/10; 10:00 BP 134 / 66; Pulse 78; Resp 18; Pulse Ox 98% ; ko1 10:35 BP 139 / 65; Pulse 83; Resp 18; Pulse Ox 95% ; ko1 12:00 BP 135 / 62; Pulse 81; Resp 16; Pulse Ox 97% ; bp 09:41 Body Mass Index 30.67 (86.18 kg, 167.64 cm) hb 09:41 Pain Scale: Adult hb ED Course: 09:30 Patient arrived in ED. im 09:43 Triage completed. hb 09:43 Mandie Villafana MD is Attending Physician. sp3 09:46 Arm band placed on. hb 09:49 Maximo Brewer, LIZANDRO is Primary Nurse. bp 10:09 Inserted saline lock: 20 gauge in right forearm, using aseptic technique. Blood bp collected. 10:30 Patient has correct armband on for positive identification. Fall risk band placed. ko1 Placed in gown. Bed in low position. Call light in reach. Side rails up X2. Provided Education on: na. Pulse ox on. NIBP on. Door closed. Noise minimized. Warm blanket given. 10:55 CXR XRAY In Process Unspecified. EDMS 11:15 CT Abd/Pelvis - IV Contrast Only In Process Unspecified. EDMS 12:08 Urine Culture Sent. ko1 12:51 No provider procedures requiring assistance completed. IV discontinued, intact, bp bleeding controlled, No redness/swelling at site. Pressure dressing applied. Administered Medications: 10:15 Drug: NS 0.9% IV 1000 ml Route: IV; Rate: 1 bolus; Site: right forearm; bp 12:52 Follow up: IV Status: Completed infusion; IV Intake: 1000ml bp 12:12 Drug: levofloxacin IVPB 500 mg Volume: 100 ml; Route: IVPB; Infused Over: 60 mins; ko1 Site: right antecubital; 12:51 Follow up: IV Status: Completed infusion; IV Intake: 100ml bp Medication: 12:36 VIS not applicable for this client. ko1 Intake: 12:51 IV: 100ml; Total: 100ml. bp 12:52 IV: 1000ml; Total: 1100ml. bp Outcome: 11:52 Discharge ordered by . yamini 12:51 Discharged to home ambulatory, with family. bp 12:51 Condition: stable 12:51 Discharge instructions given to patient, Instructed on discharge instructions, follow up and referral plans. medication usage, Demonstrated understanding of instructions, follow-up care, medications, Prescriptions given X 1. 12:52 Patient left the ED. bp Signatures: Dispatcher [employer] EDMS Preeti Meza RN RN hb Peltier, Brian RN RN bp Mandie Villafana MD MD sp3 Suellen Chris RN RN ko1 Chelsey Carney
[2023-07-15] MEDS ORDERED: Levofloxacin500mg IV 500 MG/100 ML BAG IV ONE (12:20)
[2023-07-15 13:10] VITALS: TEMP 98.9
[2023-07-15 13:18] VITALS: BP 135/62; O2SAT 97
--- NOTE | 2023-07-16 17:59 | EKG ---
Test Date: 2023-07-15 Test Time: 10:10:43 Photo Graphics Librarian: ISAK MEASUREMENT RESULTS: Intervals: Rate: 85 [place]: 144 QRSD: 86 QT: 374 QTc: 445 [place]: P: 51 [place]: 144 QRS: 19 T: 78 INTERPRETIVE STATEMENTS: Normal sinus rhythm Normal ECG Compared to ECG 06/27/1995 16:15:00 No significant changes Electronically Signed On 07-16-23 17:56:55 CDT by Ishmael Montemayor
== END 2023-07-15 12:52 | disposition home or self-care (01) ==
LOC: ER 09:26
DX: N39.0 Urinary tract infection, site not specified (principal); I10 Essential (primary) hypertension; E78.00 Pure hypercholesterolemia, unspecified; Z20.822 Contact with and (suspected) exposure to COVID-19; Z88.8 Allergy status to other drugs, medicaments and biological substances; Z87.442 Personal history of urinary calculi
CPT/HCPCS: 96365; 96361; 93005; 87088; 85025; 81001; 87086; 36415; 87077; 87186; 84484; 83690; 80053; 87635; 87804 ×2; 74177; 71045; 99284; Q9967; J7030

== ENCOUNTER 2024-04-29 18:09 | Inpatient (IN) | payer OTHER ==
--- OUTSIDE RECORDS SUMMARY | 2024-04-29 18:12 | XMS REPORT | Clinical Summary ---
Author Name Unknown Organization [facility] Address [address] [place] [address] Care Team Providers Care Fondant Puff Maker Name Role Phone Niko Cowart MD Unavailable [phone] Kaia Murphy MD Primary Care Provider [phone] Blaine Julian MD Unavailable Allergies Active Allergy Reactions Criticality Noted Date Comments Peanut 05/09/2019 vomiting Promethazine Other (See Comments) 05/09/2019 vomiting Medications Medication Sig Dispensed Refills Start Date End Date Status doxycycline (VIBRAMYCIN) 50 MG capsule TAKE 1 CAPSULE BY MOUTH EVERY DAY 1 04/14/2019 Active clotrimazole-betame thasone (LOTRISONE) 1%-0.05% cream TOPICAL APPLY TO AFFECTED AREA TWICE DAILY NEEDED. 2 04/18/2019 Active rosuvastatin (CRESTOR) 10 mg tablet 05/06/2019 Active zolpidem (AMBIEN CR) 12.5 mg CR tablet TAKE 1 TABLET BY MOUTH EVERY DAY AT BEDTIME NEEDED 2 04/14/2019 Active ramipril (ALTACE) 10 MG capsule 05/06/2019 Active mupirocin (BACTROBAN) 2% ointmentIndications :Folliculitis Apply to nose as directed BID x 14 days. 22 g 2 05/09/2019 Active Additional Information Patient not taking.Reported on 06/19/2022 clindamycin (CLEOCIN T) 1% lotionIndications:F olliculitis Apply to scalp as directed once daily. 60 mL 6 05/09/2019 Active Additional Information Patient not taking.Reported on 06/19/2022 erythromycin with ethanol (THERAMYCIN) 2 % topical solutionIndications :Folliculitis Apply up to twice daily for scalp folliculitis 60 mL 6 05/09/2019 Active Additional Information Patient not taking.Reported on 06/19/2022 temazepam (RESTORIL) 30 mg capsule TAKE 1 CAPSULE BY MOUTH EVERYDAY AT BEDTIME 05/06/2020 Active zolpidem (AMBIEN) 10 mg tablet Take 1 tablet (10 mg) by mouth. Active omega-3s/dha/epa/fi sh oil/D3 (DE3 DRY EYE OMEGA BENEFITS ORAL) Take by mouth. Active mupirocin (BACTROBAN) 2% ointmentIndications :Infection of skin Apply topically to affected area(s) twice daily. 22 g 06/25/2023 Active propranolol (INDERAL) 10 mg tablet Take 1 tablet (10 mg) by mouth. 11/16/2023 Active Encounters Date Type Department Care Team Description 12/19/2023 9:45 AM INFORMATION SERVICES MANAGER Follow[facility] D[facility] [address] [place] [address] Main [facility], [address]th [place] [address] Blaine Julian MD Folliculitis (Primary Dx); Neoplasm of uncertain behavior of skin; Actinic keratosis; Personal history of other malignant neoplasm of skin; Melanocytic nevus of trunk; Inflamed seborrheic keratosis 12/19/2023 Travel 06/25/2023 Telephone [facility] [address] [place] [address] Main [facility], [address]th [address] [place], [place] [id number] Charlene Mcgrath MD 06/20/2023 2:30 PM CDT Follow-[facility] Derm[facility]ology [address] [place] [address] Main [facility], 9th [place] [address] Blaine Julian MD Other rosacea (Primary Dx); History of malignant basal cell neoplasm of skin; Neoplasm of uncertain behavior of skin; Melanocytic nevus of trunk; Melanocytic nevus of right upper limb including shoulder; Folliculitis 06/20/2023 Travel after 04/30/2023 Surgical History Surgery Date Site/Laterality Comments COLONOSCOPY 11/26/2008 - 11/25/2009 Medical History Medical History Date Comments Hypertension 2009 Hyperlipidemia 2005 Hearing loss 2013 Functional visual loss 2000 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 shoe dust; asbestos gaskets as a construction framer/boilermake Dependence on continuous pos itive airway pressure ventilation 1994 Renal stone 1999 Squamous cell carcinoma in situ of skin 2018 Basal cell carcinoma of skin 2019 Social History Tobacco Use Types Packs/Day Years Used Date Smoking Tobacco: Never Smokeless Tobacco: Never Alcohol Use Standard Drinks/Week Comments Never 0 (1 standard drink = 0.6 oz pur e alcohol) Sex and Gender Information Value Date Recorded Sex Assigned at Male 04/26/2019 4:22 PM CDT Gender Identity Male 04/26/2019 4:22 PM CDT Sexual Orientation Straight 04/26/2019 4: 22 PM CDT Job Start Date Occupation Industry Not on file Not on file Not on file Obstetrics History Last Filed Vital Signs Vital Sign Reading Time Taken Comments Blood Pressure 148/79 12/19/2023 9:48 AM INFORMATION SERVICES MANAGER Pulse 67 12/19/2023 9:48 AM INFORMATION SERVICES MANAGER Temperature 36.8 C (98.2 F) 12/19/2023 9:48 AM CS T Respiratory Rate 18 12/19/2023 9:48 AM INFORMATION SERVICES MANAGER Oxygen Saturation 95% 12/19/2023 9:48 AM INFORMATION SERVICES MANAGER Inhaled Oxygen Concentration - - Weight 91.8 kg (202 lb 6.1 oz) 12/19/2023 9:48 A M INFORMATION SERVICES MANAGER Height - - Body Mass Index 31.39 05/09/2019 9:37 AM CDT Plan of Treatment Upcoming Encounters Date Type Department Care Team (Late st Contact Info) Description 06/18/2024 9:45 AM CDT [facility] Derm[facility]ology [address] [place] [address], [address] [place] [address] Blaine Julian MD [address] [place] [address] [email or web address] Health Maintenance Due Date Last Done Comments COVID-19 Vaccine ( season) 2023 Influenza Vaccine 07/27/2024 Procedures Procedure Name Priority Date/Time Associated Diagnosis Comments PATHOLOGY BIOPSY INTERPRETATION Routine 06/20/2023 2:51 PM CDT Neoplasm of uncertain behavior of skin History of malignant basal cell neoplasm of skin after 04/30/2023 Results * Pathology Biopsy Interpretation (06/20/2023 2:51 PM CDT) Diagnosis A: Skin, left lateral anterior chest, shave: Hyperplastic actinic keratosis, lichenoid type, present at tissue edges. See comment. B: Skin, left sternal border, shave: Seborrheic keratosis, inflamed, present at tissue edges. Focal folliculitis. C: Skin, left jawline, shave: Actinic keratosis with adnexal extension, present at tissue edges Superficial aspect of underlying cystic squamous lesion in association with small clusters of gram-positive cocci, present at tissue edges. See comment. 06/22/2023 6:01 PM CDT [facility] Comment A: Additional deeper tissue sections have been cut and examined. A periodic acid-Salazar stain fails to reveal unequivocal fungal organisms within viable tissue or basement membrane thickening. C: Sections reveal a shave biopsy of skin to include superficial reticular dermis showing skin with background actinic changes and basilar keratinocytic atypia with adnexal extension. Within the dermis, there is dermal vascular ectasia and an irregular fragment of stratified squamous epithelium, in association with dense neutrophilic and lymphohistiocytic infiltrate, suggestive of superficial aspect of an underlying cystic lesion. Additional deeper tissue sections have been cut and examined. Gram stain highlights gram-positive cocci in clusters and short chains, while GMS and Marie failed to reveal unequivocal fungal or mycobacterial/acid- fast organisms respectively within viable tissue. In addition, GMS stain highlights rare small budding yeast forms, while Gram stain highlights several gram-positive cocci in anucleate keratinous material of the stratum corneum. Correlation with results of microbiology cultures is necessary, if available. The presence of associated dense inflammatory infiltrate raises the possibility of a ruptured folliculitis or follicular cyst. However, due to irregularity of the squamous epithelium, and underlying squamous cell carcinoma cannot be completely excluded on histologic grounds alone. Close clinical follow-up is recommended and an additional biopsy may be considered should this lesion fail to respond to conservative therapy. 06/22/2023 6:01 PM CDT [facility] Gross Description A: Skin, left lateral anterior chest, neoplasm uncertain behavior: A limon-white skin shave measuring 0.6 x 0.5 x 0.2 cm. The specimen is inked, bisected, entirely submitted in A1. GM B: Skin, left sternal border, isk: A roughened, nodular limon-white skin shave measuring 1.4 x 1.0 x 0.2 cm. The specimen is inked, quadrisected, entirely submitted in B1. GM C: Skin, left jawline, neoplasm uncertain behavior: A liomn-white skin shave measuring 0.5 x 0.4 x 0.1 cm. The specimen is inked, bisected, entirely submitted in C1. 06/22/2023 6:01 PM CDT [facility] Priming Machine Operator(s) This case was studied and discussed at the dermatopathology faculty conference. MARIS MAYO 06/22/2023 6:01 PM CDT [facility] Disclaimer "Some tests reported here may have been developed and performance characteristics determined by [facility]. These tests have not been specifically cleared or approved by the U.S. Food and Drug Administration. If applicable, controls were reviewed and showed appropriate reactivity." 06/22/2023 6:01 PM CDT [facility] Tissue specimen (specimen) (Skin) 06/20/2023 2:51 PM CDT 06/21/2023 7:28 AM CDT Comment:left lateral anterio r chest, neoplasm uncertain behavior Tissue specimen (specimen) (Skin) 06/20/2023 2:52 PM CDT 06/21/2023 7:28 AM CDT Comment:left sternal border, ISK Tissue specimen (specimen) (Skin) 06/20/2023 2:52 PM CDT 06/21/2023 7:28 AM CDT Comment:left jawline, neopla sm uncertain behavior Blaine Julian MD LAB PATHOLOGY [facility] [address] [place] [address], [place] after 04/30/2023 Care Teams Fondant Puff Maker Relationship Specialty Start Date End Date Niko Cowart MD [address] [place] [id number] [email or web address] PCP - External Referring Family Practice 04/09/19 Kaia Murphy MD [address] [place] [id number] [email or web address] PCP - General Dermatology 04/24/19 Blaine Julian MD [facility] [place] [address] [email or web address] Consulting Physician Dermatology 09/08/19
[2024-04-29 19:29] LABS: Absolute Eosinophils 0.1 K/uL (0-0.5); Absolute Lymphocytes (CBC) 1.1 K/uL (0.7-4.9); Absolute Monocytes 0.6 K/uL (0.1-1.3); Absolute Neutrophil 5.2 K/uL (1.8-8.0); Basophils % 0.2 % (0-1.3); Eosinophils % 1.2 % (0-4.4); Hematocrit 44.8 % (39.6-49.0); Hemoglobin 14.6 g/dL (13.6-17.9); Lymphocytes % 15.9 % (15.3-44.8); MCH 29.6 pg (27.0-35.0); MCHC 32.7 g/dL (32.0-36.0); MCV 90.5 fL (80-100); MPV 7.9 fL (7.6-11.3); Monocytes % 8.6 % (3.3-12.3); Neutrophils % 74.1 % (41.7-73.7); Platelets 248 thou/uL (152-406); RBC Red Blood Cell Count 4.95 M/uL (4.33-5.43); Red Cell Distribution Width 13.9 % (12.1-15.2)
[2024-04-29] MEDS ORDERED: MORPHINE 4 MG/ML SYR ONE (19:34)
[2024-04-29] MEDS ORDERED: ONDANSETRON 4 MG/2 ML VIAL ONE (19:34)
[2024-04-29] MEDS ORDERED: NA CHLORIDE 0.9% 1,000 ML ONE (19:34)
[2024-04-29 19:36] LABS: ALT/SGPT 23 U/L (16-61); Albumin 3.6 g/dL (3.4-5.0); Albumin/Globulin Ratio 1.1 (1.1-1.8); Alkaline Phosphatase 71 U/L (45-117); Anion Gap 9.7 mEq/L (5.0-15.0); BUN Blood Urea Nitrogen 30 mg/dL (7-18); Bicarbonate 21 mEq/L (21-32); Bilirubin Total 1.3 mg/dL (0.2-1.0); Globulin 3.4 g/dL (2.3-3.5); Glomerular Filtration Rate 44 ml/min (=/>90); Glucose Level 127 mg/dL (74-106); Lipase 32 U/L (13-75); Potassium 3.7 mEq/L (3.5-5.1); Sodium Level 136 mEq/L (136-145)
[2024-04-29 19:40] LABS: AST/SGOT < 10 U/L (15-37)
[2024-04-29 19:41] LABS: Calcium Oxalate Crystals- Ur Few /HPF (None Seen); Specific Gravity 1.029 (1.005-1.030); Sqamous Epithelial <5 /HPF (None Seen); Urine Bacteria None Seen /HPF (<20); Urine Bilirubin NEGATIVE (Negative); Urine Blood 2+ (Negative); Urine Clarity Extremely Turbid (Clear); Urine Color Yellow (Yellow); Urine Culture Reflex Order REFLEXED; Urine Glucose NEGATIVE (Negative); Urine Ketones NEGATIVE (Negative); Urine Microscopic Reflex YN ORDER UMIC; Urine Mucus 4+ /HPF (None Seen); Urine Nitrite NEGATIVE (Negative); Urine Protein 2+ (Negative); Urine RBC 21-50 /HPF (None Seen); Urine Urobilinogen Normal (Normal); Urine WBC >50 /HPF (<5); Urine WBC Clump Few /HPF (None Seen); Urine pH 5.5 (5.0-7.0)
[2024-04-29] MEDS ORDERED: HYDROMORPHONE HCL 1 MG/ML INJ ONE (20:21)
--- NOTE | 2024-04-29 20:38 | RAD REPORT ---
EXAM DESCRIPTION: CT - Abdomen Pelvis W Contrast - 04/29/2024 8:04 pm CLINICAL HISTORY: Abdominal pain COMPARISON: 2022 and 2018 TECHNIQUE: Computed axial tomography of the abdomen pelvis was obtained. 100 cc Isovue-300 was admin istered intravenously. Oral contrast was not requested which limits evaluation of bowel and appendix All CT scans are performed using dose optimization technique as appropriate and may include automated exposure control or mA/KV adjustment according to patient size. FINDINGS: Tiny nonobstructing right renal calculi. Bilateral renal simple cysts. 16 millimeter cystic mass midpole left kidney [facility] has en larged from 2018 . 13 millimeter complex cystic mass lower pole left kidney unchanged size. The liver, spleen, pancreas and adrenals unremarkable Normal appendix Thickened bladder wall. No evidence diverticulitis Fluid within nondilated large and small bowel Small inguinal hernias contain fat IMPRESSION: Fluid within nondilated large and small bowel may represent an enteritis Tiny nonobstructing right renal calculi 16 millimeters cystic mass midpole left kidney has enlarged 2018. It probably is benign but should be followed with an ultrasound in 6 months for re-evaluation Thickened bladder wall may be secondary to inflammation
--- NOTE | 2024-04-29 21:23 | P.HP ---
Certification for Inpatient Patient admitted to: Observation With expected LOS: >2 Midnights Practitioner: I am a practitioner with admitting privileges, knowledge of patient current condition, hospital course, and medical plan of care. Services: Services provided to patient in accordance with Admission requirements found in Title 42 Section 412.3 of the Code of Federal Regulations Patient History Date of Service: 04/29/24 Reason for admission: Abdominal pain History of Present Illness: 73-year-old male with past medical history of HTN, renal calculi, recent TURP, hyperlipidemia who presented because of generalized abdominal pain since the last 3 days associated with recurrent nausea and vomiting. Patient denies any diarrhea but admits to some loose stools. He denies any fever or chills. Abdominal pain is more crampy pattern. Pain has been increasing in intensity. Patient presented because of worsening symptoms. On arrival in the ED vital signs were stable afebrile, workup including WBC shows 7.9 with no differentials, BMP shows creatinine of 1.6baseline of 1.3, urinalysis consistent with UTI, CT of the abdomen shows thickened bladder, but no perinephric stranding, multiple renal calculi nonobstructing, 16 mm left kidney cyst which is increasing in size and require follow-up in 6 months, dilated small large bowel consistent with enteritis. Patient continues to have persistent abdominal pain despite pain meds. He has been admitted for intractable abdominal pain Allergies promethazine [From Phenergan] Allergy (Unverified 02/21/18 01:56) Unknown - Past Medical/Surgical History -: Hypertension -: Hyperlipidemia -: Kidney stones -: Left shoulder surgery -: Ureteral reconstruction/TURP - Family History Family History: Reviewed- Non-Contributory - Social History Smoking Status: Never smoker Smoking therapy provided: No Patient receptive to therapy: No Alcohol use: No CD- Drugs: No Caffeine use: No Place of Residence: Home Review of Systems 10-point ROS is otherwise unremarkable Gastrointestinal: Nausea, Vomiting, Abdominal Pain Physical Examination - Physical Exam General: Alert, In no apparent distress, Oriented x3 HEENT: Atraumatic, Normocephalic, PERRLA Neck: Supple, 2+ carotid pulse no bruit, JVD not distended Respiratory: Clear to auscultation bilaterally, Normal air movement Cardiovascular: No edema, Normal pulses, Regular rate/rhythm, Normal S1 S2 Capillary refill: <2 Seconds Gastrointestinal: Normal bowel sounds, Non-distended, W/out hepatomegaly, No rebound, No guarding, Tenderness Musculoskeletal: No clubbing, No swelling Neurological: Normal gait, Normal speech, Normal strength at 5/5 x4 extr, Cranial nerves 3-12 intact - Studies Laboratory Data (last 24 hrs) 04/29/24 04/29/24 19:11 19:11 WBC 7.10 Hgb 14.6 Hct 44.8 Plt Count 248 Sodium 136 Potassium 3.7 BUN 30 H Creatinine 1.64 H Glucose 127 H Total Bilirubin 1.3 H AST < 10 L ALT 23 Alkaline Phosphatase 71 Lipase 32 Assessment and Plan - Problems (Diagnosis) (1) Enteritis Current Visit: Yes Status: Acute (2) UTI (urinary tract infection), uncomplicated Current Visit: Yes Status: Acute (3) Intractable abdominal pain Current Visit: Yes Status: Acute - Plan Impression Intractable abdominal pain Acute enteritis Acute UTI Hypertension Asymptomatic nephrolithiasis Left kidney cystincreasing in size, follow-up in 6 months with ultrasound recommended Acute kidney injury CKD stage III baseline Plan Admit to observation Continue pain regimen IV morphine as needed Gentle IV fluid Start empirical antibiotics with Flagyl Monitor creatinine with IV hydration As needed antiemetics as needed Lovenox for DVT prophylaxis Possible discharge in a.m. - Advance Directives Does patient have a Living Will: No Does patient have a Durable POA for Healthcare: No Physician Review: Patient Assessed, Agree with Above Assessment and Plan Time Spent Managing Pts Care (In Minutes): 65
[2024-04-29] MEDS ORDERED: ONDANSETRON 4 MG/2 ML VIAL IV PRN (21:24)
[2024-04-29] MEDS ORDERED: ALBUTEROL 2.5 MG/3 ML NEB SOL NEB PRN (21:24)
[2024-04-29] MEDS ORDERED: HYDRALAZINE HCL 20 MG/ML VIAL IV PRN (21:26)
--- NOTE | 2024-04-29 21:26 | EDPHYS ---
Physician Documentation [facility] Name: Casa Lai Age: 73 yrs Sex: Male : 1950 Arrival Date: 04/29/2024 Time: 18:09 Bed 13 Private MD: Niko Cowart ED Physician Donald Petersen HPI: 04/29 23:07 This 73 yrs old Male presents to ER via Ambulatory with complaints of Abdominal Pain. kb 23:07 Pt is a 73 year old male who presents for left sided abd pain, n/v/d that started 3 kb days ago. States the pain became more severe today. Denies fever. Pt has never had pain like this before. Denies alleviating or aggravating factors. . Historical: - Allergies: 18:27 Phenergan; mb9 - PMHx: 18:27 High Cholesterol; HTN; Kidney stones; mb9 - PSHx: 18:27 Shoulder - Left; mb9 - Immunization history:: Adult Immunizations up to date. - Infectious Disease History:: Denies. - Social history:: Smoking status: Patient denies any tobacco usage or history of. ROS: 23:03 Constitutional: As per HPI kb Exam: 23:03 Constitutional: This is a well developed, well nourished patient who is awake, alert, kb and in no acute distress. Head/Face: Normocephalic, atraumatic. ENT: Moist Mucous membranes Cardiovascular: Regular rate Respiratory: Respirations even and unlabored. No increased work of breathing. Talking in full sentences Skin: Warm, dry with normal turgor. Normal color. MS/ Extremity: Pulses equal, no cyanosis. Neurovascular intact. Full, normal range of motion. Neuro: Awake and alert, GCS 15, oriented to person, place, time, and situation. Moves all extremities. Normal gait. 23:03 Abdomen/GI: Inspection: abdomen appears normal, Bowel sounds: normal, Palpation: soft, in the left upper quadrant and left lower quadrant, moderate abdominal tenderness, Vital Signs: 18:41 BP 136 / 75; Pulse 75; Resp 18; Temp 98.6; Pulse Ox 100% on R/A; Weight 88.45 kg; mb9 Height 5 ft. 7 in. ; Pain 7/10; 20:52 BP 145 / 64; Pulse 77; Resp 18 S; Pulse Ox 98% on R/A; as6 22:14 BP 113 / 62; Pulse 75; Resp 18; Pulse Ox 98% ; as6 18:41 Body Mass Index 30.54 (88.45 kg, 170.18 cm) mb9 18:41 Pain Scale: Adult mb9 MDM: 18:12 Patient medically screened. kb 23:03 Differential diagnosis: diverticulitis, gastritis, gastroesophageal reflux disease, kb non-specific abd pain, pancreatitis. Data reviewed: vital signs, nurses notes. Consideration of Admission/Observation Patient was admitted/placed on observation. Escalation of care including admission/observation considered. Management of patient was discussed with the following: Hospitalist: Dr Haskins accepts pt for admission. Historians other than the Patient: Spouse/Significant Other: . Counseling: I had a detailed discussion with the patient and/or guardian regarding the historical points, exam findings, and any diagnostic results supporting the discharge/admit diagnosis, lab results, radiology results, the need for further work-up and treatment in the hospital. ED course: Pt still having pain after morphine and dilaudid. States he is concerned about going home since the pain hasn't gone away. Will obs for pain management. 04/29 19:01 Order name: CBC with Diff; Complete Time: 19:31 kb 04/29 19:01 Order name: CMP; Complete Time: 19:48 kb 04/29 19:01 Order name: Lipase; Complete Time: 19:48 kb 04/29 19:01 Order name: Urinalysis w/ reflexes; Complete Time: 19:48 kb 04/29 19:45 Order name: Urine Culture EDRI 04/29 21:30 Order name: CBC with Automated Diff EDMS 04/29 21:30 Order name: CBC with Automated Diff EDMS 04/29 21:30 Order name: Comprehensive Metabolic Panel EDRI 04/29 21:30 Order name: Comprehensive Metabolic Panel EDRI 04/29 19:01 Order name: CT Abd/Pelvis - IV Contrast Only; Complete Time: 20:40 kb 04/29 21:30 Order name: CONS Physician Consult EDRI 04/29 19:01 Order name: IV Saline Lock; Complete Time: 19:13 kb 04/29 19:01 Order name: Labs collected and sent; Complete Time: 19:13 kb Administered Medications: 19:42 Drug: morphine IVP or IV 4 mg IVP once over 4 mins Route: IVP; Infused Over: 4 mins; as6 Site: left antecubital; 19:42 Drug: Ondansetron IVP 4 mg IVP once; over 2 minutes Route: IVP; Site: left antecubital; as6 19:42 Drug: NS 0.9% IV 1000 ml IV at 1000 ml once Route: IV; Rate: 1000 ml; Site: left as6 antecubital; 20:23 Drug: HYDROmorphone IVP 1 mg IVP once Route: IVP; Site: left antecubital; as6 Disposition Summary: 04/29/24 21:26 Hospitalization Ordered Notes: Hospitalization Status: Observation kb Provider: Navi Haskins Condition: Stable kb Problem: new kb Symptoms: are unchanged kb Bed/Room Type: Standard kb Location: Telemetry/MedSurg (observation)(04/30/24 00:46) rv1 Room Assignment: 403(04/30/24 00:46) rv1 Diagnosis - Abdominal pain, unspecified - left sided, intractable kb - Enteritis kb - UTI/ Urinary tract infection, site not specified kb Forms: - Medication Reconciliation Form kb - SBAR form kb - Leadership Thank You Letter kb Signatures: Dispatcher [employer] EDMS Nereida Cameron, ACCESS SERVICES REPRESENTATIVE-C ACCESS SERVICES REPRESENTATIVE-Chandu Blood, RN RN as6 Merry Nicholson RN RN mb9 Jessie Edwards rv1 Corrections: (The following items were deleted from the chart) 19:01 19:01 CBC+H.LAB.BRZ ordered. EDMS EDMS 19:01 19:01 COMPREHENSIVE METABOLIC PANEL+C.LAB.BRZ ordered. EDMS EDMS 19:01 19:01 LIPASE+C.LAB.BRZ ordered. EDMS EDMS 19:01 19:01 Urinalysis+U.LAB.BRZ ordered. EDMS EDMS 23:08 23:07 Pt is a 73 year old male who presents for left sided abd pain, n/v/d that kb started. kb 04/30 00:38 04/29 21:26 Telemetry/MedSurg (observation) kb rv1 04/30 00:38 04/29 21:26 kb rv1 06/05 00:46 00:38 [facility] ER HOLD rv1 rv1 00:46 00:38 ERHOLD- rv1 rv1
--- NOTE | 2024-04-29 21:26 | ER ---
Nurse's Notes [facility] Name: Casa Lai Age: 73 yrs Sex: Male : 1950 Arrival Date: 04/29/2024 Time: 18:09 Bed 13 Private MD: Niko Cowart Diagnosis: Abdominal pain, unspecified-left sided, intractable;Enteritis;UTI/ Urinary tract infection, site not specified Presentation: 04/29 18:41 Chief complaint: Patient states: "For the past few days, I've had N/V/D and left sided mb9 abdominal pain.". Coronavirus screen: At this time, the client does not indicate any symptoms associated with coronavirus-19. Ebola Screen: No symptoms or risks identified at this time. Initial Sepsis Screen: Does the patient meet any 2 criteria? No. Patient's initial sepsis screen is negative. Does the patient have a suspected source of infection? No. Patient's initial sepsis screen is negative. Risk Assessment: Do you want to hurt yourself or someone else? Patient reports no desire to harm self or others. Onset of symptoms was April 29, 2024. 18:41 Method Of Arrival: Ambulatory mb9 18:41 Acuity: JANNA 3 mb9 Triage Assessment: 18:43 General: Appears in no apparent distress. Behavior is calm, cooperative. Pain: mb9 Complains of pain in abdomen Pain currently is 7 out of 10 on a pain scale. Quality of pain is described as throbbing, Pain began 2-3 days ago. Is continuous. EENT: No signs and/or symptoms were reported regarding the EENT system. Neuro: Ruiz Agitation-Sedation Scale (RASS): 0 - Alert and Calm Level of Consciousness is awake, alert, obeys commands, Oriented to person, place, time, situation, Appropriate for age. Cardiovascular: Patient's skin is warm and dry. Respiratory: Airway is patent Respiratory effort is even, unlabored, Respiratory pattern is regular, symmetrical. GI: Abdomen is round non-distended, Reports diarrhea, nausea, vomiting. : No signs and/or symptoms were reported regarding the genitourinary system. Derm: Skin is pink, warm \\T\\ dry. Musculoskeletal: Range of motion: intact in all extremities. Historical: - Allergies: 18:27 Phenergan; mb9 - PMHx: 18:27 High Cholesterol; HTN; Kidney stones; mb9 - PSHx: 18:27 Shoulder - Left; mb9 - Immunization history:: Adult Immunizations up to date. - Infectious Disease History:: Denies. - Social history:: Smoking status: Patient denies any tobacco usage or history of. Screenin:14 [facility] ED Fall Risk Assessment (Adult) History of falling in the last 3 months, as6 including since admission No falls in past 3 months (0 pts) Confusion or Disorientation No (0 pts) Intoxicated or Sedated No (0 pts) Impaired Gait No (0 pts) Mobility Assist Device Used No (0 pt) Altered Elimination No (0 pt) Score/Fall Risk Level 0 - 2 = Low Risk Oriented to surroundings, Maintained a safe environment, Educated pt \\T\\ family on fall prevention, incl call for assistance when getting out of bed, Assessed \\T\\ reinforced patient's understanding of fall precautions. Abuse screen: Denies threats or abuse. Denies injuries from another. Nutritional screening: No deficits noted. Tuberculosis screening: No symptoms or risk factors identified. Assessment: 20:52 Reassessment: Patient appears in no apparent distress at this time. Patient and/or as6 family updated on plan of care and expected duration. Pain level reassessed. Patient is alert, oriented x 3, equal unlabored respirations, skin warm/dry/pink. Patient states feeling better. Vital Signs: 18:41 BP 136 / 75; Pulse 75; Resp 18; Temp 98.6; Pulse Ox 100% on R/A; Weight 88.45 kg; mb9 Height 5 ft. 7 in. ; Pain 7/10; 20:52 BP 145 / 64; Pulse 77; Resp 18 S; Pulse Ox 98% on R/A; as6 22:14 BP 113 / 62; Pulse 75; Resp 18; Pulse Ox 98% ; as6 18:41 Body Mass Index 30.54 (88.45 kg, 170.18 cm) mb9 18:41 Pain Scale: Adult mb9 ED Course: 18:11 Patient arrived in ED. rg4 18:11 Niko Cowart MD is Private Physician. rg4 18:12 Nereida Cameron [facility]-C [facility] kb 18:12 Donald Petersen MD is Attending Physician. kb 18:43 Triage completed. mb9 18:44 Arm band placed on. mb9 19:05 Chandu Mayen, RN is Primary Nurse. as6 19:13 Lipase Sent. as6 19:13 CMP Sent. as6 19:13 CBC with Diff Sent. as6 19:13 Inserted saline lock: 20 gauge in left antecubital area, using aseptic technique. Blood as6 collected. 19:31 Urinalysis w/ reflexes Sent. as6 20:06 CT Abd/Pelvis - IV Contrast Only In Process Unspecified. EDMS 21:26 Navi Haskins MD is Hospitalizing Provider. kb 22:14 Bed in low position. Call light in reach. Side rails up X 1. as6 22:14 No provider procedures requiring assistance completed. Patient admitted, IV remains in as6 place. 22:15 Provided Education on: need for admit. as6 Administered Medications: 19:42 Drug: morphine IVP or IV 4 mg IVP once over 4 mins Route: IVP; Infused Over: 4 mins; as6 Site: left antecubital; 19:42 Drug: Ondansetron IVP 4 mg IVP once; over 2 minutes Route: IVP; Site: left antecubital; as6 19:42 Drug: NS 0.9% IV 1000 ml IV at 1000 ml once Route: IV; Rate: 1000 ml; Site: left as6 antecubital; 20:23 Drug: HYDROmorphone IVP 1 mg IVP once Route: IVP; Site: left antecubital; as6 Medication: 19:14 VIS not applicable for this client. as6 Outcome: 21:26 Decision to Hospitalize by Provider. kb 22:15 Condition: stable as6 22:15 Instructed on the need for admit, 04/30 00:40 Admitted to ER Hold. Please see [facility] for further documentation. tm6 01:54 Patient left the ED. tm6 Signatures: Dispatcher [employer] EDMS Nereida Cameron, EMBEDDED LINUX DEVELOPER-C EMBEDDED LINUX DEVELOPER-Crystal Gallo rg4 Chandu Mayen, RN RN as6 Merry Nicholson, RN RN mb9 Rashel Campos RN RN tm6
[2024-04-29 23:35] VITALS: BMI 30.5
[2024-04-30] MEDS ORDERED: NA CHLORIDE 0.9% 1,000 ML ONE (00:21)
[2024-04-30] MEDS ORDERED: Levofloxacin500mg IV 500 MG/100 ML BAG IV ONE (00:21)
[2024-04-30] MEDS: Levofloxacin500mg IV 500 MG/100 ML BAG IV ONE (00:38)
[2024-04-30] MEDS: NA CHLORIDE 0.9% 1,000 ML IV SCH (00:38)
[2024-04-30] MEDS: METRONIDAZOLE 250mg IVPB 250 MG/50 ML BAG IV SCH ×2 (01:00→04:00)
[2024-04-30] MEDS: METRONIDAZOLE 500mg IVPB 250 MG/50 ML BAG IV SCH (04:57)
[2024-04-30 07:08] LABS: Absolute Eosinophils 0.1 K/uL (0-0.5); Absolute Lymphocytes (CBC) 1.7 K/uL (0.7-4.9); Absolute Monocytes 0.9 K/uL (0.1-1.3); Absolute Neutrophil 3.9 K/uL (1.8-8.0); Basophils % 0.1 % (0-1.3); Hematocrit 38.8 % (39.6-49.0); Hemoglobin 12.8 g/dL (13.6-17.9); Lymphocytes % 25.7 % (15.3-44.8); MCH 29.9 pg (27.0-35.0); MCV 90.4 fL (80-100); MPV 7.8 fL (7.6-11.3); Neutrophils % 59.2 % (41.7-73.7); Platelets 202 thou/uL (152-406); RBC Red Blood Cell Count 4.29 M/uL (4.33-5.43)
[2024-04-30 07:35] LABS: ALT/SGPT 17 U/L (16-61); Albumin 2.6 g/dL (3.4-5.0); Albumin/Globulin Ratio 0.9 (1.1-1.8); Alkaline Phosphatase 55 U/L (45-117); Anion Gap 8.9 mEq/L (5.0-15.0); BUN Blood Urea Nitrogen 29 mg/dL (7-18); Bicarbonate 19 mEq/L (21-32); Bilirubin Total 0.8 mg/dL (0.2-1.0); Glomerular Filtration Rate 63 ml/min (=/>90); Glucose Level 96 mg/dL (74-106); Potassium 3.9 mEq/L (3.5-5.1); Protein, Total 5.6 g/dL (6.4-8.2); Sodium Level 137 mEq/L (136-145)
[2024-04-30 07:36] LABS: AST/SGOT < 10 U/L (15-37)
[2024-04-30] MEDS: ENOXAPARIN 40 MG/0.4 ML SQ SCH (08:00)
[2024-04-30] MEDS: FAMOTIDINE 20 MG TAB PO SCH (08:00)
[2024-04-30] MEDS: Levofloxacin 750mg IV 750 MG/150 ML BAG IV SCH (08:07)
[2024-04-30] MEDS ORDERED: METRONIDAZOLE 250mg IVPB 250 MG/50 ML BAG IV SCH (09:00)
--- NOTE | 2024-04-30 10:32 | P.PN ---
Date of Service: 04/30/24 Subjective: Doing a little better Still with pain/diarrhea ROS: 10 point ROS as noted above, otherwise negative Physical exam GEN: Alert, oriented, NAD HEENT: Normal conjunctiva, sclera anicteric CV: Regular rate and rhythm, no edema Pulm: Nonlabored respirations on room air ABD: Soft, mild LLQ tenderness, nondistended MSK: No joint tenderness Integumentary: No rashes Neuro: Normal speech, normal affect Vitals reviewed Assessment Intractable abdominal pain with N/V/D Acute enteritis Acute UTI Acute kidney injury on CKD III Hypertension Asymptomatic nephrolithiasis Left kidney cystincreasing in size, follow-up in 6 months with ultrasound recommended Plan Intractable abdominal pain with N/V/D Acute enteritis Acute UTI Improving, still with LLQ pain/tenderness Diarrhea x1 overnight appears dry, BP 90s systolic normal 140s Continue IVF, abx Diet as tolerated Acute kidney injury on CKD III Improved with IVF Monitor daily Hypertension Hold meds as BP is soft Restart when appropriate Asymptomatic nephrolithiasis Left kidney cystincreasing in size follow-up in 6 months with ultrasound recommended VTE:Lovenox Code:Full Dispo:24 to 48 hours Time Spent Managing Pts Care (In Minutes): 35
[2024-04-30] MEDS: METRONIDAZOLE 500mg IVPB 500 MG/100 ML BAG IV SCH (11:22)
[2024-04-30] MEDS: Ringers Lactate 1,000 ML IV SCH (12:13)
[2024-04-30] MEDS: MORPHINE 2 MG/ML SYR IV PRN (12:29)
[2024-04-30 14:27] LABS: C.diff Antigen/Toxin Ag pos : Tox neg (NEG : NEG); CDIFF INTERNAL NEG CONTROL White Background (WHITE BKGD); STOOL CONSISTENCY Liquid/Semi-Solid
--- NOTE | 2024-04-30 16:14 | CON ---
Date of Consultation: 04/30/2024 Reason For Consultation: Nephrolithiasis, elevated BUN and creatinine. History Of Present Illness: This is a pleasant 73-year-old gentleman with significant past medical h istory of hypertension, hyperlipidemia, prostate hypertrophy status post TURP, complicated surgery, e nded up with skin graft. The patient came to the hospital complaining from abdominal pain, nausea, a nd vomiting. Primary workup showed elevation in BUN and creatinine. Creatinine 1.6 with electrolyte imbalance and UTI. For that reason, we have been consulted. The patient denied taking any nonstero idals. No contrast exposure recently. The patient has a history of nephrolithiasis. The patient wa s started on IV hydration. Kidney function started improving. The patient had contrast yesterday on evaluation. As home medication, the patient also on CLAYTON inhibitor, ramipril. Past Medical History: Includes: 1.Hypertension. 2.Hyperlipidemia. 3.Nephrolithiasis. Past Surgical History: Includes: 1.TURP with graft and reconstruction. 2.Left shoulder surgery. Home Medications: Include Ambien, , ramipril, propranolol. Current Medications: Lovenox, Pepcid, hydralazine, metronidazole, levofloxacin, Zofran. Allergies: PROMETHAZINE. Family History: Positive for hypertension. Social History: Denied smoking, denied drinking, denied drugs abuse. Review of Systems: Head and Neck: No red eye. No ear pain. GI: Has abdominal pain. Has nausea. : Has dysuria. Has flank pain. Can Closing Machine Tender: Not applicable. Respiratory: No shortness of breath. Cardiovascular: No chest pain. Endocrine: No polydipsia. Skin: No rash. Physical Examination: General: When I saw the patient, the patient lying in bed, comfortable. Vital Signs: Blood pressure 95/55, pulse of 68, afebrile. Chest: Clear to auscultation. Heart: S1, S2 regular. Abdomen: Soft, nontender. Extremities: No edema. Neurologic: Alert. No focality. Lab Data: Has lab data for the patient back in June 2023, hemoglobin 15.1. Sodium 137, creatinine 1.3, GFR of 55. Yesterday upon admission, sodium 136, potassium 3.7, bicarb 21, BUN 30, creatinine 1.6, GFR of 44, calcium 9.3. WBC 7.1, hemoglobin 14.6. Today lab data, sodium 137, potassium 3.9, b icarb 19, BUN 29, creatinine 1.2, GFR of 63, calcium 8.4. Urinalysis, specific gravity of 1.029, wbc more than 50. CT abdomen showing ileus, nonobstructing nephrolithiasis on the right side, 16 mm cys tic mass, large from 2018, benign. Assessment And Plan: 1.Acute kidney injury secondary to poor perfusion ATN secondary to poor intake/toxic ATN secondary t o UTI, on recovery, back to baseline, uncomplicated, with acidosis. Obstructive uropathy has been ru led out. I am going to change IV fluid to LR and we will follow up. 2.Hypokalemia. We will supplement. Change IV fluid to LR. 3.Hyponatremia, depletional, recovered, resolved. 4.Acidosis secondary to normal saline change to LR. 5.UTI, continue current antibiotic. 6.Renal cyst, increased in size from 2018, but still 1.6 cm and simple, we will follow up as outpati ent with repeated ultrasound. 7.Hypertension, controlled. Currently blood pressure on the lower side. Hold all blood pressure me dication especially CLAYTON inhibitor with acute kidney injury and will follow up. Time spent examining the patient [id number], reviewing data, lab and radiology, placing order, disc ussing the case with the patient, discussing the case with the merchandise flow team leader including hospitalist and nursing staff more than 75 minutes. GRAYSON Voice ID: [id number] Report ID: [id number]
[2024-04-30] MEDS: VANCOMYCIN HCL 125 MG CAPSULE PO SCH (17:28)
[2024-04-30] MEDS ORDERED: Levofloxacin 250mg IV 250 MG/50 ML BAG IV SCH (22:00)
[2024-04-30 23:00] LABS: Urine Protein/Creatinine Ratio 0.17 ratio (<0.15)
[2024-05-01 07:08] LABS: Hematocrit 35.8 % (39.6-49.0); Hemoglobin 12.3 g/dL (13.6-17.9); MCH 30.9 pg (27.0-35.0); MCHC 34.4 g/dL (32.0-36.0); MCV 89.6 fL (80-100); MPV 7.5 fL (7.6-11.3); Platelets 194 thou/uL (152-406); RBC Red Blood Cell Count 3.99 M/uL (4.33-5.43); Red Cell Distribution Width 13.9 % (12.1-15.2)
[2024-05-01 07:40] LABS: Albumin 2.7 g/dL (3.4-5.0); Anion Gap 9.6 mEq/L (5.0-15.0); Phosphorus 2.4 mg/dL (2.5-4.9); Potassium 3.6 mEq/L (3.5-5.1)
[2024-05-01 11:20] VITALS: BP 122/69; TEMP 97.8
[2024-05-01 11:37] VITALS: O2SAT 95
--- NOTE | 2024-05-01 14:40 | P.DS ---
Admission Date: 04/30/24 Discharge Date: 05/01/24 Disposition: ROUTINE DISCHARGE Discharge Condition: GOOD Reason for Admission: Abdominal pain Brief History of Present Illness: 73-year-old male with past medical history of HTN, renal calculi, recent TURP, hyperlipidemia who presented because of generalized abdominal pain since the last 3 days associated with recurrent nausea and vomiting. Patient denies any diarrhea but admits to some loose stools. He denies any fever or chills. Abdominal pain is more crampy pattern. Pain has been increasing in intensity. Patient presented because of worsening symptoms. On arrival in the ED vital signs were stable afebrile, workup including WBC shows 7.9 with no differentials, BMP shows creatinine of 1.6baseline of 1.3, urinalysis consistent with UTI, CT of the abdomen shows thickened bladder, but no perinephric stranding, multiple renal calculi nonobstructing, 16 mm left kidney cyst which is increasing in size and require follow-up in 6 months, dilated small large bowel consistent with enteritis. Patient continues to have persistent abdominal pain despite pain meds. He has been admitted for intractable abdominal pain Hospital Course: Assessment Intractable abdominal pain with N/V/D Acute enteritis Acute UTI Acute kidney injury on CKD III Hypertension Asymptomatic nephrolithiasis Left kidney cystincreasing in size, follow-up in 6 months with ultrasound recommended Patient was admitted to the hospital for abdominal pain, diarrhea, acute kidney injury. He was treated with IV fluids and IV antibiotics for enteritis. His kidney function improved, he informed us that he been having copious amounts of watery diarrhea the last few days before he came to the hospital, C. difficile testing was performed and was antigen positive but toxin negative. Although his toxin was negative he has been having significant symptomology of that reason he will be treated for C. difficile infection. His diarrhea has improved significantly with only 1 bowel movement in the last 12 hours, abdominal pain has improved as well as his kidney function. Creatinine now within normal limits. Patient will be sent prescription for oral vancomycin to [facility] pharmacy Also discussed renal cysts on imaging and need for 6-month follow-up ultrasound, copies of radiology reports provided to . Vital Signs/Physical Exam: Temp Pulse Resp BP Pulse Ox 97.8 F 69 18 122/69 95 05/01/24 08:00 05/01/24 08:00 05/01/24 08:00 05/01/24 08:00 05/01/24 08:00 General: Alert, In no apparent distress, Oriented x3 HEENT: Atraumatic, PERRLA Neck: Supple, JVD not distended Respiratory: Clear to auscultation bilaterally, Normal air movement Cardiovascular: Regular rate/rhythm, Normal S1 S2 Gastrointestinal: Normal bowel sounds, No tenderness Musculoskeletal: No tenderness Integumentary: No rashes Neurological: Normal speech, Normal tone, Normal affect Laboratory Data at Discharge: WBC 4.80 thou/uL (4.3-10.9) 05/01/24 06:20 Hgb 12.3 g/dL (13.6-17.9) L 05/01/24 06:20 Hct 35.8 % (39.6-49.0) L 05/01/24 06:20 Plt Count 194 thou/uL (152-406) 05/01/24 06:20 Sodium 139 mEq/L (136-145) 05/01/24 06:20 Potassium 3.6 mEq/L (3.5-5.1) 05/01/24 06:20 BUN 16 mg/dL (7-18) 05/01/24 06:20 Creatinine 1.27 mg/dL (0.70-1.30) 05/01/24 06:20 Glucose 92 mg/dL (74-106) 05/01/24 06:20 Phosphorus 2.4 mg/dL (2.5-4.9) L 05/01/24 06:20 Total Bilirubin 0.8 mg/dL (0.2-1.0) 04/30/24 06:45 AST < 10 U/L (15-37) L 04/30/24 06:45 ALT 17 U/L (16-61) 04/30/24 06:45 Alkaline Phosphatase 55 U/L (45-117) D 04/30/24 06:45 Lipase 32 U/L (13-75) 04/29/24 19:11 Home Medications: Propranolol HCl [Propranolol HCl ER] 10 mg PO BID 04/30/24 Ramipril [Altace] 10 mg PO DAILY 04/30/24 Rosuvastatin [Crestor*] 1 tab PO DAILY 04/30/24 Zolpidem Tartrate [Ambien] 5 mg PO BEDTIME 04/30/24 Vancomycin HCl 125 mg PO QID 10 Days #40 cap 05/01/24 New Medications: Vancomycin HCl 125 mg PO QID 10 Days #40 cap Physician Discharge Instructions: Patient was admitted to the hospital for abdominal pain, diarrhea, acute kidney injury. He was treated with IV fluids and IV antibiotics for enteritis. His kidney function improved, he informed us that he been having copious amounts of watery diarrhea the last few days before he came to the hospital, C. difficile testing was performed and was antigen positive but toxin negative. Although his toxin was negative he has been having significant symptomology of that reason he will be treated for C. difficile infection. His diarrhea has improved significantly with only 1 bowel movement in the last 12 hours, abdominal pain has improved as well as his kidney function. Creatinine now within normal limits. Patient will be sent prescription for oral vancomycin to [facility] pharmacy Also discussed renal cysts on imaging and need for 6-month follow-up ultrasound, copies of radiology reports provided to . Diet: Regular Activity: Ad nancy Followup: Mare Mayes MD [ACTIVE - CAN ADMIT] - 1-2 Weeks Niko Cowart MD [Primary Care Provider] - 1-2 Weeks Time spent managing pt's care (in minutes): 35
--- NOTE | 2024-05-01 18:40 | PN ---
Date of Progress Note: 05/01/2024 Subjective: The patient was admitted to the hospital with acute kidney injury. The patient had neph rolithiasis. The patient was hydrated. Kidney function started being improved. Patient feeling muc h better. Objective: Vital Signs: When I saw the patient, blood pressure of 122/69, pulse of 69, afebrile. Chest: Clear to auscultation. Heart: S1, S2. Regular. Abdomen: Soft, nontender. Extremity: No edema. Neuro: Alert. No focality. Laboratory Data: Hemoglobin 12.3, sodium 139, potassium 3.6, bicarb 21, BUN 16, creatinine down to 1 .2, GFR of 60, calcium 8.7. Assessment And Plan: 1.Acute kidney injury secondary to prerenal, poor perfusion, ATN, and toxic ATN secondary to urinary tract infection, recovered, resolved. Discontinue IV fluid. The patient cleared from the Renal sta ndpoint for discharge planning. 2.Hypokalemia, status post supplement, resolved. 3.Hyponatremia, depletional, resolved. 4.Acidosis secondary to renal failure and dehydration, recovered, resolved. Discontinue LR. 5.Renal cyst, increased in size compared to back in 2018. The patient will be due for another ultra sound in 6 months, which is going to be due in October. 6.Hypertension, controlled, optimal with the current acute kidney injury. Keep holding CLAYTON inhibito r. We will challenge as an outpatient. 7.Urinary tract infection. Continue current antibiotics. GRAYSON Voice ID: [id number] Report ID: [id number]
== END 2024-05-01 12:17 | disposition home or self-care (01) | DRG 371 ==
LOC: ER 18:09 → ERHOLD 21:24 → 4TH 04-30 01:25 → OBSVTOIN 04-30 17:06
PROVIDERS: ADMIT Internal Medicine; ATTEND Hospitalist
DX: A04.72 Enterocolitis due to Clostridium difficile, not specified as recurrent (principal); N17.0 Acute kidney failure with tubular necrosis; N39.0 Urinary tract infection, site not specified; E87.1 Hypo-osmolality and hyponatremia; E87.20 Acidosis, unspecified; N28.1 Cyst of kidney, acquired; N20.0 Calculus of kidney; E87.6 Hypokalemia; E78.00 Pure hypercholesterolemia, unspecified; I12.9 Hypertensive chronic kidney disease with stage 1 through stage 4 chronic kidney disease, or unspecified chronic kidney disease; N18.30 Chronic kidney disease, stage 3 unspecified; Z88.8 Allergy status to other drugs, medicaments and biological substances
CPT/HCPCS: 36415; 74177; 80053; 80069; 81001; 82570; 83690; 84156; 85025; 85027; 87045; 87046; 87077; 87086; 87088; 87177; 87186; 87209; 87324; 89055; 96374; 96375; 99285; G0378; J1170; J1650; J2270; J2405; J7030; J7120

== ENCOUNTER 2025-03-28 03:13 | Emergency (ER) | payer OTHER ==
--- OUTSIDE RECORDS SUMMARY | 2025-03-28 03:15 | XMS REPORT | Clinical Summary ---
Author Name Unknown Organization [facility] Address [address] [place] [address] Care Team Providers Care Health Care / Medical Job Titles Name Role Phone Niko Cowart MD Unavailable [phone] Kaia Murphy MD Primary Care Provider [phone] Blaine Julian MD Unavailable Allergies Active Allergy Reactions Criticality Noted Date Comments Peanut 05/09/2019 vomiting Promethazine Other (See Comments) 05/09/2019 vomiting Medications doxycycline (VIBRAMYCIN) 50 MG capsule TAKE 1 CAPSULE BY MOUTH EVERY DAY 1 9 Active clotrimazole-be tamethasone (LOTRISONE) 1%-0.05% cream TOPICAL APPLY TO AFFECTED AREA TWICE DAILY NEEDED. 2 9 Active rosuvastatin (CRESTOR) 10 mg tablet 9 Active zolpidem (AMBIEN CR) 12.5 mg CR tablet TAKE 1 TABLET BY MOUTH EVERY DAY AT BEDTIME NEEDED 2 9 Active ramipril (ALTACE) 10 MG capsule 9 Active mupirocin (BACTROBAN) 2% ointmentIndicat ions:Folliculit is Apply to nose as directed BID x 14 days. 22 g 2 9 Active Additional Information Patient not taking.Reported on 06/19/2022 clindamycin (CLEOCIN T) 1% lotionIndicatio ns:Folliculitis Apply to scalp as directed once daily. 60 mL 6 9 Active Additional Information Patient not taking.Reported on 06/19/2022 erythromycin with ethanol (THERAMYCIN) 2 % topical solutionIndicat ions:Folliculit is Apply up to twice daily for scalp folliculitis 60 mL 6 9 Active Additional Information Patient not taking.Reported on 06/19/2022 temazepam (RESTORIL) 30 mg capsule TAKE 1 CAPSULE BY MOUTH EVERYDAY AT BEDTIME 0 Active zolpidem (AMBIEN) 10 mg tablet Take 1 tablet (10 mg) by mouth. Active omega-3s/dha/ep a/fish oil/D3 (DE3 DRY EYE OMEGA BENEFITS ORAL) Take by mouth. Activ e mupirocin (BACTROBAN) 2% ointmentIndicat ions:Infection of skin Apply topically to affected area(s) twice daily. 22 g 3 Active propranolol (INDERAL) 10 mg tablet Take 1 tablet (10 mg) by mouth. 3 Active Encounters Date Type Department Care Team Description 06/18/2024 9:30 AM CDT [facility] Main [facility], [address]th [place] [address] Blaine Julian MD Folliculitis (Primary Dx); Actinic keratosis; Personal history of other malignant neoplasm of skin; Inflamed seborrheic keratosis; Seborrheic keratosis; Melanocytic nevus of trunk 06/18/2024 Travel after 03/28/2024 Surgical History Surgery Date Site/Laterality Comments COLONOSCOPY 11/26/2008 - 11/25/2009 Medical History Medical History Date Comments Hypertension 2010 Hyperlipidemia 2005 Hearing loss 2014 Functional visual loss 2000 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 shoe dust; 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[employer] Dependence on continuous pos itive airway pressure [...] Assigned at Male 04/26/2019 4:22 PM CDT Legal Sex Male 10:55 AM CDT Gender Identity Male 04/26/2019 4:22 PM CDT Sexual Orientation Straight 04/26/2019 4: 22 PM CDT Obstetrics History Last Filed Vital Signs Vital Sign Reading Time Taken Comments Blood Pressure 147/80 06/18/2024 9:26 AM CDT Pulse 60 06/18/2024 9:26 AM CDT Temperature 36.6 °C (97.9 °F) 06/18/2024 9:26 AM CD T Respiratory Rate 18 06/18/2024 9:26 AM CDT Oxygen Saturation 97% 06/18/2024 9:26 AM CDT Inhaled Oxygen Concentration - - Weight 90.1 kg (198 lb 10.2 oz) 06/18/2024 9:26 AM CDT Height - - Body Mass Index 30.81 05/09/2019 9:37 AM CDT Plan of Treatment Upcoming Encounters Date Type Department Care Team (Late st Contact Info) Description 06/17/2025 9:45 AM CDT [facility] - Dermatology [address] [place] [address], [address] [place], [place] [id number] Blaine Julian MD [facility] [place] [address] [email or web address] Health Maintenance Due Date Last Done Comments Pneumococcal Vaccine: 50+ Years (1 of - PCV) 002 COVID-19 Vaccine ( season) 2024 Influenza Vaccine (Season Ended) 2025 Insurance [employer] MEDICARE PPO [employer] MEDICARE PPO Care Teams Health Care / Medical Job Titles Relationship Specialty Start Date End Date Niko Cowart MD [address] [place] [email or web address] PCP - External Referring Family Practice 04/09/19 Kaia Murphy MD [facility] [place] [address] [email or web address] PCP - General Dermatology 04/24/19 Blaine Julian MD [address] [place] [address] [email or web address] Consulting Physician Dermatology 09/08/19
[2025-03-28] MEDS ORDERED: ONDANSETRON 4 MG/2 ML VIAL ONE (03:47)
[2025-03-28] MEDS ORDERED: MORPHINE 4 MG/ML SYR ONE ×2 (03:47→06:35)
[2025-03-28] MEDS ORDERED: NA CHLORIDE 0.9% 1,000 ML ONE ×2 (03:47→06:35)
[2025-03-28 03:55] LABS: Absolute Monocytes 0.8 K/uL (0.1-1.3); Absolute Neutrophil 4.2 K/uL (1.8-8.0); Basophils % 0.2 % (0-1.3); Eosinophils % 0.6 % (0-4.4); Hematocrit 44.1 % (39.6-49.0); Lymphocytes % 16.6 % (15.3-44.8); MCH 30.3 pg (27.0-35.0); MCHC 34.1 g/dL (32.0-36.0); MCV 88.8 fL (80-100); MPV 7.6 fL (7.6-11.3); Monocytes % 12.6 % (3.3-12.3); Nucleated Red Blood Cells % 0.1 % (0-0); Platelets 221 thou/uL (152-406); RBC Red Blood Cell Count 4.97 M/uL (4.33-5.43); Red Cell Distribution Width 13.8 % (12.1-15.2)
[2025-03-28 04:15] LABS: ALT/SGPT 20 U/L (16-61); Albumin 3.6 g/dL (3.4-5.0); Albumin/Globulin Ratio 1.1 (1.1-1.8); Alkaline Phosphatase 68 U/L (45-117); Anion Gap 10.7 mEq/L (5.0-15.0); BUN Blood Urea Nitrogen 28 mg/dL (7-18); Bicarbonate 21 mEq/L (21-32); Bilirubin Total 1.5 mg/dL (0.2-1.0); Globulin 3.4 g/dL (2.3-3.5); Glomerular Filtration Rate 47 ml/min (=/>90); Glucose Level 128 mg/dL (74-106); Lipase 387 U/L (13-75); Potassium 3.7 mEq/L (3.5-5.1); Sodium Level 139 mEq/L (136-145)
[2025-03-28 04:16] LABS: AST/SGOT < 10 U/L (15-37)
[2025-03-28 05:22] LABS: Urine Bacteria None Seen /HPF (<20); Urine Bilirubin 1+ (Negative); Urine Blood Negative (Negative); Urine Clarity Extremely Turbid (Clear); Urine Color Yellow (Yellow); Urine Culture Reflex Order REFLEXED; Urine Glucose NEGATIVE (Negative); Urine Ketones NEGATIVE (Negative); Urine Microscopic Reflex YN ORDER UMIC; Urine Mucus 4+ /HPF (None Seen); Urine Nitrite NEGATIVE (Negative); Urine Protein 1+ (Negative); Urine Urobilinogen Normal (Normal)
[2025-03-28 05:51] LABS: Specific Gravity > 1.030 (1.005-1.030)
--- NOTE | 2025-03-28 06:26 | RAD REPORT ---
EXAMINATION: Abdomen Pelvis W Contrast CLINICAL INDICATION: Male, 74 years old.ABD PAIN TECHNIQUE: CT abdomen and pelvis was performed, after the administration of IV contrast, as per [facility] protocol. Axial, sagittal and coronal reconstructions were obtained. One or more of the following dose reduction techniques were used: Automated exposure control, adjustment of the mA and/o r kV according to patient size, and/or iterative reconstruction. Unless otherwise specified, incidental findings do not require dedicated imaging follow-up. [id number]. COMPARISON: 04/29/24 FINDINGS: LOWER CHEST: No acute process identified.No significant pericardial effusion. Mild circumferential th ickening of the distal esophagus which could reflect esophagitis. UPPER GI: No significant abnormality. LIVER: No significant focal abnormality. GALLBLADDER/BILE DUCTS: Distended but otherwise unremarkable. PANCREAS: No mass, ductal dilation, or kash-pancreatic fluid. SPLEEN: Unremarkable. ADRENALS: No adrenal masses. KIDNEYS AND URETERS: No hydronephrosis.Low density and/or too small to characterize renal lesions whi ch are statistically benign.Nonobstructing renal calculi. ABDOMINAL AORTA AND OTHER VESSELS: Normal caliber aorta and IVC. PERITONEUM: No abnormal free fluid. No free air. LYMPH NODES: No pathologic lymphadenopathy. ABDOMINAL WALL: Unremarkable SMALL BOWEL/COLON: Small bowel has normal course and caliber. No colonic wall thickening or pericolon ic inflammatory changes. Liquid stool contents in the small bowel and colon which may reflect diarrheal disease. URINARY BLADDER: Underdistended but grossly unremarkable. REPRODUCTIVE ORGANS: No pathologic process. MUSCULOSKELETAL: Multilevel degenerative changes in the spine. No acute fracture. ADDITIONAL FINDINGS: None. IMPRESSION: No acute findings within the abdomen or pelvis. Nonspecific small bowel and colonic fluid could repre sent a mild enterocolitis or malabsorptive process.
[2025-03-28] MEDS ORDERED: CIPROFLOXACIN 400mg IV 400 MG/200 ML BAG IV ONE (06:35)
--- NOTE | 2025-03-28 06:44 | EDPHYS ---
Physician Documentation [facility] Name: Casa Lai Age: 74 yrs Sex: Male : 1950 Arrival Date: 03/28/2025 Time: 03:13 Bed 18 Private MD: ED Physician Mandie Villafana HPI: 03/28 03:56 This 74 yrs old Male presents to ER via Ambulatory with complaints of Abdominal Pain, sp3 Nausea/Vomiting/Diarrhea. 03:56 74-year-old male with history of kidney stones, diverticulosis, intention tremor, sp3 hyperlipidemia, hypertension presents to the ED with chief complaint lower quadrant abdominal pain left greater than right. Patient also states he is has diarrhea coupled with some emesis. He was supposed to get an EGD yesterday but was canceled by Dr. Echeverria secondary to his symptoms. Patient denies any other symptoms including headache, fever, URI symptoms, neck pain, chest pain, shortness of breath, back pain, symptoms, rash, bleeding or any other signs or symptoms on ROS at this time.. Historical: - Allergies: 03:40 Phenergan; lg3 - Home Meds: 03:40 Altace Oral [Active]; Crestor oral [Active]; Ambien Oral [Active]; Propranolol Oral lg3 [Active]; - PMHx: 03:40 High Cholesterol; HTN; Kidney stones; diverticulosis (Kidney stones); tremors (Kidney lg3 stones); - PSHx: 03:40 Shoulder - Left; TURP (Shoulder - Left); TURP revision (Shoulder - Left); lg3 - Immunization history:: Adult Immunizations up to date. - Infectious Disease History:: Denies. - Social history:: Smoking status: Patient denies any tobacco usage or history of. Patient/guardian denies using alcohol, street drugs. ROS: 03:57 Constitutional: Negative for fever, chills, and weight loss, Eyes: Negative for injury, sp3 pain, redness, and discharge, ENT: Negative for injury, pain, and discharge, Neck: Negative for injury, pain, and swelling, Cardiovascular: Negative for chest pain, palpitations, and edema, Respiratory: Negative for shortness of breath, cough, wheezing, and pleuritic chest pain, Back: Negative for injury and pain, : Negative for injury, bleeding, discharge, and swelling, MS/Extremity: Negative for injury and deformity, Skin: Negative for injury, rash, and discoloration, Neuro: Negative for headache, weakness, numbness, tingling, and seizure, Psych: Negative for depression, anxiety, suicide ideation, homicidal ideation, and hallucinations, Allergy/Immunology: Negative for hives, rash, and allergies, Endocrine: Negative for neck swelling, polydipsia, polyuria, polyphagia, and marked weight changes, 03:57 All other systems are negative, Exam: 03:58 Constitutional: This is a well developed, well nourished patient who is awake, alert, sp3 and in no acute distress. Head/Face: Normocephalic, atraumatic. Eyes: Pupils equal round and reactive to light, extra-ocular motions intact. Lids and lashes normal. Conjunctiva and sclera are non-icteric and not injected. Cornea within normal limits. Periorbital areas with no swelling, redness, or edema. ENT: Nares patent. No nasal discharge, no septal abnormalities noted. External auditory canals are clear. Oropharynx with no redness, swelling, or masses, exudates, or evidence of obstruction, uvula midline. Mucous membranes moist. Neck: Trachea midline, no thyromegaly or masses palpated, and no cervical lymphadenopathy. Supple, full range of motion without nuchal rigidity, or vertebral point tenderness. No Meningismus. Chest/axilla: Normal chest wall appearance and motion. Nontender with no deformity. No lesions are appreciated. Cardiovascular: Regular rate and rhythm with a normal S1 and S2. No gallops, murmurs, or rubs. Normal PMI, no JVD. No pulse deficits. Respiratory: Lungs have equal breath sounds bilaterally, clear to auscultation and percussion. No rales, rhonchi or wheezes noted. No increased work of breathing, no retractions or nasal flaring. Back: No spinal tenderness. No costovertebral tenderness. Full range of motion. Skin: Warm, dry with normal turgor. Normal color with no rashes, no lesions, and no evidence of cellulitis. MS/ Extremity: Pulses equal, no cyanosis. Neurovascular intact. Full, normal range of motion. Neuro: Awake and alert, GCS 15, oriented to person, place, time, and situation. Cranial nerves II-XII grossly intact. Motor strength 5/5 in all extremities. Sensory grossly intact. Cerebellar exam normal. Normal gait. Psych: Awake, alert, with orientation to person, place and time. Behavior, mood, and affect are within normal limits. 03:58 Abdomen/GI: Left lower quadrant abdominal pain greater than right lower quadrant abdominal pain without peritoneal signs, rebound or guarding. No CVA tenderness noted. Vital signs are normal., Vital Signs: 03:37 BP 139 / 70; Pulse 68; Resp 16 S; Temp 98(O); Pulse Ox 98% on R/A; Weight 86.18 kg (R); lg3 Height 5 ft. 7 in. (R); Pain 6/10; 05:16 BP 119 / 62; Pulse 67; Resp 16 S; Pulse Ox 96% on R/A; lg3 07:00 BP 124 / 50; Pulse 67; Resp 17 S; Pulse Ox 97% on R/A; Pain 4/10; lg3 07:52 BP 111 / 65; Pulse 65; Resp 16; Pulse Ox 97% on R/A; Pain 0/10; mb9 03:37 Body Mass Index 29.76 (86.18 kg, 170.18 cm) lg3 03:37 Pain Scale: Adult lg3 07:00 Pain Scale: Adult lg3 07:52 Pain Scale: Adult mb9 MDM: 03:35 Medical Screening Exam initiated sp3 03:58 Data reviewed: vital signs, nurses notes, old medical records, lab test result(s), sp3 radiologic studies. ED course: 74-year-old male with PMH above including diverticulosis now with lower quadrant abdominal pain, vomiting and diarrhea. Differential diagnosis broad includes gastroenteritis, foodborne illness, diverticulitis, other bowel obstruction, other abdominal pathology, kidney stone, UTI, among others. I am not highly suspicious of sepsis, shock, vascular pathology including aorta, VT/ACS, PE, or any other signs or symptoms on ROS at this time. Workup include CT scan of the abdomen pelvis with IV contrast, general labs, UA and general supportive care pain and nausea medication as needed. Final disposition pending workup and patient course.. 06:43 ED course: CT scan negative except for increase fluid in the colon consistent with sp3 patient's diarrhea. Routine lab work demonstrates elevated creatinine and hyaline casts in the urine indicative of dehydration. Will give second liter of normal saline, 40 mg of ciprofloxacin and additional morphine prior to discharge. Patient will be discharged home on Cipro, Flagyl, tramadol, ondansetron ODT with follow-up to PCP. Current vital signs are normal with 119/62, 67, 16, 98 at 96% on room air.. 03/28 03:37 Order name: CBC with Diff; Complete Time: 06:28 sp3 03/28 03:37 Order name: CMP; Complete Time: 06:28 sp3 03/28 03:37 Order name: Lipase; Complete Time: 06:28 sp3 03/28 03:37 Order name: UA Rfx Marco A Cult if indicated; Complete Time: 06:28 sp3 03/28 05:54 Order name: Urine Culture EDMS 03/28 03:37 Order name: CT Abd/Pelvis - IV Contrast Only; Complete Time: 06:28 sp3 03/28 03:37 Order name: IV Saline Lock; Complete Time: 03:45 sp3 03/28 03:37 Order name: Labs collected and sent; Complete Time: 03:45 sp3 Administered Medications: 03:56 Drug: Ondansetron IVP 4 mg IVP once; over 2 minutes Route: IVP; Site: right antecubital;lg3 05:17 Follow up: Response: No adverse reaction; Marked relief of symptoms; Nausea is decreasedlg3 03:56 Drug: morphine IVP or IV 4 mg IVP once over 4 mins Route: IVP; Infused Over: 4 mins; lg3 Site: right antecubital; 05:17 Follow up: Response: No adverse reaction; Marked relief of symptoms; Pain is decreased lg3 03:56 Drug: NS 0.9% IV 1000 ml IV at 1 bolus Per protocol; to be given as a bolus over 60 lg3 minutes Route: IV; Rate: 1 bolus; Site: right antecubital; 05:17 Follow up: IV Status: Completed infusion; IV Intake: 1000ml lg3 07:03 Drug: NS 0.9% IV 1000 ml IV at 1000 ml once; to be given as a bolus over 60 minutes lg3 Route: IV; Rate: 1000 ml; Site: right antecubital; 07:37 Follow up: Response: No adverse reaction; IV Status: Completed infusion mb9 07:03 Drug: morphine IVP or IV 4 mg IVP once over 4 mins Route: IVP; Infused Over: 4 mins; lg3 Site: right antecubital; 07:37 Follow up: Response: No adverse reaction mb9 07:04 Drug: Ciprofloxacin IVPB 400 mg 200 ml IVPB once over 60 mins Volume: 200 ml; Route: lg3 IVPB; Infused Over: 60 mins; Site: right antecubital; 07:44 Follow up: Response: No adverse reaction; IV Status: Completed infusion mb9 Disposition Summary: 03/28/25 06:44 Discharge Ordered Notes: Location: Home sp3 Condition: Stable sp3 Diagnosis - Diarrhea, abdominal pain, dehydration sp3 Followup: sp3 - With: Private Physician - When: Upon discharge from the Emergency Department - Reason: Continuance of care Discharge Instructions: - Discharge Summary Sheet sp3 - Diarrhea, Adult sp3 Forms: - Medication Reconciliation Form sp3 - Antibiotic Education sp3 - Prescription Opioid Use sp3 - Patient Portal Instructions sp3 - Leadership Thank You Letter sp3 Prescriptions: - Cipro 500 mg Oral Tablet - take 1 tablet ORAL route every 12 hours for 10 days; 20 tablet; Refills: 0, sp3 Product Selection Permitted - Flagyl 500 mg Oral Tablet - take 1 tablet ORAL route every 8 hours for 10 days; 30 tablet; Refills: 0, sp3 Product Selection Permitted - Tramadol 50 mg Oral Tablet - take 1 tablet ORAL route every 8 hours as needed; 12 tablet; Refills: 0, sp3 Product Selection Permitted - ondansetron 8 mg Oral Tablet,disintegrating - take 1 tablet ORAL route every 12 hours; 20 tablet; Refills: 0, Product sp3 Selection Permitted Signatures: Dispatcher [employer] EDMS Meri Garrido RN RN lg3 Mandie Villafana MD MD sp3 Merry Renae RN mb9 Corrections: (The following items were deleted from the chart) 04:00 03:58 ED course: 74-year-old male with PMH above including diverticulosis now with sp3 LoCort abdominal pain, vomiting and diarrhea. Differential diagnosis broad includes gastroenteritis, foodborne illness, diverticulitis, other bowel obstruction, other abdominal pathology, kidney stone, UTI, among others. I am not highly suspicious of sepsis, shock, vascular pathology including aorta, VT/ACS, PE, or any other signs or symptoms on ROS at this time.. sp3
--- NOTE | 2025-03-28 06:44 | ER ---
Nurse's Notes [facility] Name: Casa Lai Age: 74 yrs Sex: Male : 1950 Arrival Date: 03/28/2025 Time: 03:13 Bed 18 Private MD: Diagnosis: Diarrhea, abdominal pain, dehydration Presentation: 03/28 03:37 Chief complaint: Patient states: N/V/D, generalized abdominal pain X3 days. scope 1 lg3 month ago showed diverticulosis. repeat scope yesterday was cancelled to N/V/D. Coronavirus screen: Client denies travel out of the [place] in the last 14 days. At this time, the client does not indicate any symptoms associated with coronavirus-19. Ebola Screen: No symptoms or risks identified at this time. Initial Sepsis Screen: Does the patient meet any 2 criteria? No. Patient's initial sepsis screen is negative. Does the patient have a suspected source of infection? No. Patient's initial sepsis screen is negative. Risk Assessment: Do you want to hurt yourself or someone else? Patient reports no desire to harm self or others. Onset of symptoms was March 26, 2025. 03:37 Method Of Arrival: Ambulatory lg3 03:37 Acuity: JANNA 3 lg3 Triage Assessment: 03:40 General: Appears in no apparent distress. uncomfortable, Behavior is calm, cooperative. lg3 Pain: Complains of pain in abdomen. EENT: No deficits noted. No signs and/or symptoms were reported regarding the EENT system. Neuro: No deficits noted. Ruiz Agitation-Sedation Scale (RASS): 0 - Alert and Calm Level of Consciousness is awake, alert, obeys commands, Oriented to person, place, time, situation. Cardiovascular: No deficits noted. Denies chest pain, shortness of breath, Capillary refill < 3 seconds Clubbing of nail beds is absent JVD is absent Patient's skin is warm and dry. Respiratory: No deficits noted. Airway is patent Respiratory effort is even, unlabored, Respiratory pattern is regular, symmetrical. GI: Abdomen is round non-distended, obese, Bowel sounds present X 4 quads. Reports lower abdominal pain, upper abdominal pain, diarrhea, nausea, vomiting. : No signs and/or symptoms were reported regarding the genitourinary system. Derm: No deficits noted. No signs and/or symptoms reported regarding the dermatologic system. Skin is intact, is healthy with good turgor, Skin is dry, Skin is normal, Skin temperature is warm. Musculoskeletal: No deficits noted. No signs and/or symptoms reported regarding the musculoskeletal system. Circulation, motion, and sensation intact. Range of motion: intact in all extremities. Historical: - Allergies: 03:40 Phenergan; lg3 - Home Meds: 03:40 Altace Oral [Active]; Crestor oral [Active]; Ambien Oral [Active]; Propranolol Oral lg3 [Active]; - PMHx: 03:40 High Cholesterol; HTN; Kidney stones; diverticulosis (Kidney stones); tremors (Kidney lg3 stones); - PSHx: 03:40 Shoulder - Left; TURP (Shoulder - Left); TURP revision (Shoulder - Left); lg3 - Immunization history:: Adult Immunizations up to date. - Infectious Disease History:: Denies. - Social history:: Smoking status: Patient denies any tobacco usage or history of. Patient/guardian denies using alcohol, street drugs. Screenin:43 [facility] ED Fall Risk Assessment (Adult) History of falling in the last 3 months, lg3 including since admission No falls in past 3 months (0 pts) Confusion or Disorientation No (0 pts) Intoxicated or Sedated No (0 pts) Impaired Gait No (0 pts) Mobility Assist Device Used No (0 pt) Altered Elimination No (0 pt) Score/Fall Risk Level 0 - 2 = Low Risk Oriented to surroundings, Maintained a safe environment, Educated pt \T\ family on fall prevention, incl call for assistance when getting out of bed, Assessed \T\ reinforced patient's understanding of fall precautions. Abuse screen: Denies threats or abuse. Denies injuries from another. Nutritional screening: No deficits noted. Tuberculosis screening: No symptoms or risk factors identified. Assessment: 03:43 General: see triage assessment. GI: Abdomen is round non-distended, Bowel sounds lg3 present X 4 quads. Abd is soft and non tender X 4 quads. Reports lower abdominal pain, upper abdominal pain, diarrhea, nausea, vomiting. 05:16 Reassessment: Patient appears in no apparent distress at this time. No changes from lg3 previously documented assessment. Patient and/or family updated on plan of care and expected duration. Pain level reassessed. Patient is alert, oriented x 3, equal unlabored respirations, skin warm/dry/pink. Patient states feeling better. 07:00 Reassessment: Patient appears in no apparent distress at this time. No changes from lg3 previously documented assessment. Patient and/or family updated on plan of care and expected duration. Pain level reassessed. Patient is alert, oriented x 3, equal unlabored respirations, skin warm/dry/pink. Patient states feeling better. Patient states symptoms have improved. 07:04 General: DC pending ABX completion. lg3 07:45 Reassessment: Patient and/or family updated on plan of care and expected duration. Pain mb9 level reassessed. Patient is alert, oriented x 3, equal unlabored respirations, skin warm/dry/pink. Patient states feeling better. Patient states symptoms have improved. Vital Signs: 03:37 BP 139 / 70; Pulse 68; Resp 16 S; Temp 98(O); Pulse Ox 98% on R/A; Weight 86.18 kg (R); lg3 Height 5 ft. 7 in. (R); Pain 6/10; 05:16 BP 119 / 62; Pulse 67; Resp 16 S; Pulse Ox 96% on R/A; lg3 07:00 BP 124 / 50; Pulse 67; Resp 17 S; Pulse Ox 97% on R/A; Pain 4/10; lg3 07:52 BP 111 / 65; Pulse 65; Resp 16; Pulse Ox 97% on R/A; Pain 0/10; mb9 03:37 Body Mass Index 29.76 (86.18 kg, 170.18 cm) lg3 03:37 Pain Scale: Adult lg3 07:00 Pain Scale: Adult lg3 07:52 Pain Scale: Adult mb9 ED Course: 03:16 Patient arrived in ED. jj6 03:33 Mandie Villafana MD is Attending Physician. sp3 03:37 Meri Garrido, LIZANDRO is Primary Nurse. lg3 03:40 Triage completed. lg3 03:40 Arm band placed on right wrist. lg3 03:43 Patient has correct armband on for positive identification. Placed in gown. Bed in low lg3 position. Call light in reach. Side rails up X 1. Client placed on continuous cardiac and pulse oximetry monitoring. NIBP monitoring applied. Door closed. Noise minimized. Warm blanket given. Pillow given. 03:43 Initial lab(s) drawn, by ED staff, sent to lab. Inserted saline lock: 20 gauge in right lg3 antecubital area, using aseptic technique. Blood collected. Flushed with 10 mL NS. 03:45 CBC with Diff Sent. lg3 03:45 CMP Sent. lg3 03:45 Lipase Sent. lg3 04:47 CT Abd/Pelvis - IV Contrast Only In Process Unspecified. EDMS 07:04 Report received from LIZANDRO Jerez. mb9 07:45 No provider procedures requiring assistance completed. mb9 07:53 IV discontinued, intact, bleeding controlled, No redness/swelling at site. Pressure mb9 dressing applied. Administered Medications: 03:56 Drug: Ondansetron IVP 4 mg IVP once; over 2 minutes Route: IVP; Site: right antecubital;lg3 05:17 Follow up: Response: No adverse reaction; Marked relief of symptoms; Nausea is decreasedlg3 03:56 Drug: morphine IVP or IV 4 mg IVP once over 4 mins Route: IVP; Infused Over: 4 mins; lg3 Site: right antecubital; 05:17 Follow up: Response: No adverse reaction; Marked relief of symptoms; Pain is decreased lg3 03:56 Drug: NS 0.9% IV 1000 ml IV at 1 bolus Per protocol; to be given as a bolus over 60 lg3 minutes Route: IV; Rate: 1 bolus; Site: right antecubital; 05:17 Follow up: IV Status: Completed infusion; IV Intake: 1000ml lg3 07:03 Drug: NS 0.9% IV 1000 ml IV at 1000 ml once; to be given as a bolus over 60 minutes lg3 Route: IV; Rate: 1000 ml; Site: right antecubital; 07:37 Follow up: Response: No adverse reaction; IV Status: Completed infusion mb9 07:03 Drug: morphine IVP or IV 4 mg IVP once over 4 mins Route: IVP; Infused Over: 4 mins; lg3 Site: right antecubital; 07:37 Follow up: Response: No adverse reaction mb9 07:04 Drug: Ciprofloxacin IVPB 400 mg 200 ml IVPB once over 60 mins Volume: 200 ml; Route: lg3 IVPB; Infused Over: 60 mins; Site: right antecubital; 07:44 Follow up: Response: No adverse reaction; IV Status: Completed infusion mb9 Medication: 03:43 VIS not applicable for this client. lg3 Intake: 05:17 IV: 1000ml; Total: 1000ml. lg3 Outcome: 06:44 Discharge ordered by . [email or web address] 07:52 Discharged to home ambulatory, with family, mb9 07:52 Condition: stable 07:52 Discharge instructions given to patient, family, Instructed on discharge instructions, follow up and referral plans. Demonstrated understanding of instructions, follow-up care, medications, Prescriptions given X 4, 07:53 Patient left the ED. mb9 Signatures: Dispatcher [employer] EDMeri Galeana RN RN lg3 Mandie Villafana MD MD sp3 Jeana Li Mary Beth, RN RN mb9
[2025-03-28 08:00] VITALS: TEMP 98
[2025-03-28 08:04] VITALS: O2SAT 97
[2025-03-28 08:06] VITALS: BP 111/65
== END 2025-03-28 07:53 | disposition home or self-care (01) ==
LOC: ER 03:13
DX: R19.7 Diarrhea, unspecified (principal); E86.0 Dehydration; R10.32 Left lower quadrant pain; R11.10 Vomiting, unspecified
CPT/HCPCS: 96365; 96361; 87088; 85025; 81001; 87086; 36415; 87077; 87186; 83690; 80053; 74177; 96375; 99284; Q9967; J2405; J0744; J7030 ×2

== ENCOUNTER 2025-03-29 05:00 | Inpatient (IN) | payer OTHER ==
--- OUTSIDE RECORDS SUMMARY | 2025-03-29 05:02 | XMS REPORT | Clinical Summary ---
Author Name Unknown Organization [facility] Address [address] [place] [address] Care Team Providers Care Junk Removal Specialist Name Role Phone Niko Cowart MD Unavailable [phone] Kaia Murphy MD Primary Care Provider [phone] Blaine Julian MD Unavailable Allergies Active Allergy [...] [facility], [address]th [place] [address] Blaine Julian MD Folliculitis (Primary Dx); Actinic keratosis; Personal history of other malignant neoplasm of skin; Inflamed seborrheic keratosis; Seborrheic keratosis; Melanocytic nevus of trunk 06/18/2024 Travel after 03/29/2024 Surgical History Surgery Date Site/Laterality Comments COLONOSCOPY 11/26/2008 - 11/25/2009 Medical History Medical History Date Comments Hypertension 2010 Hyperlipidemia 2005 Hearing loss 2014 Functional visual loss 2000 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 shoe dust; asbestos gaskets as a machine compositor/boilermake Dependence on continuous pos itive airway pressure [...] Follow-[facility] [address] [place] [address], [address] [place], [place] [id number] Blaine Julian MD [facility] [place] [address] [email or web address] Health Maintenance Due Date Last Done Comments Pneumococcal Vaccine: 50+ Years (1 of - PCV) 002 COVID-19 Vaccine ( season) 2024 Influenza Vaccine (Season Ended) 2025 Insurance [employer] MEDICARE PPO [employer] MED[employer]ARE PPO Care Teams Junk Removal Specialist Relationship Specialty Start Date End Date Niko Cowart MD [address] [place] [id number] [email or web address] PCP - External Referring Family Practice 04/09/19 Kaia Murphy MD [facility] [place] [address] [email or web address] PCP - General Dermatology 04/24/19 Blaine Julian MD [address] [place] [address] [email or web address] Consulting Physician Dermatology 09/08/19
[2025-03-29] MEDS ORDERED: ONDANSETRON 4 MG/2 ML VIAL ONE ×2 (05:37→09:32)
[2025-03-29] MEDS ORDERED: DICYCLOMINE HCL 20 MG/2 ML AMP IM ONE (05:38)
[2025-03-29] MEDS ORDERED: MORPHINE 4 MG/ML SYR ONE ×2 (05:38→06:37)
[2025-03-29] MEDS ORDERED: NA CHLORIDE 0.9% 1,000 ML ONE ×2 (05:38→07:27)
[2025-03-29 06:03] LABS: Absolute Eosinophils 0.1 K/uL (0-0.5); Absolute Lymphocytes (CBC) 0.9 K/uL (0.7-4.9); Absolute Monocytes 0.6 K/uL (0.1-1.3); Absolute Neutrophil 3.4 K/uL (1.8-8.0); Basophils % 0.1 % (0-1.3); Eosinophils % 1.1 % (0-4.4); Hematocrit 46.1 % (39.6-49.0); Hemoglobin 15.5 g/dL (13.6-17.9); Lymphocytes % 18.1 % (15.3-44.8); MCHC 33.6 g/dL (32.0-36.0); MCV 89.2 fL (80-100); MPV 7.9 fL (7.6-11.3); Monocytes % 11.9 % (3.3-12.3); Neutrophils % 68.8 % (41.7-73.7); Nucleated Red Blood Cells % 0.1 % (0-0); Platelets 224 thou/uL (152-406); RBC Red Blood Cell Count 5.17 M/uL (4.33-5.43); Red Cell Distribution Width 13.8 % (12.1-15.2)
[2025-03-29 06:28] LABS: ALT/SGPT 19 U/L (16-61); Albumin 3.5 g/dL (3.4-5.0); Alkaline Phosphatase 67 U/L (45-117); Anion Gap 8.6 mEq/L (5.0-15.0); BUN Blood Urea Nitrogen 25 mg/dL (7-18); Bicarbonate 26 mEq/L (21-32); Globulin 3.4 g/dL (2.3-3.5); Glomerular Filtration Rate 49 ml/min (=/>90); Glucose Level 111 mg/dL (74-106); Lipase 93 U/L (13-75); Magnesium 1.8 mg/dL (1.6-2.4); Potassium 3.6 mEq/L (3.5-5.1); Protein, Total 6.9 g/dL (6.4-8.2); Sodium Level 140 mEq/L (136-145)
[2025-03-29 06:42] LABS: AST/SGOT < 10 U/L (15-37)
[2025-03-29] MEDS ORDERED: CIPROFLOXACIN 400mg IV 400 MG/200 ML BAG IV ONE (07:27)
[2025-03-29] MEDS ORDERED: METRONIDAZOLE 500mg IVPB 500 MG/100 ML BAG IV ONE (07:27)
[2025-03-29] MEDS ORDERED: FAMOTIDINE 20 MG/2 ML VIAL IV ONE (07:27)
--- NOTE | 2025-03-29 07:29 | EDPHYS ---
Physician Documentation [facility] Name: Casa Lai Age: 74 yrs Sex: Male : 1950 Arrival Date: 03/29/2025 Time: 05:00 Bed 8 Private MD: ED Physician Jose Carlos HPI: 03/29 06:32 This 74 yrs old Male presents to ER via Ambulatory with complaints of Abdominal Pain. rt 06:32 Patient was seen in the ED yesterday for abdominal pain, nausea, vomiting, diarrhea, rt subsequently sent home on pain medicines, antibiotics. States that he was doing well until last night when he had return of the nausea, vomiting, diarrhea as well as abdominal pain, states that he has been able to keep down any of his medications. Denies other acute complaints at this time, symptoms are moderate in severity, no other aggravating or alleviating factors.. Historical: - Allergies: 05:12 Phenergan; ha1 - Home Meds: 05:12 Crestor oral [Active]; Propranolol Oral [Active]; ha1 - PMHx: 05:12 diverticulosis (Unknown); High Cholesterol; HTN; Kidney stones; tremors (Unknown); ha1 - PSHx: 05:12 Shoulder - Left; TURP (er); TURP revision (er); ha1 - Immunization history:: Adult Immunizations up to date. - Infectious Disease History:: Denies. - Social history:: Smoking status: Patient denies any tobacco usage or history of. - Family history:: not pertinent. ROS: 06:32 Constitutional: Negative for fever, chills, and weight loss, Cardiovascular: Negative rt for chest pain, palpitations, and edema, Respiratory: Negative for shortness of breath, cough, wheezing, and pleuritic chest pain, MS/Extremity: Negative for injury and deformity, Skin: Negative for injury, rash, and discoloration, Neuro: Negative for headache, weakness, numbness, tingling, and seizure, 06:32 Abdomen/GI: Positive for abdominal pain, nausea, vomiting, and diarrhea, Exam: 06:32 Constitutional: This is a well developed, well nourished patient who is awake, alert, rt and in no acute distress. Head/Face: Normocephalic, atraumatic. Chest/axilla: Normal chest wall appearance and motion. Nontender with no deformity. No lesions are appreciated. Cardiovascular: Regular rate and rhythm with a normal S1 and S2. No gallops, murmurs, or rubs. Normal PMI, no JVD. No pulse deficits. Respiratory: Lungs have equal breath sounds bilaterally, clear to auscultation and percussion. No rales, rhonchi or wheezes noted. No increased work of breathing, no retractions or nasal flaring. Skin: Warm, dry with normal turgor. Normal color with no rashes, no lesions, and no evidence of cellulitis. MS/ Extremity: Pulses equal, no cyanosis. Neurovascular intact. Full, normal range of motion. Neuro: Awake and alert, GCS 15, oriented to person, place, time, and situation. Cranial nerves II-XII grossly intact. Motor strength 5/5 in all extremities. Sensory grossly intact. Cerebellar exam normal. Normal gait. 06:32 Abdomen/GI: Mild tenderness diffusely without rebound, guarding, distention, 07:53 ECG was reviewed by the Attending Physician. [facility] Vital Signs: 05:04 BP 163 / 86; Pulse 72; Resp 18 S; Temp 98.2(O); Pulse Ox 96% on R/A; Weight 86.18 kg; ha1 Height 5 ft. 7 in. ; Pain 8/10; 06:00 BP 163 / 86; Pulse 71; Resp 18; Pulse Ox 93% ; vc1 08:00 BP 142 / 63; Pulse 69; Resp 16; Pulse Ox 95% on R/A; mb9 10:00 BP 138 / 68; Pulse 67; Resp 15; Pulse Ox 98% on R/A; cm10 05:04 Body Mass Index 29.76 (86.18 kg, 170.18 cm) ha1 05:04 Pain Scale: Adult ha1 MDM: 05:17 Medical Screening Exam initiated rt 07:51 Differential Diagnosis sepsis. Data reviewed: vital signs, nurses notes, lab test [facility] result(s), EKG, radiologic studies, CT scan. Consideration of Admission/Observation Patient was admitted/placed on observation. Escalation of care including admission/observation considered. I considered the following discharge prescriptions or medication management in the emergency department Medications were administered in the Emergency Department. See MAR. Independent interpretation of the following test(s) in the Emergency Department CT Scan: My interpretation is ct from 03/28. Test considered but Not performed: MRI: no abd usg. Care significantly affected by the following chronic conditions: Hypertension, Chronic Kidney Disease, high chlesterol, kidney stones, diverticulosis. 03/29 05:27 Order name: CBC with Diff; Complete Time: 07:08 rt 03/29 05:27 Order name: CMP; Complete Time: 07:08 rt 03/29 05:27 Order name: Lipase; Complete Time: 07:08 rt 03/29 05:27 Order name: Magnesium; Complete Time: 07:08 rt 03/29 07:24 Order name: Troponin High Sensitivity; Complete Time: 10:53 ang 03/29 08:11 Order name: C.difficile GDH Ag EDMS 03/29 08:11 Order name: Fecal Leukocyte Stain; Complete Time: 10:53 EDMS 03/29 08:11 Order name: Ova and Parasites EDMS 03/29 08:11 Order name: Stool Culture EDMS 03/29 08:32 Order name: C.difficile GDH Ag ; Complete Time: 10:53 EDMS 03/29 08:32 Order name: Stool Culture EDMS 03/29 08:32 Order name: Ova and Parasites EDMS 03/29 08:34 Order name: Basic Metabolic Panel EDMS 03/29 08:34 Order name: Basic Metabolic Panel EDMS 03/29 08:34 Order name: Basic Metabolic Panel EDMS / 08:34 Order name: Basic Metabolic Panel EDMS 03/29 08:34 Order name: Basic Metabolic Panel EDMS 03/29 08:34 Order name: CBC with Automated Diff EDMS / 08:34 Order name: CBC with Automated Diff EDMS 05/ 08:34 Order name: CBC with Automated Diff EDMS / 08:34 Order name: CBC with Automated Diff EDMS / 08:34 Order name: CBC with Automated Diff EDMS 05/ 08:34 Order name: Magnesium EDMS 05/04 08:34 Order name: Magnesium EDMS 05/04 08:34 Order name: Magnesium EDMS 05/04 08:34 Order name: Magnesium EDMS 05/04 08:34 Order name: Magnesium EDMS 05/ 08:34 Order name: Phosphorus EDMS 05/ 08:34 Order name: Phosphorus EDMS 05/ 08:34 Order name: Phosphorus EDMS 05/04 08:34 Order name: Phosphorus EDMS 03/29 08:34 Order name: Phosphorus EDMS 03/29 08:34 Order name: T4 Free EDMS 03/29 08:34 Order name: T4 Free EDMS 03/29 08:34 Order name: Thyroid Stimulating Hormone EDMS 03/29 08:34 Order name: Thyroid Stimulating Hormone EDMS 03/29 08:35 Order name: Renal Ultrasound-Complete; Complete Time: 10:53 EDMS 03/29 07:24 Order name: EKG; Complete Time: 07:24 ang 03/29 05:27 Order name: IV Saline Lock; Complete Time: 06:00 rt 03/29 05:27 Order name: Labs collected and sent; Complete Time: 06:00 rt 03/29 07:24 Order name: EKG - Nurse/Tech; Complete Time: 07:46 ang EC:53 Rate is 65 beats/min. Rhythm is regular. QRS [place] is Normal. NC interval is normal. QRS ang interval is normal. QT interval is normal. No Q waves. T waves are Normal. Clinical impression: NSR w/ Non-specific ST/T Changes and No evidence of ischemia. Interpreted by me. Reviewed by me. Administered Medications: 05:50 Drug: Dicyclomine IM 20 mg IM once Route: IM; Site: right ventrogluteal; ha1 06:10 Follow up: Response: No adverse reaction; Marked relief of symptoms ha1 05:55 Drug: Ondansetron IVP 4 mg IVP once; over 2 minutes Route: IVP; Site: left antecubital; ha1 06:27 Follow up: Response: No adverse reaction; Marked relief of symptoms ha1 05:57 Drug: morphine IVP or IV 4 mg IVP once over 4 mins Route: IVP; Infused Over: 4 mins; ha1 Site: left antecubital; 06:25 Follow up: Response: No adverse reaction; Marked relief of symptoms; Pain is decreased; ha1 RASS: Alert and Calm (0) 06:00 Drug: NS 0.9% IV 1000 ml IV at 1 bolus Per protocol; to be given as a bolus over 60 ha1 minutes Route: IV; Rate: 1 bolus; Site: left antecubital; 08:37 Follow up: Response: No adverse reaction; IV Status: Completed infusion mb9 06:40 Drug: morphine IVP or IV 4 mg IVP once over 4 mins Route: IVP; Infused Over: 4 mins; br2 Site: left antecubital; 08:36 Follow up: Response: No adverse reaction mb9 07:35 Drug: Famotidine IVP 20 mg IVP once; dilute with 10 mL 0.9% NaCl; give over 2 minutes mb9 Route: IVP; Site: left antecubital; 08:18 Follow up: Response: No adverse reaction mb9 07:46 Drug: NS 0.9% IV 1000 ml IV at 1000 ml once; to be given as a bolus over 60 minutes mb9 Route: IV; Rate: 1000 ml; Site: left antecubital; 08:37 Follow up: Response: No adverse reaction; IV Status: Completed infusion mb9 07:46 Drug: metroNIDAZOLE IVPB 500 mg 100 ml IVPB at 200 ml/hr once over 30 mins Volume: 100 mb9 ml; Route: IVPB; Rate: 200 ml/hr; Infused Over: 30 mins; Site: left antecubital; 08:18 Follow up: Response: No adverse reaction; IV Status: Completed infusion mb9 08:18 Drug: Ciprofloxacin IVPB 400 mg 200 ml IVPB once over 60 mins Volume: 200 ml; Route: mb9 IVPB; Infused Over: 60 mins; Site: left antecubital; 10:58 Follow up: Response: No adverse reaction; IV Status: Completed infusion; IV Intake: cm10 200ml Disposition Summary: 03/29/25 07:29 Hospitalization Ordered Notes: Hospitalization Status: Inpatient Admission ang Provider: Eliot Caldwell [facility] Condition: Fair ang Problem: new ang Symptoms: have improved ang Bed/Room Type: Standard ang Room Assignment: 414(03/29/25 10:14) em1 Diagnosis - Abdominal pain, Generalized ang - Vomiting ang - Noninfective gastroenteritis and colitis, unspecified ang - Other viral enteritis ang Forms: - Medication Reconciliation Form ang - SBAR form ang - Leadership Thank You Letter ang Signatures: Dispatcher [employer] Jose Dickey MD MD cha Martinez, Eric em1 Wil Cisneros, APPRENTICE INSTRUMENT TECHNICIAN-C APPRENTICE INSTRUMENT TECHNICIAN-Cla1 Stephanie Pineda RN RN ha1 Merry Renae RN RN mb9 Fidel Loo MD MD rt Riddle, Belinda, RN RN br2 Taylor Fraser RN cm10 Corrections: (The following items were deleted from the chart) 07:29 [facility]
--- NOTE | 2025-03-29 07:29 | ER ---
Nurse's Notes [facility] Name: Casa Lai Age: 74 yrs Sex: Male : 1950 Arrival Date: 03/29/2025 Time: 05:00 Bed 8 Private MD: Diagnosis: Abdominal pain, Generalized;Vomiting;Noninfective gastroenteritis and colitis, unspecified;Other viral enteritis Presentation: 03/29 05:04 Chief complaint: Patient states: DIARRHEA, NAUSEA, VOMITING, AND ABDOMINAL PAIN SINCE ha1 SUNDAY. 05:04 Coronavirus screen: Client denies travel out of the [place] in the last 14 days. Ebola ha1 Screen: No symptoms or risks identified at this time. Initial Sepsis Screen: Does the patient meet any 2 criteria? No. Patient's initial sepsis screen is negative. Does the patient have a suspected source of infection? No. Patient's initial sepsis screen is negative. Risk Assessment: Do you want to hurt yourself or someone else? Patient reports no desire to harm self or others. Onset of symptoms was March 29, 2025. 05:04 Method Of Arrival: Ambulatory ha1 05:04 Acuity: JANNA 3 ha1 Triage Assessment: 05:12 General: Appears uncomfortable, Behavior is cooperative. Pain: Complains of pain in ha1 abdomen Pain currently is 8 out of 10 on a pain scale. Quality of pain is described as crampy, throbbing. Neuro: Level of Consciousness is awake, alert, obeys commands, Oriented to person, place, time, situation. Cardiovascular: Capillary refill < 3 seconds Patient's skin is warm and dry. Respiratory: Airway is patent Respiratory effort is even, unlabored, Respiratory pattern is regular, symmetrical. GI: Abdomen is round distended, obese, Bowel sounds present X 4 quads. Reports lower abdominal pain, upper abdominal pain, cramping, diarrhea, nausea, vomiting. : No signs and/or symptoms were reported regarding the genitourinary system. Derm: Skin is pink, warm \T\ dry. Musculoskeletal: Circulation, motion, and sensation intact. Range of motion: intact in all extremities. Historical: - Allergies: 05:12 Phenergan; ha1 - Home Meds: 05:12 Crestor oral [Active]; Propranolol Oral [Active]; ha1 - PMHx: 05:12 diverticulosis (Unknown); High Cholesterol; HTN; Kidney stones; tremors (Unknown); ha1 - PSHx: 05:12 Shoulder - Left; TURP (er); TURP revision (er); ha1 - Immunization history:: Adult Immunizations up to date. - Infectious Disease History:: Denies. - Social history:: Smoking status: Patient denies any tobacco usage or history of. - Family history:: not pertinent. Screenin:15 [facility] ED Fall Risk Assessment (Adult) History of falling in the last 3 months, ha1 including since admission No falls in past 3 months (0 pts) Confusion or Disorientation No (0 pts) Intoxicated or Sedated No (0 pts) Impaired Gait No (0 pts) Mobility Assist Device Used No (0 pt) Altered Elimination No (0 pt) Score/Fall Risk Level 3 or more points = High Risk Oriented to surroundings, Maintained a safe environment, Educated pt \T\ family on fall prevention, incl call for assistance when getting out of bed, Hourly rounding (assess needs \T\ fall precautionary measures) done. Abuse screen: Denies threats or abuse. Denies injuries from another. Nutritional screening: No deficits noted. Tuberculosis screening: No symptoms or risk factors identified. Assessment: 05:04 Reassessment: SEE TRIAGE ASSESSMENT. ha1 06:01 Reassessment: Patient appears in no apparent distress at this time. No changes from vc1 previously documented assessment. Patient and/or family updated on plan of care and expected duration. Pain level reassessed. Patient is alert, oriented x 3, equal unlabored respirations, skin warm/dry/pink. 06:26 Reassessment: Patient and/or family updated on plan of care and expected duration. Pain ha1 level reassessed. Patient is alert, oriented x 3, equal unlabored respirations, skin warm/dry/pink. PAIN 4/10 Patient states feeling better. Patient states symptoms have improved. 07:20 General: Appears uncomfortable, Behavior is cooperative. Pain: Complains of pain in mb9 abdomen. Neuro: Ruiz Agitation-Sedation Scale (RASS): 0 - Alert and Calm Level of Consciousness is awake, alert, obeys commands, Oriented to person, place, time, situation, Appropriate for age. Cardiovascular: Patient's skin is warm and dry. Respiratory: Airway is patent Respiratory effort is even, unlabored, Respiratory pattern is regular, symmetrical. GI: Abd is soft Abdomen is tender to palpation X 4 quads. Reports lower abdominal pain, upper abdominal pain, diarrhea. : No signs and/or symptoms were reported regarding the genitourinary system. Vital Signs: 05:04 BP 163 / 86; Pulse 72; Resp 18 S; Temp 98.2(O); Pulse Ox 96% on R/A; Weight 86.18 kg; ha1 Height 5 ft. 7 in. ; Pain 8/10; 06:00 BP 163 / 86; Pulse 71; Resp 18; Pulse Ox 93% ; vc1 08:00 BP 142 / 63; Pulse 69; Resp 16; Pulse Ox 95% on R/A; mb9 10:00 BP 138 / 68; Pulse 67; Resp 15; Pulse Ox 98% on R/A; cm10 05:04 Body Mass Index 29.76 (86.18 kg, 170.18 cm) ha1 05:04 Pain Scale: Adult ha1 ED Course: 05:00 Patient arrived in ED. [email or web address] 05:01 Fidel Loo MD is Attending Physician. rt 05:04 Patient has correct armband on for positive identification. Placed in gown. Bed in low ha1 position. Call light in reach. Side rails up X 1. Adult w/ patient. 05:04 Provided Education on: PLAN OF CARE . ha1 05:04 Arm band placed on right wrist. vc1 05:10 Stephanie Pineda, RN is Primary Nurse. ha1 05:12 Triage completed. ha1 05:50 Inserted saline lock: 20 gauge in left antecubital area, using aseptic technique. Blood ha1 collected. Flushed with 10 mL NS. 06:00 CBC with Diff Sent. ha1 06:00 CMP Sent. ha1 06:00 Lipase Sent. ha1 07:08 Attending Physician role handed off by Fidel Loo MD ang 07:08 Jose Carols MD is Attending Physician. ang 07:25 Eliot Caldwell is Hospitalizing Provider. ang 07:46 Troponin High Sensitivity Sent. [facility] 07:46 Initial lab(s) drawn, by ED staff, sent to lab. EKG done, by ED staff, reviewed by tami Carlos MD. 07:47 No provider procedures requiring assistance completed. Patient admitted, IV remains in mb9 place. 08:36 Ova and Parasites Sent. mb9 08:36 Stool Culture Sent. mb9 08:36 C.difficile GDH Ag Sent. mb9 08:36 Fecal Leukocyte Stain Sent. mb9 Administered Medications: 05:50 Drug: Dicyclomine IM 20 mg IM once Route: IM; Site: right ventrogluteal; ha1 06:10 Follow up: Response: No adverse reaction; Marked relief of symptoms ha1 05:55 Drug: Ondansetron IVP 4 mg IVP once; over 2 minutes Route: IVP; Site: left antecubital; ha1 06:27 Follow up: Response: No adverse reaction; Marked relief of symptoms ha1 05:57 Drug: morphine IVP or IV 4 mg IVP once over 4 mins Route: IVP; Infused Over: 4 mins; ha1 Site: left antecubital; 06:25 Follow up: Response: No adverse reaction; Marked relief of symptoms; Pain is decreased; ha1 RASS: Alert and Calm (0) 06:00 Drug: NS 0.9% IV 1000 ml IV at 1 bolus Per protocol; to be given as a bolus over 60 ha1 minutes Route: IV; Rate: 1 bolus; Site: left antecubital; 08:37 Follow up: Response: No adverse reaction; IV Status: Completed infusion mb9 06:40 Drug: morphine IVP or IV 4 mg IVP once over 4 mins Route: IVP; Infused Over: 4 mins; br2 Site: left antecubital; 08:36 Follow up: Response: No adverse reaction mb9 07:35 Drug: Famotidine IVP 20 mg IVP once; dilute with 10 mL 0.9% NaCl; give over 2 minutes mb9 Route: IVP; Site: left antecubital; 08:18 Follow up: Response: No adverse reaction mb9 07:46 Drug: NS 0.9% IV 1000 ml IV at 1000 ml once; to be given as a bolus over 60 minutes mb9 Route: IV; Rate: 1000 ml; Site: left antecubital; 08:37 Follow up: Response: No adverse reaction; IV Status: Completed infusion mb9 07:46 Drug: metroNIDAZOLE IVPB 500 mg 100 ml IVPB at 200 ml/hr once over 30 mins Volume: 100 mb9 ml; Route: IVPB; Rate: 200 ml/hr; Infused Over: 30 mins; Site: left antecubital; 08:18 Follow up: Response: No adverse reaction; IV Status: Completed infusion mb9 08:18 Drug: Ciprofloxacin IVPB 400 mg 200 ml IVPB once over 60 mins Volume: 200 ml; Route: mb9 IVPB; Infused Over: 60 mins; Site: left antecubital; 10:58 Follow up: Response: No adverse reaction; IV Status: Completed infusion; IV Intake: cm10 200ml Medication: 05:16 VIS not applicable for this client. ha1 Intake: 10:58 IV: 200ml; Total: 200ml. cm10 Outcome: 07:29 Decision to Hospitalize by Provider. ang 10:57 Admitted to Tele accompanied by nurse, via wheelchair, room 414, 10 10:57 Condition: stable 10:57 Instructed on the need for admit, 10:58 Patient left the ED. cm10 Addendum: 03/31/2025 11:46 Addendum: Culture Results: faxed culture report to 4th floor. b d Signatures: Litzy Maria Corey, MD MD cha Jeffries, Jennifer [email or web address] Karla Newton RN RN vc1 Stephanie Pineda RN RN ha1 Merry Renae RN RN mb9 Fidel Loo MD MD rt Martinez, Clarissa, RN RN cm10 Mkaenna Escalona RN RN br2 Corrections: (The following items were deleted from the chart) 03/29 08:00 07:20 Pulse 69bpm; Resp 16bpm; Pulse Ox 95% RA; mb9 mb9
[2025-03-29] MEDS: CIPROFLOXACIN 400mg IV 400 MG/200 ML BAG IV SCH (08:18)
[2025-03-29] MEDS ORDERED: ACETAMINOPHEN 325 MG TABLET PO PRN (08:29)
[2025-03-29] MEDS: ONDANSETRON 4 MG/2 ML VIAL IV PRN (08:43)
[2025-03-29] MEDS: ENOXAPARIN 40 MG/0.4 ML SQ SCH (09:00)
[2025-03-29] MEDS ORDERED: MORPHINE 2 MG/ML SYR ONE (09:41)
--- NOTE | 2025-03-29 09:43 | RAD REPORT ---
EXAMINATION: US RENAL ULTRASOUND CLINICAL INDICATION: renal cysts, elevated CR TECHNIQUE: Real-time ultrasonography of the abdomen was performed. COMPARISON: 03/28/2025 CT study FINDINGS: RIGHT KIDNEY: Right renal length measurement: 10.4 x 6.2 x 5.9 cm. Normal in echogenicity and size. N o calculus, solid mass or hydronephrosis. LEFT KIDNEY: Left renal length measurement: 12.1 x 5.9 x 5.4 cm. Normal in echogenicity and size. No calculus, solid mass or hydronephrosis. Several varying size cysts are present involving the cortex. URINARY BLADDER: Incompletely distended without gross abnormality detected. ADDITIONAL FINDINGS: None. IMPRESSION: Benign-appearing left renal cysts of varying size. Otherwise, negative study.
[2025-03-29] MEDS: MORPHINE 2 MG/ML SYR IV PRN (09:47)
[2025-03-29 09:53] LABS: C.diff Antigen/Toxin Ag neg : Tox neg (NEG : NEG); CDIFF INTERNAL NEG CONTROL White Background (WHITE BKGD); STOOL CONSISTENCY Liquid/Semi-Solid
--- NOTE | 2025-03-29 10:20 | P.HP ---
Certification for Inpatient Patient admitted to: Inpatient With expected LOS: >2 Midnights Patient will require the following post-hospital care: None Practitioner: I am a practitioner with admitting privileges, knowledge of patient current condition, hospital course, and medical plan of care. Services: Services provided to patient in accordance with Admission requirements found in Title 42 Section 412.3 of the Code of Federal Regulations Patient History Date of Service: 03/29/25 Reason for admission: Enterocolitis History of Present Illness: 74-year-old male with history of hypertension, hyperlipidemia, BPH status post TURP, previous C. difficile infection, diverticulosis presents to the emergency department with chief complaint of abdominal pain, nausea vomiting diarrhea. He reports that his symptoms began on 03/26, he was seen in the emergency department yesterday and had a CT of his abdomen pelvis which showed no acute findings in the abdomen or pelvis, nonspecific small bowel and colonic fluid present which could represent a mild enterocolitis or malabsorptive process. At that time his labs were unremarkable, he was hydrated and given pain medicine and feeling better. He was discharged at that time but his symptoms have progressed and continued if that reason came back to the ER. Labs were rechecked today and show a normal white blood cell count, normal hemoglobin, creatinine 1.51 GFR 49. C. difficile antigen and toxin performed now and negative. Given ongoing symptoms patient will be admitted for further evaluation and management. Allergies promethazine [From Phenergan] Allergy (Verified 04/30/24 04:32) Nausea/Vomiting Home Medications: Propranolol HCl [Propranolol HCl ER] 10 mg PO BID 04/30/24 Ramipril [Altace] 10 mg PO DAILY 04/30/24 Rosuvastatin [Crestor*] 1 tab PO DAILY 04/30/24 Zolpidem Tartrate [Ambien] 5 mg PO BEDTIME 04/30/24 Vancomycin HCl 125 mg PO QID 10 Days #40 cap 05/01/24 - Past Medical/Surgical History -: Hypertension -: Hyperlipidemia -: Kidney stones -: BPH -: History of C. difficile -: Left shoulder surgery -: Ureteral reconstruction/TURP Psychosocial/ Personal History: Lives at home with family - Social History Alcohol use: No CD- Drugs: No Caffeine use: No Place of Residence: Home Review of Systems 10-point ROS is otherwise unremarkable Gastrointestinal: Nausea, Vomiting, Abdominal Pain, Diarrhea Physical Examination - Vital Signs Respirations: 18 Pulse Ox (%): 97 - Physical Exam General: Alert, In no apparent distress, Oriented x3 HEENT: Atraumatic, PERRLA Neck: Supple, 2+ carotid pulse no bruit, No LAD, Without JVD or thyroid abnormality Respiratory: Clear to auscultation bilaterally, Normal air movement Cardiovascular: Regular rate/rhythm, Normal S1 S2 Gastrointestinal: Normal bowel sounds, Tenderness (Mild generalized abdominal tenderness) Musculoskeletal: No tenderness Integumentary: No rashes Neurological: Normal speech, Normal strength at 5/5 x4 extr - Studies Laboratory Data (last 24 hrs) 03/29/25 03/29/25 05:50 05:50 WBC 5.00 Hgb 15.5 Hct 46.1 Plt Count 224 Sodium 140 Potassium 3.6 BUN 25 H Creatinine 1.51 H Glucose 111 H Magnesium 1.8 Total Bilirubin 1.0 AST < 10 L ALT 19 Alkaline Phosphatase 67 Lipase 93 H Microbiology Data (last 24 hrs): 03/29/25 08:16 Stool Fecal Leukocyte Stain - Final Assessment and Plan - Plan Assessment: Enterocolitis N/V/D Hypertension Hyperlipidemia History of renal cysts Plan: Enterocolitis N/V/D C. difficile negative Had C. difficile infection around 11 months ago and was treated with oral vancomycin Continue empiric antibiotics with Cipro/Flagyl Clear liquid diet advance as tolerated Monitor CBC Reports had colonoscopy 1 month ago with precancerous polyp removed No other findings reported by family on colonoscopy Was due for EGD but unable to perform due to symptoms Hypertension Hyperlipidemia Continue home indications when verified History of renal cysts Elevation in creatinine today Continue IV fluids Obtain renal ultrasound, history of renal cysts DVT PPX: Lovenox Code status: Full Discharge Plan: Home Plan to discharge in: Greater than 2 days - Advance Directives Does patient have a Living Will: No Does patient have a Durable POA for Healthcare: No - Code Status/Comfort Care Code Status Assessed: Yes (Full code) Critical Care: No Time Spent Managing Pts Care (In Minutes): 67
[2025-03-29] MEDS: HYDROCODONE/APAP 5/325 MG TAB PO PRN (13:20)
[2025-03-29] MEDS: NA CHLORIDE 0.9% 1,000 ML IV SCH (13:23)
[2025-03-29 13:26] VITALS: BMI 29.7
[2025-03-29] MEDS: PNEUMOCOCCAL VACCINE 0.5 ML IMVAC ONE (14:00)
[2025-03-29] MEDS: METRONIDAZOLE 500mg IVPB 500 MG/100 ML BAG IV SCH (16:29)
[2025-03-29] MEDS: MAGNESIUM SULFATE 1 gm IVPB 1 GM/100 ML BAG IV ONE (20:29)
[2025-03-29] MEDS: POTASSIUM 25 MEQ EFFERV TAB PO ONE (20:36)
[2025-03-30 04:35] LABS: Absolute Eosinophils 0.1 K/uL (0-0.5); Absolute Lymphocytes (CBC) 1.4 K/uL (0.7-4.9); Absolute Monocytes 0.7 K/uL (0.1-1.3); Absolute Neutrophil 4.2 K/uL (1.8-8.0); Basophils % 0.1 % (0-1.3); Eosinophils % 2.2 % (0-4.4); Hemoglobin 12.4 g/dL (13.6-17.9); Lymphocytes % 21.3 % (15.3-44.8); MCH 30.7 pg (27.0-35.0); MCHC 34.4 g/dL (32.0-36.0); MCV 89.4 fL (80-100); MPV 7.7 fL (7.6-11.3); Neutrophils % 65.4 % (41.7-73.7); Platelets 187 thou/uL (152-406); RBC Red Blood Cell Count 4.03 M/uL (4.33-5.43)
[2025-03-30 05:00] LABS: Magnesium 1.7 mg/dL (1.6-2.4); Phosphorus 2.1 mg/dL (2.5-4.9); Thyroid Stimulating Hormone 1.88 uIU/mL (0.358-3.740)
[2025-03-30] MEDS: MAGNESIUM SULFATE 1 gm IVPB 1 GM/100 ML BAG IV ONE (06:14)
[2025-03-30] MEDS: POTASS/SODIUM PHOSPHATE 1 PKT POWD.PACK PO SCH (06:18)
--- NOTE | 2025-03-30 09:10 | P.PN ---
Date of Service: 03/30/25 Subjective: No acute events overnight had 3 bowel movements overnight Consistency is improving/more soft than liquid Still having some abdominal discomfort but improved ROS: 10 point ROS as noted above, otherwise negative Physical exam GEN: Alert, oriented, NAD HEENT: Normal conjunctiva, sclera anicteric CV: Regular rate and rhythm, no edema Pulm: Nonlabored respirations on room air ABD: Soft, mild generalized abdominal tenderness, nondistended MSK: No joint tenderness Integumentary: No rashes Neuro: Normal speech, normal affect Vitals reviewed Assessment: Enterocolitis N/V/D Hypertension Hyperlipidemia History of renal cysts Plan: Enterocolitis N/V/D C. difficile negative Had C. difficile infection around 11 months ago and was treated with oral vancomycin Continue empiric antibiotics with Cipro/Flagyl Adv diet to soft as tolerated Monitor CBC Reports had colonoscopy 1 month ago with precancerous polyp removed No other findings reported by family on colonoscopy Was due for EGD but unable to perform due to symptoms Plan for outpatient follow-up with GI if symptoms improve Possible discharge tomorrow if doing well Hypertension Hyperlipidemia Continue home indications when verified History of renal cysts Creatinine improved Continue IV fluids Obtain renal ultrasound shows multiple small cystslikely benign DVT PPX: Lovenox Code status: Full Discharge Plan: Home Plan to discharge in: Greater than 2 days Time Spent Managing Pts Care (In Minutes): 35
--- NOTE | 2025-03-30 12:07 | EKG ---
Test Date: 2025-03-29 Test Time: 07:42:31 Ergonomist: AM MEASUREMENT RESULTS: Intervals: Rate: 65 AK: 154 QRSD: 90 QT: 432 QTc: 449 [place]: P: 56 AK: 154 QRS: 6 T: 66 INTERPRETIVE STATEMENTS: Normal sinus rhythm Cannot rule out Anterior infarct, age undetermined Abnormal ECG Compared to ECG 07/15/2023 10:10:43 Myocardial infarct finding now present Electronically Signed On 03-30-25 12:05:22 CDT by Panchito Wayne
[2025-03-31 04:52] LABS: Absolute Eosinophils 0.2 K/uL (0-0.5); Absolute Lymphocytes (CBC) 1.5 K/uL (0.7-4.9); Absolute Monocytes 0.4 K/uL (0.1-1.3); Absolute Neutrophil 3.3 K/uL (1.8-8.0); Basophils % 0.1 % (0-1.3); Eosinophils % 3.3 % (0-4.4); Hematocrit 35.4 % (39.6-49.0); Hemoglobin 12.5 g/dL (13.6-17.9); Lymphocytes % 28.3 % (15.3-44.8); MCHC 35.4 g/dL (32.0-36.0); MCV 87.7 fL (80-100); MPV 7.7 fL (7.6-11.3); Monocytes % 6.7 % (3.3-12.3); Neutrophils % 61.6 % (41.7-73.7); Nucleated Red Blood Cells % 0.1 % (0-0); Platelets 170 thou/uL (152-406); RBC Red Blood Cell Count 4.04 M/uL (4.33-5.43); Red Cell Distribution Width 13.8 % (12.1-15.2)
[2025-03-31 04:57] LABS: Anion Gap 8.4 mEq/L (5.0-15.0); Magnesium 1.8 mg/dL (1.6-2.4); Phosphorus 3.1 mg/dL (2.5-4.9); Potassium 3.4 mEq/L (3.5-5.1)
[2025-03-31] MEDS: MAGNESIUM SULFATE 1 gm IVPB 1 GM/100 ML BAG IV ONE (07:59)
[2025-03-31] MEDS: POTASSIUM 25 MEQ EFFERV TAB PO ONE (08:00)
--- NOTE | 2025-03-31 16:58 | P.PN ---
Date of Service: 03/31/25 Subjective: Reports tolerating soft GI food, but has trouble swallowing Speech and soft tissue neck ordered ROS: 10 point ROS as noted above, otherwise negative Physical exam GEN: AAO x3 NAD HEENT: Normal conjunctiva, sclera anicteric CV: Regular rate and rhythm, no edema Pulm: Nonlabored respirations, symmetrical chest wall movement, on room air ABD: Soft on palpation, tenderness improved MSK: No joint tenderness Integumentary: No rashes Neuro: Normal speech, normal affect Vitals reviewed Assessment: Enterocolitis N/V/D Hypertension Hyperlipidemia History of renal cysts Plan: Enterocolitis N/V/D C. difficile negative Had C. difficile infection around 11 months ago and was treated with oral vancomycin Continue empiric antibiotics with Cipro/Flagyl Able to swallow soft food but reports epigastric area of restriction needing to force the food down Reports had colonoscopy 1 month ago with precancerous polyp removed No other findings reported by family on colonoscopy Was due for EGD but unable to perform due to symptoms Plan for outpatient follow-up with GI if symptoms improve Possible discharge tomorrow if doing well Hypertension Hyperlipidemia Continue home indications when verified History of renal cysts Creatinine improved Continue IV fluids Obtain renal ultrasound shows multiple small cystslikely benign DVT PPX: Lovenox Code status: Full Discharge Plan: Home Plan to discharge in: Greater than 2 days
--- NOTE | 2025-03-31 22:15 | RAD REPORT ---
EXAM: CT Soft Tissue Neck Wo Contr INDICATION: [facility] trouble swallowing TECHNIQUE: Helical CT examination of the neck without IV contrast. Sagittal and coronal reformations were generated. This exam was performed according to our departmental dose-optimization program, which includes automated exposure control, adjustment of the mA and/or kV according to patient size a nd/or use of iterative reconstruction technique. COMPARISON: None. FINDINGS: Noncontrast technique limits evaluation especially for mucosal surface and vascular abnormalities. Mucosal spaces: Nasopharynx, oropharynx, oral cavity, larynx and hypopharynx are normal. No suspiciou s masses. Epiglottis is normal in configuration. True vocal cords cords are normally situated. Piriform sinuses are well-aerated. Lymph Nodes: No pathologic appearing cervical lymph nodes. Salivary Glands: Unremarkable. Thyroid Gland: Normal Included Intracranial Structures: Normal Included Orbits: Normal Paranasal Sinuses: Predominantly clear Tympanomastoid Cavities: Normal Vascular Structures: Moderately dense atherosclerotic plaque formation at the carotid bulbs, with mil d asymmetric medialization of the right proximal ICA in the right retropharyngeal space. Osseous Structures: No acute osseous abnormality. Mild to moderate degenerative changes with bridgin g osteophytes. Included Lung Apices: Normal IMPRESSION: No suspicious masses or adenopathy within limits of noncontrast evaluation. Incidental findings as above..
[2025-04-01 04:30] LABS: Absolute Eosinophils 0.2 K/uL (0-0.5); Absolute Lymphocytes (CBC) 1.7 K/uL (0.7-4.9); Absolute Monocytes 0.4 K/uL (0.1-1.3); Basophils % 0.3 % (0-1.3); Eosinophils % 3.8 % (0-4.4); Hematocrit 35.3 % (39.6-49.0); Hemoglobin 12.3 g/dL (13.6-17.9); Lymphocytes % 31.5 % (15.3-44.8); MCH 30.6 pg (27.0-35.0); MCHC 34.9 g/dL (32.0-36.0); MCV 87.8 fL (80-100); MPV 7.8 fL (7.6-11.3); Monocytes % 8.2 % (3.3-12.3); Neutrophils % 56.2 % (41.7-73.7); Nucleated Red Blood Cells % 0.3 % (0-0); Platelets 170 thou/uL (152-406); RBC Red Blood Cell Count 4.02 M/uL (4.33-5.43); Red Cell Distribution Width 13.6 % (12.1-15.2)
[2025-04-01 04:47] LABS: Anion Gap 8.5 mEq/L (5.0-15.0); Magnesium 1.7 mg/dL (1.6-2.4); Phosphorus 2.7 mg/dL (2.5-4.9); Potassium 3.5 mEq/L (3.5-5.1)
[2025-04-01 05:09] LABS: Band Neutrophils 8 % (0-1); Differential Total Cells Count 100; Eosinophils 1 % (0-3); Lymphocytes 30 % (15-42); Monocytes 6 % (0-10); Reactive Lymphocytes 7 %; Segmented Neutrophils 48 % (40-80)
[2025-04-01 05:10] LABS: Blood Morphology Comment NOT SEEN (NOT SEEN); Platelet Estimate ADEQ
[2025-04-01 07:14] VITALS: O2SAT 97
[2025-04-01] MEDS: MAGNESIUM SULFATE 1 gm IVPB 1 GM/100 ML BAG IV ONE (08:12)
[2025-04-01] MEDS: POTASSIUM CL SA 10 MEQ TAB PO ONE (08:13)
[2025-04-01 12:39] VITALS: BP 154/78; TEMP 97.8
--- NOTE | 2025-04-01 15:44 | P.DS ---
Admission Date: 03/29/25 Discharge Date: 04/01/25 Disposition: ROUTINE DISCHARGE Discharge Condition: GOOD Reason for Admission: Enterocolitis Brief History of Present Illness: Diagnosis Enterocolitis Esophageal dysphagia N/V/D Hypertension Hyperlipidemia History of renal cysts [facility] 03/29/2025 74-year-old male with history of hypertension, hyperlipidemia, BPH status post TURP, previous C. difficile infection, diverticulosis presents to the emergency department with chief complaint of abdominal pain, nausea vomiting diarrhea. He reports that his symptoms began on 03/26, he was seen in the emergency department yesterday and had a CT of his abdomen pelvis which showed no acute findings in the abdomen or pelvis, nonspecific small bowel and colonic fluid present which could represent a mild enterocolitis or malabsorptive process. At that time his labs were unremarkable, he was hydrated and given pain medicine and feeling better. He was discharged at that time but his symptoms have progressed and continued if that reason came back to the ER. Labs were rechecked today and show a normal white blood cell count, normal hemoglobin, creatinine 1.51 GFR 49. C. difficile antigen and toxin performed now and negative. Given ongoing symptoms patient will be admitted for further evaluation and management. Hospital Course: Enterocolitis Esophageal dysphagia N/V/D Patient was seen by speech therapy who recommended barium swallow for assessment of esophagus function Barium swallow reports "Small sliding hiatal hernia. Moderately prominent tertiary nonpropulsive contractions seen along the mid to distal esophagus. Moderate Schatzki B ring. Clinical significance of these findings is uncertain." C. difficile negative, Had C. difficile infection around 11 months ago and was treated with oral vancomycin Continue empiric antibiotics with Cipro/Flagyl outpatient Patient reports that he is able to swallow soft food but reports epigastric area of restriction needing to force the food down. Patient reports he had a colonoscopy 1 month ago with precancerous polyp removed, No other findings reported by family on colonoscopy Plan for outpatient follow-up with GI if symptoms improve Hypertension Hyperlipidemia Continued home indications when verified History of renal cysts Creatinine improved with gentle IV fluid Obtain renal ultrasound shows multiple small cystslikely benign, will follow-up outpatient Physical exam GEN: Oriented x3 NAD HEENT: Normal conjunctiva, sclera anicteric CV: RRR, S1-S2 present, no edema Pulm: Nonlabored respirations, clear BBS, on room air ABD: Soft on palpation, tenderness improved MSK: No joint tenderness Integumentary: No rashes Neuro: Normal speech, normal affect Vital Signs/Physical Exam: Temp Pulse Resp BP Pulse Ox 97.8 F 61 18 154/78 H 97 04/01/25 12:00 04/01/25 12:00 04/01/25 12:00 04/01/25 12:00 04/01/25 12:00 Laboratory Data at Discharge: WBC 5.40 thou/uL (4.3-10.9) 04/01/25 03:59 Hgb 12.3 g/dL (13.6-17.9) L 04/01/25 03:59 Hct 35.3 % (39.6-49.0) L 04/01/25 03:59 Plt Count 170 thou/uL (152-406) 04/01/25 03:59 Sodium 143 mEq/L (136-145) 04/01/25 03:59 Potassium 3.5 mEq/L (3.5-5.1) 04/01/25 03:59 BUN 8 mg/dL (7-18) 04/01/25 03:59 Creatinine 1.13 mg/dL (0.70-1.30) 04/01/25 03:59 Glucose 109 mg/dL (74-106) H 04/01/25 03:59 Phosphorus 2.7 mg/dL (2.5-4.9) 04/01/25 03:59 Magnesium 1.7 mg/dL (1.6-2.4) 04/01/25 03:59 Total Bilirubin 1.0 mg/dL (0.2-1.0) 03/29/25 05:50 AST < 10 U/L (15-37) L 03/29/25 05:50 ALT 19 U/L (16-61) 03/29/25 05:50 Alkaline Phosphatase 67 U/L (45-117) 03/29/25 05:50 Lipase 93 U/L (13-75) H 03/29/25 05:50 Home Medications: Propranolol HCl [Propranolol HCl ER] 20 mg PO BID 04/30/24 Ramipril [Altace] 10 mg PO DAILY 04/30/24 Rosuvastatin [Crestor*] 1 tab PO DAILY 04/30/24 Zolpidem Tartrate [Ambien] 5 mg PO BEDTIME 04/30/24 Ciprofloxacin HCl [Cipro 500 MG Tablet] 500 mg PO BID 5 Days #10 tab 04/01/25 metroNIDAZOLE [Flagyl] 500 mg PO Q8H 5 Days #15 tab 04/01/25 New Medications: Ciprofloxacin HCl [Cipro 500 MG Tablet] 500 mg PO BID 5 Days #10 tab metroNIDAZOLE [Flagyl] 500 mg PO Q8H 5 Days #15 tab Physician Discharge Instructions: 1. Please call and schedule a follow-up appointment with your PCP in 3-5 days - Please follow-up with your PCP for medication refills/adjustments 2. Please call and schedule a follow-up appointment with Dr. Browne in 1 week 3. Continue soft GI diet, aspiration precaution, choose foods that are easy to swallow, follow-up with Dr. Browne for further recommendations 4. No activity restrictions 5. Return to the ED if symptoms worsen New medications Ciprofloxacin 500 mg twice daily x 5 days Flagyl 500 mg 3 times daily x 5 days Diet: soft GI Activity: Ad nancy Followup: Niko Cowart MD [Primary Care Provider] - 1-2 Weeks (Call for appointment.) Juve Browne MD [ACTIVE - CAN ADMIT] - 1 Week (Call for appointment.)
--- NOTE | 2025-04-02 12:32 | RAD REPORT ---
EXAM: Esophagram Only HISTORY: [facility] MA[facility] difficulty swallowing regular barrium swallow COMPARISON: None EXPOSURE: 00:54 minutes; skin dose: 159.45 mGy FINDINGS: A double contrast barium swallow/esophagram was performed. Effervescent granules were administered. Esophageal motility is within normal limits, although moderately prominent tertiary nonpropulsive con tractions are seen along the mid to distal esophagus especially in the ESQUIVEL view. Moderately prominent Schatzki B ring seen in the ESQUIVEL view. No other suspicious mucosal lesions are se en in the esophagus. No extrinsic compression on the esophagus is seen. Small sliding hiatal hernia. No gastroesophageal reflux. IMPRESSION: Small sliding hiatal hernia. Moderately prominent tertiary nonpropulsive contractions seen along the mid to distal esophagus. Mode rate Schatzki B ring. Clinical significance of these findings is uncertain.
== END 2025-04-01 16:30 | disposition home or self-care (01) | DRG 392 ==
LOC: ER 05:00 → ERHOLD 08:28 → 4TH 10:51
PROVIDERS: ADMIT Internal Medicine; ATTEND Hospitalist
DX: A08.4 Viral intestinal infection, unspecified (principal); E78.00 Pure hypercholesterolemia, unspecified; N40.0 Benign prostatic hyperplasia without lower urinary tract symptoms; I12.9 Hypertensive chronic kidney disease with stage 1 through stage 4 chronic kidney disease, or unspecified chronic kidney disease; N18.9 Chronic kidney disease, unspecified; Z88.8 Allergy status to other drugs, medicaments and biological substances; Z79.899 Other long term (current) drug therapy
CPT/HCPCS: 36415; 70490; 74177; 74220; 76770; 80048; 80053; 81001; 83690; 83735; 84100; 84439; 84443; 84484; 85025; 87045; 87046; 87077; 87086; 87088; 87177; 87186; 87209; 87324; 89055; 92610; 93005; 96361; 96365; 96366; 96367; 96372; 96375; 99284; 99285; J0500; J0744; J1650; J2270; J2405; J3475; J7030; Q9967